=== PATIENT | male | born 1965 | race American Indian/Alaskan Native ===

== ENCOUNTER 2021-10-22 15:32 | Inpatient (IN) | payer OTHER ==
[2021-10-22] MEDS ORDERED: PROMETHAZINE 25 MG RECT SUPP PR PRN (16:19)
[2021-10-22] MEDS ORDERED: ALBUTEROL 2.5 MG/3 ML NEBU IH PRN (16:19)
[2021-10-22] MEDS ORDERED: MAGNESIUM HYDROXIDE (MOM) ORAL LIQD UDC PO PRN (16:19)
[2021-10-22] MEDS ORDERED: ONDANSETRON 4 MG/2 ML INJ IV PRN (16:19)
[2021-10-22] MEDS ORDERED: HYDROmorphone 0.5 MG/0.5 ML INJ IV PRN (16:19)
[2021-10-22] MEDS ORDERED: METOCLOPRAMIDE 10 MG TAB PO PRN (16:19)
--- NOTE | 2021-10-22 16:24 | History and Physical Report ---
History of Present Illness Chief complaint: He had a stroke History of present illness: 55 YO Male with HTN, DM, CVA complicated by Dysphagia, Dysarthria, Left Hemiparesis, Debility was admitted to [facility] in [facility] on 06/22/21. The patient was transported to [facility] today via air ambulance for continued treatment of the aforementioned symptoms. The patient was seen and evaluated in the emergency department. All lab and imaging studies reviewed. The patient was found to have clinical symptoms consistent with CVA but the patient was deemed outside the therapeutic window for tPA. The patient was admitted to [facility] and initiated on CVA protocol. The patient is nonverbal and has a palliative performance score of 30% and requires 6/6 assistance with activities of daily living. The patient is unable to provide history. Patient family is at bedside during exam and interview and is able to provide history. No reports of fever, chills, chest pain, palpitation, productive cough, skin rash, recent contact, known exposure to COVID-19. No prior admission for review. All medication listed at time of admission has been reconciled. Advanced care planning conducted in ED. Past History Past Medical History: diabetes, hypertension, stroke, other (See HPI) Past Surgical History: Other (PEG tube placement) Social history: single. denies: smoking, alcohol abuse, prescription drug abuse Family history: diabetes, hypertension Medications and Allergies Active Meds: Active Medications Acetaminophen (Acetaminophen 325 Mg Tab) 650 mg PO Q4H PRN PRN Reason: Pain, Mild (1-3) Albuterol (Albuterol 2.5 Mg/3 Ml Nebu) 2.5 mg IH Q3HRT PRN PRN Reason: Shortness Of Breath Aspirin (Aspirin 325 Mg Tab) 325 mg PO QDAY NEO Atorvastatin Calcium (Atorvastatin 40 Mg Tab) 40 mg PO QHS NEO Bisacodyl (Bisacodyl 10 Mg Rect Supp) 10 mg AR QDAY PRN PRN Reason: Constipation Hydromorphone HCl (Hydromorphone 0.5 Mg/0.5 Ml Inj) 0.5 mg IV Q13H PRN PRN Reason: Pain , Severe (7-10) Magnesium Hydroxide (Magnesium Hydroxide (Mom) Oral Liqd Udc) 30 ml PO Q4H PRN PRN Reason: Constipation Metoclopramide HCl (Metoclopramide 10 Mg Tab) 10 mg PO Q6H PRN PRN Reason: Nausea And Vomiting Ondansetron HCl (Ondansetron 4 Mg/2 Ml Inj) 4 mg IV Q8H PRN PRN Reason: Nausea And Vomiting Oxycodone/Acetaminophen (Oxycodone /Acetaminophen 5-325mg Tab) 1 tab PO Q12H PRN PRN Reason: Pain, Moderate (4-6) Promethazine HCl (Promethazine 25 Mg Rect Supp) 25 mg AR Q6H PRN PRN Reason: Nausea And Vomiting Sodium Chloride (Sodium Chloride 0.9% 10 Ml Flush Syringe) 10 ml INJ PRN PRN PRN Reason: LINE FLUSH Review of Systems ROS unobtainable: due to mental status Exam - Constitutional General appearance: Present: mild distress - EENT Eyes: Present: PERRL ENT: hearing intact, clear oral mucosa - Neck Neck: Present: supple, normal ROM - Respiratory Respiratory effort: normal Respiratory: bilateral: diminished - Cardiovascular Heart Sounds: Present: S1 & S2. Absent: rub, click - Extremities Extremity abnormal: ulceration Peripheral Pulses: within normal limits - Abdominal General gastrointestinal: Present: soft, non-tender, non-distended, normal bowel sounds, other (PEG tube in place) Male genitourinary: Present: normal - Integumentary Integumentary: Present: clear, dry - Musculoskeletal Musculoskeletal: left sided weakness - Psychiatric Psychiatric: no intact judgment & insight, no memory intact, no cooperative - Neurologic Neurologic: no CNII-XII intact, focal deficits, no moves all extremities, no gait normal Results - Labs CBC & Chem 7: 10/22/21 16:00 10/22/21 16:00 Assessment and Plan - Patient Problems (1) CVA (cerebral vascular accident) Current Visit: Yes Status: Acute Qualifiers: Precerebral and cerebral artery: middle cerebral artery Laterality of affected vessel: right Plan to address problem: CVA protocol: CT head, neuro check, seizure precaution aspiration precaution, fall precautions, antiplatelet therapy, lipid panel, statin therapy, echocardiogram, carotid Doppler, physical therapy consulted, Occupational Therapy consulted, speech therapy consulted. (2) Hemiparesis, left Current Visit: Yes Status: Acute Plan to address problem: Physical therapy consulted, continue supportive care. (3) Hypertension Current Visit: Yes Status: Acute Qualifiers: Hypertension type: primary hypertension Qualified Code(s): I10 - Essential (primary) hypertension Plan to address problem: Monitor blood pressure every shift, continue medical management. (4) Diabetes Current Visit: Yes Status: Acute Plan to address problem: Consistent carbohydrate diet, Accu-Chek, insulin protocol, hypoglycemia protocol (5) Dysarthria as late effect of stroke Current Visit: Yes Status: Acute Plan to address problem: Speech therapy consulted. Supportive care, (6) Dysphagia as late effect of stroke Current Visit: Yes Status: Acute Plan to address problem: Speech therapy consulted, dietary consulted for tube feeding recommendations. (7) Debility Current Visit: Yes Status: Acute Plan to address problem: Physical therapy consulted, fall precautions. (8) DVT prophylaxis Current Visit: Yes Status: Acute Plan to address problem: SCD to bilateral lower extremities while in bed, prophylactic anticoagulation (9) Advance care planning Current Visit: Yes Status: Acute Plan to address problem: Disease education done, care plan discussed, diagnoses discussed, prognosis discussed, patient is full code, patient family acknowledged understanding and agreement with care plan, +30 minutes. (10) Preventative health care Current Visit: Yes Status: Acute Plan to address problem: Patient family counseled regarding risk factor reduction, need for outpatient follow-up with primary care physician for all age and risk factor appropriate screening test. +30 minutes.
[2021-10-22 16:29] LABS: Alanine Aminotransferase 28 units/L (7-56); Albumin 4.3 g/dL (3.9-5); Blood Urea Nitrogen 10 mg/dL (9-20); Hemolysis Index 18
[2021-10-22 16:47] LABS: BUN/Creatinine Ratio 17
[2021-10-22 16:56] LABS: Basophils % (Auto) 0.4 % (0.0-1.8); Eosinophils # (Auto) 0.1 K/mm3 (0.0-0.4); Eosinophils % (Auto) 1.3 % (0.0-4.3); Hematocrit 40.5 % (35.5-45.6); Hemoglobin 13.4 gm/dl (11.8-15.2); Lymphocytes # (Auto) 2.4 K/mm3 (1.2-5.4); Lymphocytes % (Auto) 29.6 % (13.4-35.0); Mean Corpuscular HGB Conc 33 % (32-34); Mean Corpuscular Volume 83 fl (84-94); Monocytes % (Auto) 11.8 % (0.0-7.3); Platelet Count 252 K/mm3 (140-440); Red Blood Count 4.89 M/mm3 (3.65-5.03); Red Cell Distribution Width 14.1 % (13.2-15.2)
[2021-10-22 17:07] LABS: INR 1.04 (0.87-1.13)
[2021-10-22 17:08] LABS: Partial Thromboplastin Time 28.1 Sec. (24.2-36.6)
--- NOTE | 2021-10-22 17:16 | Vascular Lab Report ---
"DUPLEX DOPPLER ULTRASOUND CAROTID, BILATERAL INDICATION / CLINICAL INFORMATION: stroke. COMPARISON: None available. FINDINGS: RIGHT CAROTID: - PLAQUE ESTIMATE (%): < 50% - CCA velocity: 90 cm/sec. - ICA peak systolic velocity: 77 cm/sec. - ICA/CCA PSV Ratio: 0.85 Right Vertebral Artery: Antegrade flow. LEFT CAROTID: - PLAQUE ESTIMATE: < 50% - CCA velocity: 93 cm/sec. - ICA peak systolic velocity: 96 cm/sec. - ICA/CCA PSV Ratio: 1.04 Left Vertebral Artery: Antegrade flow. IMPRESSION: 1. Right Internal Carotid Artery: Less than 50% diameter stenosis. 2. Left Internal Carotid Artery: Less than 50% diameter stenosis. Velocity criteria are extrapolated from diameter data as defined by the Society of Radiologists in [facility] Consensus Conference, Radiology 2003; 229;340-346. Degree of || ICA PSV || Plaque || ICA/CCA Stenosis (%) || (cm/sec) || estimate (%) || PSV Ratio Normal ............. || ...<125........... || ...None......... || ...<2.0 <50................... || ...<125........... || ......<50......... || ...<2.0 50-69................ || ..125-230...... || ......>50......... || 2.0-4.0 >70 but <100... || >230.............. || .......>50........ || ...>4.0 Near occlusion || High/low/none || ...visible....... || variable Total occlusion || ....None........... || ..no lumen... || ....N/A Signer Name: Zac Peng MD Signed: 10/22/2021 5:11 PM Workstation Name: [facility]"
[2021-10-22] MEDS ORDERED: DEXTROSE 50% IN WATER (25GM) 50 ML SYRINGE IV PRN (17:23)
--- NOTE | 2021-10-22 18:03 | Emergency Department Report ---
ED Neuro Deficit HPI - General Chief Complaint: Weakness Stated Complaint: STROKE LIKE SX Time Seen by Provider: 10/22/21 15:36 Source: EMS Mode of arrival: Stretcher Limitations: No Limitations, Other (Mental status, patient is minimally verbal per brother's report) - History of Present Illness Initial Comments: 55-year-old male with multiple medical comorbidities flown in from [facility] for evaluation of stroke. Per chart review, patient sustained a stroke with left- sided hemiparesis approximately 4 months ago. Patient's brother states that the patient has not improved since his stroke and he requested the patient be transported to the [facility] for further management. During the patient's hospitalization in [facility], he underwent placement of a Agrawal catheter as well as a G-tube. Patient's brother states that he has not regained full motor function neither cognitive function as a result of his stroke. Patient unable to provide information with respect to pain scale - Related Data Allergies/Adverse Reactions: Allergies Allergy/AdvReac Type Severity Reaction Status Date / Time No Known Allergies Allergy Unverified 10/22/21 17:35 ED Review of Systems ROS: Stated complaint: STROKE LIKE SX Other details as noted in HPI Comment: All other systems reviewed and negative Constitutional: no symptoms reported Eyes: as per HPI ENT: as per HPI Respiratory: no symptoms reported Cardiovascular: as per HPI Endocrine: no symptoms reported Gastrointestinal: denies: abdominal pain, nausea, vomiting, diarrhea, constipation, hematemesis, melena Musculoskeletal: denies: as per HPI, joint swelling, myalgia, other Skin: denies: as per HPI, change in color Neurological: headache, weakness, other (LUE weakness x 3-4 months ). denies: as per HPI Psychiatric: denies: anxiety, depression, auditory hallucinations, visual hallucinations, homicidal thoughts, suicidal thoughts Hematological/Lymphatic: denies: easy bleeding, easy bruising, swollen glands ED Past Medical Hx - Past Medical History Previous Medical History?: Yes Hx Hypertension: Yes Hx CVA: Yes - Family History Family history: no significant - Social History Smoking Status: Never Smoker ED Neuro Physical Exam - General Limitations: No Limitations, Physical Limitation General appearance: other Suspected Stroke: Yes - Head Head exam: Present: atraumatic, normocephalic, normal inspection - Eye Eye exam: Present: normal appearance, PERRL, EOMI - ENT ENT exam: Present: normal exam, normal orophraynx, mucous membranes moist, louis l external ear exam - Neck Neck exam: Present: full ROM. Absent: tenderness, meningismus, lymphadenopathy, thyromegaly, other - Respiratory Respiratory exam: Present: normal lung sounds bilaterally - Cardiovascular Cardiovascular Exam: Present: regular rate, normal rhythm, normal heart sounds. Absent: bradycardia, tachycardia, irregular rhythm, systolic murmur, diastolic murmur, rubs, gallop - GI/Abdominal GI/Abdominal exam: Present: soft, normal bowel sounds, other (G-tube in place, G-tube site does not demonstrate evidence of erythema warmth or drainage suggestive of secondary infection). Absent: distended, tenderness, guarding, re bound, rigid, diminished bowel sounds - External exam: Present: other (Patient has contracture of left upper extremity left lower extremity, intermittent movements of right upper extremity right lower extremity) - Extremities Exam Extremities exam: Present: normal inspection - Back Exam Back exam: Present: normal inspection, full ROM - Neurological Exam Neurological exam: Present: CN II-XII intact, other - NIHSS Assessment Interval: Baseline 1a. Level of Consciousness: arousable/minor stimuli 1b. LOC Questions: aphasic 1c. LOC Commands: performs no tasks correctly 2. Best Gaze: normal 3. Visual: no visual loss 4. Facial Palsy: normal symmetrical movement 5b. Motor Arm Right: some gravity effort 5a. Motor Arm Left: no movement 6a. Motor Leg Left: no movement 6b. Motor Leg Right: some gravity effort 7. Limb Ataxia: present 2 limbs 8. Sensory: mild/moderate sensory loss 9. Best Language: mild/moderate aphasia 10. Dysarthria: severe dysarthria 11. Extinction/Inattention: visual/tactile inattention Total Score: 24 Stroke Severity: Severe Stroke - Psychiatric Psychiatric exam: Present: normal affect - Skin Skin exam: Present: warm, dry, intact ED Course Vital Signs 10/22/21 17:38 Temperature 98.9 F Pulse Rate 94 H Respiratory 18 Rate Blood Pressure 131/77 Blood Pressure 139/85 [Right] O2 Sat by Pulse 98 Oximetry - Lab Data Result diagrams: 10/22/21 16:00 10/22/21 16:00 Lab Results 10/22/21 10/22/21 10/22/21 Range/Units 16:00 16:00 16:00 WBC 8.3 (4.5-11.0) K/mm3 RBC 4.89 (3.65-5.03) M/mm3 Hgb 13.4 (11.8-15.2) gm/dl Hct 40.5 (35.5-45.6) % MCV 83 L (84-94) fl MCH 27 L (28-32) pg MCHC 33 (32-34) % RDW 14.1 (13.2-15.2) % Plt Count 252 (140-440) K/mm3 Lymph % (Auto) 29.6 (13.4-35.0) % Vigo % (Auto) 11.8 H (0.0-7.3) % Eos % (Auto) 1.3 (0.0-4.3) % Baso % (Auto) 0.4 (0.0-1.8) % Lymph # (Auto) 2.4 (1.2-5.4) K/mm3 Vigo # (Auto) 1.0 H (0.0-0.8) K/mm3 Eos # (Auto) 0.1 (0.0-0.4) K/mm3 Baso # (Auto) 0.0 (0.0-0.1) K/mm3 Seg Neutrophils % 56.9 (40.0-70.0) % Seg Neutrophils # 4.7 (1.8-7.7) K/mm3 PT 14.8 (12.2-14.9) Sec. INR 1.04 (0.87-1.13) APTT 28.1 (24.2-36.6) Sec. Sodium 138 (137-145) mmol/L Potassium 4.2 (3.6-5.0) mmol/L Chloride 99.0 (98-107) mmol/L Carbon Dioxide 25 (22-30) mmol/L Anion Gap 18 mmol/L BUN 10 (9-20) mg/dL Creatinine 0.6 L (0.8-1.3) mg/dL Estimated GFR > 60 ml/min BUN/Creatinine Ratio 17 % Glucose 175 H (75-100) mg/dL Calcium 10.0 (8.4-10.2) mg/dL Total Bilirubin 0.50 (0.1-1.2) mg/dL AST 24 (5-40) units/L ALT 28 (7-56) units/L Alkaline Phosphatase 102 (35-129) units/L Total Protein 6.9 (6.3-8.2) g/dL Albumin 4.3 (3.9-5) g/dL Albumin/Globulin Ratio 1.7 % - EKG Data EKG shows normal: sinus rhythm When compared to previous EKG there are: previous EKG unavailable Interpretation: no acute changes - Radiology Data Radiology results: report reviewed - Medical Decision Making 55-year-old male with multiple medical comorbidities presents for evaluation of weakness in the setting of chronic stroke. Vital signs stable. Labs reviewed. Diagnostic imaging results reviewed. Patient has been accepted by Dr. Knott, admitting hospitalist, to the hospital service for further management. Critical care attestation.: If time is entered above; I have spent that time in minutes in the direct care of this critically ill patient, excluding procedure time. ED Disposition Clinical Impression: CVA (cerebral vascular accident) Qualifiers: Precerebral and cerebral artery: middle cerebral artery Laterality of affected vessel: right Disposition: 09 ADMITTED INPATIENT Is pt being admited?: Yes Does the pt Need Aspirin: No Condition: Stable
--- NOTE | 2021-10-22 19:13 | Cat Scan Report ---
CT head/brain wo con INDICATION / CLINICAL INFORMATION: 55 years Male; R sided hemiparesis, CVA 4 months ago; p/w weaknes. TECHNIQUE: Routine CT head without contrast. All CT scans at this location are performed using CT dos e reduction for ALARA by means of automated exposure control. COMPARISON: None. FINDINGS: BRAIN / INTRACRANIAL CONTENTS: Old, moderately sized MCA infarct seen on the right, involving the inf erior frontoparietal regions, gangliocapsular regions, and right temporal lobe. Atrophic dilatation o f the right lateral ventricle is noted.] It would be difficult to evaluate for small areas of ilya-in farct ischemia without diffusion imaging by MRI. Prominent lacunar infarct is seen in the left anterior andrea, which certainly could affect the left co rticospinal tract. Smaller, scattered lacunar infarcts suggested in the andrea as well. Old, moderately sized right PICA territory infarct is seen. Otherwise, no acute hemorrhage, mass effect, midline shift, hydrocephalus, or acute, large territori al infarct. Mild cerebral and cerebellar atrophy, largely related to prior infarcts. There are [id number] areas of decreased attenuation in the white matter of the cerebral hemisph eres. These are nonspecific findings and may be related to microangiopathy (hypertension, diabetes, a therosclerosis), given the patient's age. It might be difficult to evaluate for small areas of ischem ia without diffusion imaging by MRI. As noted above, pontine disease is suspected. CRANIOCERVICAL JUNCTION: No significant abnormality. ORBITS: No significant abnormality of visualized orbits. SINUSES / MASTOIDS: Mild to moderate mucosal thickening in the ethmoids. ADDITIONAL FINDINGS: Poor dentition noted. Atherosclerotic disease is seen in the anterior and posterior circulation. There may be subcutaneous soft tissue swelling in the upper lip region, leftward of midline. Please c linically correlate. IMPRESSION: 1. No focal mass, hemorrhage, hydrocephalus, or acute, large territorial infarct. Follow-up with diff usion imaging by MRI, as clinically warranted. Signer Name: Jericho Schultz MD, III Signed: 10/22/2021 7:09 PM Workstation Name: [email or web address]
[2021-10-22] MEDS: HEPARIN 5,000 UNIT/1 ML VIAL SUB-Q SCH (22:50)
[2021-10-22] MEDS: ACETAMINOPHEN 325 MG TAB PO PRN (22:50)
[2021-10-22] MEDS: INSULIN LISPRO 100 UNIT/ML SUB-Q SCH (22:50)
--- NOTE | 2021-10-22 22:59 | Consultation ---
History of Present Illness Consult date: 10/22/21 Requesting physician: RITA LIANG Reason for consult: other (Dyspnea) History of present illness: PCCM CONSULT NOTE (Full dictation # [id number]) Please see dictated notes for full details Past History Past Medical History: diabetes, hypertension, stroke, other (See HPI) Past Surgical History: Other (PEG tube placement) Social history: single. denies: smoking, alcohol abuse, prescription drug abuse Family history: diabetes, hypertension Medications and Allergies Allergies Allergy/AdvReac Type Severity Reaction Status Date / Time No Known Allergies Allergy Unverified 10/22/21 17:35 Home Medications Medication Instructions Recorded Confirmed Last Taken Type Atorvastatin [Lipitor Tab] 80 mg PO QPM 10/23/21 10/23/21 Unknown History Enoxaparin [Lovenox] 40 mg SQ QDAY 10/23/21 10/23/21 Unknown History FLUoxetine [PROzac] 10 mg PO QDAY 10/23/21 10/23/21 Unknown History Indapamide 5 mg PO QDAY 10/23/21 10/23/21 Unknown History Insulin Glargine [Lantus VIAL] 44 units SUB-Q QPM 10/23/21 10/23/21 Unknown History Insulin Regular, Human [Novolin R] 1 units IJ TID 10/23/21 10/23/21 Unknown History Pantoprazole Sodium 20 mg PO QPM 10/23/21 10/23/21 Unknown History Sodium Phosphate,Bradley-Dibasic 133 ml RC Q72HR 10/23/21 10/23/21 Unknown History [Enema Ready To Use] bisoproloL fumarate [Bisoprolol 5 mg PO QAM 10/23/21 10/23/21 Unknown History Fumarate] levETIRAcetam [Spritam] 250 mg PO BID 10/23/21 10/23/21 Unknown History Active Meds: Active Medications Acetaminophen (Acetaminophen 325 Mg Tab) 650 mg PO Q4H PRN PRN Reason: Pain, Mild (1-3) Last Admin: 10/22/21 22:50 Dose: 650 mg Albuterol (Albuterol 2.5 Mg/3 Ml Nebu) 2.5 mg IH Q3HRT PRN PRN Reason: Shortness Of Breath Aspirin (Aspirin 325 Mg Tab) 325 mg PO QDAY [facility] Atorvastatin Calcium (Atorvastatin 40 Mg Tab) 40 mg PO QHS [facility] Last Admin: 10/22/21 22:50 Dose: 40 mg Bisacodyl (Bisacodyl 10 Mg Rect Supp) 10 mg SD QDAY PRN PRN Reason: Constipation Dextrose (Dextrose 50% In Water (25gm) 50 Ml Syringe) 50 ml IV Q30MIN PRN; P rotocol PRN Reason: Hypoglycemia Heparin Sodium (Porcine) (Heparin 5,000 Unit/1 Ml Vial) 5,000 unit SUB-Q Q12HR [facility] Last Admin: 10/22/21 22:50 Dose: 5,000 unit Hydromorphone HCl (Hydromorphone 0.5 Mg/0.5 Ml Inj) 0.5 mg IV Q13H PRN PRN Reason: Pain , Severe (7-10) Insulin Human Lispro (Insulin Lispro 100 Unit/Ml) 0 unit SUB-Q ACHS [facility]; Protocol Last Admin: 10/22/21 22:50 Dose: Not Given Magnesium Hydroxide (Magnesium Hydroxide (Mom) Oral Liqd Udc) 30 ml PO Q4H PRN PRN Reason: Constipation Metoclopramide HCl (Metoclopramide 10 Mg Tab) 10 mg PO Q6H PRN PRN Reason: Nausea And Vomiting Ondansetron HCl (Ondansetron 4 Mg/2 Ml Inj) 4 mg IV Q8H PRN PRN Reason: Nausea And Vomiting Oxycodone/Acetaminophen (Oxycodone /Acetaminophen 5-325mg Tab) 1 tab PO Q12H PRN PRN Reason: Pain, Moderate (4-6) Pneumococcal Polyvalent Vaccine (Pneumococcal 23 Valent 0.5 Ml Vial) 0.5 ml IM .ONCE ONE Stop: 10/23/21 12:01 Promethazine HCl (Promethazine 25 Mg Rect Supp) 25 mg SD Q6H PRN PRN Reason: Nausea And Vomiting Sodium Chloride (Sodium Chloride 0.9% 10 Ml Flush Syringe) 10 ml IV PRN PRN PRN Reason: LINE FLUSH Physical Examination Vital signs: Vital Signs Resp Pulse Ox 14 99 10/22/21 15:52 10/22/21 15:52 Results - Laboratory Findings CBC and BMP: 10/22/21 16:00 10/22/21 16:00 PT/INR, D-dimer PT 14.8 Sec. (12.2-14.9) 10/22/21 16:00 INR 1.04 (0.87-1.13) 10/22/21 16:00 Abnormal lab findings: Abnormal Labs 10/22/21 10/22/21 10/22/21 16:00 16:00 22:44 MCV 83 L MCH 27 L Bradley % (Auto) 11.8 H Bradley # (Auto) 1.0 H Creatinine 0.6 L Glucose 175 H POC Glucose 115 H
--- NOTE | 2021-10-23 10:32 | Progress Note ---
<SUKUMAR TAPIA - Last Filed: 10/23/21 18:25> Assessment and Plan Assessment and plan: This is a 55-year-old male with known past medical history of HTN, DM, CVA complicated by Dysphagia, Dysarthria, Left Hemiparesis, debility and seizure disorder admitted for acute CVA/TIA Hospital Course to Date: 10/23: Nonverbal, open eyes spontaneously, does not follow any commands with LUE paralysis/contraction. on RA, VSS. Echo and Neurology consult pending. PT/OT/Speech also consulted. PEG-tube noted, nutrition/roofing layer consulted for TF management. Pulmonary is also following. Patient presented with a harden catheter, per record history of urinary retention. Harden cath exchanged, UA pending. Assessment and Plan #Cerebral Vascular Accident(CVA) #Transient Ischemic Attack(TIA) #Hemiparesis, left #H/o Seizure Disorder - Patient transfer from [facility] in [facility] via air ambulance for stroke like sx, out of therapuetic window for tPA - Patient had recent CVA back in 06/22/21 while in [facility] complicated by Dysphagia, Dysarthria, Left Hemiparesis, and Debility - CT head/brain shows old, moderately sized right PICA territory infarct with mild cerebral and cerebellar atrophy. No acute abnormality reported. See report for details - Patient is nonverbal, open eyes spontaneously but does not follow any commands, LUE paralysis/contraction noted - Carotid US noted - 2D Echo pending - On ASA, statin, and VTE proph - Neurology consulted - PT/OT/Speech consulted - Neuro check protocol - Aspiration and Fall precaution - Home keppra resumed #Hypertension - BP stable this am - Hold all antihypertensive regimen for now - Continue blood pressure monitor per protocol - Maintain SBP less than 180, DBP less than 100 for first 24 to 48hrs #Dysarthria/Dysphagia #S/p PEG-Tube Placement - complications from prevous CVA, Supportive care - Initiated enteral nutrition - Nutrition and Speech therapy consulted. #Urinary Retention/Obstruction - Presented with Harden catheter, per record history of urinary retention - Harden cath exchanged. UA pending - Strict intake and output #Type 2 Diabetes Mellitus - BG and SSI ACHS - Avoid hypglycemia #GI/DVT Prophylaxis - PPI- Protonix - Heparin SubQ - SCD to bilateral lower extremities while in bed #Advance Care Planning - Disease education data, care plan, diagnoses, and prognosis were discussed with patient's brother. Patient is a Full code. Patient's family acknowledged understanding and agreement with current care plan. The high probability of a clinically significant, sudden or life threatening deterioration of the [multiple] system(s) required my full and direct attention, intervention and personal management. The aggregate critical care time was [60] minutes. This time is in addition to time spent performing reported procedures but includes the following: [x] Data Review and interpretation [x] Patient assessment and monitoring of vital signs [x] Documentation [x] Medication orders and management Disposition Plan: IMCU Total Time Spent with Patient (Minutes): 60 History Interval history: Patient seen and examined at the bedside. Nonverbal, open eyes spontaneously but does not follow any commands. On RA, no respiratory distress noted, VSS. LUE is contracted, otherwise generalized weakness Hospitalist Physical - Constitutional Vitals: Temp Pulse Resp BP Pulse Ox 98.3 F 87 17 120/77 97 10/23/21 07:17 10/23/21 07:00 10/23/21 07:00 10/23/21 07:00 10/23/21 09:51 General appearance: Present: no acute distress, well-nourished - EENT Eyes: Present: PERRL, EOM intact ENT: hearing intact - Neck Neck: Present: normal ROM - Respiratory Respiratory effort: normal Respiratory: bilateral: diminished - Cardiovascular Rhythm: regular Heart Sounds: Present: S1 & S2 - Extremities Extremities: no ischemia, pulses intact, pulses symmetrical, abnormal (LUE contraction) Extremity abnormal: edema - Peripheral Assessment Left Upper Extremity Edema Type: Pitting Edema Degree: Trace Capillary Refill: < 3 seconds Skin Temperature: Warm Generalized Edema Type: Non-pitting Edema Degree: 1+ Capillary Refill: < 3 seconds Skin Temperature: Warm Peripheral Pulses: within normal limits - Abdominal General gastrointestinal: soft, non-distended, normal bowel sounds, other (PEG- Tube present) - Integumentary Integumentary: Present: warm, dry - Psychiatric Psychiatric: other (LINDSAY, nonverbal. Open eyes spontaneously, does not follow commands) - Neurologic Neurologic: moves all extremities (Except LUE due to contraction. Otherwise generalized weakness), other (LINDSAY, nonverbal. Open eyes spontaneously, does not follow commands) - Allied Health Allied health notes reviewed: nursing Results - Labs CBC & Chem 7: 10/22/21 16:00 10/22/21 16:00 Labs: Laboratory Last Values WBC 8.3 K/mm3 (4.5-11.0) 10/22/21 16:00 RBC 4.89 M/mm3 (3.65-5.03) 10/22/21 16:00 Hgb 13.4 gm/dl (11.8-15.2) 10/22/21 16:00 Hct 40.5 % (35.5-45.6) 10/22/21 16:00 MCV 83 fl (84-94) L 10/22/21 16:00 MCH 27 pg (28-32) L 10/22/21 16:00 MCHC 33 % (32-34) 10/22/21 16:00 RDW 14.1 % (13.2-15.2) 10/22/21 16:00 Plt Count 252 K/mm3 (140-440) 10/22/21 16:00 Lymph % (Auto) 29.6 % (13.4-35.0) 10/22/21 16:00 Real % (Auto) 11.8 % (0.0-7.3) H 10/22/21 16:00 Eos % (Auto) 1.3 % (0.0-4.3) 10/22/21 16:00 Baso % (Auto) 0.4 % (0.0-1.8) 10/22/21 16:00 Lymph # (Auto) 2.4 K/mm3 (1.2-5.4) 10/22/21 16:00 Real # (Auto) 1.0 K/mm3 (0.0-0.8) H 10/22/21 16:00 Eos # (Auto) 0.1 K/mm3 (0.0-0.4) 10/22/21 16:00 Baso # (Auto) 0.0 K/mm3 (0.0-0.1) 10/22/21 16:00 Seg Neutrophils % 56.9 % (40.0-70.0) 10/22/21 16:00 Seg Neutrophils # 4.7 K/mm3 (1.8-7.7) 10/22/21 16:00 PT 14.8 Sec. (12.2-14.9) 10/22/21 16:00 INR 1.04 (0.87-1.13) 10/22/21 16:00 APTT 28.1 Sec. (24.2-36.6) 10/22/21 16:00 Sodium 138 mmol/L (137-145) 10/22/21 16:00 Potassium 4.2 mmol/L (3.6-5.0) 10/22/21 16:00 Chloride 99.0 mmol/L (98-107) 10/22/21 16:00 Carbon Dioxide 25 mmol/L (22-30) 10/22/21 16:00 Anion Gap 18 mmol/L 10/22/21 16:00 BUN 10 mg/dL (9-20) 10/22/21 16:00 Creatinine 0.6 mg/dL (0.8-1.3) L 10/22/21 16:00 Estimated GFR > 60 ml/min 10/22/21 16:00 BUN/Creatinine Ratio 17 % 10/22/21 16:00 Glucose 175 mg/dL (75-100) H 10/22/21 16:00 POC Glucose 129 mg/dL (70-105) H 10/23/21 07:28 Calcium 10.0 mg/dL (8.4-10.2) 10/22/21 16:00 Total Bilirubin 0.50 mg/dL (0.1-1.2) 10/22/21 16:00 AST 24 units/L (5-40) 10/22/21 16:00 ALT 28 units/L (7-56) 10/22/21 16:00 Alkaline Phosphatase 102 units/L (35-129) 10/22/21 16:00 Total Protein 6.9 g/dL (6.3-8.2) 10/22/21 16:00 Albumin 4.3 g/dL (3.9-5) 10/22/21 16:00 Albumin/Globulin Ratio 1.7 % 10/22/21 16:00 Harden/IV: Voiding Method Indwelling Catheter Active Medications - Current Medications Current Medications: Generic Name Dose Route Start Last Admin Trade Name Freq PRN Reason Stop Dose Admin Acetaminophen 650 mg 10/22/21 16:19 10/22/21 22:50 Acetaminophen 325 Mg Tab PO 650 mg Q4H PRN Administration Pain, Mild (1-3) Albuterol 2.5 mg 10/22/21 16:19 Albuterol 2.5 Mg/3 Ml Nebu IH Q3HRT PRN Shortness Of Breath Aspirin 325 mg 10/23/21 10:00 Aspirin 325 Mg Tab PO QDAY [facility] Atorvastatin Calcium 40 mg 10/22/21 22:00 10/22/21 22:50 Atorvastatin 40 Mg Tab PO 40 mg QHS NEO Administration Bisacodyl 10 mg 10/22/21 16:19 Bisacodyl 10 Mg Rect Supp OK QDAY PRN Constipation Dextrose 50 ml 10/22/21 17:23 Dextrose 50% In Water (25gm) 50 Ml Syringe IV Q30MIN PRN Hypoglycemia Protocol Heparin Sodium (Porcine) 5,000 unit 10/22/21 22:00 10/22/21 22:50 Heparin 5,000 Unit/1 Ml Vial SUB-Q 5,000 unit Q12HR NEO Administration Hydromorphone HCl 0.5 mg 10/22/21 16:19 Hydromorphone 0.5 Mg/0.5 Ml Inj IV Q13H PRN Pain , Severe (7-10) Insulin Human Lispro 0 unit 10/22/21 22:00 10/22/21 22:50 Insulin Lispro 100 Unit/Ml SUB-Q Not Given ACHS [facility] Protocol Magnesium Hydroxide 30 ml 10/22/21 16:19 Magnesium Hydroxide (Mom) Oral Liqd Udc PO Q4H PRN Constipation Metoclopramide HCl 10 mg 10/22/21 16:19 Metoclopramide 10 Mg Tab PO Q6H PRN Nausea And Vomiting Ondansetron HCl 4 mg 10/22/21 16:19 Ondansetron 4 Mg/2 Ml Inj IV Q8H PRN Nausea And Vomiting Oxycodone/Acetaminophen 1 tab 10/22/21 16:19 Oxycodone /Acetaminophen 5-325mg Tab PO Q12H PRN Pain, Moderate (4-6) Pneumococcal Polyvalent Vaccine 0.5 ml 10/23/21 12:00 Pneumococcal 23 Valent 0.5 Ml Vial IM 10/23/21 12:01 .ONCE ONE Promethazine HCl 25 mg 10/22/21 16:19 Promethazine 25 Mg Rect Supp OK Q6H PRN Nausea And Vomiting Sodium Chloride 10 ml 10/22/21 16:19 Sodium Chloride 0.9% 10 Ml Flush Syringe IV PRN PRN LINE FLUSH <DIOR MCKEON E - Last Filed: 10/24/21 07:27> Assessment and Plan Assessment and plan: I saw and evaluated the patient. I agree with the findings and the plan of care as documented in the Nurse Practitioner's~note, with the following corrections and additions. Hospitalist Physical - Constitutional Vitals: Temp Pulse Resp BP Pulse Ox 98.0 F 93 H 21 131/76 99 10/24/21 04:05 10/24/21 06:00 10/24/21 06:00 10/24/21 06:00 10/24/21 06:00 Results - Labs CBC & Chem 7: 10/24/21 05:00 10/24/21 05:00 Labs: Laboratory Last Values WBC 6.4 K/mm3 (4.5-11.0) 10/24/21 05:00 RBC 4.59 M/mm3 (3.65-5.03) 10/24/21 05:00 Hgb 12.7 gm/dl (11.8-15.2) 10/24/21 05:00 Hct 37.7 % (35.5-45.6) 10/24/21 05:00 MCV 82 fl (84-94) L 10/24/21 05:00 MCH 28 pg (28-32) 10/24/21 05:00 MCHC 34 % (32-34) 10/24/21 05:00 RDW 14.1 % (13.2-15.2) 10/24/21 05:00 Plt Count 222 K/mm3 (140-440) 10/24/21 05:00 Lymph % (Auto) 29.6 % (13.4-35.0) 10/22/21 16:00 Real % (Auto) 11.8 % (0.0-7.3) H 10/22/21 16:00 Eos % (Auto) 1.3 % (0.0-4.3) 10/22/21 16:00 Baso % (Auto) 0.4 % (0.0-1.8) 10/22/21 16:00 Lymph # (Auto) 2.4 K/mm3 (1.2-5.4) 10/22/21 16:00 Real # (Auto) 1.0 K/mm3 (0.0-0.8) H 10/22/21 16:00 Eos # (Auto) 0.1 K/mm3 (0.0-0.4) 10/22/21 16:00 Baso # (Auto) 0.0 K/mm3 (0.0-0.1) 10/22/21 16:00 Seg Neutrophils % 56.9 % (40.0-70.0) 10/22/21 16:00 Seg Neutrophils # 4.7 K/mm3 (1.8-7.7) 10/22/21 16:00 PT 14.8 Sec. (12.2-14.9) 10/22/21 16:00 INR 1.04 (0.87-1.13) 10/22/21 16:00 APTT 28.1 Sec. (24.2-36.6) 10/22/21 16:00 Sodium 138 mmol/L (137-145) 10/24/21 05:00 Potassium 3.5 mmol/L (3.6-5.0) L 10/24/21 05:00 Chloride 100.8 mmol/L (98-107) 10/24/21 05:00 Carbon Dioxide 26 mmol/L (22-30) 10/24/21 05:00 Anion Gap 15 mmol/L 10/24/21 05:00 BUN 9 mg/dL (9-20) 10/24/21 05:00 Creatinine 0.6 mg/dL (0.8-1.3) L 10/24/21 05:00 Estimated GFR > 60 ml/min 10/24/21 05:00 BUN/Creatinine Ratio 15 % 10/24/21 05:00 Glucose 134 mg/dL (75-100) H 10/24/21 05:00 POC Glucose 111 mg/dL (70-105) H 10/24/21 00:01 Calcium 9.2 mg/dL (8.4-10.2) 10/24/21 05:00 Total Bilirubin 0.50 mg/dL (0.1-1.2) 10/22/21 16:00 AST 24 units/L (5-40) 10/22/21 16:00 ALT 28 units/L (7-56) 10/22/21 16:00 Alkaline Phosphatase 102 units/L (35-129) 10/22/21 16:00 Total Protein 6.9 g/dL (6.3-8.2) 10/22/21 16:00 Albumin 4.3 g/dL (3.9-5) 10/22/21 16:00 Albumin/Globulin Ratio 1.7 % 10/22/21 16:00 Triglycerides 85 mg/dL (2-149) 10/23/21 12:33 Cholesterol 148 mg/dL (50-199) 10/23/21 12:33 LDL Cholesterol Direct 86 mg/dL (50-130) 10/23/21 12:33 HDL Cholesterol 44 mg/dL (40-59) 10/23/21 12:33 Cholesterol/HDL Ratio 3.36 % 10/23/21 12:33 Urine Color Yellow (Yellow) 10/23/21 08:49 Urine Turbidity Clear (Clear) 10/23/21 08:49 Urine pH 6.5 (5.0-7.0) 10/23/21 08:49 Ur Specific [place] 1.005 (1.003-1.030) 10/23/21 08:49 Urine Protein 30 mg/dl mg/dL (Negative) 10/23/21 08:49 Urine Glucose (UA) Negative mg/dL (Negative) 10/23/21 08:49 Urine Ketones Negative mg/dL (Negative) 10/23/21 08:49 Urine Blood Moderate (Negative) A 10/23/21 08:49 Urine Nitrite Negative (Negative) 10/23/21 08:49 Ur Reducing Substances Not Reportable 10/23/21 08:49 Urine Bilirubin Negative (Negative) 10/23/21 08:49 Urine Ictotest Not Reportable 10/23/21 08:49 Urine Urobilinogen < 2.0 mg/dL (<2.0) 10/23/21 08:49 Ur Leukocyte Esterase Moderate (Negative) 10/23/21 08:49 Urine WBC (Auto) 28.0 /HPF (0.0-6.0) H 10/23/21 08:49 Urine RBC (Auto) 27.0 /HPF (0.0-6.0) 10/23/21 08:49 U Epithel Cells (Auto) 14.0 /HPF (0-13.0) H 10/23/21 08:49 Hyaline Casts 1 /LPF 10/23/21 08:49 Urine Mucus Few /HPF 10/23/21 08:49 Harden/IV: Voiding Method Indwelling Catheter Active Medications - Current Medications Current Medications: Generic Name Dose Route Start Last Admin Trade Name Freq PRN Reason Stop Dose Admin Acetaminophen 650 mg 10/22/21 16:19 10/22/21 22:50 Acetaminophen 325 Mg Tab PO 650 mg Q4H PRN Administration Pain, Mild (1-3) Albuterol 2.5 mg 10/22/21 16:19 Albuterol 2.5 Mg/3 Ml Nebu IH Q3HRT PRN Shortness Of Breath Aspirin 325 mg 10/23/21 10:00 10/23/21 10:36 Aspirin 325 Mg Tab PO 325 mg QDAY NEO Administration Atorvastatin Calcium 40 mg 10/22/21 22:00 10/23/21 23:52 Atorvastatin 40 Mg Tab PO 40 mg QHS NEO Administration Bisacodyl 10 mg 10/22/21 16:19 Bisacodyl 10 Mg Rect Supp OK QDAY PRN Constipation Dextrose 50 ml 10/22/21 17:23 Dextrose 50% In Water (25gm) 50 Ml Syringe IV Q30MIN PRN Hypoglycemia Protocol Heparin Sodium (Porcine) 5,000 unit 10/22/21 22:00 10/23/21 23:54 Heparin 5,000 Unit/1 Ml Vial SUB-Q 5,000 unit Q12HR NEO Administration Insulin Human Lispro 0 unit 10/22/21 22:00 10/24/21 00:02 Insulin Lispro 100 Unit/Ml SUB-Q Not Given ACHS NEO Protocol Lansoprazole 30 mg 10/23/21 18:00 10/23/21 18:08 Lansoprazole 30 Mg Solutab FEEDTUBE 30 mg QPM NEO Administration Levetiracetam 250 mg 10/23/21 22:00 10/23/21 23:54 Levetiracetam 500 Mg/5 Ml Oral Liqd PO 250 mg BID NEO Administration Magnesium Hydroxide 30 ml 10/22/21 16:19 Magnesium Hydroxide (Mom) Oral Liqd Udc PO Q4H PRN Constipation Ondansetron HCl 4 mg 10/22/21 16:19 Ondansetron 4 Mg/2 Ml Inj IV Q8H PRN Nausea And Vomiting Oxycodone/Acetaminophen 1 tab 10/22/21 16:19 Oxycodone /Acetaminophen 5-325mg Tab PO Q12H PRN Pain, Moderate (4-6) Senna 17.6 mg 10/23/21 22:00 10/23/21 23:52 Sennosides Oral Liqd 8.8 Mg/5 Ml Oral Liqd PO 17.6 mg Q12HR NEO Administration Sodium Chloride 10 ml 10/22/21 16:19 Sodium Chloride 0.9% 10 Ml Flush Syringe IV PRN PRN LINE FLUSH Nutrition/Malnutrition Assess - Dietary Evaluation Nutrition/Malnutrition Findings: Nutrition Notes Start: 10/23/21 13: 01 Freq: Status: Active Protocol: Document 10/23/21 13:01 MARGO (Rec: 10/23/21 13:06 MARGO [id number]) Nutrition Notes Need for Assessment generated from: MD Order,hospital manager Initial or Follow up Assessment Current Diagnosis Diabetes,Hypertension,Stroke Other Pertinent Diagnosis Dysphagia, (L) hemiparesis, Debility Current Diet NPO Labs/Tests Reviewed Pertinent Medications Reviewed Height 5 ft 11 in Weight 90.718 kg [place] Body Weight (kg) 78.18 BMI 27.8 Weight Status Overweight Subjective/Other Information RD consulted for TF; pt also screened for hs of receiving NTR support. Burn Absent Trauma Absent Minimum of two criteria No #1 Nutrition Diagnosis Swallowing difficulty Etiology CVA As Evidenced by Signs and Symptoms pt NPO Is patient on ventilator? No Is Patient Ambulatory and/or Out of Bed No REE-([facility]-confined to bed) [phone] Calculation Used for Recommendations [facility] Additional Notes Pro needs 0.8-1g/k-91g/ day Fluid needs 1ml/kcal Nutrition Intervention Nutrition Support: Glucerna 1.2 at 70ml/hr with 100ml water flush q4h. Kcal 2,016 Protein (gm) 101 Carbohydrates (gm) 192 Fat (gm) 101 Fluid (mL) 1,352 Fiber (gm) 27 Goal #1 TF tolerance Goal #2 TF to meet at least 75% energy and pro needs Anticipated Discharge Needs: Continue EN support Follow-Up By: 10/26/21 Additional Comments F/U: new TF
[2021-10-23] MEDS: INSULIN LISPRO 100 UNIT/ML SUB-Q SCH ×3 (10:36→18:04)
[2021-10-23] MEDS: HEPARIN 5,000 UNIT/1 ML VIAL SUB-Q SCH ×2 (10:36→23:54)
[2021-10-23] MEDS: ASPIRIN 325 MG TAB PO SCH (10:36)
[2021-10-23 11:30] LABS: Hyaline Casts,Urine 1 /LPF; Mucus,Urine FEW /HPF
[2021-10-23 11:51] LABS: Color,Urine Yellow (Yellow)
[2021-10-23 11:52] LABS: Bilirubin,Urine Negative (Negative); Blood,Urine Moderate (Negative); PH,Urine 6.5 (5.0-7.0); Urobilinogen,Urine < 2.0 mg/dL (<2.0)
[2021-10-23] MEDS ORDERED: PNEUMOCOCCAL 23 Valent 0.5 ML VIAL IM ONE (12:00)
--- NOTE | 2021-10-23 12:57 | Progress Note ---
Assessment and Plan 55 YO Male with HTN, DM, CVA complicated by Dysphagia, Dysarthria, Left Hemiparesis, Debility was admitted to [facility] in [place] [facility] on 06/22/21. The patient was transported to [facility] today via air ambulance for continued treatment of the aforementioned symptoms. The patient was found to have clinical symptoms consistent with CVA but the patient was deemed outside the therapeutic window for tPA. The patient was admitted to [facility] and initiated on CVA protocol. The patient is nonverbal and has a palliative performance scor e of 30% and requires 6/6 assistance with activities of daily living. T No reports of fever, chills, chest pain, palpitation, productive cough, skin rash, recent contact, known exposure to COVID-19. Patient has PEG Placement. According to the chart. No history of smoking, alcohol or drug abuse. Patient awake but not following commands. Patient is on room air. O2 saturation running 99%. No acute respiratory distress. Patient is afebrile. No leukocytosis. BP 128/83, pulse 83, RR 14. Chest x-ray done 10/23/21 reported no acute findings. Patient is on albuterol inhaler, subq heparin, and Prevacid. Patient was seen IMCU. I spent critical care time of 35 minutes, reviewing the chart, examine the patient, review chest xray and lab results, talking to the nursing staff, respiratory therapy and work up plan of treatment in this critically ill patient. - Patient Problems (1) CVA (cerebral vascular accident) Current Visit: Yes Status: Acute Qualifiers: Precerebral and cerebral artery: middle cerebral artery Laterality of affected vessel: right Plan to address problem: Manage is per primary care and neurology. Recommend aspiration precautions. (2) Dysarthria as late effect of stroke Current Visit: Yes Status: Acute Plan to address problem: Management is per neurology. (3) Dysphagia as late effect of stroke Current Visit: Yes Status: Acute Plan to address problem: Management is per neurology. (4) Hemiparesis, left Current Visit: Yes Status: Acute Plan to address problem: Management is per neurology. (5) Diabetes Current Visit: Yes Status: Acute Plan to address problem: Management is per primary care. (6) Hypertension Current Visit: Yes Status: Acute Qualifiers: Hypertension type: primary hypertension Qualified Code(s): I10 - Essential (primary) hypertension Plan to address problem: Management is per primary care. Subjective Date of service: 10/23/21 Interval history: 55 YO Male with HTN, DM, CVA complicated by Dysphagia, Dysarthria, Left Hemiparesis, Debility was admitted to [facility] in [place] [facility] on 06/22/21. The patient was transported to [facility] today via air ambulance for cont inued treatment of the aforementioned symptoms. The patient was found to have clinical symptoms consistent with CVA but the patient was deemed outside the therapeutic window for tPA. The patient was admitted to [facility] and initiated on CVA protocol. The patient is nonverbal and has a palliative performance score of 30% and requires 6/6 assistance with activities of daily living. T No reports of fever, chills, chest pain, palpitation, productive cough, skin rash, recent contact, known exposure to COVID-19. Patient has PEG Placement. According to the chart. No history of smoking, alcohol or drug abuse. Patient awake but not following commands. Patient is on room air. O2 saturation running 99%. No acute respiratory distress. Patient is afebrile. No leukocytosis. BP 128/83, pulse 83, RR 14. Chest x-ray done 10/23/21 reported no acute findings. Patient is on albuterol inhaler, subq heparin, and Prevacid. Objective Vital Signs - 12hr 10/23/21 10/23/21 10/23/21 01:30 01:59 02:00 Temperature 98.0 F Pulse Rate 88 Pulse Rate [ From Monitor] Pulse Rate [ 90 Right] Respiratory 14 16 Rate Blood Pressure 121/66 121/66 O2 Sat by Pulse 98 100 Oximetry 10/23/21 10/23/21 10/23/21 02:01 02:15 02:31 Temperature Pulse Rate 100 H 81 86 Pulse Rate [ From Monitor] Pulse Rate [ Right] Respiratory 19 20 23 Rate Blood Pressure 129/76 129/76 O2 Sat by Pulse 98 99 96 Oximetry 10/23/21 10/23/21 10/23/21 03:00 04:00 04:04 Temperature 97.4 F L Pulse Rate 88 85 Pulse Rate [ From Monitor] Pulse Rate [ Right] Respiratory 13 9 L Rate Blood Pressure 129/76 137/73 O2 Sat by Pulse 100 99 Oximetry 10/23/21 10/23/21 10/23/21 04:10 05:00 05:35 Temperature Pulse Rate 80 100 H Pulse Rate [ 100 H From Monitor] Pulse Rate [ Right] Respiratory 14 14 Rate Blood Pressure 122/92 O2 Sat by Pulse 99 99 Oximetry 10/23/21 10/23/21 10/23/21 06:01 07:00 07:17 Temperature 98.3 F Pulse Rate 79 87 Pulse Rate [ From Monitor] Pulse Rate [ Right] Respiratory 10 L 17 Rate Blood Pressure 131/79 120/77 O2 Sat by Pulse 99 99 Oximetry 10/23/21 10/23/21 10/23/21 08:00 09:00 09:51 Temperature Pulse Rate 81 106 H Pulse Rate [ 90 From Monitor] Pulse Rate [ Right] Respiratory 22 16 Rate Blood Pressure 114/76 128/86 O2 Sat by Pulse 99 99 97 Oximetry 10/23/21 10/23/21 10/23/21 10:00 11:00 11:42 Temperature 98.1 F Pulse Rate 83 81 Pulse Rate [ From Monitor] Pulse Rate [ Right] Respiratory 12 13 Rate Blood Pressure 132/74 122/73 O2 Sat by Pulse 100 99 Oximetry 10/23/21 12:00 Temperature Pulse Rate 74 Pulse Rate [ From Monitor] Pulse Rate [ Right] Respiratory 13 Rate Blood Pressure 111/73 O2 Sat by Pulse 100 Oximetry Constitutional: no acute distress, other (Patient awake but not following commands.) Eyes: non-icteric ENT: oropharynx moist Neck: supple, no lymphadenopathy Effort: normal Ascultation: Bilateral: clear Cardiovascular: regular rate and rhythm Gastrointestinal: normoactive bowel sounds, soft, non-tender Integumentary: normal Extremities: no cyanosis, no edema Neurologic: pupils equal and round, other (left hemiplegia) Psychiatric: other (unable to asses due to neurological status) CBC and BMP: 10/22/21 16:00 10/22/21 16:00 ABG, PT/INR, D-dimer: PT/INR, D-dimer PT 14.8 Sec. (12.2-14.9) 10/22/21 16:00 INR 1.04 (0.87-1.13) 10/22/21 16:00 Abnormal lab findings: Abnormal Labs 10/22/21 10/22/21 10/22/21 16:00 16:00 22:44 MCV 83 L MCH 27 L Heard % (Auto) 11.8 H Heard # (Auto) 1.0 H Creatinine 0.6 L Glucose 175 H POC Glucose 115 H Urine Blood Urine WBC (Auto) U Epithel Cells (Auto) 10/23/21 10/23/21 10/23/21 07:28 08:49 11:31 MCV MCH Heard % (Auto) Heard # (Auto) Creatinine Glucose POC Glucose 129 H 136 H Urine Blood Moderate A Urine WBC (Auto) 28.0 H U Epithel Cells (Auto) 14.0 H Chest x-ray: report reviewed, image reviewed Additional Studies: CHEST 1 VIEW 10/23/2021 12:18 PM INDICATION / CLINICAL INFORMATION: Dyspnea. COMPARISON: None available. FINDINGS: SUPPORT DEVICES: None. HEART / MEDIASTINUM: No significant abnormality. LUNGS / PLEURA: No significant pulmonary or pleural abnormality. No pneumothorax. ADDITIONAL FINDINGS: No significant additional findings. IMPRESSION: 1. No acute findings.
--- NOTE | 2021-10-23 14:09 | Electrocardiograph Report ---
[facility] Test Date: 2021-10-22 Test Time: 18:15:31 Pat Name: EMILIANO MICHAEL Department: Room: A264 1 Gender: M Molecular Biology Scientist: NURSE : 1965 Requested By: GHAZALA HADDAD Order Number: [id number] Reading MD: Cristela Muñoz Measurements Intervals [place] Rate: 120 P: 74 GA: 159 QRS: 80 QRSD: 96 T: 41 QT: 314 QTc: 445 Interpretive Statements Sinus tachycardia Probable left atrial enlargement Low voltage, extremity and precordial leads Incomplete right bundle branch block No previous ECG available for comparison Electronically Signed On 10-23-2021 14:09:02 EDT by Cristela Muñoz
[2021-10-23 14:38] LABS: Chol/HDL Ratio 3.36 %
--- NOTE | 2021-10-23 15:43 | XRay Report ---
CHEST 1 VIEW 10/23/2021 12:18 PM INDICATION / CLINICAL INFORMATION: Dyspnea. COMPARISON: None available. FINDINGS: SUPPORT DEVICES: None. HEART / MEDIASTINUM: No significant abnormality. LUNGS / PLEURA: No significant pulmonary or pleural abnormality. No pneumothorax. ADDITIONAL FINDINGS: No significant additional findings. IMPRESSION: 1. No acute findings. Signer Name: Zac Peng MD Signed: 10/23/2021 3:38 PM Workstation Name: [id number]
[2021-10-23] MEDS ORDERED: PANTOPRAZOLE SODIUM 40 MG PO SCH (18:00)
[2021-10-23] MEDS: LANSOPRAZOLE 30 MG SOLUTAB FEEDTUBE SCH (18:08)
[2021-10-23] MEDS ORDERED: LEVETIRACETAM 250 MG PO SCH ×2 (22:00)
[2021-10-23] MEDS ORDERED: levETIRAcetam 500 MG/5 ML ORAL LIQD PO SCH (22:00)
[2021-10-23] MEDS ORDERED: SENNOSIDES ORAL LIQD 8.8 MG/5 ML ORAL LIQD PO SCH (22:00)
[2021-10-24] MEDS: INSULIN LISPRO 100 UNIT/ML SUB-Q SCH ×3 (00:02→23:24)
[2021-10-24 05:46] LABS: Hematocrit 37.7 % (35.5-45.6); Hemoglobin 12.7 gm/dl (11.8-15.2); Mean Corpuscular HGB Conc 34 % (32-34); Mean Corpuscular Volume 82 fl (84-94); Platelet Count 222 K/mm3 (140-440); Red Blood Count 4.59 M/mm3 (3.65-5.03); Red Cell Distribution Width 14.1 % (13.2-15.2)
[2021-10-24 05:48] LABS: Blood Urea Nitrogen 9 mg/dL (9-20); Calcium 9.2 mg/dL (8.4-10.2); Hemolysis Index 3
[2021-10-24 05:49] LABS: BUN/Creatinine Ratio 15
--- NOTE | 2021-10-24 06:29 | Consultation ---
History of Present Illness Consult date: 10/23/21 Reason for Consult: Recent Stroke Chief complaint: Echo in progress during rounds. History of present illness: 55 yo male with htn, dm, stroke, who presents for further evaluation of recent stroke in June 2021. 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 The patient is unable to provide history." Initial NIHSS of 24 noted by stroke teleneurology. Patient not seen, due to bedside echocardiogram in progress, during rounds. Past History Past Medical History: diabetes, hypertension, stroke, other (See HPI) Past Surgical History: Other (PEG tube placement) Social history: single. denies: smoking, alcohol abuse, prescription drug abuse Family history: diabetes, hypertension Medications and Allergies Allergies Allergy/AdvReac Type Severity Reaction Status Date / Time No Known Allergies Allergy Unverified 10/22/21 17:35 Home Medications Medication Instructions Recorded Confirmed Last Taken Type Atorvastatin [Lipitor Tab] 80 mg PO QPM 10/23/21 10/23/21 Unknown History Enoxaparin [Lovenox] 40 mg SQ QDAY 10/23/21 10/23/21 Unknown History FLUoxetine [PROzac] 10 mg PO QDAY 10/23/21 10/23/21 Unknown History Indapamide 5 mg PO QDAY 10/23/21 10/23/21 Unknown History Insulin Glargine [Lantus VIAL] 44 units SUB-Q QPM 10/23/21 10/23/21 Unknown History Insulin Regular, Human [Novolin R] 1 units IJ TID 10/23/21 10/23/21 Unknown History Pantoprazole Sodium 20 mg PO QPM 10/23/21 10/23/21 Unknown History Sodium Phosphate,Linn-Dibasic 133 ml RC Q72HR 10/23/21 10/23/21 Unknown History [Enema Ready To Use] bisoproloL fumarate [Bisoprolol 5 mg PO QAM 10/23/21 10/23/21 Unknown History Fumarate] levETIRAcetam [Spritam] 250 mg PO BID 10/23/21 10/23/21 Unknown History Active Meds: Active Medications Acetaminophen (Acetaminophen 325 Mg Tab) 650 mg PO Q4H PRN PRN Reason: Pain, Mild (1-3) Last Admin: 10/22/21 22:50 Dose: 650 mg Albuterol (Albuterol 2.5 Mg/3 Ml Nebu) 2.5 mg IH Q3HRT PRN PRN Reason: Shortness Of Breath Aspirin (Aspirin 325 Mg Tab) 325 mg PO QDAY [facility] Last Admin: 10/23/21 10:36 Dose: 325 mg Atorvastatin Calcium (Atorvastatin 40 Mg Tab) 40 mg PO QHS NEO Last Admin: 10/23/21 23:52 Dose: 40 mg Bisacodyl (Bisacodyl 10 Mg Rect Supp) 10 mg UT QDAY PRN PRN Reason: Constipation Dextrose (Dextrose 50% In Water (25gm) 50 Ml Syringe) 50 ml IV Q30MIN PRN; Protocol PRN Reason: Hypoglycemia Heparin Sodium (Porcine) (Heparin 5,000 Unit/1 Ml Vial) 5,000 unit SUB-Q Q12HR [facility] Last Admin: 10/23/21 23:54 Dose: 5,000 unit Insulin Human Lispro (Insulin Lispro 100 Unit/Ml) 0 unit SUB-Q ACHS [facility]; Protocol Last Admin: 10/24/21 00:02 Dose: Not Given Lansoprazole (Lansoprazole 30 Mg Solutab) 30 mg FEEDTUBE QPM [facility] Last Admin: 10/23/21 18:08 Dose: 30 mg Levetiracetam (Levetiracetam 500 Mg/5 Ml Oral Liqd) 250 mg PO BID [facility] Last Admin: 10/23/21 23:54 Dose: 250 mg Magnesium Hydroxide (Magnesium Hydroxide (Mom) Oral Liqd Udc) 30 ml PO Q4H PRN PRN Reason: Constipation Ondansetron HCl (Ondansetron 4 Mg/2 Ml Inj) 4 mg IV Q8H PRN PRN Reason: Nausea And Vomiting Oxycodone/Acetaminophen (Oxycodone /Acetaminophen 5-325mg Tab) 1 tab PO Q12H PRN PRN Reason: Pain, Moderate (4-6) Senna (Sennosides Oral Liqd 8.8 Mg/5 Ml Oral Liqd) 17.6 mg PO Q12HR [facility] Last Admin: 10/23/21 23:52 Dose: 17.6 mg Sodium Chloride (Sodium Chloride 0.9% 10 Ml Flush Syringe) 10 ml IV PRN PRN PRN Reason: LINE FLUSH Review of Systems All systems: negative (reviewed per EMS, otherwise, pt not seen due to bedside echocardiogram, in progress;) Physical Examination - Vital Signs Vital Signs: Vital Signs Resp Pulse Ox 14 99 10/22/21 15:52 10/22/21 15:52 - Physical Exam Narrative exam: Patient not seen due to bedside echocardiogram in progress. Results - Laboratory Findings CBC and BMP: 10/24/21 05:00 10/24/21 05:00 Abnormal Lab Findings: Abnormal Labs 10/22/21 10/22/21 10/22/21 16:00 16:00 22:44 MCV 83 L MCH 27 L Linn % (Auto) 11.8 H Linn # (Auto) 1.0 H Potassium Creatinine 0.6 L Glucose 175 H POC Glucose 115 H Urine Blood Urine WBC (Auto) U Epithel Cells (Auto) 10/23/21 10/23/21 10/23/21 07:28 08:49 11:31 MCV MCH Linn % (Auto) Linn # (Auto) Potassium Creatinine Glucose POC Glucose 129 H 136 H Urine Blood Moderate A Urine WBC (Auto) 28.0 H U Epithel Cells (Auto) 14.0 H 10/23/21 10/24/21 10/24/21 17:59 00:01 05:00 MCV 82 L MCH Linn % (Auto) Linn # (Auto) Potassium Creatinine Glucose POC Glucose 109 H 111 H Urine Blood Urine WBC (Auto) U Epithel Cells (Auto) 10/24/21 05:00 MCV MCH Linn % (Auto) Linn # (Auto) Potassium 3.5 L Creatinine 0.6 L Glucose 134 H POC Glucose Urine Blood Urine WBC (Auto) U Epithel Cells (Auto) Assessment and Plan 55 yo male with htn, dm, stroke, who presents for further evaluation of recent stroke in June 2021. 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 History of Completed Stroke (4 months ago) - unclear to me (based on EMR notes) if there is confirmation regarding ischemic vs. hemorrhagic. No evidence for inpatient routine nihss for chronic strokes but recommend assessment at the time of discharge. If ischemic stroke, concern is raised for possible cardioembolic source (unclear if both right mca/pica infarcts occurred simu ltaneously or at two separate times) if CTA Head/Neck w/ wo contrast (if no contraindication) reveals no evidence of critical stensosis(es) or occlusion(s) other than those expected to be seen adjacent to the known infarcts. Also, it would be worthwhile to find out patient's covid status at the time when the stroke(s) occurred, which would serve as an alternate etiology. If no evidence of severe intracranial atherosclerotic disease, ipsilateral to the noted large territory infarcts, recommend merlene and long-term cardiac monitoring for possible paroxysmal afib and may also consider an underlying primary or secondary hypercoaguable state as a part of the workup. It is unclear if this workup was already undertaken while the patient was in [facility]. Recommend continuing antiplatelet / statin thearpy for now (if no contraindications). Confirm a1c, tsh/t4. Recommend pt/ot/st/swallow evaluation/monitoring. Research has indicated improved motor recovery for pt's with possible underlying depression with fluoxetine (noted on JUN). Recommend stroke education upon discharge. 2. Hypertension - aim for normotension. 3. DM - aim for a1c goal <6.0 with meds, diet, exercise. 4. Hyperlipidemia - goal ldl of 70 w/ statin thearpy (if no contraindication). 5. Left Hemparesis w/ Dysarthria / Dysphagia / Dysphasia - if the pt is truly nonverbal (documented in EMR but contradicts NIHSS by telestroke neurologist), it is not clear to me that the nchct findings of a partial right mca infarct and a right pica infarct explain the documented finding of "non-verbal" and may need to consider an alternate etiology (non-neurologic vs. mri brain w/ wo contrast); pt/ot/st/swallow evaluation/monitoring. 6. Followup with Stroke Neurology in 4 to 6 weeks post-discharge. Aleksander Rizzo MD Neurology
[2021-10-24] MEDS ORDERED: POTASSIUM CHLORIDE 20 MEQ PACKET FEEDTUBE SCH (09:00)
--- NOTE | 2021-10-24 09:41 | Progress Note ---
<SUKUMAR TAPIA - Last Filed: 10/24/21 16:34> Assessment and Plan Assessment and plan: This is a 55-year-old male with known past medical history of HTN, DM, CVA complicated by Dysphagia, Dysarthria, Left Hemiparesis, debility and seizure disorder admitted for acute CVA/TIA Hospital Course to Date: 10/23: Nonverbal, open eyes spontaneously, does not follow any commands with LUE paralysis/contraction. on RA, VSS. Echo and Neurology consult pending. PT/OT/Speech also consulted. PEG-tube noted, nutrition/variety lathe operator consulted for TF management. Pulmonary is also following. Patient presented with a harden catheter, per record history of urinary retention. Harden cath exchanged, UA pending. 10/24: SEKOU overnight. Neurology recommendations noted, orders placed for MRI brain and CTA head/Neck. Continue PT/OT/Speech, home meds resumed, and enteral nutrition initiated. UA noted, patient is asymptomatic with no leukocytosis, continue to monitor, urine culture pending. Assessment and Plan #Cerebral Vascular Accident(CVA) #Transient Ischemic Attack(TIA) #Hemiparesis, left #H/o Seizure Disorder - Patient transfer from [facility] in [facility] via air ambulance for stroke like sx, out of therapuetic window for tPA - Patient had recent CVA back in 06/22/21 while in [facility] complicated by Dysphagia, Dysarthria, Left Hemiparesis, and Debility - CT head/brain shows old, moderately sized right PICA territory infarct with mild cerebral and cerebellar atrophy. No acute abnormality reported. See report for details - Patient is nonverbal, open eyes spontaneously but does not follow any commands, LUE paralysis/contraction noted - Carotid US noted - 2D Echo noted, LVEF is 55%. No evidence of PFO. See report for details - Neurology consulted, appreciated recommendations - MRI Brain w/wo, and CTA head/Neck pending - On ASA, statin, and VTE proph - PT/OT/Speech consulted - Neuro check protocol - Aspiration and Fall precaution - Home keppra resumed #Hypertension - BP stable this am - Hold all antihypertensive regimen for now - Continue blood pressure monitor per protocol - Maintain SBP less than 180, DBP less than 100 for first 24 to 48hrs #Dysarthria/Dysphagia #S/p PEG-Tube Placement - complications from previous CVA. Supportive care - Initiated enteral nutrition - Nutrition and Speech therapy consulted. #Urinary Retention/Obstruction - Presented with Harden catheter, per record history of urinary retention - Harden cath exchanged. - UA noted, patient is asymptomatic with no leukocytosis, continue to monitor. Urine culture pending - Strict intake and output #Type 2 Diabetes Mellitus - BG and SSI Q6hrs - Avoid hypglycemia #GI/DVT Prophylaxis - PPI- Protonix - Heparin SubQ - SCD to bilateral lower extremities while in bed #Advance Care Planning - Disease education data, care plan, diagnoses, and prognosis were discussed with patient's brother. Patient is a Full code. Patient's family acknowledged understanding and agreement with current care plan. The high probability of a clinically significant, sudden or life threatening deterioration of the [multiple] system(s) required my full and direct attention, intervention and personal management. The aggregate critical care time was [60] minutes. This time is in addition to time spent performing reported procedures but includes the following: [x] Data Review and interpretation [x] Patient assessment and monitoring of vital signs [x] Documentation [x] Medication orders and management Disposition Plan: IMCU Total Time Spent with Patient (Minutes): 60 History Interval history: Patient seen and examined at the bedside. Nonverbal, open eyes spontaneously but does not follow any commands. On RA, no respiratory distress noted, VSS. LUE is contracted, otherwise generalized weakness Hospitalist Physical - Physical exam Narrative exam: General appearance: Present: no acute distress, well-nourished - EENT Eyes: Present: PERRL, EOM intact ENT: hearing intact - Neck Neck: Present: normal ROM - Respiratory Respiratory effort: normal Respiratory: bilateral: diminished - Cardiovascular Rhythm: regular Heart Sounds: Present: S1 & S2 - Extremities Extremities: no ischemia, pulses intact, pulses symmetrical, abnormal (LUE contraction) Extremity abnormal: edema - Peripheral Assessment Left Upper Extremity Edema Type: Pitting Edema Degree: Trace Capillary Refill: < 3 seconds Skin Temperature: Warm Generalized Edema Type: Non-pitting Edema Degree: 1+ Capillary Refill: < 3 seconds Skin Temperature: Warm Peripheral Pulses: within normal limits - Abdominal General gastrointestinal: soft, non-distended, normal bowel sounds, other (PEG-T ube present) - Integumentary Integumentary: Present: warm, dry - Psychiatric Psychiatric: other (LINDSAY, nonverbal. Open eyes spontaneously, does not follow commands) - Neurologic Neurologic: moves all extremities (Except LUE due to contraction. Otherwise generalized weakness), other (LINDSAY, nonverbal. Open eyes spontaneously, does not follow commands) - Allied Health Allied health notes reviewed: nursing, Case Management - Constitutional Vitals: Temp Pulse Resp BP Pulse Ox 99.2 F 92 H 10 L 127/78 97 10/24/21 08:00 10/24/21 08:00 10/24/21 08:00 10/24/21 08:00 10/24/21 08:22 Results - Labs CBC & Chem 7: 10/24/21 05:00 10/24/21 05:00 Labs: Laboratory Last Values WBC 6.4 K/mm3 (4.5-11.0) 10/24/21 05:00 RBC 4.59 M/mm3 (3.65-5.03) 10/24/21 05:00 Hgb 12.7 gm/dl (11.8-15.2) 10/24/21 05:00 Hct 37.7 % (35.5-45.6) 10/24/21 05:00 MCV 82 fl (84-94) L 10/24/21 05:00 MCH 28 pg (28-32) 10/24/21 05:00 MCHC 34 % (32-34) 10/24/21 05:00 RDW 14.1 % (13.2-15.2) 10/24/21 05:00 Plt Count 222 K/mm3 (140-440) 10/24/21 05:00 Lymph % (Auto) 29.6 % (13.4-35.0) 10/22/21 16:00 C[place]ay % (Auto) 11.8 % (0.0-7.3) H 10/22/21 16:00 Eos % (Auto) 1.3 % (0.0-4.3) 10/22/21 16:00 Baso % (Auto) 0.4 % (0.0-1.8) 10/22/21 16:00 Lymph # (Auto) 2.4 K/mm3 (1.2-5.4) 10/22/21 16:00 C[place]ay # (Auto) 1.0 K/mm3 (0.0-0.8) H 10/22/21 16:00 Eos # (Auto) 0.1 K/mm3 (0.0-0.4) 10/22/21 16:00 Baso # (Auto) 0.0 K/mm3 (0.0-0.1) 10/22/21 16:00 Seg Neutrophils % 56.9 % (40.0-70.0) 10/22/21 16:00 Seg Neutrophils # 4.7 K/mm3 (1.8-7.7) 10/22/21 16:00 PT 14.8 Sec. (12.2-14.9) 10/22/21 16:00 INR 1.04 (0.87-1.13) 10/22/21 16:00 APTT 28.1 Sec. (24.2-36.6) 10/22/21 16:00 Sodium 138 mmol/L (137-145) 10/24/21 05:00 Potassium 3.5 mmol/L (3.6-5.0) L 10/24/21 05:00 Chloride 100.8 mmol/L (98-107) 10/24/21 05:00 Carbon Dioxide 26 mmol/L (22-30) 10/24/21 05:00 Anion Gap 15 mmol/L 10/24/21 05:00 BUN 9 mg/dL (9-20) 10/24/21 05:00 Creatinine 0.6 mg/dL (0.8-1.3) L 10/24/21 05:00 Estimated GFR > 60 ml/min 10/24/21 05:00 BUN/Creatinine Ratio 15 % 10/24/21 05:00 Glucose 134 mg/dL (75-100) H 10/24/21 05:00 POC Glucose 132 mg/dL (70-105) H 10/24/21 07:57 Calcium 9.2 mg/dL (8.4-10.2) 10/24/21 05:00 Total Bilirubin 0.50 mg/dL (0.1-1.2) 10/22/21 16:00 AST 24 units/L (5-40) 10/22/21 16:00 ALT 28 units/L (7-56) 10/22/21 16:00 Alkaline Phosphatase 102 units/L (35-129) 10/22/21 16:00 Total Protein 6.9 g/dL (6.3-8.2) 10/22/21 16:00 Albumin 4.3 g/dL (3.9-5) 10/22/21 16:00 Albumin/Globulin Ratio 1.7 % 10/22/21 16:00 Triglycerides 85 mg/dL (2-149) 10/23/21 12:33 Cholesterol 148 mg/dL (50-199) 10/23/21 12:33 LDL Cholesterol Direct 86 mg/dL (50-130) 10/23/21 12:33 HDL Cholesterol 44 mg/dL (40-59) 10/23/21 12:33 Cholesterol/HDL Ratio 3.36 % 10/23/21 12:33 Urine Color Yellow (Yellow) 10/23/21 08:49 Urine Turbidity Clear (Clear) 10/23/21 08:49 Urine pH 6.5 (5.0-7.0) 10/23/21 08:49 Ur Specific Reva 1.005 (1.003-1.030) 10/23/21 08:49 Urine Protein 30 mg/dl mg/dL (Negative) 10/23/21 08:49 Urine Glucose (UA) Negative mg/dL (Negative) 10/23/21 08:49 Urine Ketones Negative mg/dL (Negative) 10/23/21 08:49 Urine Blood Moderate (Negative) A 10/23/21 08:49 Urine Nitrite Negative (Negative) 10/23/21 08:49 Ur Reducing Substances Not Reportable 10/23/21 08:49 Urine Bilirubin Negative (Negative) 10/23/21 08:49 Urine Ictotest Not Reportable 10/23/21 08:49 Urine Urobilinogen < 2.0 mg/dL (<2.0) 10/23/21 08:49 Ur Leukocyte Esterase Moderate (Negative) 10/23/21 08:49 Urine WBC (Auto) 28.0 /HPF (0.0-6.0) H 10/23/21 08:49 Urine RBC (Auto) 27.0 /HPF (0.0-6.0) 10/23/21 08:49 U Epithel Cells (Auto) 14.0 /HPF (0-13.0) H 10/23/21 08:49 Hyaline Casts 1 /LPF 10/23/21 08:49 Urine Mucus Few /HPF 10/23/21 08:49 Harden/IV: Voiding Method Indwelling Catheter Active Medications - Current Medications Current Medications: Generic Name Dose Route Start Last Admin Trade Name Freq PRN Reason Stop Dose Admin Acetaminophen 650 mg 10/22/21 16:19 10/22/21 22:50 Acetaminophen 325 Mg Tab PO 650 mg Q4H PRN Administration Pain, Mild (1-3) Albuterol 2.5 mg 10/22/21 16:19 Albuterol 2.5 Mg/3 Ml Nebu IH Q3HRT PRN Shortness Of Breath Aspirin 325 mg 10/23/21 10:00 10/23/21 10:36 Aspirin 325 Mg Tab PO 325 mg QDAY NEO Administration Atenolol 50 mg 10/24/21 10:00 Atenolol 50 Mg Tab FEEDTUBE QDAY NEO Atorvastatin Calcium 80 mg 10/24/21 22:00 Atorvastatin 40 Mg Tab FEEDTUBE QHS NEO Bisacodyl 10 mg 10/22/21 16:19 Bisacodyl 10 Mg Rect Supp MS QDAY PRN Constipation Dextrose 50 ml 10/22/21 17:23 Dextrose 50% In Water (25gm) 50 Ml Syringe IV Q30MIN PRN Hypoglycemia Protocol Fluoxetine HCl 10 mg 10/24/21 10:00 Fluoxetine 20 Mg/5 Ml Oral Liqd FEEDTUBE QDAY [facility] Heparin Sodium (Porcine) 5,000 unit 10/22/21 22:00 10/23/21 23:54 Heparin 5,000 Unit/1 Ml Vial SUB-Q 5,000 unit Q12HR NEO Administration Indapamide 5 mg 10/24/21 10:00 Indapamide 2.5 Mg Tab FEEDTUBE QDAY [facility] Insulin Human Lispro 0 unit 10/24/21 12:00 Insulin Lispro 100 Unit/Ml SUB-Q Q6HR [facility] Protocol Lansoprazole 30 mg 10/23/21 18:00 10/23/21 18:08 Lansoprazole 30 Mg Solutab FEEDTUBE 30 mg QPM NEO Administration Levetiracetam 250 mg 10/24/21 10:00 Levetiracetam 500 Mg/5 Ml Oral Liqd FEEDTUBE BID NEO Lisinopril 5 mg 10/24/21 10:00 Lisinopril 5 Mg Tab FEEDTUBE QDAY NEO Magnesium Hydroxide 30 ml 10/22/21 16:19 Magnesium Hydroxide (Mom) Oral Liqd Udc PO Q4H PRN Constipation Ondansetron HCl 4 mg 10/22/21 16:19 Ondansetron 4 Mg/2 Ml Inj IV Q8H PRN Nausea And Vomiting Oxycodone/Acetaminophen 1 tab 10/22/21 16:19 Oxycodone /Acetaminophen 5-325mg Tab PO Q12H PRN Pain, Moderate (4-6) Potassium Chloride 40 meq 10/24/21 09:00 Potassium Chloride 20 Meq Packet FEEDTUBE 10/24/21 13:00 ONCE@0900 NEO Senna 17.6 mg 10/24/21 10:00 Sennosides Oral Liqd 8.8 Mg/5 Ml Oral Liqd FEEDTUBE Q12HR ENO Sodium Chloride 10 ml 10/22/21 16:19 Sodium Chloride 0.9% 10 Ml Flush Syringe IV PRN PRN LINE FLUSH Nutrition/Malnutrition Assess - Dietary Evaluation Nutrition/Malnutrition Findings: Nutrition Notes Start: 10/23/21 13:0 1 Freq: Status: Active Protocol: Document 10/23/21 13:01 MARGO (Rec: 10/23/21 13:06 MARGO [email or web address]) Nutrition Notes Need for Assessment generated from: MD Order,repairer shoe sticks Initial or Follow up Assessment Current Diagnosis Diabetes,Hypertension,Stroke Other Pertinent Diagnosis Dysphagia, (L) hemiparesis, Debility Current Diet NPO Labs/Tests Reviewed Pertinent Medications Reviewed Height 5 ft 11 in Weight 90.718 kg [place] Body Weight (kg) 78.18 BMI 27.8 Weight Status Overweight Subjective/Other Information RD consulted for TF; pt also screened for hs of receiving NTR support. Burn Absent Trauma Absent Minimum of two criteria No #1 Nutrition Diagnosis Swallowing difficulty Etiology CVA As Evidenced by Signs and Symptoms pt NPO Is patient on ventilator? No Is Patient Ambulatory and/or Out of Bed No REE-([facility]-confined to bed) 6157.322 Calculation Used for Recommendations [facility] Additional Notes Pro needs 0.8-1g/k-91g/ day Fluid needs 1ml/kcal Nutrition Intervention Nutrition Support: Glucerna 1.2 at 70ml/hr with 100ml water flush q4h. Kcal 2,016 Protein (gm) 101 Carbohydrates (gm) 192 Fat (gm) 101 Fluid (mL) 1,352 Fiber (gm) 27 Goal #1 TF tolerance Goal #2 TF to meet at least 75% energy and pro needs Anticipated Discharge Needs: Continue EN support Follow-Up By: 10/26/21 Additional Comments F/U: new TF <DIOR MCKEON E - Last Filed: 10/25/21 07:12> Assessment and Plan Assessment and plan: I saw and evaluated the patient. I agree with the findings and the plan of care as documented in the Nurse Practitioner's~note, with the following corrections and additions. Hospitalist Physical - Constitutional Vitals: Temp Pulse Resp BP Pulse Ox 98.6 F 105 H 13 135/85 97 10/25/21 03:15 10/25/21 07:01 10/25/21 07:01 10/25/21 07:01 10/25/21 07:01 Results - Labs CBC & Chem 7: 10/24/21 05:00 10/24/21 05:00 Labs: Laboratory Last Values WBC 6.4 K/mm3 (4.5-11.0) 10/24/21 05:00 RBC 4.59 M/mm3 (3.65-5.03) 10/24/21 05:00 Hgb 12.7 gm/dl (11.8-15.2) 10/24/21 05:00 Hct 37.7 % (35.5-45.6) 10/24/21 05:00 MCV 82 fl (84-94) L 10/24/21 05:00 MCH 28 pg (28-32) 10/24/21 05:00 MCHC 34 % (32-34) 10/24/21 05:00 RDW 14.1 % (13.2-15.2) 10/24/21 05:00 Plt Count 222 K/mm3 (140-440) 10/24/21 05:00 Lymph % (Auto) 29.6 % (13.4-35.0) 10/22/21 16:00 Calloway % (Auto) 11.8 % (0.0-7.3) H 10/22/21 16:00 Eos % (Auto) 1.3 % (0.0-4.3) 10/22/21 16:00 Baso % (Auto) 0.4 % (0.0-1.8) 10/22/21 16:00 Lymph # (Auto) 2.4 K/mm3 (1.2-5.4) 10/22/21 16:00 Calloway # (Auto) 1.0 K/mm3 (0.0-0.8) H 10/22/21 16:00 Eos # (Auto) 0.1 K/mm3 (0.0-0.4) 10/22/21 16:00 Baso # (Auto) 0.0 K/mm3 (0.0-0.1) 10/22/21 16:00 Seg Neutrophils % 56.9 % (40.0-70.0) 10/22/21 16:00 Seg Neutrophils # 4.7 K/mm3 (1.8-7.7) 10/22/21 16:00 PT 14.8 Sec. (12.2-14.9) 10/22/21 16:00 INR 1.04 (0.87-1.13) 10/22/21 16:00 APTT 28.1 Sec. (24.2-36.6) 10/22/21 16:00 Sodium 138 mmol/L (137-145) 10/24/21 05:00 Potassium 3.5 mmol/L (3.6-5.0) L 10/24/21 05:00 Chloride 100.8 mmol/L (98-107) 10/24/21 05:00 Carbon Dioxide 26 mmol/L (22-30) 10/24/21 05:00 Anion Gap 15 mmol/L 10/24/21 05:00 BUN 9 mg/dL (9-20) 10/24/21 05:00 Creatinine 0.6 mg/dL (0.8-1.3) L 10/24/21 05:00 Estimated GFR > 60 ml/min 10/24/21 05:00 BUN/Creatinine Ratio 15 % 10/24/21 05:00 Glucose 134 mg/dL (75-100) H 10/24/21 05:00 POC Glucose 159 mg/dL (70-105) H 10/25/21 04:47 Hemoglobin A1c 8.0 % (4-6) H 10/24/21 10:16 Calcium 9.2 mg/dL (8.4-10.2) 10/24/21 05:00 Total Bilirubin 0.50 mg/dL (0.1-1.2) 10/22/21 16:00 AST 24 units/L (5-40) 10/22/21 16:00 ALT 28 units/L (7-56) 10/22/21 16:00 Alkaline Phosphatase 102 units/L (35-129) 10/22/21 16:00 Total Protein 6.9 g/dL (6.3-8.2) 10/22/21 16:00 Albumin 4.3 g/dL (3.9-5) 10/22/21 16:00 Albumin/Globulin Ratio 1.7 % 10/22/21 16:00 Triglycerides 85 mg/dL (2-149) 10/23/21 12:33 Cholesterol 148 mg/dL (50-199) 10/23/21 12:33 LDL Cholesterol Direct 86 mg/dL (50-130) 10/23/21 12:33 HDL Cholesterol 44 mg/dL (40-59) 10/23/21 12:33 Cholesterol/HDL Ratio 3.36 % 10/23/21 12:33 TSH 2.020 mlU/mL (0.270-4.200) 10/24/21 10:16 Free T4 0.88 ng/dL (0.76-1.46) 10/24/21 10:16 Urine Color Yellow (Yellow) 10/23/21 08:49 Urine Turbidity Clear (Clear) 10/23/21 08:49 Urine pH 6.5 (5.0-7.0) 10/23/21 08:49 Ur Specific Reva 1.005 (1.003-1.030) 10/23/21 08:49 Urine Protein 30 mg/dl mg/dL (Negative) 10/23/21 08:49 Urine Glucose (UA) Negative mg/dL (Negative) 10/23/21 08:49 Urine Ketones Negative mg/dL (Negative) 10/23/21 08:49 Urine Blood Moderate (Negative) A 10/23/21 08:49 Urine Nitrite Negative (Negative) 10/23/21 08:49 Ur Reducing Substances Not Reportable 10/23/21 08:49 Urine Bilirubin Negative (Negative) 10/23/21 08:49 Urine Ictotest Not Reportable 10/23/21 08:49 Urine Urobilinogen < 2.0 mg/dL (<2.0) 10/23/21 08:49 Ur Leukocyte Esterase Moderate (Negative) 10/23/21 08:49 Urine WBC (Auto) 28.0 /HPF (0.0-6.0) H 10/23/21 08:49 Urine RBC (Auto) 27.0 /HPF (0.0-6.0) 10/23/21 08:49 U Epithel Cells (Auto) 14.0 /HPF (0-13.0) H 10/23/21 08:49 Hyaline Casts 1 /LPF 10/23/21 08:49 Urine Mucus Few /HPF 10/23/21 08:49 Harden/IV: Voiding Method Indwelling Catheter Active Medications - Current Medications Current Medications: Generic Name Dose Route Start Last Admin Trade Name Freq PRN Reason Stop Dose Admin Acetaminophen 650 mg 10/22/21 16:19 10/22/21 22:50 Acetaminophen 325 Mg Tab PO 650 mg Q4H PRN Administration Pain, Mild (1-3) Albuterol 2.5 mg 10/22/21 16:19 Albuterol 2.5 Mg/3 Ml Nebu IH Q3HRT PRN Shortness Of Breath Aspirin 325 mg 10/23/21 10:00 10/24/21 11:22 Aspirin 325 Mg Tab PO 325 mg QDAY NEO Administration Atenolol 50 mg 10/24/21 10:00 10/24/21 11:20 Atenolol 50 Mg Tab FEEDTUBE 50 mg QDAY NEO Administration Atorvastatin Calcium 80 mg 10/24/21 22:00 10/24/21 21:40 Atorvastatin 40 Mg Tab FEEDTUBE 80 mg QHS NEO Administration Bisacodyl 10 mg 10/22/21 16:19 Bisacodyl 10 Mg Rect Supp MS QDAY PRN Constipation Dextrose 50 ml 10/22/21 17:23 Dextrose 50% In Water (25gm) 50 Ml Syringe IV Q30MIN PRN Hypoglycemia Protocol Fluoxetine HCl 10 mg 10/24/21 10:00 10/24/21 11:21 Fluoxetine 20 Mg/5 Ml Oral Liqd FEEDTUBE 10 mg QDAY NEO Administration Heparin Sodium (Porcine) 5,000 unit 10/22/21 22:00 10/24/21 21:39 Heparin 5,000 Unit/1 Ml Vial SUB-Q 5,000 unit Q12HR NEO Administration Indapamide 5 mg 10/24/21 10:00 10/24/21 11:20 Indapamide 2.5 Mg Tab FEEDTUBE 5 mg QDAY NEO Administration Insulin Human Lispro 0 unit 10/24/21 12:00 10/25/21 05:00 Insulin Lispro 100 Unit/Ml SUB-Q 2 unit Q6HR NEO Administration Protocol Lansoprazole 30 mg 10/23/21 18:00 10/24/21 19:28 Lansoprazole 30 Mg Solutab FEEDTUBE 30 mg QPM NEO Administration Levetiracetam 250 mg 10/24/21 10:00 10/24/21 21:39 Levetiracetam 500 Mg/5 Ml Oral Liqd FEEDTUBE 250 mg BID NEO Administration Lisinopril 5 mg 10/24/21 10:00 10/24/21 11:22 Lisinopril 5 Mg Tab FEEDTUBE 5 mg QDAY NEO Administration Lorazepam 0.5 mg 10/25/21 07:30 Lorazepam 2 Mg/Ml Vial IV Q6H PRN anxiety Magnesium Hydroxide 30 ml 10/22/21 16:19 Magnesium Hydroxide (Mom) Oral Liqd Udc PO Q4H PRN Constipation Ondansetron HCl 4 mg 10/22/21 16:19 Ondansetron 4 Mg/2 Ml Inj IV Q8H PRN Nausea And Vomiting Oxycodone/Acetaminophen 1 tab 10/22/21 16:19 Oxycodone /Acetaminophen 5-325mg Tab PO Q12H PRN Pain, Moderate (4-6) Senna 17.6 mg 10/24/21 10:00 10/24/21 21:36 Sennosides Oral Liqd 8.8 Mg/5 Ml Oral Liqd FEEDTUBE Not Given Q12HR NEO Sodium Chloride 10 ml 10/22/21 16:19 10/24/21 21:39 Sodium Chloride 0.9% 10 Ml Flush Syringe IV 10 ml PRN PRN Administration LINE FLUSH Nutrition/Malnutrition Assess - Dietary Evaluation Nutrition/Malnutrition Findings: Nutrition Notes Start: 10/23/21 13:01 Freq: Status: Active Protocol: Document 10/23/21 13:01 MARGO (Rec: 10/23/21 13:06 MARGO [id number]) Nutrition Notes Need for Assessment generated from: MD Order,repairer shoe sticks Initial or Follow up Assessment Current Diagnosis Diabetes,Hypertension,Stroke Other Pertinent Diagnosis Dysphagia, (L) hemiparesis, Debility Current Diet NPO Labs/Tests Reviewed Pertinent Medications Reviewed Height 5 ft 11 in Weight 90.718 kg [place] Body Weight (kg) 78.18 BMI 27.8 Weight Status Overweight Subjective/Other Information RD consulted for TF; pt also screened for hs of receiving NTR support. Burn Absent Trauma Absent Minimum of two criteria No #1 Nutrition Diagnosis Swallowing difficulty Etiology CVA As Evidenced by Signs and Symptoms pt NPO Is patient on ventilator? No Is Patient Ambulatory and/or Out of Bed No REE-([facility]-confined to bed) 5307.735 Calculation Used for Recommendations [facility] Additional Notes Pro needs 0.8-1g/k-91g/ day Fluid needs 1ml/kcal Nutrition Intervention Nutrition Support: Glucerna 1.2 at 70ml/hr with 100ml water flush q4h. Kcal 2,016 Protein (gm) 101 Carbohydrates (gm) 192 Fat (gm) 101 Fluid (mL) 1,352 Fiber (gm) 27 Goal #1 TF tolerance Goal #2 TF to meet at least 75% energy and pro needs Anticipated Discharge Needs: Continue EN support Follow-Up By: 10/26/21 Additional Comments F/U: new TF
--- NOTE | 2021-10-24 09:56 | Consultation ---
DATE OF CONSULTATION: 10/22/2021 PULMONARY CRITICAL CARE CONSULT NOTE CONSULTING PHYSICIAN: Dr. Дмитрий Knott. REASON FOR CONSULTATION: Dyspnea. CHIEF COMPLAINT AND HISTORY OF PRESENT ILLNESS: The patient is a now 55-year-old male with a past medical history of hypertension, but unfortunately life changing cerebrovascular accident that he suffered in June of this year while, I believe, in [facility] [place]. He was air-vacced to an [facility] in [place] and had been in treatment there since 06/22/2021. He has not really improved. Family has decided to move him to the [facility], where he is a citizen, for further management and evaluation. We are asked to see him because of dyspnea. When I stopped by to see him, he was in the Emergency Room, resting in bed. He responds by moaning. He had some contractures. The brother was in the room. It seems like the patient at this time was definitely out of the therapeutic window for TPA. He had had some difficulty breathing, but was able to survive the transportation without significant distress. The air flight ____ was actually on room air. At the time I saw him, breathing was a little bit labored, but it appeared to be possible sleep disordered breathing, quite likely related to cerebrovascular accident. The patient is not a current smoker. Family denied a history of tobacco use or abuse. The above is as much of the history of presentation as I have. PAST MEDICAL HISTORY: Diabetes, hypertension, cerebrovascular accident. PAST SURGICAL HISTORY: He has a percutaneous endoscopic gastrostomy tube placed. MEDICATIONS: He was on at the time I stopped by to see him, according to the medication administration record, included the following: Tylenol 650 mg p.o. q. 4 hours p.r.n. mild pain or fevers, all p.o. meds via the feeding tube. Albuterol 2.5 mg nebulized q. 3 hours p.r.n. shortness of breath, aspirin 325 mg p.o. daily, Lipitor 40 mg p.o. at bedtime, Dulcolax 10 mg per rectum every day p.r.n. constipation, heparin 5000 units subcutaneous q. 12 hours, Dilaudid 0.5 mg IV q. 13 hours p.r.n. severe pain, insulin via sliding scale, Reglan 10 mg p.o. q. 6 hours p.r.n. nausea and vomiting, Zofran 4 mg IV q. 8 hours p.r.n. nausea and vomiting, Percocet 1 tablet p.o. q. 12 hours p.r.n. moderate pain. He received a pneumococcal vaccine. Promethazine 25 mg per rectum q. 6 hours p.r.n. nausea and vomiting. ALLERGIES: No known drug allergies. DIET: Thin gentleman, acute weight loss. Again history is unknown. FAMILY AND SOCIAL HISTORY: Has been a resident of healthcare-associated facilities in ____ hospitals since about June of this year. No current alcohol, tobacco or illicit drug use or abuse. Remote history is unknown. There is a family history of diabetes and hypertension. REVIEW OF SYSTEMS: Unobtainable secondary to the patient's medical and mental condition. Since he has been here, no gross hematochezia or melena, no gross hematuria, no hematemesis, no witnessed seizures. No hemoptysis. Review of systems otherwise unobtainable or as in the body of the history above. PHYSICAL EXAMINATION: VITAL SIGNS: At presentation and since, he has been afebrile. Presentation temperature was 98.9 degrees Fahrenheit, pulse was 99, respiratory rate was 20, blood pressure was 139/85, O2 sats were 98% on room air. GENERAL: He is a thin, middle-aged male. Normocephalic, atraumatic. Resting in bed with mild sleep-disordered type breathing without accessory muscle use. HEAD, EYES, EARS, NOSE AND THROAT: Anicteric. No conjunctival erythema. Oropharynx was dry. NECK: No gross jugular venous distention, no thyromegaly. Grossly, there were no palpable lymph nodes in the supraclavicular or submandibular lymph node chains. LUNGS: Auscultation of both lung beltran unremarkable except for occasional referred upper airway sounds. Lungs were clear. HEART: Sounds 1 and 2 are heard, regular rate and rhythm without overt rubs or murmurs. ABDOMEN: Soft, flat, bowel sounds are positive, nontender. No palpable hepatosplenomegaly. Percutaneous endoscopic gastrostomy tube is in place. No significant bleeding around the stoma. EXTREMITIES: Without overt digital clubbing or cyanosis. No pedal edema. Pedal pulses were 2+ bilaterally. NEUROLOGIC: Pupils were equal, round, about 3 mm, reactive to light. Extraocular muscle movements cannot be assessed. He had contractures to really both extremities, but he was more pliant in the right upper extremity. I was able to elicit full range of movement without significant pain or resistance. The left upper extremity in particular was different. There was a contracture, left upper extremity and the left lower extremity. He did not follow commands appropriately and occasionally made some grunting sounds. SKIN: Normal turgor in the areas I examined. He had a left knee abrasion that was well healed. There was some mild reddish skin around the PEG tube stoma; however, no evidence of significant cellulitis. Please see the wound care nurses' notes for full description of his skin. PSYCHIATRIC: His mood and affect were flat. He opened his eyes spontaneously. He had movement mostly to the right side and contractures of the left side. He did not have intact judgment and insight. LABORATORY DATA: From my review are as follows: White cell count 8300, hemoglobin 13.4, hematocrit 40.5, platelet count 252. No manual differential. INR within normal limits. Serum sodium 138, potassium 4.2, chloride 99, bicarbonate 25, BUN 10, creatinine 0.6, glucose was 175. No microbiology studies for my review. A CT scan of the head was done. Again, it showed an old looking moderate-sized right MCA infarct involving the inferior frontoparietal region, gangliocapsular regions and right temporal lobe. There was atrophic dilatation of the right lateral ventricle noted. No evidence of an acute infarct. He also had an old moderately-sized right PICA territory infarct. Carotid Dopplers were done. No significant carotid stenosis. Echocardiogram was done. It showed a normal ejection fraction low normal at 55%, mild diastolic dysfunction. No PFO. No tricuspid regurgitation, evidence of significant pulmonary hypertension. ASSESSMENT: * Right cerebrovascular accident with left hemiparesis. * Hypertension. * History of diabetes. * Dysarthria. * Oropharyngeal dysphagia. * Debility. PLAN: He is being evaluated. He has been seen by the tele neurologist and we will await further recommendations. Physical therapy, occupational therapy has been consulted and they will be evaluating him. The percutaneous endoscopic gastrostomy tube looks a little suspicious. We may have surgeon or GI physician take a look at it to see if it needs to be changed. Otherwise, he is going to need help with his activities of daily living. From a respiratory standpoint, dyspnea standpoint, I do believe it is sleep disordered breathing that was exhibited at the time that I saw him and may be something that should be watched out down the line when he is asleep. Otherwise, supplemental oxygen as necessary will be given to keep sats greater than or equal to about 90%. Aspiration precautions will be maintained. He is appropriately on DVT prophylaxis. I will be putting him on GI prophylaxis. Flu and pneumonia vaccination will be addressed per protocol. Thank you very much for the consult. We will follow along and make further recommendations as picture progresses/becomes clearer. TID: [id number] RECEIPT: [id number] ZAHIDA/NATO/CHRISTOPHER/PETRA
--- NOTE | 2021-10-24 10:49 | Cat Scan Report ---
CTA NECK WITH CONTRAST HISTORY: Stroke COMPARISON: None. TECHNIQUE: Routine CTA of the neck was performed. 3-D/MIP reformats were postprocessed. Percentage s tenosis is determined by direct quantitative measurements of diseased internal carotid artery diamete r compared with normal distal internal carotid artery reference segments or by criteria similar to NA SCET where applicable.All CT scans at this location are performed using CT dose reduction for ALARA b y means of automated exposure control please note the limited CT scan since Mr. Waldron unable to hold still during CT CONTRAST: 100 ml of Omnipaque 350 FINDINGS: Aortic arch: No significant abnormality. Cervical vertebral arteries: Venous contamination obscures the details of the extraosseous segment of right vertebral artery; foraminal segment of the right vertebral artery normal; left vertebral arter y is normal from its origin up to basilar artery Common carotid arteries: No significant abnormality. Carotid bifurcations: Right carotid bifurcation: Motion related artifacts obscure the details proximal right internal carot id artery appears to be normal Left carotid bifurcation: Normal Cervical internal carotid arteries: No significant abnormality. Additional findings: None. IMPRESSION: Motion related artifacts obscure the details Carotid bifurcations appear to be normal CT ANGIO HEAD INDICATION / CLINICAL INFORMATION: 55 years Male; cva. TECHNIQUE: Unenhanced CT of the head initially performed. Thin cut axial images obtained through the head and neck during IV bolus contrast administration. Sagittal, coronal, and 3 plane MIP reconstruct ions performed by the technologist. NASCET type criteria used evaluate stenoses. Automated exposure c ontrol utilized for radiation reduction purposes. Motion related artifacts obscuring the details CTA HEAD COMPARISON: None available. FINDINGS: Please note motion related artifacts limit this CT scan significantly; Vertebrobasilar system: Left vertebral artery is the dominant artery; basilar artery patent; P1 segme nts of both posterior cerebral arteries normal; unable to comment on the P2 segments Carotid arteries: Right middle cerebral arteries; left middle cerebral artery normal Anterior cerebral arteries are normal IMPRESSION: Very limited CTA of the head Occluded right middle cerebral artery Signer Name: Kayy Dominguez MD Signed: 10/24/2021 10:44 AM Workstation Name: [facility]
--- NOTE | 2021-10-24 11:01 | Progress Note ---
Assessment and Plan Right cerebrovascular accident with left hemiparesis Hypertension DM II Dysarthria Oropharyngeal dysphagia Debility - complete neurology w/up - discharge planning ongoing concurrently - prn supplemental oxygen to keep O2 sats > 90% - prn bronchodilators (DULCE) with pulm hygiene per RT - avoid nephrotoxins, renally dose all medications - continue mobility protocols to prevent pressure ulcers - PT/OT as tolerated - Wound care per RN/WCT - continue accuchecks with glycemic control per SSI for target blood glucose < 180 mg/dL - home oxygen evaluation at discharge - GI & VTE prophylaxis - Flu & pneumovax per protocol - prn analgesia per pain score - continue other care per attending / other consultants ... re-evaluate in am & prn Subjective Date of service: 10/24/21 Principal diagnosis: R. CVA with L. hemiparesis; HTN; DM II; Dysarthria; Oropharyngeal dysphagia Interval history: Patient is seen today for: Right cerebrovascular accident with left hemiparesis; Hypertension; DM II; Dysarthria; Oropharyngeal dysphagia; Debility Seen and examined at bedside; 24hour events reviewed; nursing and respiratory care staff consulted; no adverse overnight events reported to me; restying peacefully in bed; seen by neurology and further work-up ordered; AMS is persistent with left ying-neglect Objective Vital Signs - 12hr 10/23/21 10/24/21 10/24/21 23:01 00:00 00:02 Temperature Pulse Rate 86 95 H 95 H Pulse Rate [ 86 From Monitor] Respiratory 16 13 18 Rate Blood Pressure 157/73 148/85 O2 Sat by Pulse 100 99 100 Oximetry 10/24/21 10/24/21 10/24/21 00:05 01:00 02:00 Temperature 98.0 F Pulse Rate 116 H 95 H Pulse Rate [ From Monitor] Respiratory 13 16 Rate Blood Pressure 128/89 137/80 O2 Sat by Pulse 99 100 Oximetry 10/24/21 10/24/21 10/24/21 03:01 04:00 04:05 Temperature 98.0 F Pulse Rate 108 H 98 H 95 H Pulse Rate [ From Monitor] Respiratory 16 19 18 Rate Blood Pressure 150/94 125/80 O2 Sat by Pulse 100 99 100 Oximetry 10/24/21 10/24/21 10/24/21 05:01 06:00 07:01 Temperature Pulse Rate 108 H 93 H 95 H Pulse Rate [ From Monitor] Respiratory 19 21 14 Rate Blood Pressure 129/81 131/76 146/91 O2 Sat by Pulse 96 99 100 Oximetry 10/24/21 10/24/21 10/24/21 08:00 08:22 09:03 Temperature 99.2 F Pulse Rate 85 111 H Pulse Rate [ From Monitor] Respiratory 10 L 15 Rate Blood Pressure 127/78 127/78 O2 Sat by Pulse 99 97 Oximetry 10/24/21 10:00 Temperature Pulse Rate 88 Pulse Rate [ From Monitor] Respiratory 22 Rate Blood Pressure 121/75 O2 Sat by Pulse 98 Oximetry Constitutional: no acute distress, other (Patient awake but not following commands.) Eyes: non-icteric ENT: oropharynx moist Neck: supple, no lymphadenopathy Effort: normal Ascultation: Bilateral: clear Percussion: Bilateral: not dull Cardiovascular: regular rate and rhythm Gastrointestinal: normoactive bowel sounds, soft, non-tender, non-distended, other (PEG tube) Integumentary: normal Extremities: no cyanosis, no edema, pulses normal, no ischemia or petechiae Neurologic: pupils equal and round, other (left hemiplegia with pedal contractures) Psychiatric: other (unable to asses due to neurological status) CBC and BMP: 10/24/21 05:00 10/24/21 05:00 ABG, PT/INR, D-dimer: PT/INR, D-dimer PT 14.8 Sec. (12.2-14.9) 10/22/21 16:00 INR 1.04 (0.87-1.13) 10/22/21 16:00 Abnormal lab findings: Abnormal Labs 10/22/21 10/22/21 10/22/21 16:00 16:00 22:44 MCV 83 L MCH 27 L Dickinson % (Auto) 11.8 H Dickinson # (Auto) 1.0 H Potassium Creatinine 0.6 L Glucose 175 H POC Glucose 115 H Urine Blood Urine WBC (Auto) U Epithel Cells (Auto) 10/23/21 10/23/21 10/23/21 07:28 08:49 11:31 MCV MCH Dickinson % (Auto) Dickinson # (Auto) Potassium Creatinine Glucose POC Glucose 129 H 136 H Urine Blood Moderate A Urine WBC (Auto) 28.0 H U Epithel Cells (Auto) 14.0 H 10/23/21 10/24/21 10/24/21 17:59 00:01 05:00 MCV 82 L MCH Dickinson % (Auto) Dickinson # (Auto) Potassium Creatinine Glucose POC Glucose 109 H 111 H Urine Blood Urine WBC (Auto) U Epithel Cells (Auto) 10/24/21 10/24/21 05:00 07:57 MCV MCH Dickinson % (Auto) Dickinson # (Auto) Potassium 3.5 L Creatinine 0.6 L Glucose 134 H POC Glucose 132 H Urine Blood Urine WBC (Auto) U Epithel Cells (Auto) Allied health notes reviewed: nursing
[2021-10-24] MEDS: HEPARIN 5,000 UNIT/1 ML VIAL SUB-Q SCH ×2 (11:20→21:39)
[2021-10-24] MEDS: atenoloL 50 MG TAB FEEDTUBE SCH (11:20)
[2021-10-24] MEDS: INDAPAMIDE 2.5 MG TAB FEEDTUBE SCH (11:20)
[2021-10-24] MEDS: SENNOSIDES ORAL LIQD 8.8 MG/5 ML ORAL LIQD FEEDTUBE SCH ×2 (11:21→21:36)
[2021-10-24] MEDS: FLUoxetine 20 MG/5 ML ORAL LIQD FEEDTUBE SCH (11:21)
[2021-10-24] MEDS: levETIRAcetam 500 MG/5 ML ORAL LIQD FEEDTUBE SCH ×2 (11:21→21:39)
[2021-10-24] MEDS: LISINOPRIL 5 MG TAB FEEDTUBE SCH (11:22)
[2021-10-24] MEDS: ASPIRIN 325 MG TAB PO SCH (11:22)
[2021-10-24] MEDS: LANSOPRAZOLE 30 MG SOLUTAB FEEDTUBE SCH (19:28)
[2021-10-25] MEDS: INSULIN LISPRO 100 UNIT/ML SUB-Q SCH ×5 (05:00→23:02)
[2021-10-25] MEDS ORDERED: LORazepam 2 MG/ML VIAL IV PRN ×2 (07:30→10:46)
[2021-10-25] MEDS: ASPIRIN 325 MG TAB PO SCH (09:54)
[2021-10-25] MEDS: levETIRAcetam 500 MG/5 ML ORAL LIQD FEEDTUBE SCH ×2 (09:54→21:01)
[2021-10-25] MEDS: FLUoxetine 20 MG/5 ML ORAL LIQD FEEDTUBE SCH (09:54)
[2021-10-25] MEDS: atenoloL 50 MG TAB FEEDTUBE SCH (09:54)
[2021-10-25] MEDS: INDAPAMIDE 2.5 MG TAB FEEDTUBE SCH (09:54)
[2021-10-25] MEDS: HEPARIN 5,000 UNIT/1 ML VIAL SUB-Q SCH ×2 (09:55→21:01)
[2021-10-25] MEDS: LISINOPRIL 5 MG TAB FEEDTUBE SCH (09:55)
--- NOTE | 2021-10-25 10:47 | Progress Note ---
<SUKUMAR TAPIA - Last Filed: 10/25/21 18:41> Assessment and Plan Assessment and plan: This is a 55-year-old male with known past medical history of HTN, DM, CVA complicated by Dysphagia, Dysarthria, Left Hemiparesis, debility and seizure disorder admitted for acute CVA/TIA Hospital Course to Date: 10/23: Nonverbal, open eyes spontaneously, does not follow any commands with LUE paralysis/contraction. on RA, VSS. Echo and Neurology consult pending. PT/OT/Speech also consulted. PEG-tube noted, nutrition/c programmer consulted for TF management. Pulmonary is also following. Patient presented with a harden catheter, per record history of urinary retention. Harden cath exchanged, UA pending. 10/24: SEKOU overnight. Neurology recommendations noted, orders placed for MRI brain and CTA head/Neck. Continue PT/OT/Speech, home meds resumed, and enteral nutrition initiated. UA noted, patient is asymptomatic with no leukocytosis, continue to monitor, urine culture pending. 10/25: Remains stable, mentation unchanged. CTA head/Neck noted, MRI brain/MRA head/Neck pending. Awaiting Neurology final recommendations. Continue current supportive measures. Assessment and Plan #Cerebral Vascular Accident(CVA) #Transient Ischemic Attack(TIA) #Hemiparesis, left #H/o Seizure Disorder - Patient transfer from [facility] in [facility] via air ambulance for stroke like sx, out of therapuetic window for tPA - Patient had recent CVA back in 06/22/21 while in [facility] complicated by Dysphagia, Dysarthria, Left Hemiparesis, and Debility - CT head/brain shows old, moderately sized right PICA territory infarct with mild cerebral and cerebellar atrophy. No acute abnormality reported. See report for details - Patient is nonverbal, open eyes spontaneously but does not follow any commands, LUE paralysis/contraction noted - Carotid US noted - 2D Echo noted, LVEF is 55%. No evidence of PFO. See report for details - Neurology consulted, appreciated recommendations - CTA head/Neck noted, see report for details - MRI Brain w/wo and MRA head/Neck pending - On ASA, statin, and VTE proph - PT/OT/Speech consulted - Neuro check protocol - Aspiration and Fall precaution - Home keppra resumed #Hypertension - BP stable this am - Hold all antihypertensive regimen for now - Continue blood pressure monitor per protocol - Maintain SBP less than 160 #Dysarthria/Dysphagia #S/p PEG-Tube Placement - complications from previous CVA. Supportive care - Initiated enteral nutrition - Nutrition and Speech therapy consulted. #Urinary Retention/Obstruction - Presented with Harden catheter, per record history of urinary retention - Harden cath exchanged. - UA noted, patient is asymptomatic with no leukocytosis, continue to monitor. Urine culture pending - Strict intake and output #Type 2 Diabetes Mellitus - BG and SSI Q6hrs - Avoid hypglycemia #GI/DVT Prophylaxis - PPI- Protonix - Heparin SubQ - SCD to bilateral lower extremities while in bed #Advance Care Planning - Disease education data, care plan, diagnoses, and prognosis were discussed with patient's brother. Patient is a Full code. Patient's family acknowledged understanding and agreement with current care plan. The high probability of a clinically significant, sudden or life threatening deterioration of the [multiple] system(s) required my full and direct attention, intervention and personal management. The aggregate critical care time was [60] minutes. This time is in addition to time spent performing reported procedures but includes the following: [x] Data Review and interpretation [x] Patient assessment and monitoring of vital signs [x] Documentation [x] Medication orders and management Disposition Plan: IMCU Total Time Spent with Patient (Minutes): 60 History Interval history: Patient seen and examined at the bedside. Nonverbal, open eyes spontaneously but does not follow any commands. On RA, no respiratory distress noted, VSS. LUE is contracted, otherwise generalized weakness Hospitalist Physical - Physical exam Narrative exam: General appearance: Present: no acute distress, well-nourished - EENT Eyes: Present: PERRL, EOM intact ENT: hearing intact - Neck Neck: Present: normal ROM - Respiratory Respiratory effort: normal Respiratory: bilateral: diminished - Cardiovascular Rhythm: regular Heart Sounds: Present: S1 & S2 - Extremities Extremities: no ischemia, pulses intact, pulses symmetrical, abnormal (LUE contraction) Extremity abnormal: edema - Peripheral Assessment Left Upper Extremity Edema Type: Pitting Edema Degree: Trace Capillary Refill: < 3 seconds Skin Temperature: Warm Generalized Edema Type: Non-pitting Edema Degree: 1+ Capillary Refill: < 3 seconds Skin Temperature: Warm Peripheral Pulses: within normal limits - Abdominal General gastrointestinal: soft, non-distended, normal bowel sounds, other (PEG- Tube present) - Integumentary Integumentary: Present: warm, dry - Psychiatric Psychiatric: other (LINDSAY, nonverbal. Open eyes spontaneously, does not follow commands) - Neurologic Neurologic: moves all extremities (Except LUE due to contraction. Otherwise generalized weakness), other (LINDSAY, nonverbal. Open eyes spontaneously, does not follow commands) - Allied Health Allied health notes reviewed: nursing, Case Management - Constitutional Vitals: Temp Pulse Resp BP Pulse Ox 98.4 F 82 20 122/75 98 10/25/21 07:43 10/25/21 09:55 10/25/21 08:00 10/25/21 09:55 10/25/21 08:00 Results - Labs CBC & Chem 7: 10/24/21 05:00 10/24/21 05:00 Labs: Laboratory Last Values WBC 6.4 K/mm3 (4.5-11.0) 10/24/21 05:00 RBC 4.59 M/mm3 (3.65-5.03) 10/24/21 05:00 Hgb 12.7 gm/dl (11.8-15.2) 10/24/21 05:00 Hct 37.7 % (35.5-45.6) 10/24/21 05:00 MCV 82 fl (84-94) L 10/24/21 05:00 MCH 28 pg (28-32) 10/24/21 05:00 MCHC 34 % (32-34) 10/24/21 05:00 RDW 14.1 % (13.2-15.2) 10/24/21 05:00 Plt Count 222 K/mm3 (140-440) 10/24/21 05:00 Lymph % (Auto) 29.6 % (13.4-35.0) 10/22/21 16:00 [place] % (Auto) 11.8 % (0.0-7.3) H 10/22/21 16:00 Eos % (Auto) 1.3 % (0.0-4.3) 10/22/21 16:00 Baso % (Auto) 0.4 % (0.0-1.8) 10/22/21 16:00 Lymph # (Auto) 2.4 K/mm3 (1.2-5.4) 10/22/21 16:00 [place] # (Auto) 1.0 K/mm3 (0.0-0.8) H 10/22/21 16:00 Eos # (Auto) 0.1 K/mm3 (0.0-0.4) 10/22/21 16:00 Baso # (Auto) 0.0 K/mm3 (0.0-0.1) 10/22/21 16:00 Seg Neutrophils % 56.9 % (40.0-70.0) 10/22/21 16:00 Seg Neutrophils # 4.7 K/mm3 (1.8-7.7) 10/22/21 16:00 PT 14.8 Sec. (12.2-14.9) 10/22/21 16:00 INR 1.04 (0.87-1.13) 10/22/21 16:00 APTT 28.1 Sec. (24.2-36.6) 10/22/21 16:00 Sodium 138 mmol/L (137-145) 10/24/21 05:00 Potassium 3.5 mmol/L (3.6-5.0) L 10/24/21 05:00 Chloride 100.8 mmol/L (98-107) 10/24/21 05:00 Carbon Dioxide 26 mmol/L (22-30) 10/24/21 05:00 Anion Gap 15 mmol/L 10/24/21 05:00 BUN 9 mg/dL (9-20) 10/24/21 05:00 Creatinine 0.6 mg/dL (0.8-1.3) L 10/24/21 05:00 Estimated GFR > 60 ml/min 10/24/21 05:00 BUN/Creatinine Ratio 15 % 10/24/21 05:00 Glucose 134 mg/dL (75-100) H 10/24/21 05:00 POC Glucose 147 mg/dL (70-105) H 10/25/21 07:49 Hemoglobin A1c 8.0 % (4-6) H 10/24/21 10:16 Calcium 9.2 mg/dL (8.4-10.2) 10/24/21 05:00 Total Bilirubin 0.50 mg/dL (0.1-1.2) 10/22/21 16:00 AST 24 units/L (5-40) 10/22/21 16:00 ALT 28 units/L (7-56) 10/22/21 16:00 Alkaline Phosphatase 102 units/L (35-129) 10/22/21 16:00 Total Protein 6.9 g/dL (6.3-8.2) 10/22/21 16:00 Albumin 4.3 g/dL (3.9-5) 10/22/21 16:00 Albumin/Globulin Ratio 1.7 % 10/22/21 16:00 Triglycerides 85 mg/dL (2-149) 10/23/21 12:33 Cholesterol 148 mg/dL (50-199) 10/23/21 12:33 LDL Cholesterol Direct 86 mg/dL (50-130) 10/23/21 12:33 HDL Cholesterol 44 mg/dL (40-59) 10/23/21 12:33 Cholesterol/HDL Ratio 3.36 % 10/23/21 12:33 TSH 2.020 mlU/mL (0.270-4.200) 10/24/21 10:16 Free T4 0.88 ng/dL (0.76-1.46) 10/24/21 10:16 Urine Color Yellow (Yellow) 10/23/21 08:49 Urine Turbidity Clear (Clear) 10/23/21 08:49 Urine pH 6.5 (5.0-7.0) 10/23/21 08:49 Ur Specific [place] 1.005 (1.003-1.030) 10/23/21 08:49 Urine Protein 30 mg/dl mg/dL (Negative) 10/23/21 08:49 Urine Glucose (UA) Negative mg/dL (Negative) 10/23/21 08:49 Urine Ketones Negative mg/dL (Negative) 10/23/21 08:49 Urine Blood Moderate (Negative) A 10/23/21 08:49 Urine Nitrite Negative (Negative) 10/23/21 08:49 Ur Reducing Substances Not Reportable 10/23/21 08:49 Urine Bilirubin Negative (Negative) 10/23/21 08:49 Urine Ictotest Not Reportable 10/23/21 08:49 Urine Urobilinogen < 2.0 mg/dL (<2.0) 10/23/21 08:49 Ur Leukocyte Esterase Moderate (Negative) 10/23/21 08:49 Urine WBC (Auto) 28.0 /HPF (0.0-6.0) H 10/23/21 08:49 Urine RBC (Auto) 27.0 /HPF (0.0-6.0) 10/23/21 08:49 U Epithel Cells (Auto) 14.0 /HPF (0-13.0) H 10/23/21 08:49 Hyaline Casts 1 /LPF 10/23/21 08:49 Urine Mucus Few /HPF 10/23/21 08:49 Harden/IV: Voiding Method Indwelling Catheter Active Medications - Current Medications Current Medications: Generic Name Dose Route Start Last Admin Trade Name Freq PRN Reason Stop Dose Admin Acetaminophen 650 mg 10/22/21 16:19 10/22/21 22:50 Acetaminophen 325 Mg Tab PO 650 mg Q4H PRN Administration Pain, Mild (1-3) Albuterol 2.5 mg 10/22/21 16:19 Albuterol 2.5 Mg/3 Ml Nebu IH Q3HRT PRN Shortness Of Breath Aspirin 325 mg 10/23/21 10:00 10/25/21 09:54 Aspirin 325 Mg Tab PO 325 mg QDAY NEO Administration Atenolol 50 mg 10/24/21 10:00 10/25/21 09:54 Atenolol 50 Mg Tab FEEDTUBE 50 mg QDAY NEO Administration Atorvastatin Calcium 80 mg 10/24/21 22:00 10/24/21 21:40 Atorvastatin 40 Mg Tab FEEDTUBE 80 mg QHS NEO Administration Bisacodyl 10 mg 10/22/21 16:19 Bisacodyl 10 Mg Rect Supp NM QDAY PRN Constipation Dextrose 50 ml 10/22/21 17:23 Dextrose 50% In Water (25gm) 50 Ml Syringe IV Q30MIN PRN Hypoglycemia Protocol Fluoxetine HCl 10 mg 10/24/21 10:00 10/25/21 09:54 Fluoxetine 20 Mg/5 Ml Oral Liqd FEEDTUBE 10 mg QDAY NEO Administration Heparin Sodium (Porcine) 5,000 unit 10/22/21 22:00 10/25/21 09:55 Heparin 5,000 Unit/1 Ml Vial SUB-Q 5,000 unit Q12HR NEO Administration Indapamide 5 mg 10/24/21 10:00 10/25/21 09:54 Indapamide 2.5 Mg Tab FEEDTUBE 5 mg QDAY NEO Administration Insulin Human Lispro 0 unit 07/23/22 12:00 10/25/21 05:00 Insulin Lispro 100 Unit/Ml SUB-Q 2 unit Q6HR NEO Administration Protocol Lansoprazole 30 mg 10/23/21 18:00 10/24/21 19:28 Lansoprazole 30 Mg Solutab FEEDTUBE 30 mg QPM NEO Administration Levetiracetam 250 mg 10/24/21 10:00 10/25/21 09:54 Levetiracetam 500 Mg/5 Ml Oral Liqd FEEDTUBE 250 mg BID NEO Administration Lisinopril 5 mg 10/24/21 10:00 10/25/21 09:55 Lisinopril 5 Mg Tab FEEDTUBE 5 mg QDAY NEO Administration Magnesium Hydroxide 30 ml 10/22/21 16:19 Magnesium Hydroxide (Mom) Oral Liqd Udc PO Q4H PRN Constipation Ondansetron HCl 4 mg 10/22/21 16:19 Ondansetron 4 Mg/2 Ml Inj IV Q8H PRN Nausea And Vomiting Oxycodone/Acetaminophen 1 tab 10/22/21 16:19 Oxycodone /Acetaminophen 5-325mg Tab PO Q12H PRN Pain, Moderate (4-6) Senna 17.6 mg 10/24/21 10:00 10/24/21 21:36 Sennosides Oral Liqd 8.8 Mg/5 Ml Oral Liqd FEEDTUBE Not Given Q12HR NEO Sodium Chloride 10 ml 10/22/21 16:19 10/24/21 21:39 Sodium Chloride 0.9% 10 Ml Flush Syringe IV 10 ml PRN PRN Administration LINE FLUSH Nutrition/Malnutrition Assess - Dietary Evaluation Nutrition/Malnutrition Findings: Nutrition Notes Start: 10/23/21 13:01 Freq: Status: Active Protocol: Document 10/23/21 13:01 MARGO (Rec: 10/23/21 13:06 MARGO [id number]) Nutrition Notes Need for Assessment generated from: MD Order,timber management specialist Initial or Follow up Assessment Current Diagnosis Diabetes,Hypertension,Stroke Other Pertinent Diagnosis Dysphagia, (L) hemiparesis, Debility Current Diet NPO Labs/Tests Reviewed Pertinent Medications Reviewed Height 5 ft 11 in Weight 90.718 kg [place] Body Weight (kg) 78.18 BMI 27.8 Weight Status Overweight Subjective/Other Information RD consulted for TF; pt also screened for hs of receiving NTR support. Burn Absent Trauma Absent Minimum of two criteria No #1 Nutrition Diagnosis Swallowing difficulty Etiology CVA As Evidenced by Signs and Symptoms pt NPO Is patient on ventilator? No Is Patient Ambulatory and/or Out of Bed No REE-([facility]-confined to bed) 7107.456 Calculation Used for Recommendations [facility] Additional Notes Pro needs 0.8-1g/k-91g/ day Fluid needs 1ml/kcal Nutrition Intervention Nutrition Support: Glucerna 1.2 at 70ml/hr with 100ml water flush q4h. Kcal 2,016 Protein (gm) 101 Carbohydrates (gm) 192 Fat (gm) 101 Fluid (mL) 1,352 Fiber (gm) 27 Goal #1 TF tolerance Goal #2 TF to meet at least 75% energy and pro needs Anticipated Discharge Needs: Continue EN support Follow-Up By: 10/26/21 Additional Comments F/U: new TF <DIOR MCKEON E - Last Filed: 10/26/21 07:04> Assessment and Plan Assessment and plan: I saw and evaluated the patient. I agree with the findings and the plan of care as documented in the Nurse Practitioner's~note, with the following corrections and additions. Hospitalist Physical - Constitutional Vitals: Temp Pulse Resp BP Pulse Ox 98.9 F 99 H 12 152/87 99 10/26/21 04:20 10/26/21 05:00 10/26/21 06:00 10/26/21 06:00 10/26/21 06:00 Results - Labs CBC & Chem 7: 10/24/21 05:00 10/26/21 04:56 Labs: Laboratory Last Values WBC 6.4 K/mm3 (4.5-11.0) 10/24/21 05:00 RBC 4.59 M/mm3 (3.65-5.03) 10/24/21 05:00 Hgb 12.7 gm/dl (11.8-15.2) 10/24/21 05:00 Hct 37.7 % (35.5-45.6) 10/24/21 05:00 MCV 82 fl (84-94) L 10/24/21 05:00 MCH 28 pg (28-32) 10/24/21 05:00 MCHC 34 % (32-34) 10/24/21 05:00 RDW 14.1 % (13.2-15.2) 10/24/21 05:00 Plt Count 222 K/mm3 (140-440) 10/24/21 05:00 Lymph % (Auto) 29.6 % (13.4-35.0) 10/22/21 16:00 [place] % (Auto) 11.8 % (0.0-7.3) H 10/22/21 16:00 Eos % (Auto) 1.3 % (0.0-4.3) 10/22/21 16:00 Baso % (Auto) 0.4 % (0.0-1.8) 10/22/21 16:00 Lymph # (Auto) 2.4 K/mm3 (1.2-5.4) 10/22/21 16:00 [place] # (Auto) 1.0 K/mm3 (0.0-0.8) H 10/22/21 16:00 Eos # (Auto) 0.1 K/mm3 (0.0-0.4) 10/22/21 16:00 Baso # (Auto) 0.0 K/mm3 (0.0-0.1) 10/22/21 16:00 Seg Neutrophils % 56.9 % (40.0-70.0) 10/22/21 16:00 Seg Neutrophils # 4.7 K/mm3 (1.8-7.7) 10/22/21 16:00 PT 14.8 Sec. (12.2-14.9) 10/22/21 16:00 INR 1.04 (0.87-1.13) 10/22/21 16:00 APTT 28.1 Sec. (24.2-36.6) 10/22/21 16:00 Sodium 138 mmol/L (137-145) 10/26/21 04:56 Potassium 4.1 mmol/L (3.6-5.0) 10/26/21 04:56 Chloride 99.1 mmol/L (98-107) 10/26/21 04:56 Carbon Dioxide 29 mmol/L (22-30) 10/26/21 04:56 Anion Gap 14 mmol/L 10/26/21 04:56 BUN 11 mg/dL (9-20) 10/26/21 04:56 Creatinine 0.7 mg/dL (0.8-1.3) L 10/26/21 04:56 Estimated GFR > 60 ml/min 10/26/21 04:56 BUN/Creatinine Ratio 16 % 10/26/21 04:56 Glucose 165 mg/dL (75-100) H 10/26/21 04:56 POC Glucose 136 mg/dL (70-105) H 10/25/21 20:54 Hemoglobin A1c 8.0 % (4-6) H 10/24/21 10:16 Calcium 10.2 mg/dL (8.4-10.2) 10/26/21 04:56 Phosphorus 3.80 mg/dL (2.5-4.5) 10/26/21 04:56 Magnesium 1.60 mg/dL (1.7-2.3) L 10/26/21 04:56 Total Bilirubin 0.50 mg/dL (0.1-1.2) 10/22/21 16:00 AST 24 units/L (5-40) 10/22/21 16:00 ALT 28 units/L (7-56) 10/22/21 16:00 Alkaline Phosphatase 102 units/L (35-129) 10/22/21 16:00 Total Protein 6.9 g/dL (6.3-8.2) 10/22/21 16:00 Albumin 4.3 g/dL (3.9-5) 10/22/21 16:00 Albumin/Globulin Ratio 1.7 % 10/22/21 16:00 Triglycerides 85 mg/dL (2-149) 10/23/21 12:33 Cholesterol 148 mg/dL (50-199) 10/23/21 12:33 LDL Cholesterol Direct 86 mg/dL (50-130) 10/23/21 12:33 HDL Cholesterol 44 mg/dL (40-59) 10/23/21 12:33 Cholesterol/HDL Ratio 3.36 % 10/23/21 12:33 TSH 2.020 mlU/mL (0.270-4.200) 10/24/21 10:16 Free T4 0.88 ng/dL (0.76-1.46) 10/24/21 10:16 Urine Color Yellow (Yellow) 10/23/21 08:49 Urine Turbidity Clear (Clear) 10/23/21 08:49 Urine pH 6.5 (5.0-7.0) 10/23/21 08:49 Ur Specific [place] 1.005 (1.003-1.030) 10/23/21 08:49 Urine Protein 30 mg/dl mg/dL (Negative) 10/23/21 08:49 Urine Glucose (UA) Negative mg/dL (Negative) 10/23/21 08:49 Urine Ketones Negative mg/dL (Negative) 10/23/21 08:49 Urine Blood Moderate (Negative) A 10/23/21 08:49 Urine Nitrite Negative (Negative) 10/23/21 08:49 Ur Reducing Substances Not Reportable 10/23/21 08:49 Urine Bilirubin Negative (Negative) 10/23/21 08:49 Urine Ictotest Not Reportable 10/23/21 08:49 Urine Urobilinogen < 2.0 mg/dL (<2.0) 10/23/21 08:49 Ur Leukocyte Esterase Moderate (Negative) 10/23/21 08:49 Urine WBC (Auto) 28.0 /HPF (0.0-6.0) H 10/23/21 08:49 Urine RBC (Auto) 27.0 /HPF (0.0-6.0) 10/23/21 08:49 U Epithel Cells (Auto) 14.0 /HPF (0-13.0) H 10/23/21 08:49 Hyaline Casts 1 /LPF 10/23/21 08:49 Urine Mucus Few /HPF 10/23/21 08:49 Harden/IV: Voiding Method Indwelling Catheter Active Medications - Current Medications Current Medications: Generic Name Dose Route Start Last Admin Trade Name Freq PRN Reason Stop Dose Admin Acetaminophen 650 mg 10/22/21 16:19 10/22/21 22:50 Acetaminophen 325 Mg Tab PO 650 mg Q4H PRN Administration Pain, Mild (1-3) Albuterol 2.5 mg 10/22/21 16:19 Albuterol 2.5 Mg/3 Ml Nebu IH Q3HRT PRN Shortness Of Breath Aspirin 325 mg 10/23/21 10:00 10/25/21 09:54 Aspirin 325 Mg Tab PO 325 mg QDAY NEO Administration Atenolol 50 mg 10/24/21 10:00 10/25/21 09:54 Atenolol 50 Mg Tab FEEDTUBE 50 mg QDAY NEO Administration Atorvastatin Calcium 80 mg 10/24/21 22:00 10/25/21 21:01 Atorvastatin 40 Mg Tab FEEDTUBE 80 mg QHS NEO Administration Bisacodyl 10 mg 10/22/21 16:19 Bisacodyl 10 Mg Rect Supp NM QDAY PRN Constipation Dextrose 50 ml 10/22/21 17:23 Dextrose 50% In Water (25gm) 50 Ml Syringe IV Q30MIN PRN Hypoglycemia Protocol Fluoxetine HCl 10 mg 10/24/21 10:00 10/25/21 09:54 Fluoxetine 20 Mg/5 Ml Oral Liqd FEEDTUBE 10 mg QDAY NEO Administration Heparin Sodium (Porcine) 5,000 unit 10/22/21 22:00 10/25/21 21:01 Heparin 5,000 Unit/1 Ml Vial SUB-Q 5,000 unit Q12HR NEO Administration Indapamide 5 mg 10/24/21 10:00 10/25/21 09:54 Indapamide 2.5 Mg Tab FEEDTUBE 5 mg QDAY NEO Administration Insulin Human Lispro 0 unit 10/24/21 12:00 10/26/21 05:43 Insulin Lispro 100 Unit/Ml SUB-Q 2 unit Q6HR NEO Administration Protocol Lansoprazole 30 mg 10/23/21 18:00 10/25/21 18:32 Lansoprazole 30 Mg Solutab FEEDTUBE 30 mg QPM NEO Administration Levetiracetam 250 mg 10/24/21 10:00 10/25/21 21:01 Levetiracetam 500 Mg/5 Ml Oral Liqd FEEDTUBE 250 mg BID NEO Administration Lisinopril 5 mg 10/24/21 10:00 10/25/21 09:55 Lisinopril 5 Mg Tab FEEDTUBE 5 mg QDAY NEO Administration Lorazepam 1 mg 10/25/21 10:46 Lorazepam 2 Mg/Ml Vial IV ONCE PRN Prior to MRI Magnesium Hydroxide 30 ml 10/22/21 16:19 Magnesium Hydroxide (Mom) Oral Liqd Udc PO Q4H PRN Constipation Ondansetron HCl 4 mg 10/22/21 16:19 Ondansetron 4 Mg/2 Ml Inj IV Q8H PRN Nausea And Vomiting Oxycodone/Acetaminophen 1 tab 10/22/21 16:19 Oxycodone /Acetaminophen 5-325mg Tab PO Q12H PRN Pain, Moderate (4-6) Senna 17.6 mg 10/24/21 10:00 10/25/21 21:01 Sennosides Oral Liqd 8.8 Mg/5 Ml Oral Liqd FEEDTUBE Not Given Q12HR NEO Sodium Chloride 10 ml 10/22/21 16:19 10/24/21 21:39 Sodium Chloride 0.9% 10 Ml Flush Syringe IV 10 ml PRN PRN Administration LINE FLUSH Nutrition/Malnutrition Assess - Dietary Evaluation Nutrition/Malnutrition Findings: Nutrition Notes Start: 10/23/21 13:01 Freq: Status: Active Protocol: Document 10/23/21 13:01 MARGO (Rec: 10/23/21 13:06 MARGO [id number]) Nutrition Notes Need for Assessment generated from: MD Order,timber management specialist Initial or Follow up Assessment Current Diagnosis Diabetes,Hypertension,Stroke Other Pertinent Diagnosis Dysphagia, (L) hemiparesis, Debility Current Diet NPO Labs/Tests Reviewed Pertinent Medications Reviewed Height 5 ft 11 in Weight 90.718 kg [place] Body Weight (kg) 78.18 BMI 27.8 Weight Status Overweight Subjective/Other Information RD consulted for TF; pt also screened for hs of receiving NTR support. Burn Absent Trauma Absent Minimum of two criteria No #1 Nutrition Diagnosis Swallowing difficulty Etiology CVA As Evidenced by Signs and Symptoms pt NPO Is patient on ventilator? No Is Patient Ambulatory and/or Out of Bed No REE-([facility]-confined to bed) [phone] Calculation Used for Recommendations [facility] Additional Notes Pro needs 0.8-1g/k-91g/ day Fluid needs 1ml/kcal Nutrition Intervention Nutrition Support: Glucerna 1.2 at 70ml/hr with 100ml water flush q4h. Kcal 2,016 Protein (gm) 101 Carbohydrates (gm) 192 Fat (gm) 101 Fluid (mL) 1,352 Fiber (gm) 27 Goal #1 TF tolerance Goal #2 TF to meet at least 75% energy and pro needs Anticipated Discharge Needs: Continue EN support Follow-Up By: 10/26/21 Additional Comments F/U: new TF
--- NOTE | 2021-10-25 11:33 | Progress Note ---
Assessment and Plan Right cerebrovascular accident with left hemiparesis Hypertension DM II Dysarthria Oropharyngeal dysphagia Debility - complete neurology w/up - discharge planning ongoing concurrently - continue care as below otherwise; - prn supplemental oxygen to keep O2 sats > 90% - prn bronchodilators (DULCE) with pulm hygiene per RT - avoid nephrotoxins, renally dose all medications - continue mobility protocols to prevent pressure ulcers - PT/OT as tolerated - Wound care per RN/WCT - continue accuchecks with glycemic control per SSI for target blood glucose < 180 mg/dL - home oxygen evaluation at discharge - GI & VTE prophylaxis - Flu & pneumovax per protocol - prn analgesia per pain score - continue other care per attending / other consultants ... re-evaluate in am & prn Subjective Date of service: 10/25/21 Principal diagnosis: R. CVA with L. hemiparesis; HTN; DM II; Dysarthria; Oropharyngeal dysphagia Interval history: Patient is seen today for: Right cerebrovascular accident with left hemiparesis; Hypertension; DM II; Dysarthria; Oropharyngeal dysphagia; Debility Seen and examined at bedside; 24hour events reviewed; nursing and respiratory care staff consulted; no adverse overnight events reported to me; restying peacefully in bed; AMS is persistent; neurology evaluation ongoing; No emesis or overt aspiration Objective Vital Signs - 12hr 10/25/21 10/25/21 10/25/21 00:00 01:00 02:00 Temperature Pulse Rate 84 84 79 Pulse Rate [ From Monitor] Respiratory 22 Rate Blood Pressure 116/79 98/77 110/68 O2 Sat by Pulse 99 100 100 Oximetry 10/25/21 10/25/21 10/25/21 03:01 03:15 04:00 Temperature 98.6 F Pulse Rate 92 H 92 H 92 H Pulse Rate [ From Monitor] Respiratory 16 18 24 Rate Blood Pressure 124/73 130/76 O2 Sat by Pulse 100 99 99 Oximetry 10/25/21 10/25/21 10/25/21 05:01 06:00 06:17 Temperature Pulse Rate 102 H 94 H Pulse Rate [ From Monitor] Respiratory 17 16 18 Rate Blood Pressure 126/81 116/74 O2 Sat by Pulse 100 99 99 Oximetry 10/25/21 10/25/21 10/25/21 07:00 07:01 07:43 Temperature 98.4 F Pulse Rate 94 H 105 H Pulse Rate [ From Monitor] Respiratory 13 Rate Blood Pressure 135/85 O2 Sat by Pulse 97 Oximetry 10/25/21 10/25/21 10/25/21 08:00 09:00 09:54 Temperature Pulse Rate 100 H 84 89 Pulse Rate [ From Monitor] Respiratory 20 16 Rate Blood Pressure 131/92 122/75 122/75 O2 Sat by Pulse 98 99 Oximetry 10/25/21 10/25/21 10/25/21 09:55 10:00 11:00 Temperature Pulse Rate 82 83 97 H Pulse Rate [ 100 H From Monitor] Respiratory 16 16 Rate Blood Pressure 122/75 114/69 113/77 O2 Sat by Pulse 100 98 Oximetry Constitutional: no acute distress, other (Patient awake but not following commands.) Eyes: non-icteric ENT: oropharynx moist Neck: supple, no lymphadenopathy Effort: normal Ascultation: Bilateral: clear Percussion: Bilateral: not dull Cardiovascular: regular rate and rhythm Gastrointestinal: normoactive bowel sounds, soft, non-tender, non-distended, other (PEG tube) Integumentary: normal Extremities: no cyanosis, no edema, pulses normal, no ischemia or petechiae Neurologic: pupils equal and round, other (left hemiplegia with pedal contra ctures) Psychiatric: other (unable to asses due to neurological status) CBC and BMP: 10/24/21 05:00 10/26/21 04:56 ABG, PT/INR, D-dimer: PT/INR, D-dimer PT 14.8 Sec. (12.2-14.9) 10/22/21 16:00 INR 1.04 (0.87-1.13) 10/22/21 16:00 Abnormal lab findings: Abnormal Labs 10/22/21 10/22/21 10/22/21 16:00 16:00 22:44 MCV 83 L MCH 27 L [place] % (Auto) 11.8 H [place] # (Auto) 1.0 H Potassium Creatinine 0.6 L Glucose 175 H POC Glucose 115 H Hemoglobin A1c Urine Blood Urine WBC (Auto) U Epithel Cells (Auto) 10/23/21 10/23/21 10/23/21 07:28 08:49 11:31 MCV MCH [place] % (Auto) [place] # (Auto) Potassium Creatinine Glucose POC Glucose 129 H 136 H Hemoglobin A1c Urine Blood Moderate A Urine WBC (Auto) 28.0 H U Epithel Cells (Auto) 14.0 H 10/23/21 10/24/21 10/24/21 17:59 00:01 05:00 MCV 82 L MCH [place] % (Auto) [place] # (Auto) Potassium Creatinine Glucose POC Glucose 109 H 111 H Hemoglobin A1c Urine Blood Urine WBC (Auto) U Epithel Cells (Auto) 10/24/21 10/24/21 10/24/21 05:00 07:57 10:16 MCV MCH [place] % (Auto) [place] # (Auto) Potassium 3.5 L Creatinine 0.6 L Glucose 134 H POC Glucose 132 H Hemoglobin A1c 8.0 H Urine Blood Urine WBC (Auto) U Epithel Cells (Auto) 10/24/21 10/24/21 10/25/21 16:26 20:57 04:47 MCV MCH [place] % (Auto) [place] # (Auto) Potassium Creatinine Glucose POC Glucose 109 H 145 H 159 H Hemoglobin A1c Urine Blood Urine WBC (Auto) U Epithel Cells (Auto) 10/25/21 10/25/21 07:49 11:19 MCV MCH [place] % (Auto) [place] # (Auto) Potassium Creatinine Glucose POC Glucose 147 H 164 H Hemoglobin A1c Urine Blood Urine WBC (Auto) U Epithel Cells (Auto) Allied health notes reviewed: nursing
[2021-10-25] MEDS: SENNOSIDES ORAL LIQD 8.8 MG/5 ML ORAL LIQD FEEDTUBE SCH ×2 (11:37→21:01)
[2021-10-25] MEDS: LANSOPRAZOLE 30 MG SOLUTAB FEEDTUBE SCH (18:32)
[2021-10-26 05:30] LABS: BUN/Creatinine Ratio 16; Blood Urea Nitrogen 11 mg/dL (9-20); Calcium 10.2 mg/dL (8.4-10.2); Hemolysis Index 0
[2021-10-26] MEDS: INSULIN LISPRO 100 UNIT/ML SUB-Q SCH ×3 (05:43→17:35)
[2021-10-26] MEDS ORDERED: MAGNESIUM SULFATE 2 GM/50 ML BAG IV SCH (09:00)
[2021-10-26] MEDS: INDAPAMIDE 2.5 MG TAB FEEDTUBE SCH (09:51)
[2021-10-26] MEDS: atenoloL 50 MG TAB FEEDTUBE SCH (09:52)
[2021-10-26] MEDS: ASPIRIN 325 MG TAB PO SCH (09:52)
[2021-10-26] MEDS: LISINOPRIL 5 MG TAB FEEDTUBE SCH (09:52)
[2021-10-26] MEDS: HEPARIN 5,000 UNIT/1 ML VIAL SUB-Q SCH ×2 (09:53→21:05)
[2021-10-26] MEDS: levETIRAcetam 500 MG/5 ML ORAL LIQD FEEDTUBE SCH ×2 (09:58→21:05)
[2021-10-26] MEDS: SENNOSIDES ORAL LIQD 8.8 MG/5 ML ORAL LIQD FEEDTUBE SCH (09:58)
[2021-10-26] MEDS: FLUoxetine 20 MG/5 ML ORAL LIQD FEEDTUBE SCH (09:58)
--- NOTE | 2021-10-26 14:15 | Progress Note ---
Assessment and Plan 55 yo male with htn, dm, stroke, who presents for further evaluation of recent stroke in June 2021. Per review of chart, patient is noted with a "CVA complicated by Dysphagia, Dysarthria, Left Hemiparesis, Debility was admitted to [facility] in [facility], [place] on 06/22/21." 1. History of Completed Stroke (4 months ago) - unclear to me (based on EMR notes) if there is confirmation regarding ischemic vs. hemorrhagic. No evidence for inpatient routine nihss for chronic strokes but recommend assessment at the time of discharge. If hx of ischemic stroke, concern is raised for a cardioembolic source. Also, it would be worthwhile to find out patient's covid status at the time when the stroke(s) occurred, which would serve as an alternate etiology. Recommend merlene and long-term cardiac monitoring for possible paroxysmal afib and an underlying primary or secondary (ct chest/abd/pelvis w/ contrast) hypercoaguable state, when pt is clinically stable, as a part of the workup. Recommend continuing antiplatelet / statin thearpy for now (if no contraindications). Confirm a1c, tsh/t4. Recommend pt/ot/st/swallow evaluation/monitoring. Research has indicated improved motor recovery for pt's with possible underlying depression with fluoxetine (noted on JUN). Recommend stroke education upon discharge. 2. Hypertension - aim for normotension. 3. DM - aim for a1c goal <6.0 with meds, diet, exercise. 4. Hyperlipidemia - goal ldl of 70 w/ statin thearpy (if no contraindication). 5. Left Hemparesis w/ Dysarthria / Dysphagia / Dysphasia - mri brain w/ wo contrast pending; pt/ot/st/swallow evaluation/monitoring. 6. Followup with Stroke Neurology in 4 to 6 weeks post-discharge. Aleksander Rizzo MD Neurology Subjective Date of service: 10/26/21 Principal diagnosis: R. CVA with L. hemiparesis; HTN; DM II; Dysarthria; Oropharyngeal dysphagia Interval history: CTA Head/Neck results noted; no carotid occlusions or critical stenoses noted per radiology; MRI Brain pending; Objective - Vital Sign Vital Signs - 12hr 10/26/21 10/26/21 10/26/21 03:01 03:41 04:00 Temperature Pulse Rate 100 H 105 H Pulse Rate [ From Monitor] Respiratory 10 L 11 L Rate Blood Pressure 136/96 145/83 O2 Sat by Pulse 100 100 99 Oximetry 10/26/21 10/26/21 10/26/21 04:20 05:00 06:00 Temperature 98.9 F Pulse Rate 99 H 99 H Pulse Rate [ From Monitor] Respiratory 19 12 Rate Blood Pressure 150/87 152/87 O2 Sat by Pulse 99 99 Oximetry 10/26/21 10/26/21 10/26/21 07:00 07:15 08:00 Temperature 98.4 F Pulse Rate 90 85 Pulse Rate [ 102 H From Monitor] Respiratory 11 L 18 Rate Blood Pressure 115/73 103/73 O2 Sat by Pulse 100 100 Oximetry 10/26/21 10/26/21 09:52 11:39 Temperature 97.8 F Pulse Rate 87 Pulse Rate [ From Monitor] Respiratory Rate Blood Pressure 151/83 O2 Sat by Pulse Oximetry - Laboratory Findings CBC and BMP: 10/24/21 05:00 10/26/21 04:56 Abnormal Lab Findings: Abnormal Labs 10/22/21 10/22/21 10/22/21 16:00 16:00 22:44 MCV 83 L MCH 27 L [place] % (Auto) 11.8 H [place] # (Auto) 1.0 H Potassium Creatinine 0.6 L Glucose 175 H POC Glucose 115 H Hemoglobin A1c Magnesium Urine Blood Urine WBC (Auto) U Epithel Cells (Auto) 10/23/21 10/23/21 10/23/21 07:28 08:49 11:31 MCV MCH [place] % (Auto) [place] # (Auto) Potassium Creatinine Glucose POC Glucose 129 H 136 H Hemoglobin A1c Magnesium Urine Blood Moderate A Urine WBC (Auto) 28.0 H U Epithel Cells (Auto) 14.0 H 10/23/21 10/24/21 10/24/21 17:59 00:01 05:00 MCV 82 L MCH [place] % (Auto) [place] # (Auto) Potassium Creatinine Glucose POC Glucose 109 H 111 H Hemoglobin A1c Magnesium Urine Blood Urine WBC (Auto) U Epithel Cells (Auto) 10/24/21 10/24/21 10/24/21 05:00 07:57 10:16 MCV MCH [place] % (Auto) [place] # (Auto) Potassium 3.5 L Creatinine 0.6 L Glucose 134 H POC Glucose 132 H Hemoglobin A1c 8.0 H Magnesium Urine Blood Urine WBC (Auto) U Epithel Cells (Auto) 10/24/21 10/24/21 10/25/21 16:26 20:57 04:47 MCV MCH [place] % (Auto) [place] # (Auto) Potassium Creatinine Glucose POC Glucose 109 H 145 H 159 H Hemoglobin A1c Magnesium Urine Blood Urine WBC (Auto) U Epithel Cells (Auto) 10/25/21 10/25/21 10/25/21 07:49 11:19 17:49 MCV MCH [place] % (Auto) [place] # (Auto) Potassium Creatinine Glucose POC Glucose 147 H 164 H 141 H Hemoglobin A1c Magnesium Urine Blood Urine WBC (Auto) U Epithel Cells (Auto) 10/25/21 10/26/21 10/26/21 20:54 04:56 07:23 MCV MCH [place] % (Auto) [place] # (Auto) Potassium Creatinine 0.7 L Glucose 165 H POC Glucose 136 H 172 H Hemoglobin A1c Magnesium 1.60 L Urine Blood Urine WBC (Auto) U Epithel Cells (Auto) 10/26/21 11:21 MCV MCH [place] % (Auto) [place] # (Auto) Potassium Creatinine Glucose POC Glucose 168 H Hemoglobin A1c Magnesium Urine Blood Urine WBC (Auto) U Epithel Cells (Auto)
--- NOTE | 2021-10-26 14:20 | Progress Note ---
Assessment and Plan Right cerebrovascular accident with left hemiparesis Hypertension DM II Dysarthria Oropharyngeal dysphagia Debility - complete neurology w/up - ? BELLE in am - await [facility] response - discharge planning ongoing concurrently - continue care as below otherwise; - prn supplemental oxygen to keep O2 sats > 90% - prn bronchodilators (DULCE) with pulm hygiene per RT - avoid nephrotoxins, renally dose all medications - continue mobility protocols to prevent pressure ulcers - PT/OT as tolerated - Wound care per RN/WCT - continue accuchecks with glycemic control per SSI for target blood glucose < 180 mg/dL - home oxygen evaluation at discharge - GI & VTE prophylaxis - Flu & pneumovax per protocol - prn analgesia per pain score - continue other care per attending / other consultants ... re-evaluate in am & prn Subjective Date of service: 10/26/21 Principal diagnosis: R. CVA with L. hemiparesis; HTN; DM II; Dysarthria; Oropharyngeal dysphagia Interval history: Patient is seen today for: Right cerebrovascular accident with left hemiparesis; Hypertension; DM II; Dysarthria; Oropharyngeal dysphagia; Debility Seen and examined at bedside; 24hour events reviewed; nursing and respiratory care staff consulted; no adverse overnight events reported to me; resting peacef ully in bed; AMS is persistent; referral sent to [facility] and await response; tentatively for BELLE but await cardiology input; Objective Vital Signs - 12hr 10/26/21 10/26/21 10/26/21 03:01 03:41 04:00 Temperature Pulse Rate 100 H 105 H Pulse Rate [ From Monitor] Respiratory 10 L 11 L Rate Blood Pressure 136/96 145/83 O2 Sat by Pulse 100 100 99 Oximetry 10/26/21 10/26/21 10/26/21 04:20 05:00 06:00 Temperature 98.9 F Pulse Rate 99 H 99 H Pulse Rate [ From Monitor] Respiratory 19 12 Rate Blood Pressure 150/87 152/87 O2 Sat by Pulse 99 99 Oximetry 10/26/21 10/26/21 10/26/21 07:00 07:15 08:00 Temperature 98.4 F Pulse Rate 90 85 Pulse Rate [ 102 H From Monitor] Respiratory 11 L 18 Rate Blood Pressure 115/73 103/73 O2 Sat by Pulse 100 100 Oximetry 10/26/21 10/26/21 10/26/21 09:01 09:52 10:00 Temperature Pulse Rate 102 H 87 89 Pulse Rate [ From Monitor] Respiratory 16 17 Rate Blood Pressure 151/83 151/83 107/67 O2 Sat by Pulse 100 100 Oximetry 10/26/21 10/26/21 10/26/21 11:00 11:39 12:01 Temperature 97.8 F Pulse Rate 93 H 84 Pulse Rate [ From Monitor] Respiratory 13 12 Rate Blood Pressure 119/78 106/68 O2 Sat by Pulse 100 99 Oximetry 10/26/21 10/26/21 13:00 14:00 Temperature Pulse Rate 76 79 Pulse Rate [ From Monitor] Respiratory 17 19 Rate Blood Pressure 110/73 109/74 O2 Sat by Pulse 100 99 Oximetry Constitutional: no acute distress, other (Patient awake but not following commands.) Eyes: non-icteric ENT: oropharynx moist Neck: supple, no lymphadenopathy Effort: normal Ascultation: Bilateral: clear Percussion: Bilateral: not dull Cardiovascular: regular rate and rhythm Gastrointestinal: normoactive bowel sounds, soft, non-tender, non-distended, other (PEG tube) Integumentary: normal Extremities: no cyanosis, no edema, pulses normal, no ischemia or petechiae Neurologic: pupils equal and round, other (left hemiplegia with pedal contractures) Psychiatric: other (unable to asses due to neurological status) CBC and BMP: 10/24/21 05:00 10/27/21 04:39 ABG, PT/INR, D-dimer: PT/INR, D-dimer PT 14.8 Sec. (12.2-14.9) 10/22/21 16:00 INR 1.04 (0.87-1.13) 10/22/21 16:00 Abnormal lab findings: Abnormal Labs 10/22/21 10/22/21 10/22/21 16:00 16:00 22:44 MCV 83 L MCH 27 L [place] % (Auto) 11.8 H [place] # (Auto) 1.0 H Potassium Creatinine 0.6 L Glucose 175 H POC Glucose 115 H Hemoglobin A1c Magnesium Urine Blood Urine WBC (Auto) U Epithel Cells (Auto) 10/23/21 10/23/21 10/23/21 07:28 08:49 11:31 MCV MCH [place] % (Auto) [place] # (Auto) Potassium Creatinine Glucose POC Glucose 129 H 136 H Hemoglobin A1c Magnesium Urine Blood Moderate A Urine WBC (Auto) 28.0 H U Epithel Cells (Auto) 14.0 H 10/23/21 10/24/21 10/24/21 17:59 00:01 05:00 MCV 82 L MCH [place] % (Auto) [place] # (Auto) Potassium Creatinine Glucose POC Glucose 109 H 111 H Hemoglobin A1c Magnesium Urine Blood Urine WBC (Auto) U Epithel Cells (Auto) 10/24/21 10/24/21 10/24/21 05:00 07:57 10:16 MCV MCH [place] % (Auto) [place] # (Auto) Potassium 3.5 L Creatinine 0.6 L Glucose 134 H POC Glucose 132 H Hemoglobin A1c 8.0 H Magnesium Urine Blood Urine WBC (Auto) U Epithel Cells (Auto) 10/24/21 10/24/21 10/25/21 16:26 20:57 04:47 MCV MCH [place] % (Auto) [place] # (Auto) Potassium Creatinine Glucose POC Glucose 109 H 145 H 159 H Hemoglobin A1c Magnesium Urine Blood Urine WBC (Auto) U Epithel Cells (Auto) 10/25/21 10/25/21 10/25/21 07:49 11:19 17:49 MCV MCH [place] % (Auto) [place] # (Auto) Potassium Creatinine Glucose POC Glucose 147 H 164 H 141 H Hemoglobin A1c Magnesium Urine Blood Urine WBC (Auto) U Epithel Cells (Auto) 10/25/21 10/26/21 10/26/21 20:54 04:56 07:23 MCV MCH [place] % (Auto) [place] # (Auto) Potassium Creatinine 0.7 L Glucose 165 H POC Glucose 136 H 172 H Hemoglobin A1c Magnesium 1.60 L Urine Blood Urine WBC (Auto) U Epithel Cells (Auto) 10/26/21 11:21 MCV MCH [place] % (Auto) [place] # (Auto) Potassium Creatinine Glucose POC Glucose 168 H Hemoglobin A1c Magnesium Urine Blood Urine WBC (Auto) U Epithel Cells (Auto) Allied health notes reviewed: nursing
--- NOTE | 2021-10-26 15:16 | Consultation ---
<ASA VOSS - Last Filed: 10/26/21 15:13> History of Present Illness Consult date: 10/26/21 Requesting physician: DIOR MCKEON Consult reason: atrial fibrillation History of present illness: Patient is a 55-year-old male with a past medical history of CVA on 06/22/2021 and friend complicated by dysphagia's, dysarthria, left hemiparesis, hypertension, diabetes transferred to [facility] for continuation of prev iously mentioned symptoms. History taken from chart due to patient's dysarthria. CT head/brain shows old, moderately sized right PICA territory infarct with mild cerebral and cerebellar atrophy. Source of stroke is unclear. Patient is previously unknown to our practice. Cardiology is consulted for possible paroxysmal A. fib. Past History Past Medical History: diabetes, hypertension, stroke, other (See HPI) Past Surgical History: Other (PEG tube placement) Social history: single. denies: smoking, alcohol abuse, prescription drug abuse Family history: diabetes, hypertension Medications and Allergies Allergies Allergy/AdvReac Type Severity Reaction Status Date / Time No Known Allergies Allergy Unverified 10/22/21 17:35 Home Medications Medication Instructions Recorded Confirmed Last Taken Type Atorvastatin [Lipitor Tab] 80 mg PO QPM 10/23/21 10/23/21 Unknown History Enoxaparin [Lovenox] 40 mg SQ QDAY 10/23/21 10/23/21 Unknown History FLUoxetine [PROzac] 10 mg PO QDAY 10/23/21 10/23/21 Unknown History Indapamide 5 mg PO QDAY 10/23/21 10/23/21 Unknown History Insulin Glargine [Lantus VIAL] 44 units SUB-Q QPM 10/23/21 10/23/21 Unknown History Insulin Regular, Human [Novolin R] 1 units IJ TID 10/23/21 10/23/21 Unknown History Pantoprazole Sodium 20 mg PO QPM 10/23/21 10/23/21 Unknown History Sodium Phosphate,Charles Mix-Dibasic 133 ml RC Q72HR 10/23/21 10/23/21 Unknown History [Enema Ready To Use] bisoproloL fumarate [Bisoprolol 5 mg PO QAM 10/23/21 10/23/21 Unknown History Fumarate] levETIRAcetam [Spritam] 250 mg PO BID 10/23/21 10/23/21 Unknown History Active Meds: Active Medications Acetaminophen (Acetaminophen 325 Mg Tab) 650 mg PO Q4H PRN PRN Reason: Pain, Mild (1-3) Last Admin: 10/22/21 22:50 Dose: 650 mg Albuterol (Albuterol 2.5 Mg/3 Ml Nebu) 2.5 mg IH Q3HRT PRN PRN Reason: Shortness Of Breath Aspirin (Aspirin 325 Mg Tab) 325 mg PO QDAY [facility] Last Admin: 10/26/21 09:52 Dose: 325 mg Atenolol (Atenolol 50 Mg Tab) 50 mg FEEDTUBE QDAY [facility] Last Admin: 10/26/21 09:52 Dose: 50 mg Atorvastatin Calcium (Atorvastatin 40 Mg Tab) 80 mg FEEDTUBE QHS [facility] Last Admin: 10/25/21 21:01 Dose: 80 mg Bisacodyl (Bisacodyl 10 Mg Rect Supp) 10 mg PA QDAY PRN PRN Reason: Constipation Dextrose (Dextrose 50% In Water (25gm) 50 Ml Syringe) 50 ml IV Q30MIN PRN; Protocol PRN Reason: Hypoglycemia Fluoxetine HCl (Fluoxetine 20 Mg/5 Ml Oral Liqd) 10 mg FEEDTUBE QDAY [facility] Last Admin: 10/26/21 09:58 Dose: 10 mg Heparin Sodium (Porcine) (Heparin 5,000 Unit/1 Ml Vial) 5,000 unit SUB-Q Q12HR [facility] Last Admin: 10/26/21 09:53 Dose: 5,000 unit Indapamide (Indapamide 2.5 Mg Tab) 5 mg FEEDTUBE QDAY [facility] Last Admin: 10/26/21 09:51 Dose: 5 mg Insulin Human Lispro (Insulin Lispro 100 Unit/Ml) 0 unit SUB-Q Q6HR NEO; Protocol Last Admin: 10/26/21 13:13 Dose: Not Given Lansoprazole (Lansoprazole 30 Mg Solutab) 30 mg FEEDTUBE QPM [facility] Last Admin: 10/25/21 18:32 Dose: 30 mg Levetiracetam (Levetiracetam 500 Mg/5 Ml Oral Liqd) 250 mg FEEDTUBE BID [facility] Last Admin: 10/26/21 09:58 Dose: 250 mg Lisinopril (Lisinopril 5 Mg Tab) 5 mg FEEDTUBE QDAY [facility] Last Admin: 10/26/21 09:52 Dose: 5 mg Lorazepam (Lorazepam 2 Mg/Ml Vial) 1 mg IV ONCE PRN PRN Reason: Prior to MRI Magnesium Hydroxide (Magnesium Hydroxide (Mom) Oral Liqd Udc) 30 ml PO Q4H PRN PRN Reason: Constipation Ondansetron HCl (Ondansetron 4 Mg/2 Ml Inj) 4 mg IV Q8H PRN PRN Reason: Nausea And Vomiting Oxycodone/Acetaminophen (Oxycodone /Acetaminophen 5-325mg Tab) 1 tab PO Q12H PRN PRN Reason: Pain, Moderate (4-6) Senna (Sennosides Oral Liqd 8.8 Mg/5 Ml Oral Liqd) 17.6 mg FEEDTUBE Q12HR [facility] Last Admin: 10/26/21 09:58 Dose: Not Given Sodium Chloride (Sodium Chloride 0.9% 10 Ml Flush Syringe) 10 ml IV PRN PRN PRN Reason: LINE FLUSH Last Admin: 10/24/21 21:39 Dose: 10 ml Review of Systems ROS unobtainable: due to mental status Physical Examination Vital Signs Resp Pulse Ox 14 99 10/22/21 15:52 10/22/21 15:52 General appearance: no acute distress HEENT: Positive: Mucus Membranes Dry Neck: Positive: trachea midline Cardiac: Positive: Reg Rate and Rhythm Lungs: Positive: Normal Breath Sounds Neuro: Positive: Other (Hemiparesis) Abdomen: Positive: Soft Skin: Negative: Rash, Suspicious Lesions, Ulceration Extremities: Present: upper extr. pulses. Absent: edema Results 10/24/21 05:00 10/26/21 04:56 Comprehensive Metabolic Panel 10/26/21 Range/Units 04:56 Sodium 138 (137-145) mmol/L Potassium 4.1 (3.6-5.0) mmol/L Chloride 99.1 (98-107) mmol/L Carbon Dioxide 29 (22-30) mmol/L BUN 11 (9-20) mg/dL Creatinine 0.7 L (0.8-1.3) mg/dL Glucose 165 H (75-100) mg/dL Calcium 10.2 (8.4-10.2) mg/dL - Imaging and Cardiology Echo: report reviewed EKG interpretations - Telemetry EKG Rhythm: Sinus Rhythm - EKG Sinus rhythms and dysrhythmias: sinus tachycardia AV and intraventricular conduction: right bundle branch block Assessment and Plan Patient is a 55-year-old male with a past medical history of CVA on 06/22/2021 and friend complicated by dysphagia's, dysarthria, left hemiparesis, hypertension, diabetes transferred to [facility] for continuation of previously mentioned symptoms CVA 06/22/2021-neurology following Hypertension Diabetes History of seizures Dysarthria/dysphagia/hemiparesis Echo 10/22/2021-EF 55%. Mild diastolic dysfunction is present impaired relaxation pattern. Right ventricle is normal in size right ventricle systolic function is normal. Saline bubble study does not demonstrate PFO. IVC is louis l in size and collapses greater than 50% with inspiration Plan: EKG shows sinus tach 120 with incomplete RBBB. No acute ischemic change Telemetry reviewed patient is in sinus rhythm trending 80s to 90s with no episodes of A. fib seen on monitor Due to patient's dysphagia patient does not appear to be a good candidate for BELLE If concern for paroxysmal A. fib primary team may wish to consider anticoagulation. Will defer to neuro recommendations regarding initiation of anticoagulation If concern for proximal A. fib patient may be set up for an outpatient for event monitor Patient in conjunction with Dr. Benedict who agrees with this plan of care - Patient Problems (1) CVA (cerebral vascular accident) Current Visit: Yes Status: Acute Qualifiers: Precerebral and cerebral artery: middle cerebral artery Laterality of affected vessel: right (2) Debility Current Visit: Yes Status: Acute (3) Diabetes Current Visit: Yes Status: Acute (4) Dysarthria as late effect of stroke Current Visit: Yes Status: Acute (5) Dysphagia as late effect of stroke Current Visit: Yes Status: Acute (6) Hemiparesis, left Current Visit: Yes Status: Acute (7) Hypertension Current Visit: Yes Status: Acute Qualifiers: Hypertension type: primary hypertension Qualified Code(s): I10 - Essential (primary) hypertension <GRETCHEN BENEDICT - Last Filed: 10/27/21 09:48> Medications and Allergies Active Meds: Active Medications Acetaminophen (Acetaminophen 325 Mg Tab) 650 mg PO Q4H PRN PRN Reason: Pain, Mild (1-3) Last Admin: 10/22/21 22:50 Dose: 650 mg Albuterol (Albuterol 2.5 Mg/3 Ml Nebu) 2.5 mg IH Q3HRT PRN PRN Reason: Shortness Of Breath Aspirin (Aspirin 325 Mg Tab) 325 mg PO QDAY [facility] Last Admin: 10/26/21 09:52 Dose: 325 mg Atenolol (Atenolol 50 Mg Tab) 50 mg FEEDTUBE QDAY [facility] Last Admin: 10/26/21 09:52 Dose: 50 mg Atorvastatin Calcium (Atorvastatin 40 Mg Tab) 80 mg FEEDTUBE QHS [facility] Last Admin: 10/26/21 21:06 Dose: 80 mg Bisacodyl (Bisacodyl 10 Mg Rect Supp) 10 mg PA QDAY PRN PRN Reason: Constipation Dextrose (Dextrose 50% In Water (25gm) 50 Ml Syringe) 50 ml IV Q30MIN PRN; Protocol PRN Reason: Hypoglycemia Fluoxetine HCl (Fluoxetine 20 Mg/5 Ml Oral Liqd) 10 mg FEEDTUBE QDAY [facility] Last Admin: 10/26/21 09:58 Dose: 10 mg Heparin Sodium (Porcine) (Heparin 5,000 Unit/1 Ml Vial) 5,000 unit SUB-Q Q12HR [facility] Last Admin: 10/26/21 21:05 Dose: 5,000 unit Indapamide (Indapamide 2.5 Mg Tab) 5 mg FEEDTUBE QDAY [facility] Last Admin: 10/26/21 09:51 Dose: 5 mg Insulin Human Lispro (Insulin Lispro 100 Unit/Ml) 0 unit SUB-Q Q6HR [facility]; Protocol Last Admin: 10/27/21 05:55 Dose: Not Given Lansoprazole (Lansoprazole 30 Mg Solutab) 30 mg FEEDTUBE QPM [facility] Last Admin: 10/26/21 17:35 Dose: 30 mg Levetiracetam (Levetiracetam 500 Mg/5 Ml Oral Liqd) 250 mg FEEDTUBE BID [facility] Last Admin: 10/26/21 21:05 Dose: 250 mg Lisinopril (Lisinopril 5 Mg Tab) 5 mg FEEDTUBE QDAY [facility] Last Admin: 10/26/21 09:52 Dose: 5 mg Lorazepam (Lorazepam 2 Mg/Ml Vial) 1 mg IV ONCE PRN PRN Reason: Prior to MRI Magnesium Hydroxide (Magnesium Hydroxide (Mom) Oral Liqd Udc) 30 ml PO Q4H PRN PRN Reason: Constipation Ondansetron HCl (Ondansetron 4 Mg/2 Ml Inj) 4 mg IV Q8H PRN PRN Reason: Nausea And Vomiting Oxycodone/Acetaminophen (Oxycodone /Acetaminophen 5-325mg Tab) 1 tab PO Q12H PRN PRN Reason: Pain, Moderate (4-6) Senna (Sennosides Oral Liqd 8.8 Mg/5 Ml Oral Liqd) 8.8 mg FEEDTUBE QHS NEO Sodium Chloride (Sodium Chloride 0.9% 10 Ml Flush Syringe) 10 ml IV PRN PRN PRN Reason: LINE FLUSH Last Admin: 10/24/21 21:39 Dose: 10 ml Physical Examination Vital Signs Resp Pulse Ox 14 99 10/22/21 15:52 10/22/21 15:52 Results 10/24/21 05:00 10/27/21 04:39 Comprehensive Metabolic Panel 10/27/21 Range/Units 04:39 Sodium 135 L (137-145) mmol/L Potassium 5.0 D (3.6-5.0) mmol/L Chloride 95.4 L (98-107) mmol/L Carbon Dioxide 28 (22-30) mmol/L BUN 13 (9-20) mg/dL Creatinine 0.6 L (0.8-1.3) mg/dL Glucose 156 H (75-100) mg/dL Calcium 10.2 (8.4-10.2) mg/dL Assessment and Plan After speaking with primary hospitalist, it appears that the family would like to proceed with transesophageal echocardiogram. Risks are understood. Consent still needs to be obtained from family.
[2021-10-26] MEDS ORDERED: MAGNESIUM SULFATE 1 GM in SODIUM CHLORIDE 0.9% 50 ML IV ONE (16:41)
[2021-10-26] MEDS: LANSOPRAZOLE 30 MG SOLUTAB FEEDTUBE SCH (17:35)
--- NOTE | 2021-10-26 18:28 | Progress Note ---
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, dysarthria, left hemiparesis and debility s/p PEG tube and seizure disorder admitted for recent CVA disease 06/2021) Neuro: Recent CVA complicated by dysphagia/dysarthria/left hemiparesis/debility, h/o depression, seizure disorder -Neurology and CCM consulted, appreciate recommendations -Reorientation as needed -Maintain sleep-wake cycle -aspiration/seizure precautions -As needed analgesia -CT head shows old moderately sized MCA infarct the right involving the inferior frontal peritracheal regions, gangliocapsular Regions and Right Temporal Lobe, prominent Kuehner seen in the left anterior andrea, small scattered lacunar infarcts suggesting the andrea -Bilateral carotid Doppler ultrasound shows less than 50% diameter stenosis in the right and left internal carotid artery -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 -CTA neck shows carotid bifurcations appear to be normal -MRI brain pending -Lipitor, aspirin -Keppra -Aspiration/seizure precautions -Continue home Prozac -PT/OT/ST consulted -Neurochecks per protocol Cardiac: h/o HTN -Cardiology consulted, appreciate recommendations -Blood pressure monitoring per protocol -Antihypertensive regimen: Atenolol, Lozol, lisinopril -Echocardiogram shows LVEF 55%, mild diastolic dysfunction no PFO -BELLE pending per neurology recs Respiratory: NAD -CCM/ pulm consulted for dyspnea, appreciate recommendations -Supplemental oxygen as needed -Pulmonary hygiene -SPO2 monitoring GI: S/p PEG tube placement -24 hours +770 mL -PPI -NTR consulted for tube feedings -BR: Senna : Hypomagnesemia, h/o urinary retention/obstruction -Presented with indwelling catheter which was exchanged -Monitor intake and output -Renally dose medications -Avoid nephrotoxic medications -Repeat magnesium -Trend BMP ID: NAD -Monitor WBC and temperature curve Endo: h/o DM -Avoid hypoglycemia -SSI -Accu-Cheks q. every 6 -Hemoglobin A1c 8 Heme: ? Hypercoagulable state -CTA chest and abdomen pending per neurology recommendation -Trend CBC -Transfuse hemoglobin less than 7 -SCDs to BLE while in bed The high probability of a clinically significant, sudden or life threatening deterioration of the [multiple] system(s) required my full and direct attention, intervention and personal management. The aggregate critical care time was [60] minutes. This time is in addition to time spent performing reported procedures but includes the following: [x] Data Review and interpretation [x] Patient assessment and monitoring of vital signs [x] Documentation [x] Medication orders and management [facility] Total Time Spent with Patient (Minutes): 60 History Interval history: This is a 55-year-old with HTN, DM, CVA complicated by dysphagia s/p PEG tube placement, dysarthria, left hemiparesis and debility who presented to the emergency department on 10/22 via air ambulance for continued treatment. Patient was admitted to the [facility] and initiated on CIWA protocol with consults to [facility], neurology will need a cardiology. Hospital Course to Date: 10/23: Nonverbal, open eyes spontaneously, does not follow any commands with LUE paralysis/contraction. on RA, VSS. Echo and Neurology consult pending. PT/OT/Speech also consulted. PEG-tube noted, nutrition/reinsurance claim analyst consulted for TF management. Pulmonary is also following. Patient presented with a harden catheter, per record history of urinary retention. Harden cath exchanged, UA pending. 10/24: SEKOU overnight. Neurology recommendations noted, orders placed for MRI brain and CTA head/Neck. Continue PT/OT/Speech, home meds resumed, and enteral nutrition initiated. UA noted, patient is asymptomatic with no leukocytosis, continue to monitor, urine culture pending. 10/25: Remains stable, mentation unchanged. CTA head/Neck noted, MRI brain/MRA head/Neck pending. Awaiting Neurology final recommendations. Continue current supportive measures. 10/26: Patient will have a BELLE, cardiology consulted per neurology recommendations, MRI/MRA/MRV pending no acute events reported overnight. Magnesium repleted. Hospitalist Physical - Constitutional Vitals: Temp Pulse Resp BP Pulse Ox 97.8 F 78 14 106/69 100 10/26/21 11:39 10/26/21 18:00 10/26/21 18:00 10/26/21 18:00 10/26/21 18:00 General appearance: Present: no acute distress - EENT Eyes: Present: PERRL ENT: dentition normal - Neck Neck: Absent: masses or JVD, cervical LAD - Respiratory Respiratory effort: normal Respiratory: bilateral: CTA - Cardiovascular Rhythm: regular Heart Sounds: Present: S1 & S2. Absent: systolic murmur, diastolic murmur - Extremities Extremities: no ischemia, pulses intact, pulses symmetrical, normal temperature, normal color Peripheral Pulses: within normal limits - Abdominal General gastrointestinal: soft, non-distended, normal bowel sounds - Integumentary Integumentary: Present: warm, dry - Psychiatric Psychiatric: other - Neurologic Neurologic: other (Left hemiparesis, dysphagia, dysarthria, does not follow commands, open eyes to verbal stimuli) - Allied Health Allied health notes reviewed: nursing, PT, ST, OT, RT, social work Results - Labs CBC & Chem 7: 10/24/21 05:00 10/26/21 04:56 Labs: Laboratory Last Values WBC 6.4 K/mm3 (4.5-11.0) 10/24/21 05:00 RBC 4.59 M/mm3 (3.65-5.03) 10/24/21 05:00 Hgb 12.7 gm/dl (11.8-15.2) 10/24/21 05:00 Hct 37.7 % (35.5-45.6) 10/24/21 05:00 MCV 82 fl (84-94) L 10/24/21 05:00 MCH 28 pg (28-32) 10/24/21 05:00 MCHC 34 % (32-34) 10/24/21 05:00 RDW 14.1 % (13.2-15.2) 10/24/21 05:00 Plt Count 222 K/mm3 (140-440) 10/24/21 05:00 Lymph % (Auto) 29.6 % (13.4-35.0) 10/22/21 16:00 [place] % (Auto) 11.8 % (0.0-7.3) H 10/22/21 16:00 Eos % (Auto) 1.3 % (0.0-4.3) 10/22/21 16:00 Baso % (Auto) 0.4 % (0.0-1.8) 10/22/21 16:00 Lymph # (Auto) 2.4 K/mm3 (1.2-5.4) 10/22/21 16:00 [place] # (Auto) 1.0 K/mm3 (0.0-0.8) H 10/22/21 16:00 Eos # (Auto) 0.1 K/mm3 (0.0-0.4) 10/22/21 16:00 Baso # (Auto) 0.0 K/mm3 (0.0-0.1) 10/22/21 16:00 Seg Neutrophils % 56.9 % (40.0-70.0) 10/22/21 16:00 Seg Neutrophils # 4.7 K/mm3 (1.8-7.7) 10/22/21 16:00 PT 14.8 Sec. (12.2-14.9) 10/22/21 16:00 INR 1.04 (0.87-1.13) 10/22/21 16:00 APTT 28.1 Sec. (24.2-36.6) 10/22/21 16:00 Sodium 138 mmol/L (137-145) 10/26/21 04:56 Potassium 4.1 mmol/L (3.6-5.0) 10/26/21 04:56 Chloride 99.1 mmol/L (98-107) 10/26/21 04:56 Carbon Dioxide 29 mmol/L (22-30) 10/26/21 04:56 Anion Gap 14 mmol/L 10/26/21 04:56 BUN 11 mg/dL (9-20) 10/26/21 04:56 Creatinine 0.7 mg/dL (0.8-1.3) L 10/26/21 04:56 Estimated GFR > 60 ml/min 10/26/21 04:56 BUN/Creatinine Ratio 16 % 10/26/21 04:56 Glucose 165 mg/dL (75-100) H 10/26/21 04:56 POC Glucose 164 mg/dL (70-105) H 10/26/21 17:21 Hemoglobin A1c 8.0 % (4-6) H 10/24/21 10:16 Calcium 10.2 mg/dL (8.4-10.2) 10/26/21 04:56 Phosphorus 3.80 mg/dL (2.5-4.5) 10/26/21 04:56 Magnesium 1.60 mg/dL (1.7-2.3) L 10/26/21 04:56 Total Bilirubin 0.50 mg/dL (0.1-1.2) 10/22/21 16:00 AST 24 units/L (5-40) 10/22/21 16:00 ALT 28 units/L (7-56) 10/22/21 16:00 Alkaline Phosphatase 102 units/L (35-129) 10/22/21 16:00 Total Protein 6.9 g/dL (6.3-8.2) 10/22/21 16:00 Albumin 4.3 g/dL (3.9-5) 10/22/21 16:00 Albumin/Globulin Ratio 1.7 % 10/22/21 16:00 Triglycerides 85 mg/dL (2-149) 10/23/21 12:33 Cholesterol 148 mg/dL (50-199) 10/23/21 12:33 LDL Cholesterol Direct 86 mg/dL (50-130) 10/23/21 12:33 HDL Cholesterol 44 mg/dL (40-59) 10/23/21 12:33 Cholesterol/HDL Ratio 3.36 % 10/23/21 12:33 TSH 2.020 mlU/mL (0.270-4.200) 10/24/21 10:16 Free T4 0.88 ng/dL (0.76-1.46) 10/24/21 10:16 Urine Color Yellow (Yellow) 10/23/21 08:49 Urine Turbidity Clear (Clear) 10/23/21 08:49 Urine pH 6.5 (5.0-7.0) 10/23/21 08:49 Ur Specific [place] 1.005 (1.003-1.030) 10/23/21 08:49 Urine Protein 30 mg/dl mg/dL (Negative) 10/23/21 08:49 Urine Glucose (UA) Negative mg/dL (Negative) 10/23/21 08:49 Urine Ketones Negative mg/dL (Negative) 10/23/21 08:49 Urine Blood Moderate (Negative) A 10/23/21 08:49 Urine Nitrite Negative (Negative) 10/23/21 08:49 Ur Reducing Substances Not Reportable 10/23/21 08:49 Urine Bilirubin Negative (Negative) 10/23/21 08:49 Urine Ictotest Not Reportable 10/23/21 08:49 Urine Urobilinogen < 2.0 mg/dL (<2.0) 10/23/21 08:49 Ur Leukocyte Esterase Moderate (Negative) 10/23/21 08:49 Urine WBC (Auto) 28.0 /HPF (0.0-6.0) H 10/23/21 08:49 Urine RBC (Auto) 27.0 /HPF (0.0-6.0) 10/23/21 08:49 U Epithel Cells (Auto) 14.0 /HPF (0-13.0) H 10/23/21 08:49 Hyaline Casts 1 /LPF 10/23/21 08:49 Urine Mucus Few /HPF 10/23/21 08:49 Harden/IV: Voiding Method Indwelling Catheter Active Medications - Current Medications Current Medications: Generic Name Dose Route Start Last Admin Trade Name Freq PRN Reason Stop Dose Admin Acetaminophen 650 mg 10/22/21 16:19 10/22/21 22:50 Acetaminophen 325 Mg Tab PO 650 mg Q4H PRN Administration Pain, Mild (1-3) Albuterol 2.5 mg 10/22/21 16:19 Albuterol 2.5 Mg/3 Ml Nebu IH Q3HRT PRN Shortness Of Breath Aspirin 325 mg 10/23/21 10:00 10/26/21 09:52 Aspirin 325 Mg Tab PO 325 mg QDAY NEO Administration Atenolol 50 mg 10/24/21 10:00 10/26/21 09:52 Atenolol 50 Mg Tab FEEDTUBE 50 mg QDAY NEO Administration Atorvastatin Calcium 80 mg 10/24/21 22:00 10/25/21 21:01 Atorvastatin 40 Mg Tab FEEDTUBE 80 mg QHS NEO Administration Bisacodyl 10 mg 10/22/21 16:19 Bisacodyl 10 Mg Rect Supp [place] QDAY PRN Constipation Dextrose 50 ml 10/22/21 17:23 Dextrose 50% In Water (25gm) 50 Ml Syringe IV Q30MIN PRN Hypoglycemia Protocol Fluoxetine HCl 10 mg 10/24/21 10:00 10/26/21 09:58 Fluoxetine 20 Mg/5 Ml Oral Liqd FEEDTUBE 10 mg QDAY NEO Administration Heparin Sodium (Porcine) 5,000 unit 10/22/21 22:00 10/26/21 09:53 Heparin 5,000 Unit/1 Ml Vial SUB-Q 5,000 unit Q12HR NEO Administration Indapamide 5 mg 10/24/21 10:00 10/26/21 09:51 Indapamide 2.5 Mg Tab FEEDTUBE 5 mg QDAY NEO Administration Insulin Human Lispro 0 unit 10/24/21 12:00 10/26/21 17:35 Insulin Lispro 100 Unit/Ml SUB-Q 2 unit Q6HR NEO Administration Protocol Lansoprazole 30 mg 10/23/21 18:00 10/26/21 17:35 Lansoprazole 30 Mg Solutab FEEDTUBE 30 mg QPM NEO Administration Levetiracetam 250 mg 10/24/21 10:00 10/26/21 09:58 Levetiracetam 500 Mg/5 Ml Oral Liqd FEEDTUBE 250 mg BID NEO Administration Lisinopril 5 mg 10/24/21 10:00 10/26/21 09:52 Lisinopril 5 Mg Tab FEEDTUBE 5 mg QDAY NEO Administration Lorazepam 1 mg 10/25/21 10:46 Lorazepam 2 Mg/Ml Vial IV ONCE PRN Prior to MRI Magnesium Hydroxide 30 ml 10/22/21 16:19 Magnesium Hydroxide (Mom) Oral Liqd Udc PO Q4H PRN Constipation Ondansetron HCl 4 mg 10/22/21 16:19 Ondansetron 4 Mg/2 Ml Inj IV Q8H PRN Nausea And Vomiting Oxycodone/Acetaminophen 1 tab 10/22/21 16:19 Oxycodone /Acetaminophen 5-325mg Tab PO Q12H PRN Pain, Moderate (4-6) Senna 8.8 mg 10/27/21 22:00 Sennosides Oral Liqd 8.8 Mg/5 Ml Oral Liqd FEEDTUBE QHS NEO Sodium Chloride 10 ml 10/22/21 16:19 10/24/21 21:39 Sodium Chloride 0.9% 10 Ml Flush Syringe IV 10 ml PRN PRN Administration LINE FLUSH Nutrition/Malnutrition Assess - Dietary Evaluation Nutrition/Malnutrition Findings: Nutrition Notes Start: 10/23/21 13:01 Freq: Status: Active Protocol: Document 10/26/21 11:40 JIM (Rec: 10/26/21 12:11 JIM [id number]) Nutrition Notes Initial or Follow up Brief Note Current Diagnosis Diabetes,Hypertension,Stroke Other Pertinent Diagnosis Dysphagia, L-Hemiparesis, Debility. Current Diet TF-Glucerna 1.2 [place] @ 70 ml/hr (since D 10/23). Height 5 ft 11 in Weight 90.718 kg Barton Body Weight (kg) 78.18 BMI 27.8 Intake Prior to Admission Good Weight change and time frame Pt states having loss, unitentionally, between 2 and 13 lb recently. No body weight change reported in 2 days. Weight Status Overweight Subjective/Other Information RD consult for routine F/U on TF tolerance/continuation. TF continues as prescribed, no further information on tolerance available at the time, will assess at F/U. DIRECTOR TITLE note on 10/26/21 10:03: The patient is not an appropriate candidate for PO at this time due an inability to arouse him. Will discontinue services. An alternative method of nutrition is appropriate. No further recommendations. - END OF NOTE Pt is on Room Air, O2 saturation @ 100%, according to Physical Assessment History notes. Pt is swallow impaired, according to Physical Assessment History notes. Pt has PEG tube in place poa, according to History & Physical notes. Pt has missing teet, according to Physical Assessment History notes. Percent of energy/protein needs met: Prescribed TF-Glucerna 1.2 [place] @ 70 ml/hr provides for energy/protein needs (2,016 Kcal/111 g) during LOS, 95% Kcal; 111% AA. #1 Nutrition Diagnosis Swallowing difficulty Comments: DIRECTOR TITLE note on 10/26/21 10:03: The patient is not an appropriate candidate for PO at this time due an inability to arouse him. Will discontinue services. An alternative method of nutrition is appropriate. No further recommendations. - END OF NOTE Diagnosis Progress(for reassessment Continues documentation) Is patient on ventilator? No Is Patient Ambulatory and/or Out of Bed No REE-([facility]-confined to bed) [phone] Calculation Used for Recommendations [facility] Additional Notes Protein: 0.8-1 g/Kg ABW; 73-91 g/day. Fluids: 1 ml/Kcal, or as per MD. Nutrition Intervention Nutrition Support: Continue TF-Glucerna 1.2 [place] @ 70 ml/hr. Flush: 100 ml water Q 4 hr, or as per MD. Kcal 2,016 Protein (gm) 101 Carbohydrates (gm) 192 Fat (gm) 101 Fluid (mL) 1,352 Fiber (gm) 27 % RDI: 95% Kcal; 111% AA. Goal #1 Provide at least 75% of energy /protein needs through Enteral Feeding during LOS. Follow-Up By: 11/02/21 Additional Comments Continue monitoring TF tolerance and BM. <[email or web address] - Last Filed: 10/27/21 07:54> Assessment and Plan Assessment and plan: I saw and evaluated the patient. I agree with the findings and the plan of care as documented in the Nurse Practitioner's~note, with the following corrections and additions. Hospitalist Physical - Constitutional Vitals: Temp Pulse Resp BP Pulse Ox 99.1 F 72 15 111/55 100 10/27/21 07:13 10/27/21 06:00 10/27/21 06:00 10/27/21 06:00 10/27/21 06:00 Results - Labs CBC & Chem 7: 10/24/21 05:00 10/27/21 04:39 Labs: Laboratory Last Values WBC 6.4 K/mm3 (4.5-11.0) 10/24/21 05:00 RBC 4.59 M/mm3 (3.65-5.03) 10/24/21 05:00 Hgb 12.7 gm/dl (11.8-15.2) 10/24/21 05:00 Hct 37.7 % (35.5-45.6) 10/24/21 05:00 MCV 82 fl (84-94) L 10/24/21 05:00 MCH 28 pg (28-32) 10/24/21 05:00 MCHC 34 % (32-34) 10/24/21 05:00 RDW 14.1 % (13.2-15.2) 10/24/21 05:00 Plt Count 222 K/mm3 (140-440) 10/24/21 05:00 Lymph % (Auto) 29.6 % (13.4-35.0) 10/22/21 16:00 [place] % (Auto) 11.8 % (0.0-7.3) H 10/22/21 16:00 Eos % (Auto) 1.3 % (0.0-4.3) 10/22/21 16:00 Baso % (Auto) 0.4 % (0.0-1.8) 10/22/21 16:00 Lymph # (Auto) 2.4 K/mm3 (1.2-5.4) 10/22/21 16:00 [place] # (Auto) 1.0 K/mm3 (0.0-0.8) H 10/22/21 16:00 Eos # (Auto) 0.1 K/mm3 (0.0-0.4) 10/22/21 16:00 Baso # (Auto) 0.0 K/mm3 (0.0-0.1) 10/22/21 16:00 Seg Neutrophils % 56.9 % (40.0-70.0) 10/22/21 16:00 Seg Neutrophils # 4.7 K/mm3 (1.8-7.7) 10/22/21 16:00 PT 14.8 Sec. (12.2-14.9) 10/22/21 16:00 INR 1.04 (0.87-1.13) 10/22/21 16:00 APTT 28.1 Sec. (24.2-36.6) 10/22/21 16:00 Sodium 135 mmol/L (137-145) L 10/27/21 04:39 Potassium 5.0 mmol/L (3.6-5.0) D 10/27/21 04:39 Chloride 95.4 mmol/L (98-107) L 10/27/21 04:39 Carbon Dioxide 28 mmol/L (22-30) 10/27/21 04:39 Anion Gap 17 mmol/L 10/27/21 04:39 BUN 13 mg/dL (9-20) 10/27/21 04:39 Creatinine 0.6 mg/dL (0.8-1.3) L 10/27/21 04:39 Estimated GFR > 60 ml/min 10/27/21 04:39 BUN/Creatinine Ratio 22 % 10/27/21 04:39 Glucose 156 mg/dL (75-100) H 10/27/21 04:39 POC Glucose 137 mg/dL (70-105) H 10/27/21 07:32 Hemoglobin A1c 8.0 % (4-6) H 10/24/21 10:16 Calcium 10.2 mg/dL (8.4-10.2) 10/27/21 04:39 Phosphorus 4.20 mg/dL (2.5-4.5) 10/27/21 04:39 Magnesium 1.90 mg/dL (1.7-2.3) 10/27/21 04:39 Total Bilirubin 0.50 mg/dL (0.1-1.2) 10/22/21 16:00 AST 24 units/L (5-40) 10/22/21 16:00 ALT 28 units/L (7-56) 10/22/21 16:00 Alkaline Phosphatase 102 units/L (35-129) 10/22/21 16:00 Total Protein 6.9 g/dL (6.3-8.2) 10/22/21 16:00 Albumin 4.3 g/dL (3.9-5) 10/22/21 16:00 Albumin/Globulin Ratio 1.7 % 10/22/21 16:00 Triglycerides 85 mg/dL (2-149) 10/23/21 12:33 Cholesterol 148 mg/dL (50-199) 10/23/21 12:33 LDL Cholesterol Direct 86 mg/dL (50-130) 10/23/21 12:33 HDL Cholesterol 44 mg/dL (40-59) 10/23/21 12:33 Cholesterol/HDL Ratio 3.36 % 10/23/21 12:33 TSH 2.020 mlU/mL (0.270-4.200) 10/24/21 10:16 Free T4 0.88 ng/dL (0.76-1.46) 10/24/21 10:16 Urine Color Yellow (Yellow) 10/23/21 08:49 Urine Turbidity Clear (Clear) 10/23/21 08:49 Urine pH 6.5 (5.0-7.0) 10/23/21 08:49 Ur Specific [place] 1.005 (1.003-1.030) 10/23/21 08:49 Urine Protein 30 mg/dl mg/dL (Negative) 10/23/21 08:49 Urine Glucose (UA) Negative mg/dL (Negative) 10/23/21 08:49 Urine Ketones Negative mg/dL (Negative) 10/23/21 08:49 Urine Blood Moderate (Negative) A 10/23/21 08:49 Urine Nitrite Negative (Negative) 10/23/21 08:49 Ur Reducing Substances Not Reportable 10/23/21 08:49 Urine Bilirubin Negative (Negative) 10/23/21 08:49 Urine Ictotest Not Reportable 10/23/21 08:49 Urine Urobilinogen < 2.0 mg/dL (<2.0) 10/23/21 08:49 Ur Leukocyte Esterase Moderate (Negative) 10/23/21 08:49 Urine WBC (Auto) 28.0 /HPF (0.0-6.0) H 10/23/21 08:49 Urine RBC (Auto) 27.0 /HPF (0.0-6.0) 10/23/21 08:49 U Epithel Cells (Auto) 14.0 /HPF (0-13.0) H 10/23/21 08:49 Hyaline Casts 1 /LPF 10/23/21 08:49 Urine Mucus Few /HPF 10/23/21 08:49 Harden/IV: Voiding Method Indwelling Catheter Active Medications - Current Medications Current Medications: Generic Name Dose Route Start Last Admin Trade Name Freq PRN Reason Stop Dose Admin Acetaminophen 650 mg 10/22/21 16:19 10/22/21 22:50 Acetaminophen 325 Mg Tab PO 650 mg Q4H PRN Administration Pain, Mild (1-3) Albuterol 2.5 mg 10/22/21 16:19 Albuterol 2.5 Mg/3 Ml Nebu IH Q3HRT PRN Shortness Of Breath Aspirin 325 mg 10/23/21 10:00 10/26/21 09:52 Aspirin 325 Mg Tab PO 325 mg QDAY NEO Administration Atenolol 50 mg 10/24/21 10:00 10/26/21 09:52 Atenolol 50 Mg Tab FEEDTUBE 50 mg QDAY NEO Administration Atorvastatin Calcium 80 mg 10/24/21 22:00 10/26/21 21:06 Atorvastatin 40 Mg Tab FEEDTUBE 80 mg QHS NEO Administration Bisacodyl 10 mg 10/22/21 16:19 Bisacodyl 10 Mg Rect Supp [place] QDAY PRN Constipation Dextrose 50 ml 10/22/21 17:23 Dextrose 50% In Water (25gm) 50 Ml Syringe IV Q30MIN PRN Hypoglycemia Protocol Fluoxetine HCl 10 mg 10/24/21 10:00 10/26/21 09:58 Fluoxetine 20 Mg/5 Ml Oral Liqd FEEDTUBE 10 mg QDAY NEO Administration Heparin Sodium (Porcine) 5,000 unit 10/22/21 22:00 10/26/21 21:05 Heparin 5,000 Unit/1 Ml Vial SUB-Q 5,000 unit Q12HR NEO Administration Indapamide 5 mg 10/24/21 10:00 10/26/21 09:51 Indapamide 2.5 Mg Tab FEEDTUBE 5 mg QDAY NEO Administration Insulin Human Lispro 0 unit 10/24/21 12:00 10/27/21 05:55 Insulin Lispro 100 Unit/Ml SUB-Q Not Given Q6HR [facility] Protocol Lansoprazole 30 mg 10/23/21 18:00 10/26/21 17:35 Lansoprazole 30 Mg Solutab FEEDTUBE 30 mg QPM NEO Administration Levetiracetam 250 mg 10/24/21 10:00 10/26/21 21:05 Levetiracetam 500 Mg/5 Ml Oral Liqd FEEDTUBE 250 mg BID NEO Administration Lisinopril 5 mg 10/24/21 10:00 10/26/21 09:52 Lisinopril 5 Mg Tab FEEDTUBE 5 mg QDAY NEO Administration Lorazepam 1 mg 10/25/21 10:46 Lorazepam 2 Mg/Ml Vial IV ONCE PRN Prior to MRI Magnesium Hydroxide 30 ml 10/22/21 16:19 Magnesium Hydroxide (Mom) Oral Liqd Udc PO Q4H PRN Constipation Ondansetron HCl 4 mg 10/22/21 16:19 Ondansetron 4 Mg/2 Ml Inj IV Q8H PRN Nausea And Vomiting Oxycodone/Acetaminophen 1 tab 10/22/21 16:19 Oxycodone /Acetaminophen 5-325mg Tab PO Q12H PRN Pain, Moderate (4-6) Senna 8.8 mg 10/27/21 22:00 Sennosides Oral Liqd 8.8 Mg/5 Ml Oral Liqd FEEDTUBE QHS NEO Sodium Chloride 10 ml 10/22/21 16:19 10/24/21 21:39 Sodium Chloride 0.9% 10 Ml Flush Syringe IV 10 ml PRN PRN Administration LINE FLUSH Nutrition/Malnutrition Assess - Dietary Evaluation Nutrition/Malnutrition Findings: Nutrition Notes Start: 10/23/21 13:01 Freq: Status: Active Protocol: Document 10/26/21 11:40 JIM (Rec: 10/26/21 12:11 JIM [id number]) Nutrition Notes Initial or Follow up Brief Note Current Diagnosis Diabetes,Hypertension,Stroke Other Pertinent Diagnosis Dysphagia, L-Hemiparesis, Debility. Current Diet TF-Glucerna 1.2 [place] @ 70 ml/hr (since D 10/23). Height 5 ft 11 in Weight 90.718 kg [place] Body Weight (kg) 78.18 BMI 27.8 Intake Prior to Admission Good Weight change and time frame Pt states having loss, unitentionally, between 2 and 13 lb recently. No body weight change reported in 2 days. Weight Status Overweight Subjective/Other Information RD consult for routine F/U on TF tolerance/continuation. TF continues as prescribed, no further information on tolerance available at the time, will assess at F/U. DIRECTOR TITLE note on 10/26/21 10:03: The patient is not an appropriate candidate for PO at this time due an inability to arouse him. Will discontinue services. An alternative method of nutrition is appropriate. No further recommendations. - END OF NOTE Pt is on Room Air, O2 saturation @ 100%, according to Physical Assessment History notes. Pt is swallow impaired, according to Physical Assessment History notes. Pt has PEG tube in place poa, according to History & Physical notes. Pt has missing teet, according to Physical Assessment History notes. Percent of energy/protein needs met: Prescribed TF-Glucerna 1.2 [place] @ 70 ml/hr provides for energy/protein needs (2,016 Kcal/111 g) during LOS, 95% Kcal; 111% AA. #1 Nutrition Diagnosis Swallowing difficulty Comments: DIRECTOR TITLE note on 10/26/21 10:03: The patient is not an appropriate candidate for PO at this time due an inability to arouse him. Will discontinue services. An alternative method of nutrition is appropriate. No further recommendations. - END OF NOTE Diagnosis Progress(for reassessment Continues documentation) Is patient on ventilator? No Is Patient Ambulatory and/or Out of Bed No REE-([facility]-confined to bed) 8746.431 Calculation Used for Recommendations [facility] Additional Notes Protein: 0.8-1 g/Kg ABW; 73-91 g/day. Fluids: 1 ml/Kcal, or as per MD. Nutrition Intervention Nutrition Support: Continue TF-Glucerna 1.2 [place] @ 70 ml/hr. Flush: 100 ml water Q 4 hr, or as per MD. Kcal 2,016 Protein (gm) 101 Carbohydrates (gm) 192 Fat (gm) 101 Fluid (mL) 1,352 Fiber (gm) 27 % RDI: 95% Kcal; 111% AA. Goal #1 Provide at least 75% of energy /protein needs through Enteral Feeding during LOS. Follow-Up By: 11/02/21 Additional Comments Continue monitoring TF tolerance and BM.
[2021-10-27] MEDS: INSULIN LISPRO 100 UNIT/ML SUB-Q SCH ×4 (00:08→17:07)
[2021-10-27] MEDS ORDERED: NALOXONE 0.4 MG/1 ML INJ IV PRN (03:24)
[2021-10-27] MEDS ORDERED: ePHEDrine SULFATE 50 MG/1 ML INJ IV PRN (03:24)
[2021-10-27] MEDS ORDERED: fentaNYL-BUPIV 2 MCG/ML-0.125% 200 MCG/100 ML BAG EPIDURAL SCH (04:00)
[2021-10-27 05:43] LABS: Blood Urea Nitrogen 13 mg/dL (9-20); Calcium 10.2 mg/dL (8.4-10.2); Hemolysis Index 153
[2021-10-27 05:44] LABS: BUN/Creatinine Ratio 22
[2021-10-27] MEDS ORDERED: PHENYLEPHRINE/NS 1,000 MCG/10 ML SYRINGE (OR USE) IV ONE (09:18)
[2021-10-27] MEDS ORDERED: LIDOCAINE MPF (2%) 20 MG/1 ML VIAL 5 ML ONE (09:18)
[2021-10-27] MEDS ORDERED: ePHEDrine SULFATE 50 MG/1 ML INJ ONE (09:19)
[2021-10-27] MEDS ORDERED: propofoL 200 MG/20 ML VIAL IV ONE ×2 (09:19)
[2021-10-27] MEDS ORDERED: MIDAZOLAM 2 MG/2 ML INJ ONE (09:20)
[2021-10-27] MEDS: ASPIRIN 325 MG TAB PO SCH (10:30)
[2021-10-27] MEDS: levETIRAcetam 500 MG/5 ML ORAL LIQD FEEDTUBE SCH ×2 (10:30→20:59)
[2021-10-27] MEDS: HEPARIN 5,000 UNIT/1 ML VIAL SUB-Q SCH ×2 (10:31→20:59)
[2021-10-27] MEDS: LISINOPRIL 5 MG TAB FEEDTUBE SCH (10:35)
[2021-10-27] MEDS: INDAPAMIDE 2.5 MG TAB FEEDTUBE SCH (10:35)
[2021-10-27] MEDS: atenoloL 50 MG TAB FEEDTUBE SCH (10:35)
[2021-10-27] MEDS: FLUoxetine 20 MG/5 ML ORAL LIQD FEEDTUBE SCH (10:35)
--- NOTE | 2021-10-27 11:33 | Progress Note ---
Assessment and Plan Right cerebrovascular accident with left hemiparesis Hypertension DM II Dysarthria Oropharyngeal dysphagia Debility - complete neurology w/up (for MRI) - BELLE in am - [facility] says not a candidate - discharge planning ongoing concurrently - continue care as below otherwise; - prn supplemental oxygen to keep O2 sats > 90% - prn bronchodilators (DULCE) with pulm hygiene per RT - avoid nephrotoxins, renally dose all medications - continue mobility protocols to prevent pressure ulcers - PT/OT as tolerated - Wound care per RN/WCT - continue accuchecks with glycemic control per SSI for target blood glucose < 180 mg/dL - home oxygen evaluation at discharge - GI & VTE prophylaxis - Flu & pneumovax per protocol - prn analgesia per pain score - continue other care per attending / other consultants ... re-evaluate in am & prn Subjective Date of service: 10/27/21 Principal diagnosis: R. CVA with L. hemiparesis; HTN; DM II; Dysarthria; Oropharyngeal dysphagia Interval history: Patient is seen today for: Right cerebrovascular accident with left hemiparesis; Hypertension; DM II; Dysarthria; Oropharyngeal dysphagia; Debility Seen and examined at bedside; 24hour events reviewed; nursing and respiratory care staff consulted; no adverse overnight events reported to me; resting peacefully in bed; AMS is persistent; BELLE moved to tomorrow Objective Vital Signs - 12hr 10/27/21 10/27/21 10/27/21 00:00 00:01 01:01 Temperature Pulse Rate 90 100 H Pulse Rate [ From Monitor] Respiratory 12 17 Rate Blood Pressure 134/80 137/84 O2 Sat by Pulse 100 100 98 Oximetry 10/27/21 10/27/21 10/27/21 02:00 03:00 04:00 Temperature 97.4 F L Pulse Rate 84 84 80 Pulse Rate [ From Monitor] Respiratory 16 15 13 Rate Blood Pressure 109/76 118/74 120/72 O2 Sat by Pulse 100 100 99 Oximetry 10/27/21 10/27/21 10/27/21 05:01 06:00 07:00 Temperature Pulse Rate 75 72 75 Pulse Rate [ From Monitor] Respiratory 15 15 15 Rate Blood Pressure 100/57 111/55 119/69 O2 Sat by Pulse 100 100 99 Oximetry 10/27/21 10/27/21 10/27/21 07:13 08:00 09:00 Temperature 99.1 F Pulse Rate 89 79 Pulse Rate [ 85 From Monitor] Respiratory 15 15 Rate Blood Pressure 122/83 104/69 O2 Sat by Pulse 99 100 Oximetry 10/27/21 10/27/21 10/27/21 10:00 10:35 11:00 Temperature Pulse Rate 80 96 H 76 Pulse Rate [ From Monitor] Respiratory 16 13 Rate Blood Pressure 109/76 109/74 99/63 O2 Sat by Pulse 100 100 Oximetry Constitutional: no acute distress, other (Patient awake but not following commands.) Eyes: non-icteric ENT: oropharynx moist Neck: supple, no lymphadenopathy Effort: normal Ascultation: Bilateral: clear Percussion: Bilateral: not dull Cardiovascular: regular rate and rhythm Gastrointestinal: normoactive bowel sounds, soft, non-tender, non-distended, other (PEG tube) Integumentary: normal Extremities: no cyanosis, no edema, pulses normal, no ischemia or petechiae Neurologic: pupils equal and round, other (left hemiplegia with pedal contractures) Psychiatric: other (unable to asses due to neurological status) CBC and BMP: 10/24/21 05:00 10/27/21 04:39 ABG, PT/INR, D-dimer: PT/INR, D-dimer PT 14.8 Sec. (12.2-14.9) 10/22/21 16:00 INR 1.04 (0.87-1.13) 10/22/21 16:00 Abnormal lab findings: Abnormal Labs 10/22/21 10/22/21 10/22/21 16:00 16:00 22:44 MCV 83 L MCH 27 L Prentiss % (Auto) 11.8 H Prentiss # (Auto) 1.0 H Sodium Potassium Chloride Creatinine 0.6 L Glucose 175 H POC Glucose 115 H Hemoglobin A1c Magnesium Urine Blood Urine WBC (Auto) U Epithel Cells (Auto) 10/23/21 10/23/21 10/23/21 07:28 08:49 11:31 MCV MCH Prentiss % (Auto) Prentiss # (Auto) Sodium Potassium Chloride Creatinine Glucose POC Glucose 129 H 136 H Hemoglobin A1c Magnesium Urine Blood Moderate A Urine WBC (Auto) 28.0 H U Epithel Cells (Auto) 14.0 H 10/23/21 10/24/21 10/24/21 17:59 00:01 05:00 MCV 82 L MCH Prentiss % (Auto) Prentiss # (Auto) Sodium Potassium Chloride Creatinine Glucose POC Glucose 109 H 111 H Hemoglobin A1c Magnesium Urine Blood Urine WBC (Auto) U Epithel Cells (Auto) 10/24/21 10/24/21 10/24/21 05:00 07:57 10:16 MCV MCH Prentiss % (Auto) Prentiss # (Auto) Sodium Potassium 3.5 L Chloride Creatinine 0.6 L Glucose 134 H POC Glucose 132 H Hemoglobin A1c 8.0 H Magnesium Urine Blood Urine WBC (Auto) U Epithel Cells (Auto) 10/24/21 10/24/21 10/25/21 16:26 20:57 04:47 MCV MCH Prentiss % (Auto) Prentiss # (Auto) Sodium Potassium Chloride Creatinine Glucose POC Glucose 109 H 145 H 159 H Hemoglobin A1c Magnesium Urine Blood Urine WBC (Auto) U Epithel Cells (Auto) 10/25/21 10/25/21 10/25/21 07:49 11:19 17:49 MCV MCH Prentiss % (Auto) Prentiss # (Auto) Sodium Potassium Chloride Creatinine Glucose POC Glucose 147 H 164 H 141 H Hemoglobin A1c Magnesium Urine Blood Urine WBC (Auto) U Epithel Cells (Auto) 10/25/21 10/26/21 10/26/21 20:54 04:56 07:23 MCV MCH Prentiss % (Auto) Prentiss # (Auto) Sodium Potassium Chloride Creatinine 0.7 L Glucose 165 H POC Glucose 136 H 172 H Hemoglobin A1c Magnesium 1.60 L Urine Blood Urine WBC (Auto) U Epithel Cells (Auto) 10/26/21 10/26/21 10/26/21 11:21 17:21 23:38 MCV MCH Prentiss % (Auto) Prentiss # (Auto) Sodium Potassium Chloride Creatinine Glucose POC Glucose 168 H 164 H 147 H Hemoglobin A1c Magnesium Urine Blood Urine WBC (Auto) U Epithel Cells (Auto) 10/27/21 10/27/21 04:39 07:32 MCV MCH Prentiss % (Auto) Prentiss # (Auto) Sodium 135 L Potassium Chloride 95.4 L Creatinine 0.6 L Glucose 156 H POC Glucose 137 H Hemoglobin A1c Magnesium Urine Blood Urine WBC (Auto) U Epithel Cells (Auto) Allied health notes reviewed: nursing
--- NOTE | 2021-10-27 13:25 | Progress Note ---
Assessment and Plan Patient is a 55-year-old male with a past medical history of CVA on 06/22/2021 and friend complicated by dysphagia's, dysarthria, left hemiparesis, hypertension, diabetes transferred to [facility] for continuation of previously mentioned symptoms CVA 06/22/2021-neurology following Hypertension Diabetes History of seizures Dysarthria/dysphagia/hemiparesis Echo 10/22/2021-EF 55%. Mild diastolic dysfunction is present impaired relaxation pattern. Right ventricle is normal in size right ventricle systolic function is normal. Saline bubble study does not demonstrate PFO. IVC is normal in size and collapses greater than 50% with inspiration Plan: Telemetry reviewed patient is in sinus rhythm trending 70s to 80s with no episodes of A. fib seen on monitor Attempted to do BELLE today however no consent in patient's chart. Patient's brother at bedside later this afternoon. Received consent from patient's brother for BELLE in the a.m. Patient to be n.p.o. after midnight in preparation for possible BELLE in the a.m. If concern for paroxysmal A. fib primary team may wish to consider anticoagulation. Will defer to neuro recommendations regarding initiation of anticoagulation If concern for proximal A. fib patient may be set up for an outpatient for event monitor Patient in conjunction with Dr. Benedict who agrees with this plan of care - Patient Problems (1) CVA (cerebral vascular accident) Current Visit: Yes Status: Acute Qualifiers: Precerebral and cerebral artery: middle cerebral artery Laterality of affected vessel: right (2) Debility Current Visit: Yes Status: Acute (3) Diabetes Current Visit: Yes Status: Acute (4) Dysarthria as late effect of stroke Current Visit: Yes Status: Acute (5) Dysphagia as late effect of stroke Current Visit: Yes Status: Acute (6) Hemiparesis, left Current Visit: Yes Status: Acute (7) Hypertension Current Visit: Yes Status: Acute Qualifiers: Hypertension type: primary hypertension Qualified Code(s): I10 - Essential (primary) hypertension Subjective Date of service: 10/27/21 Principal diagnosis: R. CVA with L. hemiparesis; HTN; DM II; Dysarthria; Oropharyngeal dysphagia Interval history: Patient in bed in no acute distress Sinus 70s to 80s on monitor with no events Objective Vital Signs Temp Pulse Pulse Resp BP Pulse Ox 10/27/21 12:01 83 12 100/59 100 10/27/21 11:48 67 67 15 100 10/27/21 11:41 98.7 F 10/27/21 11:00 76 13 99/63 100 10/27/21 10:35 96 H 109/74 10/27/21 10:00 80 16 109/76 100 10/27/21 09:00 79 15 104/69 100 10/27/21 08:00 89 85 15 122/83 99 10/27/21 07:13 99.1 F 10/27/21 07:00 75 15 119/69 99 10/27/21 06:00 72 15 111/55 100 10/27/21 05:01 75 15 100/57 100 10/27/21 04:00 97.4 F L 80 13 120/72 99 10/27/21 03:00 84 15 118/74 100 10/27/21 02:00 84 16 109/76 100 10/27/21 01:01 100 H 17 137/84 98 10/27/21 00:01 90 12 134/80 100 10/27/21 00:00 100 10/26/21 23:00 97.6 F 86 14 115/85 100 10/26/21 22:43 89 16 128/88 99 10/26/21 22:00 128/88 99 10/26/21 21:00 78 16 97/54 99 10/26/21 20:34 83 10/26/21 20:00 78 19 118/71 98 10/26/21 19:00 99.2 F 79 16 110/68 100 10/26/21 18:00 78 14 106/69 100 10/26/21 17:00 88 13 112/76 10/26/21 16:00 82 97 H 15 118/58 100 10/26/21 15:00 97.8 F 81 12 108/67 10/26/21 14:00 79 19 109/74 99 - Physical Examination General: No Apparent Distress HEENT: Positive: Mucus Membranes Dry Neck: Positive: trachea midline Cardiac: Positive: Reg Rate and Rhythm Lungs: Positive: Normal Breath Sounds Neuro: Positive: Other (Hemiparesis) Abdomen: Positive: Soft Skin: Negative: Rash, Suspicious Lesions, Ulceration Extremities: Present: upper extr. pulses. Absent: edema - Labs and Meds Comprehensive Metabolic Panel 10/27/21 Range/Units 04:39 Sodium 135 L (137-145) mmol/L Potassium 5.0 D (3.6-5.0) mmol/L Chloride 95.4 L (98-107) mmol/L Carbon Dioxide 28 (22-30) mmol/L BUN 13 (9-20) mg/dL Creatinine 0.6 L (0.8-1.3) mg/dL Glucose 156 H (75-100) mg/dL Calcium 10.2 (8.4-10.2) mg/dL - Imaging and Cardiology Echo: report reviewed - Telemetry EKG Rhythm: Sinus Rhythm - EKG Sinus rhythms and dysrhythmias: sinus tachycardia AV and intraventricular conduction: right bundle branch block - Allied health notes Allied health notes reviewed: nursing
[2021-10-27] MEDS ORDERED: HALOPERIDOL LACTATE 5 MG/1 ML INJ IV ONE (13:34)
--- NOTE | 2021-10-27 15:29 | Progress Note ---
Assessment and Plan Assessment and plan: This is a 55-year-old male with HTN, DM, CVA complicated by dysphagia, dysarthria, left hemiparesis and debility s/p PEG tube and seizure disorder admitted for recent CVA disease 06/2021) Neuro: Recent CVA complicated by dysphagia/dysarthria/left hemiparesis/debility, h/o depression, seizure disorder -Neurology and CCM consulted, appreciate recommendations -Reorientation as needed -Maintain sleep-wake cycle -aspiration/seizure precautions -As needed analgesia -CT head shows old moderately sized MCA infarct the right involving the inferior frontal peritracheal regions, gangliocapsular Regions and Right Temporal Lobe, prominent Kuehner seen in the left anterior andrea, small scattered lacunar infarcts suggesting the andrea -Bilateral carotid Doppler ultrasound shows less than 50% diameter stenosis in the right and left internal carotid artery -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 -CTA neck shows carotid bifurcations appear to be normal -MRI brain pending -Lipitor, aspirin -Keppra -Aspiration/seizure precautions -Continue home Prozac -PT/OT/ST consulted -Neurochecks per protocol Cardiac: h/o HTN -Cardiology consulted, appreciate recommendations -Blood pressure monitoring per protocol -Antihypertensive regimen: Atenolol, Lozol, lisinopril -Echocardiogram shows LVEF 55%, mild diastolic dysfunction no PFO -BELLE pending per neurology recs Respiratory: NAD -CCM/ pulm consulted for dyspnea, appreciate recommendations -Supplemental oxygen as needed -Pulmonary hygiene -SPO2 monitoring GI: S/p PEG tube placement -24 hours +1285 mL -PPI -NTR consulted for tube feedings -BR: Senna : Slight hyponatremia, h/o urinary retention/obstruction -Presented with indwelling catheter which was exchanged -Monitor intake and output -Renally dose medications -Avoid nephrotoxic medications -Repeat magnesium -Trend BMP ID: NAD -Monitor WBC and temperature curve Endo: h/o DM -Avoid hypoglycemia -SSI -Accu-Cheks q. every 6 -Hemoglobin A1c 8 Heme: ? Hypercoagulable state -CTA chest and abdomen pending per neurology recommendation -Trend CBC -Transfuse hemoglobin less than 7 -SCDs to BLE while in bed The high probability of a clinically significant, sudden or life threatening d eterioration of the [multiple] system(s) required my full and direct attention, intervention and personal management. The aggregate critical care time was [60] minutes. This time is in addition to time spent performing reported procedures but includes the following: [x] Data Review and interpretation [x] Patient assessment and monitoring of vital signs [x] Documentation [x] Medication orders and management Disposition Plan: [facility] Total Time Spent with Patient (Minutes): 60 History Interval history: This is a 55-year-old with HTN, DM, CVA complicated by dysphagia s/p PEG tube placement, dysarthria, left hemiparesis and debility who presented to the emergency department on 10/22 via air ambulance for continued treatment. Patient was admitted to the [facility] and initiated on CIWA protocol with consults to [facility], neurology will need a cardiology. Hospital Course to Date: 10/23: Nonverbal, open eyes spontaneously, does not follow any commands with LUE paralysis/contraction. on RA, VSS. Echo and Neurology consult pending. PT/OT/Speech also consulted. PEG-tube noted, nutrition/mechanical energy engineer consulted for TF management. Pulmonary is also following. Patient presented with a harden catheter, per record history of urinary retention. Harden cath exchanged, UA pending. 10/24: SEKOU overnight. Neurology recommendations noted, orders placed for MRI brain and CTA head/Neck. Continue PT/OT/Speech, home meds resumed, and enteral nutrition initiated. UA noted, patient is asymptomatic with no leukocytosis, continue to monitor, urine culture pending. 10/25: Remains stable, mentation unchanged. CTA head/Neck noted, MRI brain/MRA head/Neck pending. Awaiting Neurology final recommendations. Continue current supportive measures. 10/26: Patient will have a BELLE, cardiology consulted per neurology recommendations, MRI/MRA/MRV pending no acute events reported overnight. Magnesium repleted. 10/27: Unable to complete BELLE as consent was not able to be obtained, [facility] contacted [facility] who declined the patient is a candidate, MRI brain and CTA chest and pelvis pending. No acute events reported overnight. Hospitalist Physical - Constitutional Vitals: Temp Pulse Resp BP Pulse Ox 98.7 F 74 14 106/63 98 10/27/21 11:41 10/27/21 14:40 10/27/21 14:40 10/27/21 14:40 10/27/21 14:40 General appearance: Present: no acute distress - EENT Eyes: Present: PERRL, EOM intact ENT: dentition normal - Neck Neck: Present: normal ROM - Respiratory Respiratory effort: normal Respiratory: bilateral: diminished - Cardiovascular Rhythm: regular Heart Sounds: Present: S1 & S2. Absent: systolic murmur, diastolic murmur - Extremities Extremities: no ischemia, pulses intact, pulses symmetrical, normal temperature, normal color Peripheral Pulses: within normal limits - Abdominal General gastrointestinal: soft, non-tender, non-distended, normal bowel sounds - Integumentary Integumentary: Present: warm, dry - Neurologic Neurologic: other (response to painful stimuli, PERRL) - Allied Health Allied health notes reviewed: nursing, PT, ST, OT, RT, social work Results - Labs CBC & Chem 7: 10/24/21 05:00 10/27/21 04:39 Labs: Laboratory Last Values WBC 6.4 K/mm3 (4.5-11.0) 10/24/21 05:00 RBC 4.59 M/mm3 (3.65-5.03) 10/24/21 05:00 Hgb 12.7 gm/dl (11.8-15.2) 10/24/21 05:00 Hct 37.7 % (35.5-45.6) 10/24/21 05:00 MCV 82 fl (84-94) L 10/24/21 05:00 MCH 28 pg (28-32) 10/24/21 05:00 MCHC 34 % (32-34) 10/24/21 05:00 RDW 14.1 % (13.2-15.2) 10/24/21 05:00 Plt Count 222 K/mm3 (140-440) 10/24/21 05:00 Lymph % (Auto) 29.6 % (13.4-35.0) 10/22/21 16:00 Desha % (Auto) 11.8 % (0.0-7.3) H 10/22/21 16:00 Eos % (Auto) 1.3 % (0.0-4.3) 10/22/21 16:00 Baso % (Auto) 0.4 % (0.0-1.8) 10/22/21 16:00 Lymph # (Auto) 2.4 K/mm3 (1.2-5.4) 10/22/21 16:00 Desha # (Auto) 1.0 K/mm3 (0.0-0.8) H 10/22/21 16:00 Eos # (Auto) 0.1 K/mm3 (0.0-0.4) 10/22/21 16:00 Baso # (Auto) 0.0 K/mm3 (0.0-0.1) 10/22/21 16:00 Seg Neutrophils % 56.9 % (40.0-70.0) 10/22/21 16:00 Seg Neutrophils # 4.7 K/mm3 (1.8-7.7) 10/22/21 16:00 PT 14.8 Sec. (12.2-14.9) 10/22/21 16:00 INR 1.04 (0.87-1.13) 10/22/21 16:00 APTT 28.1 Sec. (24.2-36.6) 10/22/21 16:00 Sodium 135 mmol/L (137-145) L 10/27/21 04:39 Potassium 5.0 mmol/L (3.6-5.0) D 10/27/21 04:39 Chloride 95.4 mmol/L (98-107) L 10/27/21 04:39 Carbon Dioxide 28 mmol/L (22-30) 10/27/21 04:39 Anion Gap 17 mmol/L 10/27/21 04:39 BUN 13 mg/dL (9-20) 10/27/21 04:39 Creatinine 0.6 mg/dL (0.8-1.3) L 10/27/21 04:39 Estimated GFR > 60 ml/min 10/27/21 04:39 BUN/Creatinine Ratio 22 % 10/27/21 04:39 Glucose 156 mg/dL (75-100) H 10/27/21 04:39 POC Glucose 180 mg/dL (70-105) H 10/27/21 11:33 Hemoglobin A1c 8.0 % (4-6) H 10/24/21 10:16 Calcium 10.2 mg/dL (8.4-10.2) 10/27/21 04:39 Phosphorus 4.20 mg/dL (2.5-4.5) 10/27/21 04:39 Magnesium 1.90 mg/dL (1.7-2.3) 10/27/21 04:39 Total Bilirubin 0.50 mg/dL (0.1-1.2) 10/22/21 16:00 AST 24 units/L (5-40) 10/22/21 16:00 ALT 28 units/L (7-56) 10/22/21 16:00 Alkaline Phosphatase 102 units/L (35-129) 10/22/21 16:00 Total Protein 6.9 g/dL (6.3-8.2) 10/22/21 16:00 Albumin 4.3 g/dL (3.9-5) 10/22/21 16:00 Albumin/Globulin Ratio 1.7 % 10/22/21 16:00 Triglycerides 85 mg/dL (2-149) 10/23/21 12:33 Cholesterol 148 mg/dL (50-199) 10/23/21 12:33 LDL Cholesterol Direct 86 mg/dL (50-130) 10/23/21 12:33 HDL Cholesterol 44 mg/dL (40-59) 10/23/21 12:33 Cholesterol/HDL Ratio 3.36 % 10/23/21 12:33 TSH 2.020 mlU/mL (0.270-4.200) 10/24/21 10:16 Free T4 0.88 ng/dL (0.76-1.46) 10/24/21 10:16 Urine Color Yellow (Yellow) 10/23/21 08:49 Urine Turbidity Clear (Clear) 10/23/21 08:49 Urine pH 6.5 (5.0-7.0) 10/23/21 08:49 Ur Specific [place] 1.005 (1.003-1.030) 10/23/21 08:49 Urine Protein 30 mg/dl mg/dL (Negative) 10/23/21 08:49 Urine Glucose (UA) Negative mg/dL (Negative) 10/23/21 08:49 Urine Ketones Negative mg/dL (Negative) 10/23/21 08:49 Urine Blood Moderate (Negative) A 10/23/21 08:49 Urine Nitrite Negative (Negative) 10/23/21 08:49 Ur Reducing Substances Not Reportable 10/23/21 08:49 Urine Bilirubin Negative (Negative) 10/23/21 08:49 Urine Ictotest Not Reportable 10/23/21 08:49 Urine Urobilinogen < 2.0 mg/dL (<2.0) 10/23/21 08:49 Ur Leukocyte Esterase Moderate (Negative) 10/23/21 08:49 Urine WBC (Auto) 28.0 /HPF (0.0-6.0) H 10/23/21 08:49 Urine RBC (Auto) 27.0 /HPF (0.0-6.0) 10/23/21 08:49 U Epithel Cells (Auto) 14.0 /HPF (0-13.0) H 10/23/21 08:49 Hyaline Casts 1 /LPF 10/23/21 08:49 Urine Mucus Few /HPF 10/23/21 08:49 Harden/IV: Voiding Method Indwelling Catheter Active Medications - Current Medications Current Medications: Generic Name Dose Route Start Last Admin Trade Name Freq PRN Reason Stop Dose Admin Acetaminophen 650 mg 10/22/21 16:19 10/22/21 22:50 Acetaminophen 325 Mg Tab PO 650 mg Q4H PRN Administration Pain, Mild (1-3) Albuterol 2.5 mg 10/22/21 16:19 Albuterol 2.5 Mg/3 Ml Nebu IH Q3HRT PRN Shortness Of Breath Aspirin 325 mg 10/23/21 10:00 10/27/21 10:30 Aspirin 325 Mg Tab PO 325 mg QDAY NEO Administration Atenolol 50 mg 10/24/21 10:00 10/27/21 10:35 Atenolol 50 Mg Tab FEEDTUBE 50 mg QDAY NEO Administration Atorvastatin Calcium 80 mg 10/24/21 22:00 10/26/21 21:06 Atorvastatin 40 Mg Tab FEEDTUBE 80 mg QHS NEO Administration Bisacodyl 10 mg 10/22/21 16:19 Bisacodyl 10 Mg Rect Supp MO QDAY PRN Constipation Dextrose 50 ml 10/22/21 17:23 Dextrose 50% In Water (25gm) 50 Ml Syringe IV Q30MIN PRN Hypoglycemia Protocol Fluoxetine HCl 10 mg 10/24/21 10:00 10/27/21 10:35 Fluoxetine 20 Mg/5 Ml Oral Liqd FEEDTUBE 10 mg QDAY NEO Administration Heparin Sodium (Porcine) 5,000 unit 10/22/21 22:00 10/27/21 10:31 Heparin 5,000 Unit/1 Ml Vial SUB-Q 5,000 unit Q12HR NEO Administration Indapamide 5 mg 10/24/21 10:00 10/27/21 10:35 Indapamide 2.5 Mg Tab FEEDTUBE 5 mg QDAY NEO Administration Insulin Human Lispro 0 unit 10/24/21 12:00 10/27/21 12:36 Insulin Lispro 100 Unit/Ml SUB-Q 2 unit Q6HR NEO Administration Protocol Lansoprazole 30 mg 10/23/21 18:00 10/26/21 17:35 Lansoprazole 30 Mg Solutab FEEDTUBE 30 mg QPM NEO Administration Levetiracetam 250 mg 10/24/21 10:00 10/27/21 10:30 Levetiracetam 500 Mg/5 Ml Oral Liqd FEEDTUBE 250 mg BID NEO Administration Lisinopril 5 mg 10/24/21 10:00 10/27/21 10:35 Lisinopril 5 Mg Tab FEEDTUBE Not Given QDAY NEO Lorazepam 1 mg 10/25/21 10:46 10/27/21 12:35 Lorazepam 2 Mg/Ml Vial IV 1 mg ONCE PRN Administration Prior to MRI Magnesium Hydroxide 30 ml 10/22/21 16:19 Magnesium Hydroxide (Mom) Oral Liqd Udc PO Q4H PRN Constipation Ondansetron HCl 4 mg 10/22/21 16:19 Ondansetron 4 Mg/2 Ml Inj IV Q8H PRN Nausea And Vomiting Oxycodone/Acetaminophen 1 tab 10/22/21 16:19 Oxycodone /Acetaminophen 5-325mg Tab PO Q12H PRN Pain, Moderate (4-6) Senna 8.8 mg 10/27/21 22:00 Sennosides Oral Liqd 8.8 Mg/5 Ml Oral Liqd FEEDTUBE QHS NEO Sodium Chloride 10 ml 10/22/21 16:19 10/24/21 21:39 Sodium Chloride 0.9% 10 Ml Flush Syringe IV 10 ml PRN PRN Administration LINE FLUSH Nutrition/Malnutrition Assess - Dietary Evaluation Nutrition/Malnutrition Findings: Nutrition Notes Start: 10/23/21 13:01 Freq: Status: Active Protocol: Document 10/26/21 11:40 JIM (Rec: 10/26/21 12:11 JIM [id number]) Nutrition Notes Initial or Follow up Brief Note Current Diagnosis Diabetes,Hypertension,Stroke Other Pertinent Diagnosis Dysphagia, L-Hemiparesis, Debility. Current Diet TF-Glucerna 1.2 [place] @ 70 ml/hr (since D 10/23). Height 5 ft 11 in Weight 90.718 kg [place]itt Body Weight (kg) 78.18 BMI 27.8 Intake Prior to Admission Good Weight change and time frame Pt states having loss, unitentionally, between 2 and 13 lb recently. No body weight change reported in 2 days. Weight Status Overweight Subjective/Other Information RD consult for routine F/U on TF tolerance/continuation. TF continues as prescribed, no further information on tolerance available at the time, will assess at F/U. PHOTOGRAPHER'S ASSISTANT note on 10/26/21 10:03: The patient is not an appropriate candidate for PO at this time due an inability to arouse him. Will discontinue services. An alternative method of nutrition is appropriate. No further recommendations. - END OF NOTE Pt is on Room Air, O2 saturation @ 100%, according to Physical Assessment History notes. Pt is swallow impaired, according to Physical Assessment History notes. Pt has PEG tube in place poa, according to History & Physical notes. Pt has missing teet, according to Physical Assessment History notes. Percent of energy/protein needs met: Prescribed TF-Glucerna 1.2 [place] @ 70 ml/hr provides for energy/protein needs (2,016 Kcal/111 g) during LOS, 95% Kcal; 111% AA. #1 Nutrition Diagnosis Swallowing difficulty Comments: PHOTOGRAPHER'S ASSISTANT note on 10/26/21 10:03: The patient is not an appropriate candidate for PO at this time due an inability to arouse him. Will discontinue services. An alternative method of nutrition is appropriate. No further recommendations. - END OF NOTE Diagnosis Progress(for reassessment Continues documentation) Is patient on ventilator? No Is Patient Ambulatory and/or Out of Bed No REE-([facility]-confined to bed) [phone] Calculation Used for Recommendations [facility] Additional Notes Protein: 0.8-1 g/Kg ABW; 73-91 g/day. Fluids: 1 ml/Kcal, or as per MD. Nutrition Intervention Nutrition Support: Continue TF-Glucerna 1.2 [place] @ 70 ml/hr. Flush: 100 ml water Q 4 hr, or as per MD. Kcal 2,016 Protein (gm) 101 Carbohydrates (gm) 192 Fat (gm) 101 Fluid (mL) 1,352 Fiber (gm) 27 % RDI: 95% Kcal; 111% AA. Goal #1 Provide at least 75% of energy /protein needs through Enteral Feeding during LOS. Follow-Up By: 11/02/21 Additional Comments Continue monitoring TF tolerance and BM.
--- NOTE | 2021-10-27 15:50 | Cat Scan Report ---
CTA CHEST, ABDOMEN, AND PELVIS WITH IV CONTRAST INDICATION: coagulapathy. TECHNIQUE: Axial CT images were obtained through the chest, abdomen, and pelvis after injection of 100 cc Omnipa que 350 IV contrast. 3 plane MIP reconstructions were produced. All CT scans at this location are per formed using CT dose reduction for ALARA by means of automated exposure control. COMPARISON: One view of the chest performed on 10/23/2021. FINDINGS: Motion artifact limits this exam. Heart: No significant abnormality. No significant coronary artery calcification. Thoracic Aorta: No significant abnormality. Great Vessels: No significant abnormality. Pulmonary Arteries: No evidence of thromboemboli. Additional Chest Findings: No significant abnormality. Abdominal Aorta: No significant abnormality. Renal arteries: No significant abnormality. Celiac artery: No significant abnormality. Superior Mesenteric Artery: No significant abnormality. Inferior mesenteric artery: No significant abnormality. Right Iliac Arteries: There is mild nonobstructive atherosclerosis. No other significant abnormality. Left Iliac Arteries: There is mild nonobstructive atherosclerosis. No other significant abnormality. Femoral Arteries: No significant abnormality as visualized. Additional Abdominopelvic Findings: No significant abnormality. Skeletal Structures: No significant abnormality. IMPRESSION: Limited exam due to motion artifact without CT evidence of pulmonary emboli or other acute findings. Signer Name: Nahun Marcelo MD Signed: 10/27/2021 3:45 PM Workstation Name: [email or web address]
[2021-10-27] MEDS: LANSOPRAZOLE 30 MG SOLUTAB FEEDTUBE SCH (18:09)
[2021-10-27] MEDS: SENNOSIDES ORAL LIQD 8.8 MG/5 ML ORAL LIQD FEEDTUBE SCH (20:59)
--- NOTE | 2021-10-27 21:27 | Magnetic Resonance Report ---
MRI BRAIN WITHOUT AND WITH CONTRAST INDICATION / CLINICAL INFORMATION: cva, AMS. TECHNIQUE: Multiplanar, multisequence MR images of the brain were obtained. Contrast: Clairscan: 16 ml, administered intravenously. COMPARISON: Head CT 10/22/2021 FINDINGS: BRAIN / INTRACRANIAL CONTENTS: Encephalomalacia is observed in a right middle cerebral artery distrib ution secondary to remote infarction involving right temporal lobe, right frontal lobe and right florinda etal lobe. In addition, there is a superimposed region of restricted diffusion in the right MCA distr ibution. Corresponding areas of decreased signal intensity are observed on ADC map imaging. Following contrast administration there is gyriform enhancement in this region. Findings are consistent with s ubacute infarction superimposed on a chronic area of right MCA infarction. Ex vacuo dilatation of the right lateral ventricle is noted. The left sylvian fissure is larger than on the right. Microvascular ischemic changes are present in the white matter both cerebral hemisphere s. There is evidence of a remote pontine infarction lateralizing to the left of the midline. In addit ion microvascular ischemic changes are present throughout the remainder of the andrea. Evaluation of th e cerebellum is remarkable for encephalomalacia secondary to remote right posterior inferior cerebell ar artery infarction. MIDLINE STRUCTURES:No abnormalities are seen to involve the pituitary gland. Pineal region has an unr emarkable appearance. CRANIOCERVICAL JUNCTION: No abnormalities are identified at the craniocervical junction. VASCULAR FLOW-VOIDS: There is an absence of flow void in the M1 segment of the right middle cerebral artery. Flow void is not identified in the M2 or M3 branches of the right MCA. ORBITS: The orbits have an unremarkable appearance. SINUSES / MASTOIDS: There is no indication of inflammatory disease in the paranasal sinuses or mastoi d air cells. Following the administration of intravenous contrast are formatted enhancement is the suspected super imposed subacute right MCA infarction. No additional areas of abnormal contrast enhancement are ident ified. IMPRESSION: 1. Findings suggest the subacute right MCA infarction superimposed on chronic the more recent region of infarction involves the lateral aspect of the right temporal lobe. 2. Large remote pontine infarction. 3. No indication of recent intercranial hemorrhage or mass lesion. Signer Name: Manfred Denton MD Signed: 10/27/2021 9:22 PM Workstation Name: [id number]
[2021-10-27] MEDS: ACETAMINOPHEN 325 MG TAB PO PRN (23:52)
[2021-10-28] MEDS: INSULIN LISPRO 100 UNIT/ML SUB-Q SCH ×5 (00:04→23:45)
[2021-10-28 04:39] LABS: BUN/Creatinine Ratio 18; Blood Urea Nitrogen 14 mg/dL (9-20); Calcium 10.1 mg/dL (8.4-10.2); Hemolysis Index 1
[2021-10-28] MEDS ORDERED: BENZOCAINE 20% TOP SPRAY 0.5 ML UNIT DOSE MM ONE (08:44)
[2021-10-28] MEDS ORDERED: propofoL 200 MG/20 ML VIAL IV ONE ×2 (08:47→08:48)
[2021-10-28] MEDS ORDERED: LIDOCAINE MPF (2%) 20 MG/1 ML VIAL 5 ML ONE (08:48)
--- NOTE | 2021-10-28 08:58 | Anesthesia Consultation ---
Anesthesia Consult and Med Hx Date of service: 10/28/21 - Airway Anesthetic Teeth Evaluation: Good ROM Head & Neck: Adequate Mental/Hyoid Distance: Adequate Mallampati Class: Class II Intubation Access Assessment: Probably Good - Pre-Operative Health Status ASA Pre-Surgery Classification: ASA3 Proposed Anesthetic Plan: MAC - Cardiovascular System Hx Hypertension: Yes - Central Nervous System CVA: Yes (left hemiparesis, dysarthria) Hx Psychiatric Problems: Yes - Endocrine Hx Insulin Dependent Diabetes: Yes
[2021-10-28] MEDS ORDERED: SODIUM CHLORIDE 0.9% 500 ML IVPB IV SCH (09:00)
[2021-10-28] MEDS ORDERED: BENZOCAINE 20% TOP SPRAY 0.5 ML UNIT DOSE MM NR (09:00)
--- NOTE | 2021-10-28 09:01 | Anesthesia Day of Surgery ---
Anesthesia Day of Surgery - Day of Surgery Patient Examined: Yes Patient H&P Reviewed: Yes Patient is NPO: Yes
[2021-10-28] MEDS: INDAPAMIDE 2.5 MG TAB FEEDTUBE SCH (10:42)
[2021-10-28] MEDS: FLUoxetine 20 MG/5 ML ORAL LIQD FEEDTUBE SCH (10:42)
[2021-10-28] MEDS: levETIRAcetam 500 MG/5 ML ORAL LIQD FEEDTUBE SCH ×2 (10:46→22:11)
[2021-10-28] MEDS: LISINOPRIL 5 MG TAB FEEDTUBE SCH (10:46)
[2021-10-28] MEDS: ASPIRIN 325 MG TAB PO SCH (10:46)
[2021-10-28] MEDS: HEPARIN 5,000 UNIT/1 ML VIAL SUB-Q SCH ×2 (10:46→22:12)
--- NOTE | 2021-10-28 11:25 | Post Anesthesia Evaluation ---
- Post Anesthesia Evaluation Patient Participated: Yes Airway Patent: Yes Stable Respiratory Function: Yes Nausea/Vomiting: No Temp > 96.8F: Yes Pain Manageable: Yes Adequeate Hydration: Yes Anesthesia Complications: No Block Receding Appropriately: Not Applicable Patient on Ventilator: No
--- NOTE | 2021-10-28 12:45 | Progress Note ---
Assessment and Plan Assessment and plan: History Interval history: This is a 55-year-old with HTN, DM, CVA complicated by dysphagia s/p PEG tube placement, dysarthria, left hemiparesis and debility who presented to the emergency department on 10/22 via air ambulance for continued treatment. Patient was admitted to the [facility] and initiated on CIWA protocol with consults to [facility], neurology will need a cardiology. Hospital Course to Date: 10/23: Nonverbal, open eyes spontaneously, does not follow any commands with LUE paralysis/contraction. on RA, VSS. Echo and Neurology consult pending. PT/OT/Speech also consulted. PEG-tube noted, nutrition/lang interpreter consulted for TF management. Pulmonary is also following. Patient presented with a harden catheter, per record history of urinary retention. Harden cath exchanged, UA pending. 10/24: SEKOU overnight. Neurology recommendations noted, orders placed for MRI brain and CTA head/Neck. Continue PT/OT/Speech, home meds resumed, and enteral nutrition initiated. UA noted, patient is asymptomatic with no leukocytosis, continue to monitor, urine culture pending. 10/25: Remains stable, mentation unchanged. CTA head/Neck noted, MRI brain/MRA head/Neck pending. Awaiting Neurology final recommendations. Continue current supportive measures. 10/26: Patient will have a BELLE, cardiology consulted per neurology recommendations, MRI/MRA/MRV pending no acute events reported overnight. Magnesium repleted. 10/27: Unable to complete BELLE as consent was not able to be obtained, [facility] contacted [facility] who declined the patient is a candidate, MRI brain and CTA chest and pelvis pending. No acute events reported overnight. 10/28: No acute overnight events. CTA chest and abdomen completed were negative studies. BELLE completed this AM, no acute findings noted. MR brain shows subacute right MCA infarction superimposed on chronic infarction. There is involvement of the lateral aspect of right temporal lobe. Large remote pontine infarction noted. No indication of recent intracranial hemorrhage or mass lesion. CM currently working on placement to SNF. Can transfer patient to floor bed. Attempted to call number in chart to update family. no response. Assessment and Plan: Neuro: Recent CVA complicated by dysphagia/dysarthria/left hemiparesis/debility, h/o depression, seizure disorder -Neurology and CCM consulted, appreciate recommendations -Reorientation as needed -Maintain sleep-wake cycle -aspiration/seizure precautions -As needed analgesia -CT head shows old moderately sized MCA infarct the right involving the inferior frontal peritracheal regions, gangliocapsular Regions and Right Temporal Lobe, prominent Kuehner seen in the left anterior andrea, small scattered lacunar infarcts suggesting the andrea -Bilateral carotid Doppler ultrasound shows less than 50% diameter stenosis in the right and left internal carotid artery -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 There is involvement of the lateral aspect of right temporal lobe. Large remote pontine infarction noted. No indication of recent intracranial hemorrhage or mass lesion. -Lipitor, aspirin -Keppra -Aspiration/seizure precautions -Continue home Prozac -PT/OT/ST consulted -Neurochecks per protocol Cardiac: h/o HTN -Cardiology consulted, appreciate recommendations -Blood pressure monitoring per protocol -Antihypertensive regimen: Atenolol, Lozol, lisinopril -Echocardiogram shows LVEF 55%, mild diastolic dysfunction no PFO -BELLE pending per neurology recs Respiratory: NAD -CCM/ pulm consulted for dyspnea, appreciate recommendations -Supplemental oxygen as needed -Pulmonary hygiene -SPO2 monitoring GI: S/p PEG tube placement -24 hours +1285 mL -PPI -NTR consulted for tube feedings -BR: Senna : Slight hyponatremia, h/o urinary retention/obstruction -Presented with indwelling catheter which was exchanged -Monitor intake and output -Renally dose medications -Avoid nephrotoxic medications -Repeat magnesium -Trend BMP ID: NAD -Monitor WBC and temperature curve Endo: h/o DM -Avoid hypoglycemia -SSI -Accu-Cheks q. every 6 -Hemoglobin A1c 8 Heme: ? Hypercoagulable state -CTA chest and abdomen pending per neurology recommendation -Trend CBC -Transfuse hemoglobin less than 7 -SCDs to BLE while in bed The high probability of a clinically significant, sudden or life threatening deterioration of the [multiple] system(s) required my full and direct attention, intervention and personal management. The aggregate critical care time was [60] minutes. This time is in addition to time spent performing reported procedures but includes the following: [x] Data Review and interpretation [x] Patient assessment and monitoring of vital signs [x] Documentation [x] Medication orders and management Disposition Plan: imcu Total Time Spent with Patient (Minutes): 60 Total Time Spent with Patient (Minutes): 60 min cct History Interval history: No acute overnight events. Patient does not appear to be in any acute distress. Hospitalist Physical - Physical exam Narrative exam: General: No Apparent Distress HEENT: Positive: Mucus Membranes Dry Neck: Positive: trachea midline Cardiac: Positive: Reg Rate and Rhythm Lungs: Positive: Normal Breath Sounds Neuro: Positive: Other (Hemiparesis), non verbal. Abdomen: Positive: Soft Skin: Negative: Rash, Suspicious Lesions, Ulceration Extremities: Present: upper extr. pulses. Absent: edema - Constitutional Vitals: Temp Pulse Resp BP Pulse Ox 98.4 F 77 13 106/69 100 10/28/21 09:22 10/28/21 11:00 10/28/21 11:00 10/28/21 11:00 10/28/21 11:00 General appearance: Present: no acute distress Results - Labs CBC & Chem 7: 10/24/21 05:00 10/28/21 03:40 Labs: Laboratory Last Values WBC 6.4 K/mm3 (4.5-11.0) 10/24/21 05:00 RBC 4.59 M/mm3 (3.65-5.03) 10/24/21 05:00 Hgb 12.7 gm/dl (11.8-15.2) 10/24/21 05:00 Hct 37.7 % (35.5-45.6) 10/24/21 05:00 MCV 82 fl (84-94) L 10/24/21 05:00 MCH 28 pg (28-32) 10/24/21 05:00 MCHC 34 % (32-34) 10/24/21 05:00 RDW 14.1 % (13.2-15.2) 10/24/21 05:00 Plt Count 222 K/mm3 (140-440) 10/24/21 05:00 Lymph % (Auto) 29.6 % (13.4-35.0) 10/22/21 16:00 [place] % (Auto) 11.8 % (0.0-7.3) H 10/22/21 16:00 Eos % (Auto) 1.3 % (0.0-4.3) 10/22/21 16:00 Baso % (Auto) 0.4 % (0.0-1.8) 10/22/21 16:00 Lymph # (Auto) 2.4 K/mm3 (1.2-5.4) 10/22/21 16:00 [place] # (Auto) 1.0 K/mm3 (0.0-0.8) H 10/22/21 16:00 Eos # (Auto) 0.1 K/mm3 (0.0-0.4) 10/22/21 16:00 Baso # (Auto) 0.0 K/mm3 (0.0-0.1) 10/22/21 16:00 Seg Neutrophils % 56.9 % (40.0-70.0) 10/22/21 16:00 Seg Neutrophils # 4.7 K/mm3 (1.8-7.7) 10/22/21 16:00 PT 14.8 Sec. (12.2-14.9) 10/22/21 16:00 INR 1.04 (0.87-1.13) 10/22/21 16:00 APTT 28.1 Sec. (24.2-36.6) 10/22/21 16:00 Sodium 137 mmol/L (137-145) 10/28/21 03:40 Potassium 4.2 mmol/L (3.6-5.0) 10/28/21 03:40 Chloride 97.1 mmol/L (98-107) L 10/28/21 03:40 Carbon Dioxide 29 mmol/L (22-30) 10/28/21 03:40 Anion Gap 15 mmol/L 10/28/21 03:40 BUN 14 mg/dL (9-20) 10/28/21 03:40 Creatinine 0.8 mg/dL (0.8-1.3) 10/28/21 03:40 Estimated GFR > 60 ml/min 10/28/21 03:40 BUN/Creatinine Ratio 18 % 10/28/21 03:40 Glucose 127 mg/dL (75-100) H 10/28/21 03:40 POC Glucose 173 mg/dL (70-105) H 10/28/21 12:03 Hemoglobin A1c 8.0 % (4-6) H 10/24/21 10:16 Calcium 10.1 mg/dL (8.4-10.2) 10/28/21 03:40 Phosphorus 4.20 mg/dL (2.5-4.5) 10/27/21 04:39 Magnesium 1.90 mg/dL (1.7-2.3) 10/27/21 04:39 Total Bilirubin 0.50 mg/dL (0.1-1.2) 10/22/21 16:00 AST 24 units/L (5-40) 10/22/21 16:00 ALT 28 units/L (7-56) 10/22/21 16:00 Alkaline Phosphatase 102 units/L (35-129) 10/22/21 16:00 Total Protein 6.9 g/dL (6.3-8.2) 10/22/21 16:00 Albumin 4.3 g/dL (3.9-5) 10/22/21 16:00 Albumin/Globulin Ratio 1.7 % 10/22/21 16:00 Triglycerides 85 mg/dL (2-149) 10/23/21 12:33 Cholesterol 148 mg/dL (50-199) 10/23/21 12:33 LDL Cholesterol Direct 86 mg/dL (50-130) 10/23/21 12:33 HDL Cholesterol 44 mg/dL (40-59) 10/23/21 12:33 Cholesterol/HDL Ratio 3.36 % 10/23/21 12:33 TSH 2.020 mlU/mL (0.270-4.200) 10/24/21 10:16 Free T4 0.88 ng/dL (0.76-1.46) 10/24/21 10:16 Urine Color Yellow (Yellow) 10/23/21 08:49 Urine Turbidity Clear (Clear) 10/23/21 08:49 Urine pH 6.5 (5.0-7.0) 10/23/21 08:49 Ur Specific [place] 1.005 (1.003-1.030) 10/23/21 08:49 Urine Protein 30 mg/dl mg/dL (Negative) 10/23/21 08:49 Urine Glucose (UA) Negative mg/dL (Negative) 10/23/21 08:49 Urine Ketones Negative mg/dL (Negative) 10/23/21 08:49 Urine Blood Moderate (Negative) A 10/23/21 08:49 Urine Nitrite Negative (Negative) 10/23/21 08:49 Ur Reducing Substances Not Reportable 10/23/21 08:49 Urine Bilirubin Negative (Negative) 10/23/21 08:49 Urine Ictotest Not Reportable 10/23/21 08:49 Urine Urobilinogen < 2.0 mg/dL (<2.0) 10/23/21 08:49 Ur Leukocyte Esterase Moderate (Negative) 10/23/21 08:49 Urine WBC (Auto) 28.0 /HPF (0.0-6.0) H 10/23/21 08:49 Urine RBC (Auto) 27.0 /HPF (0.0-6.0) 10/23/21 08:49 U Epithel Cells (Auto) 14.0 /HPF (0-13.0) H 10/23/21 08:49 Hyaline Casts 1 /LPF 10/23/21 08:49 Urine Mucus Few /HPF 10/23/21 08:49 Harden/IV: Voiding Method Indwelling Catheter Active Medications - Current Medications Current Medications: Generic Name Dose Route Start Last Admin Trade Name Freq PRN Reason Stop Dose Admin Acetaminophen 650 mg 10/22/21 16:19 10/27/21 23:52 Acetaminophen 325 Mg Tab PO 650 mg Q4H PRN Administration Pain, Mild (1-3) Albuterol 2.5 mg 10/22/21 16:19 Albuterol 2.5 Mg/3 Ml Nebu IH Q3HRT PRN Shortness Of Breath Aspirin 325 mg 10/23/21 10:00 10/28/21 10:46 Aspirin 325 Mg Tab PO 325 mg QDAY NEO Administration Atenolol 50 mg 10/24/21 10:00 10/27/21 10:35 Atenolol 50 Mg Tab FEEDTUBE 50 mg QDAY NEO Administration Atorvastatin Calcium 80 mg 10/24/21 22:00 10/27/21 20:59 Atorvastatin 40 Mg Tab FEEDTUBE 80 mg QHS NEO Administration Benzocaine 3 spray 10/28/21 09:00 Benzocaine 20% [place] 0.5 Ml Unit Dose MM 10/28/21 23:59 PREOP NR Bisacodyl 10 mg 10/22/21 16:19 Bisacodyl 10 Mg Rect Supp MA QDAY PRN Constipation Dextrose 50 ml 10/22/21 17:23 Dextrose 50% In Water (25gm) 50 Ml Syringe IV Q30MIN PRN Hypoglycemia Protocol Fluoxetine HCl 10 mg 10/24/21 10:00 10/28/21 10:42 Fluoxetine 20 Mg/5 Ml Oral Liqd FEEDTUBE 10 mg QDAY NEO Administration Heparin Sodium (Porcine) 5,000 unit 10/22/21 22:00 10/28/21 10:46 Heparin 5,000 Unit/1 Ml Vial SUB-Q 5,000 unit Q12HR NEO Administration Indapamide 5 mg 10/24/21 10:00 10/28/21 10:42 Indapamide 2.5 Mg Tab FEEDTUBE 5 mg QDAY NEO Administration Insulin Human Lispro 0 unit 10/24/21 12:00 10/28/21 06:55 Insulin Lispro 100 Unit/Ml SUB-Q Not Given Q6HR NEO Protocol Lansoprazole 30 mg 10/23/21 18:00 10/27/21 18:09 Lansoprazole 30 Mg Solutab FEEDTUBE 30 mg QPM NEO Administration Levetiracetam 250 mg 10/24/21 10:00 10/28/21 10:46 Levetiracetam 500 Mg/5 Ml Oral Liqd FEEDTUBE 250 mg BID NEO Administration Lisinopril 5 mg 10/24/21 10:00 10/28/21 10:46 Lisinopril 5 Mg Tab FEEDTUBE 5 mg QDAY NEO Administration Lorazepam 1 mg 10/25/21 10:46 10/27/21 12:35 Lorazepam 2 Mg/Ml Vial IV 1 mg ONCE PRN Administration Prior to MRI Magnesium Hydroxide 30 ml 10/22/21 16:19 Magnesium Hydroxide (Mom) Oral Liqd Udc PO Q4H PRN Constipation Ondansetron HCl 4 mg 10/22/21 16:19 Ondansetron 4 Mg/2 Ml Inj IV Q8H PRN Nausea And Vomiting Oxycodone/Acetaminophen 1 tab 10/22/21 16:19 Oxycodone /Acetaminophen 5-325mg Tab PO Q12H PRN Pain, Moderate (4-6) Senna 8.8 mg 10/27/21 22:00 10/27/21 20:59 Sennosides Oral Liqd 8.8 Mg/5 Ml Oral Liqd FEEDTUBE Not Given QHS NEO Sodium Chloride 10 ml 10/22/21 16:19 10/24/21 21:39 Sodium Chloride 0.9% 10 Ml Flush Syringe IV 10 ml PRN PRN Administration LINE FLUSH Nutrition/Malnutrition Assess - Dietary Evaluation Nutrition/Malnutrition Findings: Nutrition Notes Start: 10/23/21 13:01 Freq: Status: Active Protocol: Document 10/26/21 11:40 JIM (Rec: 10/26/21 12:11 JIM [email or web address]) Nutrition Notes Initial or Follow up Brief Note Current Diagnosis Diabetes,Hypertension,Stroke Other Pertinent Diagnosis Dysphagia, L-Hemiparesis, Debility. Current Diet TF-Glucerna 1.2 [place] @ 70 ml/hr (since D 10/23). Height 5 ft 11 in Weight 90.718 kg Clark Body Weight (kg) 78.18 BMI 27.8 Intake Prior to Admission Good Weight change and time frame Pt states having loss, unitentionally, between 2 and 13 lb recently. No body weight change reported in 2 days. Weight Status Overweight Subjective/Other Information RD consult for routine F/U on TF tolerance/continuation. TF continues as prescribed, no further information on tolerance available at the time, will assess at F/U. [employer] note on 10/26/21 10:03: The patient is not an appropriate candidate for PO at this time due an inability to arouse him. Will discontinue services. An alternative method of nutrition is appropriate. No further recommendations. - END OF NOTE Pt is on Room Air, O2 saturation @ 100%, according to Physical Assessment History notes. Pt is swallow impaired, according to Physical Assessment History notes. Pt has PEG tube in place poa, according to History & Physical notes. Pt has missing teet, according to Physical Assessment History notes. Percent of energy/protein needs met: Prescribed TF-Glucerna 1.2 [place] @ 70 ml/hr provides for energy/protein needs (2,016 Kcal/111 g) during LOS, 95% Kcal; 111% AA. #1 Nutrition Diagnosis Swallowing difficulty Comments: [employer] WORKER note on 10/26/21 10:03: The patient is not an appropriate candidate for PO at this time due an inability to arouse him. Will discontinue services. An alternative method of nutrition is appropriate. No further recommendations. - END OF NOTE Diagnosis Progress(for reassessment Continues documentation) Is patient on ventilator? No Is Patient Ambulatory and/or Out of Bed No REE-([facility]-confined to bed) [phone] Calculation Used for Recommendations Tracey Watson Additional Notes Protein: 0.8-1 g/Kg ABW; 73-91 g/day. Fluids: 1 ml/Kcal, or as per MD. Nutrition Intervention Nutrition Support: Continue TF-Glucerna 1.2 [place] @ 70 ml/hr. Flush: 100 ml water Q 4 hr, or as per MD. Kcal 2,016 Protein (gm) 101 Carbohydrates (gm) 192 Fat (gm) 101 Fluid (mL) 1,352 Fiber (gm) 27 % RDI: 95% Kcal; 111% AA. Goal #1 Provide at least 75% of energy /protein needs through Enteral Feeding during LOS. Follow-Up By: 11/02/21 Additional Comments Continue monitoring TF tolerance and BM.
--- NOTE | 2021-10-28 13:28 | Progress Note ---
Assessment and Plan 55 YO Male with HTN, DM, CVA complicated by Dysphagia, Dysarthria, Left Hemiparesis, Debility was admitted to [facility] in [facility] on 06/22/21. The patient was transported to [facility] today via air ambulance for continued treatment of the aforementioned symptoms. The patient was found to have clinical symptoms consistent with CVA but the patient was deemed outside the therapeutic window for tPA. The patient was admitted to [facility] and initiated on CVA protocol. The patient is nonverbal and has a palliative performance scor e of 30% and requires 6/6 assistance with activities of daily living. T No reports of fever, chills, chest pain, palpitation, productive cough, skin rash, recent contact, known exposure to COVID-19. Patient has PEG Placement. According to the chart. No history of smoking, alcohol or drug abuse. Patient sleeping. Not responding to Verbal stimuli. Patient is on room air. O2 saturation running 100%. No acute respiratory distress. Patient is afebrile. No leukocytosis. BP 107/74, pulse 94, RR 10. Chest x-ray done 10/23/21 reported no acute findings. CTA of chest 10/27/21 reported Limited exam due to motion artifact without CT evidence of pulmonary emboli or other acute findings. Patient is on albuterol inhaler, subq heparin, and Prevacid. Patient was seen IM. I spent critical care time of 35 minutes, reviewing the chart, examine the patient, review chest xray and lab results, talking to the nursing staff, respiratory therapy and work up plan of treatment in this critically ill patient. - Patient Problems (1) CVA (cerebral vascular accident) Current Visit: Yes Status: Acute Qualifiers: Precerebral and cerebral artery: middle cerebral artery Laterality of affected vessel: right Plan to address problem: Manage is per primary care and neurology. Recommend aspiration precautions. (2) Dysarthria as late effect of stroke Current Visit: Yes Status: Acute Plan to address problem: Management is per neurology. (3) Dysphagia as late effect of stroke Current Visit: Yes Status: Acute Plan to address problem: Management is per neurology. (4) Hemiparesis, left Current Visit: Yes Status: Acute Plan to address problem: Management is per neurology. (5) Diabetes Current Visit: Yes Status: Acute Plan to address problem: Management is per primary care. (6) Hypertension Current Visit: Yes Status: Acute Qualifiers: Hypertension type: primary hypertension Qualified Code(s): I10 - Essential (primary) hypertension Plan to address problem: Management is per primary care. Subjective Date of service: 10/28/21 Principal diagnosis: R. CVA with L. hemiparesis; HTN; DM II; Dysarthria; Oropharyngeal dysphagia Interval history: 55 YO Male with HTN, DM, CVA complicated by Dysphagia, Dysarthria, Left Hemiparesis, Debility was admitted to [facility] in [facility] on 06/22/21. The patient was transported to [facility] today via air ambulance for continued treatment of the aforementioned symptoms. The patient was found to have clinical symptoms consistent with CVA but the patient was deemed outside the therapeutic window for tPA. The patient was admitted to [facility] and initiated on CVA protocol. The patient is nonverbal and has a palliative performance score of 30% and requires 6/6 assistance with activities of daily living. T No reports of fever, chills, chest pain, palpitation, productive cough, skin rash, recent contact, known exposure to COVID-19. Patient has PEG Placement. According to the chart. No history of smoking, alcohol or drug abuse. Patient sleeping. Not responding to Verbal stimuli. Patient is on room air. O2 saturation running 100%. No acute respiratory distress. Patient is afebrile. No leukocytosis. BP 107/74, pulse 94, RR 10. Chest x-ray done 10/23/21 reported no acute findings. CTA of chest 10/27/21 reported Limited exam due to motion artifact without CT evidence of pulmonary emboli or other acute findings. Patient is on albuterol inhaler, subq heparin, and Prevacid. Objective Vital Signs - 12hr 10/28/21 10/28/21 10/28/21 02:00 03:00 04:00 Temperature 98.3 F Temperature [ Pre-Procedure] Pulse Rate 67 71 77 Pulse Rate [ 77 From Monitor] Pulse Rate [Pre -Procedure] Respiratory 13 14 11 L Rate Respiratory Rate [Pre- Procedure] Blood Pressure 107/60 109/70 113/65 Blood Pressure [Pre-Procedure] O2 Sat by Pulse 100 100 97 Oximetry O2 Sat by Pulse Oximetry [Pre- Procedure] 10/28/21 10/28/21 10/28/21 05:00 06:00 07:00 Temperature Temperature [ Pre-Procedure] Pulse Rate 78 79 65 Pulse Rate [ From Monitor] Pulse Rate [Pre -Procedure] Respiratory 15 12 15 Rate Respiratory Rate [Pre- Procedure] Blood Pressure 119/76 119/76 104/62 Blood Pressure [Pre-Procedure] O2 Sat by Pulse 100 100 100 Oximetry O2 Sat by Pulse Oximetry [Pre- Procedure] 10/28/21 10/28/21 10/28/21 08:00 09:00 09:22 Temperature 98.2 F Temperature [ 98.4 F Pre-Procedure] Pulse Rate 74 68 Pulse Rate [ 76 From Monitor] Pulse Rate [Pre 82 -Procedure] Respiratory 15 18 Rate Respiratory 33 H Rate [Pre- Procedure] Blood Pressure 112/68 113/62 Blood Pressure 113/62 [Pre-Procedure] O2 Sat by Pulse 99 98 Oximetry O2 Sat by Pulse 100 Oximetry [Pre- Procedure] 10/28/21 10/28/21 10/28/21 10:00 10:46 11:00 Temperature Temperature [ Pre-Procedure] Pulse Rate 69 86 77 Pulse Rate [ From Monitor] Pulse Rate [Pre -Procedure] Respiratory 13 13 Rate Respiratory Rate [Pre- Procedure] Blood Pressure 111/76 110/87 106/69 Blood Pressure [Pre-Procedure] O2 Sat by Pulse 100 100 Oximetry O2 Sat by Pulse Oximetry [Pre- Procedure] 10/28/21 10/28/21 12:00 13:00 Temperature 98.0 F Temperature [ Pre-Procedure] Pulse Rate 71 94 H Pulse Rate [ 74 From Monitor] Pulse Rate [Pre -Procedure] Respiratory 25 H 10 L Rate Respiratory Rate [Pre- Procedure] Blood Pressure 109/60 107/74 Blood Pressure [Pre-Procedure] O2 Sat by Pulse 100 100 Oximetry O2 Sat by Pulse Oximetry [Pre- Procedure] Constitutional: no acute distress, asleep Eyes: non-icteric ENT: oropharynx moist Neck: supple, no lymphadenopathy Effort: normal Ascultation: Bilateral: clear Percussion: Bilateral: not dull Cardiovascular: regular rate and rhythm Gastrointestinal: normoactive bowel sounds, soft, non-tender, non-distended, other (PEG tube) Integumentary: normal Extremities: no cyanosis, no edema, pulses normal, no ischemia or petechiae Neurologic: pupils equal and round, other (left hemiplegia with pedal contractures) Psychiatric: other (unable to asses due to neurological status) CBC and BMP: 07/23/22 05:00 10/28/21 03:40 ABG, PT/INR, D-dimer: PT/INR, D-dimer PT 14.8 Sec. (12.2-14.9) 10/22/21 16:00 INR 1.04 (0.87-1.13) 10/22/21 16:00 Abnormal lab findings: Abnormal Labs 10/22/21 10/22/21 10/22/21 16:00 16:00 22:44 MCV 83 L MCH 27 L [place] % (Auto) 11.8 H [place] # (Auto) 1.0 H Sodium Potassium Chloride Creatinine 0.6 L Glucose 175 H POC Glucose 115 H Hemoglobin A1c Magnesium Urine Blood Urine WBC (Auto) U Epithel Cells (Auto) 10/23/21 10/23/21 10/23/21 07:28 08:49 11:31 MCV MCH [place] % (Auto) [place] # (Auto) Sodium Potassium Chloride Creatinine Glucose POC Glucose 129 H 136 H Hemoglobin A1c Magnesium Urine Blood Moderate A Urine WBC (Auto) 28.0 H U Epithel Cells (Auto) 14.0 H 10/23/21 10/24/21 10/24/21 17:59 00:01 05:00 MCV 82 L MCH [place] % (Auto) [place] # (Auto) Sodium Potassium Chloride Creatinine Glucose POC Glucose 109 H 111 H Hemoglobin A1c Magnesium Urine Blood Urine WBC (Auto) U Epithel Cells (Auto) 10/24/21 10/24/21 10/24/21 05:00 07:57 10:16 MCV MCH [place] % (Auto) [place] # (Auto) Sodium Potassium 3.5 L Chloride Creatinine 0.6 L Glucose 134 H POC Glucose 132 H Hemoglobin A1c 8.0 H Magnesium Urine Blood Urine WBC (Auto) U Epithel Cells (Auto) 10/24/21 10/24/21 10/25/21 16:26 20:57 04:47 MCV MCH [place] % (Auto) [place] # (Auto) Sodium Potassium Chloride Creatinine Glucose POC Glucose 109 H 145 H 159 H Hemoglobin A1c Magnesium Urine Blood Urine WBC (Auto) U Epithel Cells (Auto) 10/25/21 10/25/21 10/25/21 07:49 11:19 17:49 MCV MCH [place] % (Auto) [place] # (Auto) Sodium Potassium Chloride Creatinine Glucose POC Glucose 147 H 164 H 141 H Hemoglobin A1c Magnesium Urine Blood Urine WBC (Auto) U Epithel Cells (Auto) 10/25/21 10/26/21 10/26/21 20:54 04:56 07:23 MCV MCH [place] % (Auto) [place] # (Auto) Sodium Potassium Chloride Creatinine 0.7 L Glucose 165 H POC Glucose 136 H 172 H Hemoglobin A1c Magnesium 1.60 L Urine Blood Urine WBC (Auto) U Epithel Cells (Auto) 10/26/21 10/26/21 10/26/21 11:21 17:21 23:38 MCV MCH [place] % (Auto) [place] # (Auto) Sodium Potassium Chloride Creatinine Glucose POC Glucose 168 H 164 H 147 H Hemoglobin A1c Magnesium Urine Blood Urine WBC (Auto) U Epithel Cells (Auto) 10/27/21 10/27/21 10/27/21 04:39 07:32 11:33 MCV MCH [place] % (Auto) [place] # (Auto) Sodium 135 L Potassium Chloride 95.4 L Creatinine 0.6 L Glucose 156 H POC Glucose 137 H 180 H Hemoglobin A1c Magnesium Urine Blood Urine WBC (Auto) U Epithel Cells (Auto) 10/27/21 10/27/21 10/28/21 16:18 23:55 03:40 MCV MCH [place] % (Auto) [place] # (Auto) Sodium Potassium Chloride 97.1 L Creatinine Glucose 127 H POC Glucose 130 H 123 H Hemoglobin A1c Magnesium Urine Blood Urine WBC (Auto) U Epithel Cells (Auto) 10/28/21 10/28/21 08:10 12:03 MCV MCH [place] % (Auto) [place] # (Auto) Sodium Potassium Chloride Creatinine Glucose POC Glucose 142 H 173 H Hemoglobin A1c Magnesium Urine Blood Urine WBC (Auto) U Epithel Cells (Auto) CT scan - chest: report reviewed, image reviewed Additional Studies: CTA CHEST, ABDOMEN, AND PELVIS WITH IV CONTRAST INDICATION: coagulapathy. TECHNIQUE: Axial CT images were obtained through the chest, abdomen, and pelvis after injection of 100 cc Omnipaque 350 IV contrast. 3 plane MIP reconstructions were produced. All CT scans at this location are performed using CT dose reduction for ALARA by means of automated exposure control. COMPARISON: One view of the chest performed on 10/23/2021. FINDINGS: Motion artifact limits this exam. Heart: No significant abnormality. No significant coronary artery calcification. Thoracic Aorta: No significant abnormality. Great Vessels: No significant abnormality. Pulmonary Arteries: No evidence of thromboemboli. Additional Chest Findings: No significant abnormality. Abdominal Aorta: No significant abnormality. Renal arteries: No significant abnormality. Celiac artery: No significant abnormality. Superior Mesenteric Artery: No significant abnormality. Inferior mesenteric artery: No significant abnormality. Right Iliac Arteries: There is mild nonobstructive atherosclerosis. No other s ignificant abnormality. Left Iliac Arteries: There is mild nonobstructive atherosclerosis. No other significant abnormality. Femoral Arteries: No significant abnormality as visualized. Additional Abdominopelvic Findings: No significant abnormality. Skeletal Structures: No significant abnormality. IMPRESSION: Limited exam due to motion artifact without CT evidence of pulmonary emboli or other acute findings. Allied health notes reviewed: nursing
--- NOTE | 2021-10-28 13:39 | Progress Note ---
Assessment and Plan Patient is a 55-year-old male with a past medical history of CVA on 06/22/2021 and friend complicated by dysphagia's, dysarthria, left hemiparesis, hypertension, diabetes transferred to [facility] for continuation of previously mentioned symptoms CVA 06/22/2021-neurology following Hypertension Diabetes History of seizures Dysarthria/dysphagia/hemiparesis Echo 10/22/2021-EF 55%. Mild diastolic dysfunction is present impaired relaxation pattern. Right ventricle is normal in size right ventricle systolic function is normal. Saline bubble study does not demonstrate PFO. IVC is normal in size and collapses greater than 50% with inspiration BELLE 10/28/2021-no evidence of intracardiac thrombus, spontaneous echo contrast, or mass. Normal left ventricular systolic performance with a EF of 55 to 60%. No valvulopathy. No pericardial effusion Plan: Patient had BELLE today with no evidence intracardiac thrombus. See BELLE report for full detail If concern for paroxysmal A. fib primary team may wish to consider anticoagulation. Will defer to neuro recommendations regarding initiation of anticoagulation If concern for proximal A. fib patient may be set up for an outpatient for event monitor Cardiac status otherwise stable. Will see as needed Patient in conjunction with Dr. Benedict who agrees with this plan of care - Patient Problems (1) CVA (cerebral vascular accident) Current Visit: Yes Status: Acute Qualifiers: Precerebral and cerebral artery: middle cerebral artery Laterality of affected vessel: right (2) Debility Current Visit: Yes Status: Acute (3) Diabetes Current Visit: Yes Status: Acute (4) Dysarthria as late effect of stroke Current Visit: Yes Status: Acute (5) Dysphagia as late effect of stroke Current Visit: Yes Status: Acute (6) Hemiparesis, left Current Visit: Yes Status: Acute (7) Hypertension Current Visit: Yes Status: Acute Qualifiers: Hypertension type: primary hypertension Qualified Code(s): I10 - Essential (primary) hypertension Subjective Date of service: 10/28/21 Principal diagnosis: R. CVA with L. hemiparesis; HTN; DM II; Dysarthria; Oropharyngeal dysphagia Interval history: Patient in bed in no acute distress Sinus 70s to 80s on monitor with no events Objective Vital Signs Temp Temp Pulse Pulse Pulse Resp Resp 10/28/21 13:00 94 H 10 L 10/28/21 12:00 98.0 F 71 74 25 H 10/28/21 11:00 77 13 10/28/21 10:46 86 10/28/21 10:00 69 13 10/28/21 09:22 98.4 F 82 33 H 10/28/21 09:00 68 18 10/28/21 08:00 98.2 F 74 76 15 10/28/21 07:00 65 15 10/28/21 06:00 79 12 10/28/21 05:00 78 15 10/28/21 04:00 98.3 F 77 77 11 L 10/28/21 03:00 71 14 10/28/21 02:00 67 13 10/28/21 01:00 67 15 10/28/21 00:52 16 10/28/21 00:02 86 17 10/28/21 00:00 99.0 F 82 82 13 10/27/21 23:52 15 10/27/21 23:35 76 10/27/21 23:00 78 10 L 10/27/21 22:00 83 12 10/27/21 21:00 84 10 L 10/27/21 20:00 68 16 10/27/21 19:59 98.5 F 10/27/21 19:32 10/27/21 19:00 64 17 10/27/21 18:01 68 22 10/27/21 17:00 69 14 10/27/21 16:35 98.7 F 10/27/21 16:00 73 76 14 10/27/21 15:00 74 16 10/27/21 14:40 74 14 BP BP Pulse Ox Pulse Ox 10/28/21 13:00 107/74 100 10/28/21 12:00 109/60 100 10/28/21 11:00 106/69 100 10/28/21 10:46 110/87 10/28/21 10:00 111/76 100 10/28/21 09:22 113/62 100 10/28/21 09:00 113/62 98 10/28/21 08:00 112/68 99 10/28/21 07:00 104/62 100 10/28/21 06:00 119/76 100 10/28/21 05:00 119/76 100 10/28/21 04:00 113/65 97 10/28/21 03:00 109/70 100 10/28/21 02:00 107/60 100 10/28/21 01:00 126/68 100 10/28/21 00:52 10/28/21 00:02 123/75 100 10/28/21 00:00 114/78 97 10/27/21 23:52 10/27/21 23:35 10/27/21 23:00 114/78 98 10/27/21 22:00 105/70 100 10/27/21 21:00 112/78 100 10/27/21 20:00 111/63 98 10/27/21 19:59 10/27/21 19:32 99 10/27/21 19:00 94/58 97 10/27/21 18:01 94/58 98 10/27/21 17:00 88/58 100 10/27/21 16:35 10/27/21 16:00 100/70 99 10/27/21 15:00 92/63 99 10/27/21 14:40 106/63 98 - Physical Examination General: No Apparent Distress HEENT: Positive: Mucus Membranes Dry Neck: Positive: trachea midline Cardiac: Positive: Reg Rate and Rhythm Lungs: Positive: Normal Breath Sounds Neuro: Positive: Other (Hemiparesis) Abdomen: Positive: Soft Skin: Negative: Rash, Suspicious Lesions, Ulceration Extremities: Present: upper extr. pulses. Absent: edema - Labs and Meds Comprehensive Metabolic Panel 10/28/21 Range/Units 03:40 Sodium 137 (137-145) mmol/L Potassium 4.2 (3.6-5.0) mmol/L Chloride 97.1 L (98-107) mmol/L Carbon Dioxide 29 (22-30) mmol/L BUN 14 (9-20) mg/dL Creatinine 0.8 (0.8-1.3) mg/dL Glucose 127 H (75-100) mg/dL Calcium 10.1 (8.4-10.2) mg/dL - Imaging and Cardiology Echo: report reviewed - Telemetry EKG Rhythm: Sinus Rhythm - EKG Sinus rhythms and dysrhythmias: sinus tachycardia AV and intraventricular conduction: right bundle branch block - Allied health notes Allied health notes reviewed: nursing
[2021-10-28] MEDS: LANSOPRAZOLE 30 MG SOLUTAB FEEDTUBE SCH (17:38)
[2021-10-28] MEDS: atenoloL 50 MG TAB FEEDTUBE SCH (17:39)
[2021-10-28] MEDS: ACETAMINOPHEN 325 MG TAB PO PRN (22:11)
[2021-10-28] MEDS: SENNOSIDES ORAL LIQD 8.8 MG/5 ML ORAL LIQD FEEDTUBE SCH (22:12)
[2021-10-29] MEDS: INSULIN LISPRO 100 UNIT/ML SUB-Q SCH ×3 (07:05→17:19)
--- NOTE | 2021-10-29 11:25 | Progress Note ---
Assessment and Plan Assessment and plan: History Interval history: This is a 55-year-old with HTN, DM, CVA complicated by dysphagia s/p PEG tube placement, dysarthria, left hemiparesis and debility who presented to the emergency department on 10/22 via air ambulance for continued treatment. Patient was admitted to the [facility] and initiated on CIWA protocol with consults to [facility], neurology will need a cardiology. Hospital Course to Date: 10/23: Nonverbal, open eyes spontaneously, does not follow any commands with LUE paralysis/contraction. on RA, VSS. Echo and Neurology consult pending. PT/OT/Speech also consulted. PEG-tube noted, nutrition/loan auditor consulted for TF management. Pulmonary is also following. Patient presented with a harden catheter, per record history of urinary retention. Harden cath exchanged, UA pending. 10/24: SEKOU overnight. Neurology recommendations noted, orders placed for MRI brain and CTA head/Neck. Continue PT/OT/Speech, home meds resumed, and enteral nutrition initiated. UA noted, patient is asymptomatic with no leukocytosis, continue to monitor, urine culture pending. 10/25: Remains stable, mentation unchanged. CTA head/Neck noted, MRI brain/MRA head/Neck pending. Awaiting Neurology final recommendations. Continue current supportive measures. 10/26: Patient will have a BELLE, cardiology consulted per neurology recommendations, MRI/MRA/MRV pending no acute events reported overnight. Magnesium repleted. 10/27: Unable to complete BELLE as consent was not able to be obtained, [facility] contacted [facility] who declined the patient is a candidate, MRI brain and CTA chest and pelvis pending. No acute events reported overnight. 10/28: No acute overnight events. CTA chest and abdomen completed were negative studies. BELLE completed this AM, no acute findings noted. MR brain shows subacute right MCA infarction superimposed on chronic infarction. There is involvement of the lateral aspect of right temporal lobe. Large remote pontine infarction noted. No indication of recent intracranial hemorrhage or mass lesion. CM currently working on placement to SNF. Can transfer patient to floor bed. Attempted to call number in chart to update family. no response. 10/29: D/w brother Fabian Waldron [phone]. Updated him on patient clinical s tatus. Discussed overall poor chance of regaining baseline function and current "locked in" appearance due to territory of stroke. I also discussed options of home health care if the family can support the patient versus hospice versus SNF. I also updated Fabian that thus far facilities have denied the patient due to him being out of network. He stated he would speak with his brother Tyrell regarding these updates and would also be coming to the hospital tomorrow to discuss the family's goals for the patient. Patient likely needs DOAC. Will await neuro recs re: anticoagulation. Assessment and Plan: Neuro: Recent CVA complicated by dysphagia/dysarthria/left hemiparesis/debility, h/o depression, seizure disorder -Neurology and CCM consulted, appreciate recommendations -Reorientation as needed -Maintain sleep-wake cycle -aspiration/seizure precautions -As needed analgesia -CT head shows old moderately sized MCA infarct the right involving the inferior frontal peritracheal regions, gangliocapsular Regions and Right Temporal Lobe, prominent Kuehner seen in the left anterior andrea, small scattered lacunar infarcts suggesting the andrea -Bilateral carotid Doppler ultrasound shows less than 50% diameter stenosis in the right and left internal carotid artery -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 There is involvement of the lateral aspect of right temporal lobe. Large remote pontine infarction noted. No indication of recent intracranial hemorrhage or mass lesion. -Lipitor, aspirin -Keppra -Aspiration/seizure precautions -Continue home Prozac -PT/OT/ST consulted -Neurochecks per protocol Cardiac: h/o HTN -Cardiology consulted, appreciate recommendations -Blood pressure monitoring per protocol -Antihypertensive regimen: Atenolol, Lozol, lisinopril -Echocardiogram shows LVEF 55%, mild diastolic dysfunction no PFO -BELLE pending per neurology recs Respiratory: NAD -CCM/ pulm consulted for dyspnea, appreciate recommendations -Supplemental oxygen as needed -Pulmonary hygiene -SPO2 monitoring GI: S/p PEG tube placement -24 hours +1285 mL -PPI -NTR consulted for tube feedings -BR: Senna : Slight hyponatremia, h/o urinary retention/obstruction -Presented with indwelling catheter which was exchanged -Monitor intake and output -Renally dose medications -Avoid nephrotoxic medications -Repeat magnesium -Trend BMP ID: NAD -Monitor WBC and temperature curve Endo: h/o DM -Avoid hypoglycemia -SSI -Accu-Cheks q. every 6 -Hemoglobin A1c 8 Heme: ? Hypercoagulable state -CTA chest and abdomen pending per neurology recommendation -Trend CBC -Transfuse hemoglobin less than 7 -SCDs to BLE while in bed #Advance care planning Disease education conducted, care plan discussed, diagnoses discussed, prognosis discussed, patient is full code, patient brother Fabian acknowledges understanding and agree with care plan, +30 minutes. Disposition Plan: tele Total Time Spent with Patient (Minutes): 45 History Interval history: No acute distress noted. Does not follow commands. Hospitalist Physical - Physical exam Narrative exam: General: No Apparent Distress HEENT: Positive: Mucus Membranes Dry Neck: Positive: trachea midline Cardiac: Positive: Reg Rate and Rhythm Lungs: Positive: Normal Breath Sounds Neuro: Positive: Other (Hemiparesis), non verbal. locked in appearance. does not follow commands. opens eyes but not purposefully following commands. Abdomen: Positive: Soft Skin: Negative: Rash, Suspicious Lesions, Ulceration Extremities: Present: upper extr. pulses. Absent: edema - Constitutional Vitals: Temp Pulse Resp BP Pulse Ox 98.2 F 106 H 17 135/77 100 10/29/21 07:32 10/29/21 04:00 10/29/21 07:32 10/29/21 07:32 10/29/21 04:00 General appearance: Present: no acute distress Results - Labs CBC & Chem 7: 10/24/21 05:00 10/28/21 03:40 Labs: Laboratory Last Values WBC 6.4 K/mm3 (4.5-11.0) 10/24/21 05:00 RBC 4.59 M/mm3 (3.65-5.03) 10/24/21 05:00 Hgb 12.7 gm/dl (11.8-15.2) 10/24/21 05:00 Hct 37.7 % (35.5-45.6) 10/24/21 05:00 MCV 82 fl (84-94) L 10/24/21 05:00 MCH 28 pg (28-32) 10/24/21 05:00 MCHC 34 % (32-34) 10/24/21 05:00 RDW 14.1 % (13.2-15.2) 10/24/21 05:00 Plt Count 222 K/mm3 (140-440) 10/24/21 05:00 Lymph % (Auto) 29.6 % (13.4-35.0) 10/22/21 16:00 Vance % (Auto) 11.8 % (0.0-7.3) H 10/22/21 16:00 Eos % (Auto) 1.3 % (0.0-4.3) 10/22/21 16:00 Baso % (Auto) 0.4 % (0.0-1.8) 10/22/21 16:00 Lymph # (Auto) 2.4 K/mm3 (1.2-5.4) 10/22/21 16:00 Vance # (Auto) 1.0 K/mm3 (0.0-0.8) H 10/22/21 16:00 Eos # (Auto) 0.1 K/mm3 (0.0-0.4) 10/22/21 16:00 Baso # (Auto) 0.0 K/mm3 (0.0-0.1) 10/22/21 16:00 Seg Neutrophils % 56.9 % (40.0-70.0) 10/22/21 16:00 Seg Neutrophils # 4.7 K/mm3 (1.8-7.7) 10/22/21 16:00 PT 14.8 Sec. (12.2-14.9) 10/22/21 16:00 INR 1.04 (0.87-1.13) 10/22/21 16:00 APTT 28.1 Sec. (24.2-36.6) 10/22/21 16:00 Sodium 137 mmol/L (137-145) 10/28/21 03:40 Potassium 4.2 mmol/L (3.6-5.0) 10/28/21 03:40 Chloride 97.1 mmol/L (98-107) L 10/28/21 03:40 Carbon Dioxide 29 mmol/L (22-30) 10/28/21 03:40 Anion Gap 15 mmol/L 10/28/21 03:40 BUN 14 mg/dL (9-20) 10/28/21 03:40 Creatinine 0.8 mg/dL (0.8-1.3) 10/28/21 03:40 Estimated GFR > 60 ml/min 10/28/21 03:40 BUN/Creatinine Ratio 18 % 10/28/21 03:40 Glucose 127 mg/dL (75-100) H 10/28/21 03:40 POC Glucose 225 mg/dL (70-105) H 10/29/21 05:35 Hemoglobin A1c 8.0 % (4-6) H 10/24/21 10:16 Calcium 10.1 mg/dL (8.4-10.2) 10/28/21 03:40 Phosphorus 4.20 mg/dL (2.5-4.5) 10/27/21 04:39 Magnesium 1.90 mg/dL (1.7-2.3) 10/27/21 04:39 Total Bilirubin 0.50 mg/dL (0.1-1.2) 10/22/21 16:00 AST 24 units/L (5-40) 10/22/21 16:00 ALT 28 units/L (7-56) 10/22/21 16:00 Alkaline Phosphatase 102 units/L (35-129) 10/22/21 16:00 Total Protein 6.9 g/dL (6.3-8.2) 10/22/21 16:00 Albumin 4.3 g/dL (3.9-5) 10/22/21 16:00 Albumin/Globulin Ratio 1.7 % 10/22/21 16:00 Triglycerides 85 mg/dL (2-149) 10/23/21 12:33 Cholesterol 148 mg/dL (50-199) 10/23/21 12:33 LDL Cholesterol Direct 86 mg/dL (50-130) 10/23/21 12:33 HDL Cholesterol 44 mg/dL (40-59) 10/23/21 12:33 Cholesterol/HDL Ratio 3.36 % 10/23/21 12:33 TSH 2.020 mlU/mL (0.270-4.200) 10/24/21 10:16 Free T4 0.88 ng/dL (0.76-1.46) 10/24/21 10:16 Urine Color Yellow (Yellow) 10/23/21 08:49 Urine Turbidity Clear (Clear) 10/23/21 08:49 Urine pH 6.5 (5.0-7.0) 10/23/21 08:49 Ur Specific Bowdle 1.005 (1.003-1.030) 10/23/21 08:49 Urine Protein 30 mg/dl mg/dL (Negative) 10/23/21 08:49 Urine Glucose (UA) Negative mg/dL (Negative) 10/23/21 08:49 Urine Ketones Negative mg/dL (Negative) 10/23/21 08:49 Urine Blood Moderate (Negative) A 10/23/21 08:49 Urine Nitrite Negative (Negative) 10/23/21 08:49 Ur Reducing Substances Not Reportable 10/23/21 08:49 Urine Bilirubin Negative (Negative) 10/23/21 08:49 Urine Ictotest Not Reportable 10/23/21 08:49 Urine Urobilinogen < 2.0 mg/dL (<2.0) 10/23/21 08:49 Ur Leukocyte Esterase Moderate (Negative) 10/23/21 08:49 Urine WBC (Auto) 28.0 /HPF (0.0-6.0) H 10/23/21 08:49 Urine RBC (Auto) 27.0 /HPF (0.0-6.0) 10/23/21 08:49 U Epithel Cells (Auto) 14.0 /HPF (0-13.0) H 10/23/21 08:49 Hyaline Casts 1 /LPF 10/23/21 08:49 Urine Mucus Few /HPF 10/23/21 08:49 Harden/IV: Voiding Method Indwelling Catheter Active Medications - Current Medications Current Medications: Generic Name Dose Route Start Last Admin Trade Name Freq PRN Reason Stop Dose Admin Acetaminophen 650 mg 10/22/21 16:19 10/28/21 22:11 Acetaminophen 325 Mg Tab PO 650 mg Q4H PRN Administration Pain, Mild (1-3) Albuterol 2.5 mg 10/22/21 16:19 Albuterol 2.5 Mg/3 Ml Nebu IH Q3HRT PRN Shortness Of Breath Aspirin 325 mg 10/23/21 10:00 10/28/21 10:46 Aspirin 325 Mg Tab PO 325 mg QDAY NEO Administration Atenolol 50 mg 10/24/21 10:00 10/28/21 17:39 Atenolol 50 Mg Tab FEEDTUBE 50 mg QDAY NEO Administration Atorvastatin Calcium 80 mg 10/24/21 22:00 10/28/21 22:11 Atorvastatin 40 Mg Tab FEEDTUBE 80 mg QHS NEO Administration Bisacodyl 10 mg 10/22/21 16:19 Bisacodyl 10 Mg Rect Supp OR QDAY PRN Constipation Dextrose 50 ml 10/22/21 17:23 Dextrose 50% In Water (25gm) 50 Ml Syringe IV Q30MIN PRN Hypoglycemia Protocol Fluoxetine HCl 10 mg 10/24/21 10:00 10/28/21 10:42 Fluoxetine 20 Mg/5 Ml Oral Liqd FEEDTUBE 10 mg QDAY NEO Administration Heparin Sodium (Porcine) 5,000 unit 10/22/21 22:00 10/28/21 22:12 Heparin 5,000 Unit/1 Ml Vial SUB-Q 5,000 unit Q12HR NEO Administration Ceftriaxone Sodium 1 gm in 50 mls @ 100 mls/hr 10/29/21 11:00 Rocephin/Ns 1 Gm/50 Ml IV 11/01/21 10:59 Q24H NEO Protocol Indapamide 5 mg 10/24/21 10:00 10/28/21 10:42 Indapamide 2.5 Mg Tab FEEDTUBE 5 mg QDAY NEO Administration Insulin Human Lispro 0 unit 10/24/21 12:00 10/29/21 07:05 Insulin Lispro 100 Unit/Ml SUB-Q 3 unit Q6HR NEO Administration Protocol Lansoprazole 30 mg 10/23/21 18:00 10/28/21 17:38 Lansoprazole 30 Mg Solutab FEEDTUBE 30 mg QPM NEO Administration Levetiracetam 250 mg 10/24/21 10:00 10/28/21 22:11 Levetiracetam 500 Mg/5 Ml Oral Liqd FEEDTUBE 250 mg BID NEO Administration Lisinopril 5 mg 10/24/21 10:00 10/28/21 10:46 Lisinopril 5 Mg Tab FEEDTUBE 5 mg QDAY NEO Administration Lorazepam 1 mg 10/25/21 10:46 10/27/21 12:35 Lorazepam 2 Mg/Ml Vial IV 1 mg ONCE PRN Administration Prior to MRI Magnesium Hydroxide 30 ml 10/22/21 16:19 Magnesium Hydroxide (Mom) Oral Liqd Udc PO Q4H PRN Constipation Ondansetron HCl 4 mg 10/22/21 16:19 Ondansetron 4 Mg/2 Ml Inj IV Q8H PRN Nausea And Vomiting Oxycodone/Acetaminophen 1 tab 10/22/21 16:19 Oxycodone /Acetaminophen 5-325mg Tab PO Q12H PRN Pain, Moderate (4-6) Senna 8.8 mg 10/27/21 22:00 10/28/21 22:12 Sennosides Oral Liqd 8.8 Mg/5 Ml Oral Liqd FEEDTUBE Not Given QHS NEO Sodium Chloride 10 ml 10/22/21 16:19 10/24/21 21:39 Sodium Chloride 0.9% 10 Ml Flush Syringe IV 10 ml PRN PRN Administration LINE FLUSH Nutrition/Malnutrition Assess - Dietary Evaluation Nutrition/Malnutrition Findings: Nutrition Notes Start: 10/23/21 13:01 Freq: Status: Active Protocol: Document 10/26/21 11:40 JIM (Rec: 10/26/21 12:11 JIM [id number]) Nutrition Notes Initial or Follow up Brief Note Current Diagnosis Diabetes,Hypertension,Stroke Other Pertinent Diagnosis Dysphagia, L-Hemiparesis, Debility. Current Diet TF-Glucerna 1.2 Tremayne @ 70 ml/hr (since D 10/23). Height 5 ft 11 in Weight 90.718 kg [place] Body Weight (kg) 78.18 BMI 27.8 Intake Prior to Admission Good Weight change and time frame Pt states having loss, unitentionally, between 2 and 13 lb recently. No body weight change reported in 2 days. Weight Status Overweight Subjective/Other Information RD consult for routine F/U on TF tolerance/continuation. TF continues as prescribed, no further information on tolerance available at the time, will assess at F/U. BILLET GRINDER note on 10/26/21 10:03: The patient is not an appropriate candidate for PO at this time due an inability to arouse him. Will discontinue services. An alternative method of nutrition is appropriate. No further recommendations. - END OF NOTE Pt is on Room Air, O2 saturation @ 100%, according to Physical Assessment History notes. Pt is swallow impaired, according to Physical Assessment History notes. Pt has PEG tube in place poa, according to History & Physical notes. Pt has missing teet, according to Physical Assessment History notes. Percent of energy/protein needs met: Prescribed TF-Glucerna 1.2 Tremayne @ 70 ml/hr provides for energy/protein needs (2,016 Kcal/111 g) during LOS, 95% Kcal; 111% AA. #1 Nutrition Diagnosis Swallowing difficulty Comments: BILLET GRINDER note on 10/26/21 10:03: The patient is not an appropriate candidate for PO at this time due an inability to arouse him. Will discontinue services. An alternative method of nutrition is appropriate. No further recommendations. - END OF NOTE Diagnosis Progress(for reassessment Continues documentation) Is patient on ventilator? No Is Patient Ambulatory and/or Out of Bed No REE-([facility]-confined to bed) 8413.456 Calculation Used for Recommendations [facility] Additional Notes Protein: 0.8-1 g/Kg ABW; 73-91 g/day. Fluids: 1 ml/Kcal, or as per MD. Nutrition Intervention Nutrition Support: Continue TF-Glucerna 1.2 Tremayne @ 70 ml/hr. Flush: 100 ml water Q 4 hr, or as per MD. Kcal 2,016 Protein (gm) 101 Carbohydrates (gm) 192 Fat (gm) 101 Fluid (mL) 1,352 Fiber (gm) 27 % RDI: 95% Kcal; 111% AA. Goal #1 Provide at least 75% of energy /protein needs through Enteral Feeding during LOS. Follow-Up By: 11/02/21 Additional Comments Continue monitoring TF tolerance and BM.
[2021-10-29] MEDS: atenoloL 50 MG TAB FEEDTUBE SCH (12:46)
[2021-10-29] MEDS: HEPARIN 5,000 UNIT/1 ML VIAL SUB-Q SCH ×2 (12:46→21:41)
[2021-10-29] MEDS: ASPIRIN 325 MG TAB PO SCH (12:47)
[2021-10-29] MEDS: LISINOPRIL 5 MG TAB FEEDTUBE SCH (12:47)
[2021-10-29] MEDS: cefTRIAXone/NS 1 GM/50 ML 1 GM/50 ML BAG IV SCH (12:53)
[2021-10-29] MEDS: levETIRAcetam 500 MG/5 ML ORAL LIQD FEEDTUBE SCH ×2 (12:53→21:41)
--- NOTE | 2021-10-29 13:07 | Progress Note ---
Assessment and Plan 55 YO Male with HTN, DM, CVA complicated by Dysphagia, Dysarthria, Left Hemiparesis, Debility was admitted to [facility] in [facility] on 06/22/21. The patient was transported to [facility] today via air ambulance for continued treatment of the aforementioned symptoms. The patient was found to have clinical symptoms consistent with CVA but the patient was deemed outside the therapeutic window for tPA. The patient was admitted to [facility] and initiated on CVA protocol. The patient is nonverbal and has a palliative performance scor e of 30% and requires 6/6 assistance with activities of daily living. T No reports of fever, chills, chest pain, palpitation, productive cough, skin rash, recent contact, known exposure to COVID-19. Patient has PEG Placement. According to the chart. No history of smoking, alcohol or drug abuse. Patient is awake. Not responding to Verbal stimuli. Patient is on room air. O2 saturation running 98%. No acute respiratory distress. Patient is afebrile. No leukocytosis. BP 157/74, pulse 95, RR 18. Chest x-ray done 10/23/21 reported no acute findings. CTA of chest 10/27/21 reported Limited exam due to motion artifact without CT evidence of pulmonary emboli or other acute findings. Patient is on Rocephin, albuterol inhaler, subq heparin, and Prevacid. - Patient Problems (1) CVA (cerebral vascular accident) Current Visit: Yes Status: Acute Qualifiers: Precerebral and cerebral artery: middle cerebral artery Laterality of affected vessel: right Plan to address problem: Manage is per primary care and neurology. Recommend aspiration precautions. (2) Dysarthria as late effect of stroke Current Visit: Yes Status: Acute Plan to address problem: Management is per neurology. (3) Dysphagia as late effect of stroke Current Visit: Yes Status: Acute Plan to address problem: Management is per neurology. (4) Hemiparesis, left Current Visit: Yes Status: Acute Plan to address problem: Management is per neurology. (5) Diabetes Current Visit: Yes Status: Acute Plan to address problem: Management is per primary care. (6) Hypertension Current Visit: Yes Status: Acute Qualifiers: Hypertension type: primary hypertension Qualified Code(s): I10 - Essential (primary) hypertension Plan to address problem: Management is per primary care. Subjective Date of service: 10/29/21 Principal diagnosis: R. CVA with L. hemiparesis; HTN; DM II; Dysarthria; Oropharyngeal dysphagia Interval history: 55 YO Male with HTN, DM, CVA complicated by Dysphagia, Dysarthria, Left Hemiparesis, Debility was admitted to [facility] in [facility] on 06/22/21. The patient was transported to [facility] today via air ambulance for continued treatment of the aforementioned symptoms. The patient was found to have clinical symptoms consistent with CVA but the patient was deemed outside the therapeutic window for tPA. The patient was admitted to [facility] and initiated on CVA protocol. The patient is nonverbal and has a palliative performance score of 30% and requires 6/6 assistance with activities of daily living. T No reports of fever, chills, chest pain, palpitation, productive cough, skin rash, recent contact, known exposure to COVID-19. Patient has PEG Placement. According to the chart. No history of smoking, alcohol or drug abuse. Patient is awake. Not responding to Verbal stimuli. Patient is on room air. O2 saturation running 98%. No acute respiratory distress. Patient is afebrile. No leukocytosis. BP 157/74, pulse 95, RR 18. Chest x-ray done 10/23/21 reported no acute findings. CTA of chest 10/27/21 reported Limited exam due to motion artifact without CT evidence of pulmonary emboli or other acute findings. Patient is on Rocephin, albuterol inhaler, subq heparin, and Prevacid. Objective Vital Signs - 12hr 10/29/21 10/29/21 10/29/21 03:47 04:00 07:32 Temperature 98.3 F 98.2 F Pulse Rate 102 H 102 H Pulse Rate [ 106 H From Monitor] Respiratory 20 15 17 Rate Blood Pressure 126/78 135/77 O2 Sat by Pulse 98 100 Oximetry 10/29/21 10/29/21 10/29/21 12:05 12:46 12:47 Temperature 98.9 F Pulse Rate 106 H 94 H 95 H Pulse Rate [ From Monitor] Respiratory 18 Rate Blood Pressure 157/74 O2 Sat by Pulse 98 Oximetry Constitutional: no acute distress, alert, other (not following commands) Eyes: non-icteric ENT: oropharynx moist Neck: supple, no lymphadenopathy Effort: normal Ascultation: Bilateral: clear Percussion: Bilateral: not dull Cardiovascular: regular rate and rhythm Gastrointestinal: normoactive bowel sounds, soft, non-tender, non-distended, other (PEG tube) Integumentary: normal Extremities: no cyanosis, no edema, pulses normal, no ischemia or petechiae Neurologic: pupils equal and round, other (left hemiplegia with pedal contractures) Psychiatric: other (unable to asses due to neurological status) CBC and BMP: 10/24/21 05:00 10/28/21 03:40 ABG, PT/INR, D-dimer: PT/INR, D-dimer PT 14.8 Sec. (12.2-14.9) 10/22/21 16:00 INR 1.04 (0.87-1.13) 10/22/21 16:00 Abnormal lab findings: Abnormal Labs 10/22/21 10/22/21 10/22/21 16:00 16:00 22:44 MCV 83 L MCH 27 L Chester % (Auto) 11.8 H Chester # (Auto) 1.0 H Sodium Potassium Chloride Creatinine 0.6 L Glucose 175 H POC Glucose 115 H Hemoglobin A1c Magnesium Urine Blood Urine WBC (Auto) U Epithel Cells (Auto) 10/23/21 10/23/21 10/23/21 07:28 08:49 11:31 MCV MCH Chester % (Auto) Chester # (Auto) Sodium Potassium Chloride Creatinine Glucose POC Glucose 129 H 136 H Hemoglobin A1c Magnesium Urine Blood Moderate A Urine WBC (Auto) 28.0 H U Epithel Cells (Auto) 14.0 H 10/23/21 10/24/21 10/24/21 17:59 00:01 05:00 MCV 82 L MCH Chester % (Auto) Chester # (Auto) Sodium Potassium Chloride Creatinine Glucose POC Glucose 109 H 111 H Hemoglobin A1c Magnesium Urine Blood Urine WBC (Auto) U Epithel Cells (Auto) 10/24/21 10/24/21 10/24/21 05:00 07:57 10:16 MCV MCH Chester % (Auto) Chester # (Auto) Sodium Potassium 3.5 L Chloride Creatinine 0.6 L Glucose 134 H POC Glucose 132 H Hemoglobin A1c 8.0 H Magnesium Urine Blood Urine WBC (Auto) U Epithel Cells (Auto) 10/24/21 10/24/21 10/25/21 16:26 20:57 04:47 MCV MCH Chester % (Auto) Chester # (Auto) Sodium Potassium Chloride Creatinine Glucose POC Glucose 109 H 145 H 159 H Hemoglobin A1c Magnesium Urine Blood Urine WBC (Auto) U Epithel Cells (Auto) 10/25/21 10/25/21 10/25/21 07:49 11:19 17:49 MCV MCH Chester % (Auto) Chester # (Auto) Sodium Potassium Chloride Creatinine Glucose POC Glucose 147 H 164 H 141 H Hemoglobin A1c Magnesium Urine Blood Urine WBC (Auto) U Epithel Cells (Auto) 10/25/21 10/26/21 10/26/21 20:54 04:56 07:23 MCV MCH Chester % (Auto) Chester # (Auto) Sodium Potassium Chloride Creatinine 0.7 L Glucose 165 H POC Glucose 136 H 172 H Hemoglobin A1c Magnesium 1.60 L Urine Blood Urine WBC (Auto) U Epithel Cells (Auto) 10/26/21 10/26/21 10/26/21 11:21 17:21 23:38 MCV MCH Chester % (Auto) Chester # (Auto) Sodium Potassium Chloride Creatinine Glucose POC Glucose 168 H 164 H 147 H Hemoglobin A1c Magnesium Urine Blood Urine WBC (Auto) U Epithel Cells (Auto) 10/27/21 10/27/21 10/27/21 04:39 07:32 11:33 MCV MCH Chester % (Auto) Chester # (Auto) Sodium 135 L Potassium Chloride 95.4 L Creatinine 0.6 L Glucose 156 H POC Glucose 137 H 180 H Hemoglobin A1c Magnesium Urine Blood Urine WBC (Auto) U Epithel Cells (Auto) 10/27/21 10/27/21 10/28/21 16:18 23:55 03:40 MCV MCH Chester % (Auto) Chester # (Auto) Sodium Potassium Chloride 97.1 L Creatinine Glucose 127 H POC Glucose 130 H 123 H Hemoglobin A1c Magnesium Urine Blood Urine WBC (Auto) U Epithel Cells (Auto) 10/28/21 10/28/21 10/28/21 08:10 12:03 17:42 MCV MCH Chester % (Auto) Chester # (Auto) Sodium Potassium Chloride Creatinine Glucose POC Glucose 142 H 173 H 145 H Hemoglobin A1c Magnesium Urine Blood Urine WBC (Auto) U Epithel Cells (Auto) 10/28/21 10/29/21 10/29/21 23:31 05:35 11:48 MCV MCH Chester % (Auto) Chester # (Auto) Sodium Potassium Chloride Creatinine Glucose POC Glucose 181 H 225 H 166 H Hemoglobin A1c Magnesium Urine Blood Urine WBC (Auto) U Epithel Cells (Auto) Allied health notes reviewed: nursing
[2021-10-29] MEDS: INDAPAMIDE 2.5 MG TAB FEEDTUBE SCH (13:09)
[2021-10-29] MEDS: FLUoxetine 20 MG/5 ML ORAL LIQD FEEDTUBE SCH (13:10)
[2021-10-29] MEDS: LANSOPRAZOLE 30 MG SOLUTAB FEEDTUBE SCH (17:18)
[2021-10-29] MEDS: SENNOSIDES ORAL LIQD 8.8 MG/5 ML ORAL LIQD FEEDTUBE SCH (21:42)
[2021-10-29] MEDS: oxyCODONE /ACETAMINOPHEN 5-325MG TAB PO PRN (21:46)
[2021-10-30] MEDS: INSULIN LISPRO 100 UNIT/ML SUB-Q SCH ×4 (00:55→18:31)
--- NOTE | 2021-10-30 02:58 | Progress Note ---
Assessment and Plan 55 yo male with htn, dm, stroke, who presents for further evaluation of recent stroke in June 2021. Per review of chart, patient is noted with a "CVA complicated by Dysphagia, Dysarthria, Left Hemiparesis, Debility was admitted to [facility] in [facility] [place] on 06/22/21." 1. History of Completed Stroke (4 months ago) / Subacute Ischemic Stroke - unclear to me (based on EMR notes) if there is confirmation regarding ischemic vs. hemorrhagic. No evidence for inpatient routine nihss for chronic strokes but recommend assessment at the time of discharge. If hx of ischemic stroke, concern is raised for a cardioembolic source. Also, it would be worthwhile to find out patient's covid status at the time when the stroke(s) occurred, which would serve as an alternate etiology. Recommend long-term cardiac monitoring for possible paroxysmal afib and an underlying primary hypercoaguable state, as a part of the workup, otherwise no evidence at present to initiate anticoagulation at present, based on anticoagulant risk/benefit profile. Recommend continuing antiplatelet / statin thearpy for now (if no contraindications). Confirm a1c, tsh/t4. Recommend pt/ot/st/swallow evaluation/monitoring. Research has indicated improved motor recovery for pt's with possible underlying depression with fluoxetine (noted on JUN). Recommend stroke education upon discharge. 2. Hypertension - aim for normotension. 3. DM - aim for a1c goal <6.0 with meds, diet, exercise. 4. Hyperlipidemia - goal ldl of 70 w/ statin therapy (if no contraindication). 5. Left Hemparesis w/ Dysarthria / Dysphagia / Dysphasia - pt/ot/st/swallow e valuation/monitoring. 6. Followup with Stroke Neurology in 4 to 6 weeks post-discharge. Aleksander Rizzo MD Neurology Subjective Date of service: 10/29/21 Principal diagnosis: R. CVA with L. hemiparesis; HTN; DM II; Dysarthria; Oroph aryngeal dysphagia Interval history: Appreciate Cardiology evaluation. Objective - Vital Sign Vital Signs - 12hr 10/29/21 10/29/21 10/29/21 16:00 16:20 20:00 Temperature Pulse Rate 122 H 122 H 93 H Respiratory 19 Rate Blood Pressure O2 Sat by Pulse 100 Oximetry 10/29/21 10/29/21 10/30/21 22:00 22:46 00:00 Temperature Pulse Rate 87 Respiratory 19 Rate Blood Pressure O2 Sat by Pulse 100 Oximetry 10/30/21 00:22 Temperature 98.5 F Pulse Rate 87 Respiratory 19 Rate Blood Pressure 139/70 O2 Sat by Pulse 93 Oximetry - Laboratory Findings CBC and BMP: 10/24/21 05:00 10/28/21 03:40 Abnormal Lab Findings: Abnormal Labs 10/22/21 10/22/21 10/22/21 16:00 16:00 22:44 MCV 83 L MCH 27 L [place] % (Auto) 11.8 H [place] # (Auto) 1.0 H Sodium Potassium Chloride Creatinine 0.6 L Glucose 175 H POC Glucose 115 H Hemoglobin A1c Magnesium Urine Blood Urine WBC (Auto) U Epithel Cells (Auto) 10/23/21 10/23/21 10/23/21 07:28 08:49 11:31 MCV MCH [place] % (Auto) [place] # (Auto) Sodium Potassium Chloride Creatinine Glucose POC Glucose 129 H 136 H Hemoglobin A1c Magnesium Urine Blood Moderate A Urine WBC (Auto) 28.0 H U Epithel Cells (Auto) 14.0 H 10/23/21 10/24/21 10/24/21 17:59 00:01 05:00 MCV 82 L MCH [place] % (Auto) [place] # (Auto) Sodium Potassium Chloride Creatinine Glucose POC Glucose 109 H 111 H Hemoglobin A1c Magnesium Urine Blood Urine WBC (Auto) U Epithel Cells (Auto) 10/24/21 10/24/21 10/24/21 05:00 07:57 10:16 MCV MCH [place] % (Auto) [place] # (Auto) Sodium Potassium 3.5 L Chloride Creatinine 0.6 L Glucose 134 H POC Glucose 132 H Hemoglobin A1c 8.0 H Magnesium Urine Blood Urine WBC (Auto) U Epithel Cells (Auto) 10/24/21 10/24/21 10/25/21 16:26 20:57 04:47 MCV MCH [place] % (Auto) [place] # (Auto) Sodium Potassium Chloride Creatinine Glucose POC Glucose 109 H 145 H 159 H Hemoglobin A1c Magnesium Urine Blood Urine WBC (Auto) U Epithel Cells (Auto) 10/25/21 10/25/21 10/25/21 07:49 11:19 17:49 MCV MCH [place] % (Auto) [place] # (Auto) Sodium Potassium Chloride Creatinine Glucose POC Glucose 147 H 164 H 141 H Hemoglobin A1c Magnesium Urine Blood Urine WBC (Auto) U Epithel Cells (Auto) 10/25/21 10/26/21 10/26/21 20:54 04:56 07:23 MCV MCH [place] % (Auto) [place] # (Auto) Sodium Potassium Chloride Creatinine 0.7 L Glucose 165 H POC Glucose 136 H 172 H Hemoglobin A1c Magnesium 1.60 L Urine Blood Urine WBC (Auto) U Epithel Cells (Auto) 10/26/21 10/26/21 10/26/21 11:21 17:21 23:38 MCV MCH [place] % (Auto) [place] # (Auto) Sodium Potassium Chloride Creatinine Glucose POC Glucose 168 H 164 H 147 H Hemoglobin A1c Magnesium Urine Blood Urine WBC (Auto) U Epithel Cells (Auto) 10/27/21 10/27/21 10/27/21 04:39 07:32 11:33 MCV MCH [place] % (Auto) [place] # (Auto) Sodium 135 L Potassium Chloride 95.4 L Creatinine 0.6 L Glucose 156 H POC Glucose 137 H 180 H Hemoglobin A1c Magnesium Urine Blood Urine WBC (Auto) U Epithel Cells (Auto) 10/27/21 10/27/21 10/28/21 16:18 23:55 03:40 MCV MCH [place] % (Auto) [place] # (Auto) Sodium Potassium Chloride 97.1 L Creatinine Glucose 127 H POC Glucose 130 H 123 H Hemoglobin A1c Magnesium Urine Blood Urine WBC (Auto) U Epithel Cells (Auto) 10/28/21 10/28/21 10/28/21 08:10 12:03 17:42 MCV MCH [place] % (Auto) [place] # (Auto) Sodium Potassium Chloride Creatinine Glucose POC Glucose 142 H 173 H 145 H Hemoglobin A1c Magnesium Urine Blood Urine WBC (Auto) U Epithel Cells (Auto) 10/28/21 10/29/21 10/29/21 23:31 05:35 11:48 MCV MCH [place] % (Auto) [place] # (Auto) Sodium Potassium Chloride Creatinine Glucose POC Glucose 181 H 225 H 166 H Hemoglobin A1c Magnesium Urine Blood Urine WBC (Auto) U Epithel Cells (Auto) 10/29/21 10/30/21 16:23 00:19 MCV MCH [place] % (Auto) [place] # (Auto) Sodium Potassium Chloride Creatinine Glucose POC Glucose 167 H 157 H Hemoglobin A1c Magnesium Urine Blood Urine WBC (Auto) U Epithel Cells (Auto)
--- NOTE | 2021-10-30 07:11 | Progress Note ---
Assessment and Plan Assessment and plan: History Interval history: This is a 55-year-old with HTN, DM, CVA complicated by dysphagia s/p PEG tube placement, dysarthria, left hemiparesis and debility who presented to the emergency department on 10/22 via air ambulance for continued treatment. Patient was admitted to the [facility] and initiated on CIWA protocol with consults to [facility], neurology will need a cardiology. Hospital Course to Date: 10/23: Nonverbal, open eyes spontaneously, does not follow any commands with LUE paralysis/contraction. on RA, VSS. Echo and Neurology consult pending. PT/OT/Speech also consulted. PEG-tube noted, nutrition/passenger car conductor consulted for TF management. Pulmonary is also following. Patient presented with a harden catheter, per record history of urinary retention. Harden cath exchanged, UA pending. 10/24: SEKOU overnight. Neurology recommendations noted, orders placed for MRI brain and CTA head/Neck. Continue PT/OT/Speech, home meds resumed, and enteral nutrition initiated. UA noted, patient is asymptomatic with no leukocytosis, continue to monitor, urine culture pending. 10/25: Remains stable, mentation unchanged. CTA head/Neck noted, MRI brain/MRA head/Neck pending. Awaiting Neurology final recommendations. Continue current supportive measures. 10/26: Patient will have a BELLE, cardiology consulted per neurology recommendations, MRI/MRA/MRV pending no acute events reported overnight. Magnesium repleted. 10/27: Unable to complete BELLE as consent was not able to be obtained, [facility] contacted [facility] who declined the patient is a candidate, MRI brain and CTA chest and pelvis pending. No acute events reported overnight. 10/28: No acute overnight events. CTA chest and abdomen completed were negative studies. BELLE completed this AM, no acute findings noted. MR brain shows subacute right MCA infarction superimposed on chronic infarction. There is involvement of the lateral aspect of right temporal lobe. Large remote pontine infarction noted. No indication of recent intracranial hemorrhage or mass lesion. CM currently working on placement to SNF. Can transfer patient to floor bed. Attempted to call number in chart to update family. no response. 10/29: D/w brother Fabian Waldron [phone]. Updated him on patient clinical s tatus. Discussed overall poor chance of regaining baseline function and current "locked in" appearance due to territory of stroke. I also discussed options of home health care if the family can support the patient versus hospice versus SNF. I also updated Fabian that thus far facilities have denied the patient due to him being out of network. He stated he would speak with his brother Tyrell regarding these updates and would also be coming to the hospital tomorrow to discuss the family's goals for the patient. Patient likely needs DOAC. Will await neuro recs re: anticoagulation. 10/30: Neurology recommends against doac. Will obtain covid pcr. Plan Family discussion today this AM with patient brother Fabian this AM re: GOK Assessment and Plan: Neuro: Recent CVA complicated by dysphagia/dysarthria/left hemiparesis/debility, h/o depression, seizure disorder -Neurology and CCM consulted, appreciate recommendations -Reorientation as needed -Maintain sleep-wake cycle -aspiration/seizure precautions -As needed analgesia -CT head shows old moderately sized MCA infarct the right involving the inferior frontal peritracheal regions, gangliocapsular Regions and Right Temporal Lobe, prominent Kuehner seen in the left anterior andrea, small scattered lacunar infarcts suggesting the andrea -Bilateral carotid Doppler ultrasound shows less than 50% diameter stenosis in the right and left internal carotid artery -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 There is involvement of the lateral aspect of right temporal lobe. Large remote pontine infarction noted. No indication of recent intracranial hemorrhage or mass lesion. -Lipitor, aspirin -Keppra -Aspiration/seizure precautions -Continue home Prozac -PT/OT/ST consulted -Neurochecks per protocol Cardiac: h/o HTN -Cardiology consulted, appreciate recommendations -Blood pressure monitoring per protocol -Antihypertensive regimen: Atenolol, Lozol, lisinopril -Echocardiogram shows LVEF 55%, mild diastolic dysfunction no PFO -BELLE pending per neurology recs Respiratory: NAD -CCM/ pulm consulted for dyspnea, appreciate recommendations -Supplemental oxygen as needed -Pulmonary hygiene -SPO2 monitoring GI: S/p PEG tube placement -24 hours +1285 mL -PPI -NTR consulted for tube feedings -BR: Senna : Slight hyponatremia, h/o urinary retention/obstruction -Presented with indwelling catheter which was exchanged -Monitor intake and output -Renally dose medications -Avoid nephrotoxic medications -Repeat magnesium -Trend BMP ID: NAD -Monitor WBC and temperature curve Endo: h/o DM -Avoid hypoglycemia -SSI -Accu-Cheks q. every 6 -Hemoglobin A1c 8 Heme: ? Hypercoagulable state -CTA chest and abdomen pending per neurology recommendation -Trend CBC -Transfuse hemoglobin less than 7 -SCDs to BLE while in bed #Advance care planning Disease education conducted, care plan discussed, diagnoses discussed, prognosis discussed, patient is full code, patient brother Fabian acknowledges understanding and agree with care plan, +30 minutes. Disposition Plan: tele Total Time Spent with Patient (Minutes): med/surg History Interval history: Resting comfortably, NAD. NO overnight events per discussion with RN. Hospitalist Physical - Physical exam Narrative exam: General: No Apparent Distress HEENT: Positive: Mucus Membranes Dry Neck: Positive: trachea midline Cardiac: Positive: Reg Rate and Rhythm Lungs: Positive: Normal Breath Sounds Neuro: Positive: Other (Hemiparesis), non verbal. locked in appearance. does not follow commands. opens eyes but not purposefully following commands. Abdomen: Positive: Soft Skin: Negative: Rash, Suspicious Lesions, Ulceration Extremities: Present: upper extr. pulses. Absent: edema - Constitutional Vitals: Temp Pulse Resp BP Pulse Ox 98.9 F 99 H 19 161/88 96 10/30/21 04:17 10/30/21 04:17 10/30/21 04:17 10/30/21 04:17 10/30/21 04:17 General appearance: Present: no acute distress Results - Labs CBC & Chem 7: 10/24/21 05:00 10/28/21 03:40 Labs: Laboratory Last Values WBC 6.4 K/mm3 (4.5-11.0) 10/24/21 05:00 RBC 4.59 M/mm3 (3.65-5.03) 10/24/21 05:00 Hgb 12.7 gm/dl (11.8-15.2) 10/24/21 05:00 Hct 37.7 % (35.5-45.6) 10/24/21 05:00 MCV 82 fl (84-94) L 10/24/21 05:00 MCH 28 pg (28-32) 10/24/21 05:00 MCHC 34 % (32-34) 10/24/21 05:00 RDW 14.1 % (13.2-15.2) 10/24/21 05:00 Plt Count 222 K/mm3 (140-440) 10/24/21 05:00 Lymph % (Auto) 29.6 % (13.4-35.0) 10/22/21 16:00 [place] % (Auto) 11.8 % (0.0-7.3) H 10/22/21 16:00 Eos % (Auto) 1.3 % (0.0-4.3) 10/22/21 16:00 Baso % (Auto) 0.4 % (0.0-1.8) 10/22/21 16:00 Lymph # (Auto) 2.4 K/mm3 (1.2-5.4) 10/22/21 16:00 [place] # (Auto) 1.0 K/mm3 (0.0-0.8) H 10/22/21 16:00 Eos # (Auto) 0.1 K/mm3 (0.0-0.4) 10/22/21 16:00 Baso # (Auto) 0.0 K/mm3 (0.0-0.1) 10/22/21 16:00 Seg Neutrophils % 56.9 % (40.0-70.0) 10/22/21 16:00 Seg Neutrophils # 4.7 K/mm3 (1.8-7.7) 10/22/21 16:00 PT 14.8 Sec. (12.2-14.9) 10/22/21 16:00 INR 1.04 (0.87-1.13) 10/22/21 16:00 APTT 28.1 Sec. (24.2-36.6) 10/22/21 16:00 Sodium 137 mmol/L (137-145) 10/28/21 03:40 Potassium 4.2 mmol/L (3.6-5.0) 10/28/21 03:40 Chloride 97.1 mmol/L (98-107) L 10/28/21 03:40 Carbon Dioxide 29 mmol/L (22-30) 10/28/21 03:40 Anion Gap 15 mmol/L 10/28/21 03:40 BUN 14 mg/dL (9-20) 10/28/21 03:40 Creatinine 0.8 mg/dL (0.8-1.3) 10/28/21 03:40 Estimated GFR > 60 ml/min 10/28/21 03:40 BUN/Creatinine Ratio 18 % 10/28/21 03:40 Glucose 127 mg/dL (75-100) H 10/28/21 03:40 POC Glucose 175 mg/dL (70-105) H 10/30/21 05:23 Hemoglobin A1c 8.0 % (4-6) H 10/24/21 10:16 Calcium 10.1 mg/dL (8.4-10.2) 10/28/21 03:40 Phosphorus 4.20 mg/dL (2.5-4.5) 10/27/21 04:39 Magnesium 1.90 mg/dL (1.7-2.3) 10/27/21 04:39 Total Bilirubin 0.50 mg/dL (0.1-1.2) 10/22/21 16:00 AST 24 units/L (5-40) 10/22/21 16:00 ALT 28 units/L (7-56) 10/22/21 16:00 Alkaline Phosphatase 102 units/L (35-129) 10/22/21 16:00 Total Protein 6.9 g/dL (6.3-8.2) 10/22/21 16:00 Albumin 4.3 g/dL (3.9-5) 10/22/21 16:00 Albumin/Globulin Ratio 1.7 % 10/22/21 16:00 Triglycerides 85 mg/dL (2-149) 10/23/21 12:33 Cholesterol 148 mg/dL (50-199) 10/23/21 12:33 LDL Cholesterol Direct 86 mg/dL (50-130) 10/23/21 12:33 HDL Cholesterol 44 mg/dL (40-59) 10/23/21 12:33 Cholesterol/HDL Ratio 3.36 % 10/23/21 12:33 TSH 2.020 mlU/mL (0.270-4.200) 10/24/21 10:16 Free T4 0.88 ng/dL (0.76-1.46) 10/24/21 10:16 Urine Color Yellow (Yellow) 10/23/21 08:49 Urine Turbidity Clear (Clear) 10/23/21 08:49 Urine pH 6.5 (5.0-7.0) 10/23/21 08:49 Ur Specific [place] 1.005 (1.003-1.030) 10/23/21 08:49 Urine Protein 30 mg/dl mg/dL (Negative) 10/23/21 08:49 Urine Glucose (UA) Negative mg/dL (Negative) 10/23/21 08:49 Urine Ketones Negative mg/dL (Negative) 10/23/21 08:49 Urine Blood Moderate (Negative) A 10/23/21 08:49 Urine Nitrite Negative (Negative) 10/23/21 08:49 Ur Reducing Substances Not Reportable 10/23/21 08:49 Urine Bilirubin Negative (Negative) 10/23/21 08:49 Urine Ictotest Not Reportable 10/23/21 08:49 Urine Urobilinogen < 2.0 mg/dL (<2.0) 10/23/21 08:49 Ur Leukocyte Esterase Moderate (Negative) 10/23/21 08:49 Urine WBC (Auto) 28.0 /HPF (0.0-6.0) H 10/23/21 08:49 Urine RBC (Auto) 27.0 /HPF (0.0-6.0) 10/23/21 08:49 U Epithel Cells (Auto) 14.0 /HPF (0-13.0) H 10/23/21 08:49 Hyaline Casts 1 /LPF 10/23/21 08:49 Urine Mucus Few /HPF 10/23/21 08:49 Harden/IV: Voiding Method Indwelling Catheter Active Medications - Current Medications Current Medications: Generic Name Dose Route Start Last Admin Trade Name Freq PRN Reason Stop Dose Admin Acetaminophen 650 mg 10/22/21 16:19 10/28/21 22:11 Acetaminophen 325 Mg Tab PO 650 mg Q4H PRN Administration Pain, Mild (1-3) Albuterol 2.5 mg 10/22/21 16:19 Albuterol 2.5 Mg/3 Ml Nebu IH Q3HRT PRN Shortness Of Breath Aspirin 325 mg 10/23/21 10:00 10/29/21 12:47 Aspirin 325 Mg Tab PO 325 mg QDAY NEO Administration Atenolol 50 mg 10/24/21 10:00 10/29/21 12:46 Atenolol 50 Mg Tab FEEDTUBE 50 mg QDAY NEO Administration Atorvastatin Calcium 80 mg 10/24/21 22:00 10/29/21 21:42 Atorvastatin 40 Mg Tab FEEDTUBE 80 mg QHS NEO Administration Bisacodyl 10 mg 10/22/21 16:19 Bisacodyl 10 Mg Rect Supp IL QDAY PRN Constipation Dextrose 50 ml 10/22/21 17:23 Dextrose 50% In Water (25gm) 50 Ml Syringe IV Q30MIN PRN Hypoglycemia Protocol Fluoxetine HCl 10 mg 10/24/21 10:00 10/29/21 13:10 Fluoxetine 20 Mg/5 Ml Oral Liqd FEEDTUBE 10 mg QDAY NEO Administration Heparin Sodium (Porcine) 5,000 unit 10/22/21 22:00 10/29/21 21:41 Heparin 5,000 Unit/1 Ml Vial SUB-Q 5,000 unit Q12HR NEO Administration Ceftriaxone Sodium 1 gm in 50 mls @ 100 mls/hr 10/29/21 11:00 10/29/21 12:53 Rocephin/Ns 1 Gm/50 Ml IV 11/01/21 10:59 100 mls/hr Q24H NEO Administration Protocol Indapamide 5 mg 10/24/21 10:00 10/29/21 13:09 Indapamide 2.5 Mg Tab FEEDTUBE 5 mg QDAY NEO Administration Insulin Human Lispro 0 unit 10/24/21 12:00 10/30/21 07:00 Insulin Lispro 100 Unit/Ml SUB-Q 2 unit Q6HR NEO Administration Protocol Lansoprazole 30 mg 10/23/21 18:00 10/29/21 17:18 Lansoprazole 30 Mg Solutab FEEDTUBE 30 mg QPM NEO Administration Levetiracetam 250 mg 10/24/21 10:00 10/29/21 21:41 Levetiracetam 500 Mg/5 Ml Oral Liqd FEEDTUBE 250 mg BID NEO Administration Lisinopril 5 mg 10/24/21 10:00 10/29/21 12:47 Lisinopril 5 Mg Tab FEEDTUBE 5 mg QDAY NEO Administration Lorazepam 1 mg 10/25/21 10:46 10/27/21 12:35 Lorazepam 2 Mg/Ml Vial IV 1 mg ONCE PRN Administration Prior to MRI Magnesium Hydroxide 30 ml 10/22/21 16:19 Magnesium Hydroxide (Mom) Oral Liqd Udc PO Q4H PRN Constipation Ondansetron HCl 4 mg 10/22/21 16:19 Ondansetron 4 Mg/2 Ml Inj IV Q8H PRN Nausea And Vomiting Oxycodone/Acetaminophen 1 tab 10/22/21 16:19 10/29/21 21:46 Oxycodone /Acetaminophen 5-325mg Tab PO 1 tab Q12H PRN Administration Pain, Moderate (4-6) Senna 8.8 mg 10/27/21 22:00 10/29/21 21:42 Sennosides Oral Liqd 8.8 Mg/5 Ml Oral Liqd FEEDTUBE 8.8 mg QHS NEO Administration Sodium Chloride 10 ml 10/22/21 16:19 10/29/21 21:44 Sodium Chloride 0.9% 10 Ml Flush Syringe IV 10 ml PRN PRN Administration LINE FLUSH Nutrition/Malnutrition Assess - Dietary Evaluation Nutrition/Malnutrition Findings: Nutrition Notes Start: 10/23/21 13:01 Freq: Status: Active Protocol: Document 10/26/21 11:40 JIM (Rec: 10/26/21 12:11 JIM [id number]) Nutrition Notes Initial or Follow up Brief Note Current Diagnosis Diabetes,Hypertension,Stroke Other Pertinent Diagnosis Dysphagia, L-Hemiparesis, Debility. Current Diet TF-Glucerna 1.2 [place] @ 70 ml/hr (since D 10/23). Height 5 ft 11 in Weight 90.718 kg [place] Body Weight (kg) 78.18 BMI 27.8 Intake Prior to Admission Good Weight change and time frame Pt states having loss, unitentionally, between 2 and 13 lb recently. No body weight change reported in 2 days. Weight Status Overweight Subjective/Other Information RD consult for routine F/U on TF tolerance/continuation. TF continues as prescribed, no further information on tolerance available at the time, will assess at F/U. PRINTING BINDERY ASSISTANT note on 10/26/21 10:03: The patient is not an appropriate candidate for PO at this time due an inability to arouse him. Will discontinue services. An alternative method of nutrition is appropriate. No further recommendations. - END OF NOTE Pt is on Room Air, O2 saturation @ 100%, according to Physical Assessment History notes. Pt is swallow impaired, according to Physical Assessment History notes. Pt has PEG tube in place poa, according to History & Physical notes. Pt has missing teet, according to Physical Assessment History notes. Percent of energy/protein needs met: Prescribed TF-Glucerna 1.2 [place] @ 70 ml/hr provides for energy/protein needs (2,016 Kcal/111 g) during LOS, 95% Kcal; 111% AA. #1 Nutrition Diagnosis Swallowing difficulty Comments: PRINTING BINDERY ASSISTANT note on 10/26/21 10:03: The patient is not an appropriate candidate for PO at this time due an inability to arouse him. Will discontinue services. An alternative method of nutrition is appropriate. No further recommendations. - END OF NOTE Diagnosis Progress(for reassessment Continues documentation) Is patient on ventilator? No Is Patient Ambulatory and/or Out of Bed No REE-([facility]-confined to bed) 2698.456 Calculation Used for Recommendations [facility] Additional Notes Protein: 0.8-1 g/Kg ABW; 73-91 g/day. Fluids: 1 ml/Kcal, or as per MD. Nutrition Intervention Nutrition Support: Continue TF-Glucerna 1.2 [place] @ 70 ml/hr. Flush: 100 ml water Q 4 hr, or as per MD. Kcal 2,016 Protein (gm) 101 Carbohydrates (gm) 192 Fat (gm) 101 Fluid (mL) 1,352 Fiber (gm) 27 % RDI: 95% Kcal; 111% AA. Goal #1 Provide at least 75% of energy /protein needs through Enteral Feeding during LOS. Follow-Up By: 11/02/21 Additional Comments Continue monitoring TF tolerance and BM.
[2021-10-30] MEDS: ASPIRIN 325 MG TAB PO SCH (10:07)
[2021-10-30] MEDS: FLUoxetine 20 MG/5 ML ORAL LIQD FEEDTUBE SCH (10:08)
[2021-10-30] MEDS: LISINOPRIL 5 MG TAB FEEDTUBE SCH (10:08)
[2021-10-30] MEDS: INDAPAMIDE 2.5 MG TAB FEEDTUBE SCH (10:08)
[2021-10-30] MEDS: levETIRAcetam 500 MG/5 ML ORAL LIQD FEEDTUBE SCH ×2 (10:08→22:04)
[2021-10-30] MEDS: atenoloL 50 MG TAB FEEDTUBE SCH (10:08)
[2021-10-30] MEDS: HEPARIN 5,000 UNIT/1 ML VIAL SUB-Q SCH ×2 (10:09→22:04)
--- NOTE | 2021-10-30 12:50 | Progress Note ---
Assessment and Plan 55 YO Male with HTN, DM, CVA complicated by Dysphagia, Dysarthria, Left Hemiparesis, Debility was admitted to [facility] in [facility] on 06/22/21. The patient was transported to [facility] today via air ambulance for continued treatment of the aforementioned symptoms. The patient was found to have clinical symptoms consistent with CVA but the patient was deemed outside the therapeutic window for tPA. The patient was admitted to [facility] and initiated on CVA protocol. The patient is nonverbal and has a palliative performance scor e of 30% and requires 6/6 assistance with activities of daily living. T No reports of fever, chills, chest pain, palpitation, productive cough, skin rash, recent contact, known exposure to COVID-19. Patient has PEG Placement. According to the chart. No history of smoking, alcohol or drug abuse. Patient is awake. Not responding to Verbal stimuli. Patient is on room air. O2 saturation running 98%. No acute respiratory distress. Patient is afebrile. No leukocytosis. BP 112/68, pulse 88, RR 18. Chest x-ray done 10/23/21 reported no acute findings. CTA of chest 10/27/21 reported Limited exam due to motion artifact without CT evidence of pulmonary emboli or other acute findings. Patient is on Rocephin, albuterol inhaler, subq heparin, and Prevacid. - Patient Problems (1) CVA (cerebral vascular accident) Current Visit: Yes Status: Acute Qualifiers: Precerebral and cerebral artery: middle cerebral artery Laterality of affected vessel: right Plan to address problem: Manage is per primary care and neurology. Recommend aspiration precautions. (2) Dysarthria as late effect of stroke Current Visit: Yes Status: Acute Plan to address problem: Management is per neurology. (3) Dysphagia as late effect of stroke Current Visit: Yes Status: Acute Plan to address problem: Management is per neurology. (4) Hemiparesis, left Current Visit: Yes Status: Acute Plan to address problem: Management is per neurology. (5) Diabetes Current Visit: Yes Status: Acute Plan to address problem: Management is per primary care. (6) Hypertension Current Visit: Yes Status: Acute Qualifiers: Hypertension type: primary hypertension Qualified Code(s): I10 - Essential (primary) hypertension Plan to address problem: Management is per primary care. Subjective Date of service: 10/30/21 Principal diagnosis: R. CVA with L. hemiparesis; HTN; DM II; Dysarthria; Oropharyngeal dysphagia Interval history: 55 YO Male with HTN, DM, CVA complicated by Dysphagia, Dysarthria, Left Hemiparesis, Debility was admitted to [facility] in [facility] on 06/22/21. The patient was transported to [facility] today via air ambulance for continued treatment of the aforementioned symptoms. The patient was found to have clinical symptoms consistent with CVA but the patient was deemed outside the therapeutic window for tPA. The patient was admitted to [facility] and initiated on CVA protocol. The patient is nonverbal and has a palliative performance score of 30% and requires 6/6 assistance with activities of daily living. T No reports of fever, chills, chest pain, palpitation, productive cough, skin rash, recent contact, known exposure to COVID-19. Patient has PEG Placement. According to the chart. No history of smoking, alcohol or drug abuse. Patient is asleep. Not responding to Verbal stimuli. Patient is on room air. O2 saturation running 99%. No acute respiratory distress. Patient is afebrile. No leukocytosis. BP 112/68, pulse 88, RR 18. Chest x-ray done 10/23/21 reported no acute findings. CTA of chest 10/27/21 reported Limited exam due to motion artifact without CT evidence of pulmonary emboli or other acute findings. Patient is on Rocephin, albuterol inhaler, subq heparin, and Prevacid. Objective Vital Signs - 12hr 10/30/21 10/30/21 10/30/21 04:00 04:17 07:50 Temperature 98.9 F 98.9 F Pulse Rate 93 H 99 H 88 Respiratory 19 18 Rate Blood Pressure 161/88 112/68 O2 Sat by Pulse 96 99 Oximetry Constitutional: no acute distress, asleep, other (not following commands) Eyes: non-icteric ENT: oropharynx moist Neck: supple, no lymphadenopathy Effort: normal Ascultation: Bilateral: clear Percussion: Bilateral: not dull Cardiovascular: regular rate and rhythm Gastrointestinal: normoactive bowel sounds, soft, non-tender, non-distended, other (PEG tube) Integumentary: normal Extremities: no cyanosis, no edema, pulses normal, no ischemia or petechiae Neurologic: pupils equal and round, other (left hemiplegia with pedal contractures) Psychiatric: other (unable to asses due to neurological status) CBC and BMP: 10/24/21 05:00 10/28/21 03:40 ABG, PT/INR, D-dimer: PT/INR, D-dimer PT 14.8 Sec. (12.2-14.9) 10/22/21 16:00 INR 1.04 (0.87-1.13) 10/22/21 16:00 Abnormal lab findings: Abnormal Labs 10/22/21 10/22/21 10/22/21 16:00 16:00 22:44 MCV 83 L MCH 27 L [place] % (Auto) 11.8 H [place] # (Auto) 1.0 H Sodium Potassium Chloride Creatinine 0.6 L Glucose 175 H POC Glucose 115 H Hemoglobin A1c Magnesium Urine Blood Urine WBC (Auto) U Epithel Cells (Auto) 10/23/21 10/23/21 10/23/21 07:28 08:49 11:31 MCV MCH [place] % (Auto) [place] # (Auto) Sodium Potassium Chloride Creatinine Glucose POC Glucose 129 H 136 H Hemoglobin A1c Magnesium Urine Blood Moderate A Urine WBC (Auto) 28.0 H U Epithel Cells (Auto) 14.0 H 10/23/21 10/24/21 10/24/21 17:59 00:01 05:00 MCV 82 L MCH [place] % (Auto) [place] # (Auto) Sodium Potassium Chloride Creatinine Glucose POC Glucose 109 H 111 H Hemoglobin A1c Magnesium Urine Blood Urine WBC (Auto) U Epithel Cells (Auto) 10/24/21 10/24/21 10/24/21 05:00 07:57 10:16 MCV MCH [place] % (Auto) [place] # (Auto) Sodium Potassium 3.5 L Chloride Creatinine 0.6 L Glucose 134 H POC Glucose 132 H Hemoglobin A1c 8.0 H Magnesium Urine Blood Urine WBC (Auto) U Epithel Cells (Auto) 10/24/21 10/24/21 10/25/21 16:26 20:57 04:47 MCV MCH [place] % (Auto) [place] # (Auto) Sodium Potassium Chloride Creatinine Glucose POC Glucose 109 H 145 H 159 H Hemoglobin A1c Magnesium Urine Blood Urine WBC (Auto) U Epithel Cells (Auto) 10/25/21 10/25/21 10/25/21 07:49 11:19 17:49 MCV MCH [place] % (Auto) [place] # (Auto) Sodium Potassium Chloride Creatinine Glucose POC Glucose 147 H 164 H 141 H Hemoglobin A1c Magnesium Urine Blood Urine WBC (Auto) U Epithel Cells (Auto) 10/25/21 10/26/21 10/26/21 20:54 04:56 07:23 MCV MCH [place] % (Auto) [place] # (Auto) Sodium Potassium Chloride Creatinine 0.7 L Glucose 165 H POC Glucose 136 H 172 H Hemoglobin A1c Magnesium 1.60 L Urine Blood Urine WBC (Auto) U Epithel Cells (Auto) 10/26/21 10/26/21 10/26/21 11:21 17:21 23:38 MCV MCH [place] % (Auto) [place] # (Auto) Sodium Potassium Chloride Creatinine Glucose POC Glucose 168 H 164 H 147 H Hemoglobin A1c Magnesium Urine Blood Urine WBC (Auto) U Epithel Cells (Auto) 10/27/21 10/27/21 10/27/21 04:39 07:32 11:33 MCV MCH [place] % (Auto) [place] # (Auto) Sodium 135 L Potassium Chloride 95.4 L Creatinine 0.6 L Glucose 156 H POC Glucose 137 H 180 H Hemoglobin A1c Magnesium Urine Blood Urine WBC (Auto) U Epithel Cells (Auto) 10/27/21 10/27/21 10/28/21 16:18 23:55 03:40 MCV MCH [place] % (Auto) [place] # (Auto) Sodium Potassium Chloride 97.1 L Creatinine Glucose 127 H POC Glucose 130 H 123 H Hemoglobin A1c Magnesium Urine Blood Urine WBC (Auto) U Epithel Cells (Auto) 10/28/21 10/28/21 10/28/21 08:10 12:03 17:42 MCV MCH [place] % (Auto) [place] # (Auto) Sodium Potassium Chloride Creatinine Glucose POC Glucose 142 H 173 H 145 H Hemoglobin A1c Magnesium Urine Blood Urine WBC (Auto) U Epithel Cells (Auto) 10/28/21 10/29/21 10/29/21 23:31 05:35 11:48 MCV MCH [place] % (Auto) [place] # (Auto) Sodium Potassium Chloride Creatinine Glucose POC Glucose 181 H 225 H 166 H Hemoglobin A1c Magnesium Urine Blood Urine WBC (Auto) U Epithel Cells (Auto) 10/29/21 10/30/21 10/30/21 16:23 00:19 05:23 MCV MCH [place] % (Auto) [place] # (Auto) Sodium Potassium Chloride Creatinine Glucose POC Glucose 167 H 157 H 175 H Hemoglobin A1c Magnesium Urine Blood Urine WBC (Auto) U Epithel Cells (Auto) Allied health notes reviewed: nursing
[2021-10-30] MEDS: cefTRIAXone/NS 1 GM/50 ML 1 GM/50 ML BAG IV SCH (13:33)
[2021-10-30] MEDS: oxyCODONE /ACETAMINOPHEN 5-325MG TAB PO PRN (14:18)
[2021-10-30] MEDS: LANSOPRAZOLE 30 MG SOLUTAB FEEDTUBE SCH (18:35)
[2021-10-30] MEDS: SENNOSIDES ORAL LIQD 8.8 MG/5 ML ORAL LIQD FEEDTUBE SCH (22:04)
[2021-10-31] MEDS: INSULIN LISPRO 100 UNIT/ML SUB-Q SCH ×4 (00:08→17:54)
[2021-10-31] MEDS: cefTRIAXone/NS 1 GM/50 ML 1 GM/50 ML BAG IV SCH (10:50)
[2021-10-31] MEDS: INDAPAMIDE 2.5 MG TAB FEEDTUBE SCH (10:50)
[2021-10-31] MEDS: atenoloL 50 MG TAB FEEDTUBE SCH (10:50)
[2021-10-31] MEDS: ASPIRIN 325 MG TAB PO SCH (10:50)
[2021-10-31] MEDS: levETIRAcetam 500 MG/5 ML ORAL LIQD FEEDTUBE SCH ×2 (10:50→21:18)
[2021-10-31] MEDS: LISINOPRIL 5 MG TAB FEEDTUBE SCH (10:50)
[2021-10-31] MEDS: FLUoxetine 20 MG/5 ML ORAL LIQD FEEDTUBE SCH (10:51)
[2021-10-31] MEDS: HEPARIN 5,000 UNIT/1 ML VIAL SUB-Q SCH ×2 (10:51→21:18)
--- NOTE | 2021-10-31 11:59 | Progress Note ---
Assessment and Plan Assessment and plan: his is a 55-year-old with HTN, DM, CVA complicated by dysphagia s/p PEG tube placement, dysarthria, left hemiparesis and debility who presented to the emergency department on 10/22 via air ambulance for continued treatment. Patient was admitted to the [facility] and initiated on CIWA protocol with consults to [facility], neurology will need a cardiology. Hospital Course to Date: 10/23: Nonverbal, open eyes spontaneously, does not follow any commands with LUE paralysis/contraction. on RA, VSS. Echo and Neurology consult pending. PT/OT/Speech also consulted. PEG-tube noted, nutrition/cardiac cath lab technologist consulted for TF management. Pulmonary is also following. Patient presented with a harden cat heter, per record history of urinary retention. Harden cath exchanged, UA pending. 10/24: SEKOU overnight. Neurology recommendations noted, orders placed for MRI brain and CTA head/Neck. Continue PT/OT/Speech, home meds resumed, and enteral nutrition initiated. UA noted, patient is asymptomatic with no leukocytosis, continue to monitor, urine culture pending. 10/25: Remains stable, mentation unchanged. CTA head/Neck noted, MRI brain/MRA head/Neck pending. Awaiting Neurology final recommendations. Continue current supportive measures. 10/26: Patient will have a BELLE, cardiology consulted per neurology recommendations, MRI/MRA/MRV pending no acute events reported overnight. Magnesium repleted. 10/27: Unable to complete BELLE as consent was not able to be obtained, [facility] contacted [facility] who declined the patient is a candidate, MRI brain and CTA chest and pelvis pending. No acute events reported overnight. 10/28: No acute overnight events. CTA chest and abdomen completed were negative studies. BELLE completed this AM, no acute findings noted. MR brain shows subacute right MCA infarction superimposed on chronic infarction. There is involvement of the lateral aspect of right temporal lobe. Large remote pontine infarction noted. No indication of recent intracranial hemorrhage or mass lesion. CM currently working on placement to SNF. Can transfer patient to floor bed. Attempted to call number in chart to update family. no response. 10/29: D/w brother Fabian Waldron [phone]. Updated him on patient clinical status. Discussed overall poor chance of regaining baseline function and current "locked in" appearance due to territory of stroke. I also discussed options of home health care if the family can support the patient versus hospice versus SNF. I also updated Fabian that thus far facilities have denied the patient due to him being out of network. He stated he would speak with his brother Tyrell regarding these updates and would also be coming to the hospital tomorrow to discuss the family's goals for the patient. Patient likely needs DOAC. Will await neuro recs re: anticoagulation. 10/30: Neurology recommends against doac. Will obtain covid pcr. Plan Family discussion today this AM with patient brother Fabian this AM re: GOK I discussed with the patient's brother, Fabian regarding goals of care as well as the events of the patient's hospitalization. He was very much adamant that the patient go to rehab/snf and did not think hospice was the right option for his brother. I explained that thus far the patient has been declined at more than 10 facilities in the [facility] area. He stated that he would be willing to help fund him should that be an issue. I notified the outsole caser about my conversation who stated they would speak with Mr Peralta. 10/31: Patient tolerating tube feed, clinically unchanged, PT recommendation is as noted below. WIll have case management consider a Personal long-term also. PER PT Pt presents with poor rehab potential due to CVA x4 months ago with L UE and LE hypertonicity, contractures, poor isolated movements, inability to follow instructions, Left side neglect, significant impairments of coordination and strength. Pt is total assist with mobilities and high risk for falls. Recommend SNF placement for 24hr care. If pt d/c home with family, will need hospital bed, cecil lift for potential transfers. Due to pt's involuntary movements and abnormal tone, pt is high risk for falling out of a w/c. If pt d/c home, recommend 1 PT visit for pt/family training re: positioning, bed mobility. Pt is not a candidate for skilled PT at this time. Pt was left in semi fowlers, needs in reach, all lines intact, no distress, pt with involuntary movements at times. Assessment and Plan: Neuro: Recent CVA complicated by dysphagia/dysarthria/left hemiparesis/debility, h/o depression, seizure disorder -Neurology and CCM consulted, appreciate recommendations -Reorientation as needed -Maintain sleep-wake cycle -aspiration/seizure precautions -As needed analgesia -CT head shows old moderately sized MCA infarct the right involving the inferior frontal peritracheal regions, gangliocapsular Regions and Right Temporal Lobe, prominent Kuehner seen in the left anterior andrea, small scattered lacunar infarcts suggesting the andrea -Bilateral carotid Doppler ultrasound shows less than 50% diameter stenosis in the right and left internal carotid artery -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 There is involvement of the lateral aspect of right temporal lobe. Large remote pontine infarction noted. No indication of recent intracranial hemorrhage or mass lesion. -Lipitor, aspirin -Keppra -Aspiration/seizure precautions -Continue home Prozac -PT/OT/ST consulted -Neurochecks per protocol Cardiac: h/o HTN -Cardiology consulted, appreciate recommendations -Blood pressure monitoring per protocol -Antihypertensive regimen: Atenolol, Lozol, lisinopril -Echocardiogram shows LVEF 55%, mild diastolic dysfunction no PFO -BELLE pending per neurology recs Respiratory: NAD -CCM/ pulm consulted for dyspnea, appreciate recommendations -Supplemental oxygen as needed -Pulmonary hygiene -SPO2 monitoring GI: S/p PEG tube placement -24 hours +1285 mL -PPI -NTR consulted for tube feedings -BR: Senna : Slight hyponatremia, h/o urinary retention/obstruction -Presented with indwelling catheter which was exchanged -Monitor intake and output -Renally dose medications -Avoid nephrotoxic medications -Repeat magnesium -Trend BMP ID: NAD -Monitor WBC and temperature curve Endo: h/o DM -Avoid hypoglycemia -SSI -Accu-Cheks q. every 6 -Hemoglobin A1c 8 Heme: ? Hypercoagulable state -CTA chest and abdomen pending per neurology recommendation -Trend CBC -Transfuse hemoglobin less than 7 -SCDs to BLE while in bed #Advance care planning Disease education conducted, care plan discussed, diagnoses discussed, prognosis discussed, patient is full code, patient brother Fabian acknowledges understanding and agree with care plan, +30 minutes. History Interval history: Patient seen and examined, clinically unchanged. No new event reported by nursing staff. Hospitalist Physical - Physical exam Narrative exam: General: No Apparent Distress HEENT: Positive: Mucus Membranes Dry, intermittent tracks Neck: Positive: trachea midline Cardiac: Positive: Reg Rate and Rhythm Lungs: Positive: Normal Breath Sounds Neuro: Positive: Other (Hemiparesis), non verbal. locked in appearance. does not follow commands. opens eyes but not purposefully following commands. Abdomen: Positive: Soft Skin: Negative: Rash, Suspicious Lesions, Ulceration Extremities: Present: upper extr. pulses. Absent: edema - Constitutional Vitals: Temp Pulse Resp BP Pulse Ox 98.7 F 115 H 20 168/118 97 10/31/21 07:46 10/31/21 07:46 10/31/21 03:46 10/31/21 07:46 10/31/21 07:46 General appearance: Present: no acute distress Results - Labs CBC & Chem 7: 10/24/21 05:00 10/28/21 03:40 Labs: Laboratory Last Values WBC 6.4 K/mm3 (4.5-11.0) 10/24/21 05:00 RBC 4.59 M/mm3 (3.65-5.03) 10/24/21 05:00 Hgb 12.7 gm/dl (11.8-15.2) 10/24/21 05:00 Hct 37.7 % (35.5-45.6) 10/24/21 05:00 MCV 82 fl (84-94) L 10/24/21 05:00 MCH 28 pg (28-32) 10/24/21 05:00 MCHC 34 % (32-34) 10/24/21 05:00 RDW 14.1 % (13.2-15.2) 10/24/21 05:00 Plt Count 222 K/mm3 (140-440) 10/24/21 05:00 Lymph % (Auto) 29.6 % (13.4-35.0) 10/22/21 16:00 [place] % (Auto) 11.8 % (0.0-7.3) H 10/22/21 16:00 Eos % (Auto) 1.3 % (0.0-4.3) 10/22/21 16:00 Baso % (Auto) 0.4 % (0.0-1.8) 10/22/21 16:00 Lymph # (Auto) 2.4 K/mm3 (1.2-5.4) 10/22/21 16:00 [place] # (Auto) 1.0 K/mm3 (0.0-0.8) H 10/22/21 16:00 Eos # (Auto) 0.1 K/mm3 (0.0-0.4) 10/22/21 16:00 Baso # (Auto) 0.0 K/mm3 (0.0-0.1) 10/22/21 16:00 Seg Neutrophils % 56.9 % (40.0-70.0) 10/22/21 16:00 Seg Neutrophils # 4.7 K/mm3 (1.8-7.7) 10/22/21 16:00 PT 14.8 Sec. (12.2-14.9) 10/22/21 16:00 INR 1.04 (0.87-1.13) 10/22/21 16:00 APTT 28.1 Sec. (24.2-36.6) 10/22/21 16:00 Sodium 137 mmol/L (137-145) 10/28/21 03:40 Potassium 4.2 mmol/L (3.6-5.0) 10/28/21 03:40 Chloride 97.1 mmol/L (98-107) L 10/28/21 03:40 Carbon Dioxide 29 mmol/L (22-30) 10/28/21 03:40 Anion Gap 15 mmol/L 10/28/21 03:40 BUN 14 mg/dL (9-20) 10/28/21 03:40 Creatinine 0.8 mg/dL (0.8-1.3) 10/28/21 03:40 Estimated GFR > 60 ml/min 10/28/21 03:40 BUN/Creatinine Ratio 18 % 10/28/21 03:40 Glucose 127 mg/dL (75-100) H 10/28/21 03:40 POC Glucose 215 mg/dL (70-105) H 10/31/21 05:56 Hemoglobin A1c 8.0 % (4-6) H 10/24/21 10:16 Calcium 10.1 mg/dL (8.4-10.2) 10/28/21 03:40 Phosphorus 4.20 mg/dL (2.5-4.5) 10/27/21 04:39 Magnesium 1.90 mg/dL (1.7-2.3) 10/27/21 04:39 Total Bilirubin 0.50 mg/dL (0.1-1.2) 10/22/21 16:00 AST 24 units/L (5-40) 10/22/21 16:00 ALT 28 units/L (7-56) 10/22/21 16:00 Alkaline Phosphatase 102 units/L (35-129) 10/22/21 16:00 Total Protein 6.9 g/dL (6.3-8.2) 10/22/21 16:00 Albumin 4.3 g/dL (3.9-5) 10/22/21 16:00 Albumin/Globulin Ratio 1.7 % 10/22/21 16:00 Triglycerides 85 mg/dL (2-149) 10/23/21 12:33 Cholesterol 148 mg/dL (50-199) 10/23/21 12:33 LDL Cholesterol Direct 86 mg/dL (50-130) 10/23/21 12:33 HDL Cholesterol 44 mg/dL (40-59) 10/23/21 12:33 Cholesterol/HDL Ratio 3.36 % 10/23/21 12:33 TSH 2.020 mlU/mL (0.270-4.200) 10/24/21 10:16 Free T4 0.88 ng/dL (0.76-1.46) 10/24/21 10:16 Urine Color Yellow (Yellow) 10/23/21 08:49 Urine Turbidity Clear (Clear) 10/23/21 08:49 Urine pH 6.5 (5.0-7.0) 10/23/21 08:49 Ur Specific [place] 1.005 (1.003-1.030) 10/23/21 08:49 Urine Protein 30 mg/dl mg/dL (Negative) 10/23/21 08:49 Urine Glucose (UA) Negative mg/dL (Negative) 10/23/21 08:49 Urine Ketones Negative mg/dL (Negative) 10/23/21 08:49 Urine Blood Moderate (Negative) A 10/23/21 08:49 Urine Nitrite Negative (Negative) 10/23/21 08:49 Ur Reducing Substances Not Reportable 10/23/21 08:49 Urine Bilirubin Negative (Negative) 10/23/21 08:49 Urine Ictotest Not Reportable 10/23/21 08:49 Urine Urobilinogen < 2.0 mg/dL (<2.0) 10/23/21 08:49 Ur Leukocyte Esterase Moderate (Negative) 10/23/21 08:49 Urine WBC (Auto) 28.0 /HPF (0.0-6.0) H 10/23/21 08:49 Urine RBC (Auto) 27.0 /HPF (0.0-6.0) 10/23/21 08:49 U Epithel Cells (Auto) 14.0 /HPF (0-13.0) H 10/23/21 08:49 Hyaline Casts 1 /LPF 10/23/21 08:49 Urine Mucus Few /HPF 10/23/21 08:49 Coronavirus (PCR) Negative (Negative) 10/30/21 Unknown Microbiology: Microbiology 10/30/21 17:58 Nares - Left MRSA Culture - Final Harden/IV: Voiding Method Indwelling Catheter Active Medications - Current Medications Current Medications: Generic Name Dose Route Start Last Admin Trade Name Freq PRN Reason Stop Dose Admin Acetaminophen 650 mg 10/22/21 16:19 10/28/21 22:11 Acetaminophen 325 Mg Tab PO 650 mg Q4H PRN Administration Pain, Mild (1-3) Albuterol 2.5 mg 10/22/21 16:19 Albuterol 2.5 Mg/3 Ml Nebu IH Q3HRT PRN Shortness Of Breath Aspirin 325 mg 10/23/21 10:00 10/31/21 10:50 Aspirin 325 Mg Tab PO 325 mg QDAY NEO Administration Atenolol 50 mg 10/24/21 10:00 10/31/21 10:50 Atenolol 50 Mg Tab FEEDTUBE 50 mg QDAY NEO Administration Atorvastatin Calcium 80 mg 10/24/21 22:00 10/30/21 22:04 Atorvastatin 40 Mg Tab FEEDTUBE 80 mg QHS NEO Administration Bisacodyl 10 mg 10/22/21 16:19 Bisacodyl 10 Mg Rect Supp VT QDAY PRN Constipation Dextrose 50 ml 10/22/21 17:23 Dextrose 50% In Water (25gm) 50 Ml Syringe IV Q30MIN PRN Hypoglycemia Protocol Fluoxetine HCl 10 mg 10/24/21 10:00 10/31/21 10:51 Fluoxetine 20 Mg/5 Ml Oral Liqd FEEDTUBE 10 mg QDAY NEO Administration Heparin Sodium (Porcine) 5,000 unit 10/22/21 22:00 10/31/21 10:51 Heparin 5,000 Unit/1 Ml Vial SUB-Q 5,000 unit Q12HR NEO Administration Ceftriaxone Sodium 1 gm in 50 mls @ 100 mls/hr 10/29/21 11:00 10/31/21 10:50 Rocephin/Ns 1 Gm/50 Ml IV 11/01/21 10:59 100 mls/hr Q24H NEO Administration Protocol Indapamide 5 mg 10/24/21 10:00 10/31/21 10:50 Indapamide 2.5 Mg Tab FEEDTUBE 5 mg QDAY NEO Administration Insulin Human Lispro 0 unit 10/24/21 12:00 10/31/21 06:18 Insulin Lispro 100 Unit/Ml SUB-Q 3 unit Q6HR NEO Administration Protocol Lansoprazole 30 mg 10/23/21 18:00 10/30/21 18:35 Lansoprazole 30 Mg Solutab FEEDTUBE 30 mg QPM NEO Administration Levetiracetam 250 mg 10/24/21 10:00 10/31/21 10:50 Levetiracetam 500 Mg/5 Ml Oral Liqd FEEDTUBE 250 mg BID NEO Administration Lisinopril 5 mg 10/24/21 10:00 10/31/21 10:50 Lisinopril 5 Mg Tab FEEDTUBE 5 mg QDAY NEO Administration Lorazepam 1 mg 10/25/21 10:46 10/27/21 12:35 Lorazepam 2 Mg/Ml Vial IV 1 mg ONCE PRN Administration Prior to MRI Magnesium Hydroxide 30 ml 10/22/21 16:19 Magnesium Hydroxide (Mom) Oral Liqd Udc PO Q4H PRN Constipation Ondansetron HCl 4 mg 10/22/21 16:19 Ondansetron 4 Mg/2 Ml Inj IV Q8H PRN Nausea And Vomiting Oxycodone/Acetaminophen 1 tab 10/22/21 16:19 10/30/21 14:18 Oxycodone /Acetaminophen 5-325mg Tab PO 1 tab Q12H PRN Administration Pain, Moderate (4-6) Senna 8.8 mg 10/27/21 22:00 10/30/21 22:04 Sennosides Oral Liqd 8.8 Mg/5 Ml Oral Liqd FEEDTUBE 8.8 mg QHS NEO Administration Sodium Chloride 10 ml 10/22/21 16:19 10/29/21 21:44 Sodium Chloride 0.9% 10 Ml Flush Syringe IV 10 ml PRN PRN Administration LINE FLUSH Nutrition/Malnutrition Assess - Dietary Evaluation Nutrition/Malnutrition Findings: Nutrition Notes Start: 10/23/21 13:01 Freq: Status: Active Protocol: Document 10/26/21 11:40 JIM (Rec: 10/26/21 12:11 JIM [email or web address]) Nutrition Notes Initial or Follow up Brief Note Current Diagnosis Diabetes,Hypertension,Stroke Other Pertinent Diagnosis Dysphagia, L-Hemiparesis, Debility. Current Diet TF-Glucerna 1.2 Trem[place] @ 70 ml/hr (since D 10/23). Height 5 ft 11 in Weight 90.718 kg Ramer Body Weight (kg) 78.18 BMI 27.8 Intake Prior to Admission Good Weight change and time frame Pt states having loss, unitentionally, between 2 and 13 lb recently. No body weight change reported in 2 days. Weight Status Overweight Subjective/Other Information RD consult for routine F/U on TF tolerance/continuation. TF continues as prescribed, no further information on tolerance available at the time, will assess at F/U. ASSEMBLY INSPECTOR note on 10/26/21 10:03: The patient is not an appropriate candidate for PO at this time due an inability to arouse him. Will discontinue services. An alternative method of nutrition is appropriate. No further recommendations. - END OF NOTE Pt is on Room Air, O2 saturation @ 100%, according to Physical Assessment History notes. Pt is swallow impaired, according to Physical Assessment History notes. Pt has PEG tube in place poa, according to History & Physical notes. Pt has missing teet, according to Physical Assessment History notes. Percent of energy/protein needs met: Prescribed TF-Glucerna 1.2 [place] @ 70 ml/hr provides for energy/protein needs (2,016 Kcal/111 g) during LOS, 95% Kcal; 111% AA. #1 Nutrition Diagnosis Swallowing difficulty Comments: ASSEMBLY INSPECTOR note on 10/26/21 10:03: The patient is not an appropriate candidate for PO at this time due an inability to arouse him. Will discontinue services. An alternative method of nutrition is appropriate. No further recommendations. - END OF NOTE Diagnosis Progress(for reassessment Continues documentation) Is patient on ventilator? No Is Patient Ambulatory and/or Out of Bed No REE-([facility]-confined to bed) [phone] Calculation Used for Recommendations [facility] Additional Notes Protein: 0.8-1 g/Kg ABW; 73-91 g/day. Fluids: 1 ml/Kcal, or as per MD. Nutrition Intervention Nutrition Support: Continue TF-Glucerna 1.2 [place] @ 70 ml/hr. Flush: 100 ml water Q 4 hr, or as per MD. Kcal 2,016 Protein (gm) 101 Carbohydrates (gm) 192 Fat (gm) 101 Fluid (mL) 1,352 Fiber (gm) 27 % RDI: 95% Kcal; 111% AA. Goal #1 Provide at least 75% of energy /protein needs through Enteral Feeding during LOS. Follow-Up By: 11/02/21 Additional Comments Continue monitoring TF tolerance and BM.
--- NOTE | 2021-10-31 13:13 | Progress Note ---
Assessment and Plan Right cerebrovascular accident with left hemiparesis Hypertension DM II Dysarthria Oropharyngeal dysphagia Debility Supportive care Discharge planning - prn supplemental oxygen to keep O2 sats > 90% - prn bronchodilators (DULCE) with pulm hygiene per RT - continue mobility per facility protocol, off loading and frequent turning to prevent pressure ulcers - PT/OT as tolerated -Enteric nutrtional support, at goal. Aspiration precautions - continue accuchecks with glycemic control per SSI for target blood glucose < 180 mg/dL - VTE prophylaxis - Flu & pneumovax per protocol - prn analgesia per pain score - continue other care per attending / other consultants Subjective Date of service: 10/31/21 Principal diagnosis: R. CVA with L. hemiparesis; HTN; DM II; Dysarthria; Oropharyngeal dysphagia Interval history: Patient is seen today for: Right cerebrovascular accident with left hemiparesis; Hypertension; DM II; Dysarthria; Oropharyngeal dysphagia; Debility Seen and examined at bedside; 24hour events reviewed; nursing and respiratory care staff consulted; no adverse overnight events reported to me; resting peacefully in bed;awake and alert, appears to track voice. Remains aphasic, no fevers, no vomiting reported. Family visiting at the bedside Objective Vital Signs - 12hr 10/31/21 10/31/21 10/31/21 03:46 04:00 07:26 Temperature 98.7 F Pulse Rate 96 H 112 H Respiratory 20 Rate Blood Pressure 121/70 O2 Sat by Pulse 99 98 Oximetry 10/31/21 10/31/21 07:46 12:07 Temperature 98.7 F 98.3 F Pulse Rate 115 H 79 Respiratory Rate Blood Pressure 168/118 105/66 O2 Sat by Pulse 97 98 Oximetry Constitutional: no acute distress, alert, other (appears to track voice) Eyes: non-icteric ENT: oropharynx moist Neck: supple, no lymphadenopathy Effort: normal Ascultation: Bilateral: clear Percussion: Bilateral: not dull Cardiovascular: regular rate and rhythm, other (S1,S2) Gastrointestinal: normoactive bowel sounds, soft, non-tender, non-distended, other (PEG tube) Integumentary: normal Extremities: no cyanosis, no edema, pulses normal, no ischemia or petechiae Neurologic: pupils equal and round, other (left hemiplegia ) Psychiatric: other (unable to asses due to neurological status) CBC and BMP: 10/24/21 05:00 10/28/21 03:40 ABG, PT/INR, D-dimer: PT/INR, D-dimer PT 14.8 Sec. (12.2-14.9) 10/22/21 16:00 INR 1.04 (0.87-1.13) 10/22/21 16:00 Abnormal lab findings: Abnormal Labs 10/22/21 10/22/21 10/22/21 16:00 16:00 22:44 MCV 83 L MCH 27 L [place] % (Auto) 11.8 H [place] # (Auto) 1.0 H Sodium Potassium Chloride Creatinine 0.6 L Glucose 175 H POC Glucose 115 H Hemoglobin A1c Magnesium Urine Blood Urine WBC (Auto) U Epithel Cells (Auto) 10/23/21 10/23/21 10/23/21 07:28 08:49 11:31 MCV MCH [place] % (Auto) [place] # (Auto) Sodium Potassium Chloride Creatinine Glucose POC Glucose 129 H 136 H Hemoglobin A1c Magnesium Urine Blood Moderate A Urine WBC (Auto) 28.0 H U Epithel Cells (Auto) 14.0 H 10/23/21 10/24/21 10/24/21 17:59 00:01 05:00 MCV 82 L MCH [place] % (Auto) [place] # (Auto) Sodium Potassium Chloride Creatinine Glucose POC Glucose 109 H 111 H Hemoglobin A1c Magnesium Urine Blood Urine WBC (Auto) U Epithel Cells (Auto) 10/24/21 10/24/21 10/24/21 05:00 07:57 10:16 MCV MCH [place] % (Auto) [place] # (Auto) Sodium Potassium 3.5 L Chloride Creatinine 0.6 L Glucose 134 H POC Glucose 132 H Hemoglobin A1c 8.0 H Magnesium Urine Blood Urine WBC (Auto) U Epithel Cells (Auto) 10/24/21 10/24/21 10/25/21 16:26 20:57 04:47 MCV MCH [place] % (Auto) [place] # (Auto) Sodium Potassium Chloride Creatinine Glucose POC Glucose 109 H 145 H 159 H Hemoglobin A1c Magnesium Urine Blood Urine WBC (Auto) U Epithel Cells (Auto) 10/25/21 10/25/21 10/25/21 07:49 11:19 17:49 MCV MCH [place] % (Auto) [place] # (Auto) Sodium Potassium Chloride Creatinine Glucose POC Glucose 147 H 164 H 141 H Hemoglobin A1c Magnesium Urine Blood Urine WBC (Auto) U Epithel Cells (Auto) 10/25/21 10/26/21 10/26/21 20:54 04:56 07:23 MCV MCH [place] % (Auto) [place] # (Auto) Sodium Potassium Chloride Creatinine 0.7 L Glucose 165 H POC Glucose 136 H 172 H Hemoglobin A1c Magnesium 1.60 L Urine Blood Urine WBC (Auto) U Epithel Cells (Auto) 10/26/21 10/26/21 10/26/21 11:21 17:21 23:38 MCV MCH [place] % (Auto) [place] # (Auto) Sodium Potassium Chloride Creatinine Glucose POC Glucose 168 H 164 H 147 H Hemoglobin A1c Magnesium Urine Blood Urine WBC (Auto) U Epithel Cells (Auto) 10/27/21 10/27/21 10/27/21 04:39 07:32 11:33 MCV MCH [place] % (Auto) [place] # (Auto) Sodium 135 L Potassium Chloride 95.4 L Creatinine 0.6 L Glucose 156 H POC Glucose 137 H 180 H Hemoglobin A1c Magnesium Urine Blood Urine WBC (Auto) U Epithel Cells (Auto) 10/27/21 10/27/21 10/28/21 16:18 23:55 03:40 MCV MCH [place] % (Auto) [place] # (Auto) Sodium Potassium Chloride 97.1 L Creatinine Glucose 127 H POC Glucose 130 H 123 H Hemoglobin A1c Magnesium Urine Blood Urine WBC (Auto) U Epithel Cells (Auto) 10/28/21 10/28/21 10/28/21 08:10 12:03 17:42 MCV MCH [place] % (Auto) [place] # (Auto) Sodium Potassium Chloride Creatinine Glucose POC Glucose 142 H 173 H 145 H Hemoglobin A1c Magnesium Urine Blood Urine WBC (Auto) U Epithel Cells (Auto) 10/28/21 10/29/21 10/29/21 23:31 05:35 11:48 MCV MCH [place] % (Auto) [place] # (Auto) Sodium Potassium Chloride Creatinine Glucose POC Glucose 181 H 225 H 166 H Hemoglobin A1c Magnesium Urine Blood Urine WBC (Auto) U Epithel Cells (Auto) 10/29/21 10/30/21 10/30/21 16:23 00:19 05:23 MCV MCH [place] % (Auto) [place] # (Auto) Sodium Potassium Chloride Creatinine Glucose POC Glucose 167 H 157 H 175 H Hemoglobin A1c Magnesium Urine Blood Urine WBC (Auto) U Epithel Cells (Auto) 10/30/21 10/30/21 10/31/21 13:58 23:07 05:56 MCV MCH [place] % (Auto) [place] # (Auto) Sodium Potassium Chloride Creatinine Glucose POC Glucose 201 H 171 H 215 H Hemoglobin A1c Magnesium Urine Blood Urine WBC (Auto) U Epithel Cells (Auto) 10/31/21 12:25 MCV MCH [place] % (Auto) [place] # (Auto) Sodium Potassium Chloride Creatinine Glucose POC Glucose 230 H Hemoglobin A1c Magnesium Urine Blood Urine WBC (Auto) U Epithel Cells (Auto) Allied health notes reviewed: nursing
[2021-10-31] MEDS: LANSOPRAZOLE 30 MG SOLUTAB FEEDTUBE SCH (17:53)
[2021-10-31] MEDS: SENNOSIDES ORAL LIQD 8.8 MG/5 ML ORAL LIQD FEEDTUBE SCH (21:20)
[2021-11-01] MEDS: INSULIN LISPRO 100 UNIT/ML SUB-Q SCH ×4 (00:28→17:07)
--- NOTE | 2021-11-01 08:47 | Progress Note ---
Assessment and Plan Assessment and plan: his is a 55-year-old with HTN, DM, CVA complicated by dysphagia s/p PEG tube placement, dysarthria, left hemiparesis and debility who presented to the emergency department on 10/22 via air ambulance for continued treatment. Patient was admitted to the [facility] and initiated on CIWA protocol with consults to [facility], neurology will need a cardiology. Hospital Course to Date: 10/23: Nonverbal, open eyes spontaneously, does not follow any commands with LUE paralysis/contraction. on RA, VSS. Echo and Neurology consult pending. PT/OT/Speech also consulted. PEG-tube noted, nutrition/motor vehicle field representative consulted for TF management. Pulmonary is also following. Patient presented with a harden cat heter, per record history of urinary retention. Harden cath exchanged, UA pending. 10/24: SEKOU overnight. Neurology recommendations noted, orders placed for MRI brain and CTA head/Neck. Continue PT/OT/Speech, home meds resumed, and enteral nutrition initiated. UA noted, patient is asymptomatic with no leukocytosis, continue to monitor, urine culture pending. 10/25: Remains stable, mentation unchanged. CTA head/Neck noted, MRI brain/MRA head/Neck pending. Awaiting Neurology final recommendations. Continue current supportive measures. 10/26: Patient will have a BELLE, cardiology consulted per neurology recommendations, MRI/MRA/MRV pending no acute events reported overnight. Magnesium repleted. 10/27: Unable to complete BELLE as consent was not able to be obtained, [facility] contacted [facility] who declined the patient is a candidate, MRI brain and CTA chest and pelvis pending. No acute events reported overnight. 10/28: No acute overnight events. CTA chest and abdomen completed were negative studies. BELLE completed this AM, no acute findings noted. MR brain shows subacute right MCA infarction superimposed on chronic infarction. There is involvement of the lateral aspect of right temporal lobe. Large remote pontine infarction noted. No indication of recent intracranial hemorrhage or mass lesion. CM currently working on placement to SNF. Can transfer patient to floor bed. Attempted to call number in chart to update family. no response. 10/29: D/w brother Fabian Waldron [phone]. Updated him on patient clinical status. Discussed overall poor chance of regaining baseline function and current "locked in" appearance due to territory of stroke. I also discussed options of home health care if the family can support the patient versus hospice versus SNF. I also updated Fabian that thus far facilities have denied the patient due to him being out of network. He stated he would speak with his brother Tyrell regarding these updates and would also be coming to the hospital tomorrow to discuss the family's goals for the patient. Patient likely needs DOAC. Will await neuro recs re: anticoagulation. 10/30: Neurology recommends against doac. Will obtain covid pcr. Plan Family discussion today this AM with patient brother Fabian this AM re: GOK I discussed with the patient's brother, Fabian regarding goals of care as well as the events of the patient's hospitalization. He was very much adamant that the patient go to rehab/snf and did not think hospice was the right option for his brother. I explained that thus far the patient has been declined at more than 10 facilities in the [facility] area. He stated that he would be willing to help fund him should that be an issue. I notified the caser shoe parts about my conversation who stated they would speak with Mr Peralta. 10/31: Patient tolerating tube feed, clinically unchanged, PT recommendation is as noted below. WIll have case management consider a [facility] [place] [facility] also. PER PT Pt presents with poor rehab potential due to CVA x4 months ago with L UE and LE hypertonicity, contractures, poor isolated movements, inability to follow instructions, Left side neglect, significant impairments of coordination and strength. Pt is total assist with mobilities and high risk for falls. Recommend SNF placement for 24hr care. If pt d/c home with family, will need hospital bed, cecil lift for potential transfers. Due to pt's involuntary movements and abnormal tone, pt is high risk for falling out of a w/c. If pt d/c home, recommend 1 PT visit for pt/family training re: positioning, bed mobility. Pt is not a candidate for skilled PT at this time. Pt was left in semi fowlers, needs in reach, all lines intact, no distress, pt with involuntary movements at times. 11/01: Continue supportive care. We will plan on further discussion with the family on discharge planning anticipated in a day or 2 following this history arrangements to be in place. We will follow-up with the pending alf facility to see if they accept him. Assessment and Plan: Neuro: Recent CVA complicated by dysphagia/dysarthria/left hemiparesis/debility, h/o depression, seizure disorder -Neurology and CCM consulted, appreciate recommendations -Reorientation as needed -Maintain sleep-wake cycle -aspiration/seizure precautions -As needed analgesia -CT head shows old moderately sized MCA infarct the right involving the inferior frontal peritracheal regions, gangliocapsular Regions and Right Temporal Lobe, prominent Kuehner seen in the left anterior andrea, small scattered lacunar infarcts suggesting the andrea -Bilateral carotid Doppler ultrasound shows less than 50% diameter stenosis in the right and left internal carotid artery -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 There is involvement of the lateral aspect of right temporal lobe. Large remote pontine infarction noted. No indication of recent intracranial hemorrhage or mass lesion. -Lipitor, aspirin -Keppra -Aspiration/seizure precautions -Continue home Prozac -PT/OT/ST consulted -Neurochecks per protocol Cardiac: h/o HTN -Cardiology consulted, appreciate recommendations -Blood pressure monitoring per protocol -Antihypertensive regimen: Atenolol, Lozol, lisinopril -Echocardiogram shows LVEF 55%, mild diastolic dysfunction no PFO -BELLE pending per neurology recs Respiratory: NAD -CCM/ pulm consulted for dyspnea, appreciate recommendations -Supplemental oxygen as needed -Pulmonary hygiene -SPO2 monitoring GI: S/p PEG tube placement -24 hours +1285 mL -PPI -NTR consulted for tube feedings -BR: Senna : Slight hyponatremia, h/o urinary retention/obstruction -Presented with indwelling catheter which was exchanged -Monitor intake and output -Renally dose medications -Avoid nephrotoxic medications -Repeat magnesium -Trend BMP ID: NAD -Monitor WBC and temperature curve Endo: h/o DM -Avoid hypoglycemia -SSI -Accu-Cheks q. every 6 -Hemoglobin A1c 8 Heme: ? Hypercoagulable state -CTA chest and abdomen pending per neurology recommendation -Trend CBC -Transfuse hemoglobin less than 7 -SCDs to BLE while in bed #Advance care planning Disease education conducted, care plan discussed, diagnoses discussed, prognosis discussed, patient is full code, patient brother Fabian acknowledges understanding and agree with care plan, +30 minutes. History Interval history: Patient seen and examined, clinically unchanged. No new event reported by nursing staff. Hospitalist Physical - Physical exam Narrative exam: General: No Apparent Distress HEENT: Positive: Mucus Membranes Dry, intermittent tracks Neck: Positive: trachea midline Cardiac: Positive: Reg Rate and Rhythm Lungs: Positive: Normal Breath Sounds Neuro: Positive: Other (Hemiparesis), non verbal. locked in appearance. does not follow commands. opens eyes but not purposefully following commands. Abdomen: Positive: Soft Skin: Negative: Rash, Suspicious Lesions, Ulceration Extremities: Present: upper extr. pulses. Absent: edema - Constitutional Vitals: Temp Pulse Resp BP Pulse Ox 98.0 F 97 H 18 106/82 100 11/01/21 07:39 11/01/21 07:39 11/01/21 04:38 11/01/21 07:39 11/01/21 07:39 General appearance: Present: no acute distress Results - Labs CBC & Chem 7: 10/24/21 05:00 10/28/21 03:40 Labs: Laboratory Last Values WBC 6.4 K/mm3 (4.5-11.0) 10/24/21 05:00 RBC 4.59 M/mm3 (3.65-5.03) 10/24/21 05:00 Hgb 12.7 gm/dl (11.8-15.2) 10/24/21 05:00 Hct 37.7 % (35.5-45.6) 10/24/21 05:00 MCV 82 fl (84-94) L 10/24/21 05:00 MCH 28 pg (28-32) 10/24/21 05:00 MCHC 34 % (32-34) 10/24/21 05:00 RDW 14.1 % (13.2-15.2) 10/24/21 05:00 Plt Count 222 K/mm3 (140-440) 10/24/21 05:00 Lymph % (Auto) 29.6 % (13.4-35.0) 10/22/21 16:00 Liberty % (Auto) 11.8 % (0.0-7.3) H 10/22/21 16:00 Eos % (Auto) 1.3 % (0.0-4.3) 10/22/21 16:00 Baso % (Auto) 0.4 % (0.0-1.8) 10/22/21 16:00 Lymph # (Auto) 2.4 K/mm3 (1.2-5.4) 10/22/21 16:00 Liberty # (Auto) 1.0 K/mm3 (0.0-0.8) H 10/22/21 16:00 Eos # (Auto) 0.1 K/mm3 (0.0-0.4) 10/22/21 16:00 Baso # (Auto) 0.0 K/mm3 (0.0-0.1) 10/22/21 16:00 Seg Neutrophils % 56.9 % (40.0-70.0) 10/22/21 16:00 Seg Neutrophils # 4.7 K/mm3 (1.8-7.7) 10/22/21 16:00 PT 14.8 Sec. (12.2-14.9) 10/22/21 16:00 INR 1.04 (0.87-1.13) 10/22/21 16:00 APTT 28.1 Sec. (24.2-36.6) 10/22/21 16:00 Sodium 137 mmol/L (137-145) 10/28/21 03:40 Potassium 4.2 mmol/L (3.6-5.0) 10/28/21 03:40 Chloride 97.1 mmol/L (98-107) L 10/28/21 03:40 Carbon Dioxide 29 mmol/L (22-30) 10/28/21 03:40 Anion Gap 15 mmol/L 10/28/21 03:40 BUN 14 mg/dL (9-20) 10/28/21 03:40 Creatinine 0.8 mg/dL (0.8-1.3) 10/28/21 03:40 Estimated GFR > 60 ml/min 10/28/21 03:40 BUN/Creatinine Ratio 18 % 10/28/21 03:40 Glucose 127 mg/dL (75-100) H 10/28/21 03:40 POC Glucose 188 mg/dL (70-105) H 11/01/21 05:57 Hemoglobin A1c 8.0 % (4-6) H 10/24/21 10:16 Calcium 10.1 mg/dL (8.4-10.2) 10/28/21 03:40 Phosphorus 4.20 mg/dL (2.5-4.5) 10/27/21 04:39 Magnesium 1.90 mg/dL (1.7-2.3) 10/27/21 04:39 Total Bilirubin 0.50 mg/dL (0.1-1.2) 10/22/21 16:00 AST 24 units/L (5-40) 10/22/21 16:00 ALT 28 units/L (7-56) 10/22/21 16:00 Alkaline Phosphatase 102 units/L (35-129) 10/22/21 16:00 Total Protein 6.9 g/dL (6.3-8.2) 10/22/21 16:00 Albumin 4.3 g/dL (3.9-5) 10/22/21 16:00 Albumin/Globulin Ratio 1.7 % 10/22/21 16:00 Triglycerides 85 mg/dL (2-149) 10/23/21 12:33 Cholesterol 148 mg/dL (50-199) 10/23/21 12:33 LDL Cholesterol Direct 86 mg/dL (50-130) 10/23/21 12:33 HDL Cholesterol 44 mg/dL (40-59) 10/23/21 12:33 Cholesterol/HDL Ratio 3.36 % 10/23/21 12:33 TSH 2.020 mlU/mL (0.270-4.200) 10/24/21 10:16 Free T4 0.88 ng/dL (0.76-1.46) 10/24/21 10:16 Urine Color Yellow (Yellow) 10/23/21 08:49 Urine Turbidity Clear (Clear) 10/23/21 08:49 Urine pH 6.5 (5.0-7.0) 10/23/21 08:49 Ur Specific [place] 1.005 (1.003-1.030) 10/23/21 08:49 Urine Protein 30 mg/dl mg/dL (Negative) 10/23/21 08:49 Urine Glucose (UA) Negative mg/dL (Negative) 10/23/21 08:49 Urine Ketones Negative mg/dL (Negative) 10/23/21 08:49 Urine Blood Moderate (Negative) A 10/23/21 08:49 Urine Nitrite Negative (Negative) 10/23/21 08:49 Ur Reducing Substances Not Reportable 10/23/21 08:49 Urine Bilirubin Negative (Negative) 10/23/21 08:49 Urine Ictotest Not Reportable 10/23/21 08:49 Urine Urobilinogen < 2.0 mg/dL (<2.0) 10/23/21 08:49 Ur Leukocyte Esterase Moderate (Negative) 10/23/21 08:49 Urine WBC (Auto) 28.0 /HPF (0.0-6.0) H 10/23/21 08:49 Urine RBC (Auto) 27.0 /HPF (0.0-6.0) 10/23/21 08:49 U Epithel Cells (Auto) 14.0 /HPF (0-13.0) H 10/23/21 08:49 Hyaline Casts 1 /LPF 10/23/21 08:49 Urine Mucus Few /HPF 10/23/21 08:49 Coronavirus (PCR) Negative (Negative) 10/30/21 Unknown Harden/IV: Voiding Method Indwelling Catheter Active Medications - Current Medications Current Medications: Generic Name Dose Route Start Last Admin Trade Name Freq PRN Reason Stop Dose Admin Acetaminophen 650 mg 10/22/21 16:19 10/28/21 22:11 Acetaminophen 325 Mg Tab PO 650 mg Q4H PRN Administration Pain, Mild (1-3) Albuterol 2.5 mg 10/22/21 16:19 Albuterol 2.5 Mg/3 Ml Nebu IH Q3HRT PRN Shortness Of Breath Aspirin 325 mg 10/23/21 10:00 10/31/21 10:50 Aspirin 325 Mg Tab PO 325 mg QDAY NEO Administration Atenolol 50 mg 10/24/21 10:00 10/31/21 10:50 Atenolol 50 Mg Tab FEEDTUBE 50 mg QDAY NEO Administration Atorvastatin Calcium 80 mg 10/24/21 22:00 10/31/21 21:18 Atorvastatin 40 Mg Tab FEEDTUBE 80 mg QHS NEO Administration Bisacodyl 10 mg 10/22/21 16:19 Bisacodyl 10 Mg Rect Supp MA QDAY PRN Constipation Dextrose 50 ml 10/22/21 17:23 Dextrose 50% In Water (25gm) 50 Ml Syringe IV Q30MIN PRN Hypoglycemia Protocol Fluoxetine HCl 10 mg 10/24/21 10:00 10/31/21 10:51 Fluoxetine 20 Mg/5 Ml Oral Liqd FEEDTUBE 10 mg QDAY NEO Administration Heparin Sodium (Porcine) 5,000 unit 10/22/21 22:00 10/31/21 21:18 Heparin 5,000 Unit/1 Ml Vial SUB-Q 5,000 unit Q12HR NEO Administration Ceftriaxone Sodium 1 gm in 50 mls @ 100 mls/hr 10/29/21 11:00 10/31/21 10:50 Rocephin/Ns 1 Gm/50 Ml IV 11/01/21 10:59 100 mls/hr Q24H NEO Administration Protocol Indapamide 5 mg 10/24/21 10:00 10/31/21 10:50 Indapamide 2.5 Mg Tab FEEDTUBE 5 mg QDAY NEO Administration Insulin Human Lispro 0 unit 10/24/21 12:00 11/01/21 06:02 Insulin Lispro 100 Unit/Ml SUB-Q 2 unit Q6HR NEO Administration Protocol Lansoprazole 30 mg 10/23/21 18:00 10/31/21 17:53 Lansoprazole 30 Mg Solutab FEEDTUBE 30 mg QPM NEO Administration Levetiracetam 250 mg 10/24/21 10:00 10/31/21 21:18 Levetiracetam 500 Mg/5 Ml Oral Liqd FEEDTUBE 250 mg BID NEO Administration Lisinopril 5 mg 10/24/21 10:00 10/31/21 10:50 Lisinopril 5 Mg Tab FEEDTUBE 5 mg QDAY NEO Administration Lorazepam 1 mg 10/25/21 10:46 10/27/21 12:35 Lorazepam 2 Mg/Ml Vial IV 1 mg ONCE PRN Administration Prior to MRI Magnesium Hydroxide 30 ml 10/22/21 16:19 Magnesium Hydroxide (Mom) Oral Liqd Udc PO Q4H PRN Constipation Ondansetron HCl 4 mg 10/22/21 16:19 Ondansetron 4 Mg/2 Ml Inj IV Q8H PRN Nausea And Vomiting Oxycodone/Acetaminophen 1 tab 10/22/21 16:19 10/30/21 14:18 Oxycodone /Acetaminophen 5-325mg Tab PO 1 tab Q12H PRN Administration Pain, Moderate (4-6) Senna 8.8 mg 10/27/21 22:00 10/31/21 21:20 Sennosides Oral Liqd 8.8 Mg/5 Ml Oral Liqd FEEDTUBE 8.8 mg QHS NEO Administration Sodium Chloride 10 ml 10/22/21 16:19 10/29/21 21:44 Sodium Chloride 0.9% 10 Ml Flush Syringe IV 10 ml PRN PRN Administration LINE FLUSH Nutrition/Malnutrition Assess - Dietary Evaluation Nutrition/Malnutrition Findings: Nutrition Notes Start: 10/23/21 13:01 Freq: Status: Active Protocol: Document 10/26/21 11:40 JIM (Rec: 10/26/21 12:11 JIM [id number]) Nutrition Notes Initial or Follow up Brief Note Current Diagnosis Diabetes,Hypertension,Stroke Other Pertinent Diagnosis Dysphagia, L-Hemiparesis, Debility. Current Diet TF-Glucerna 1.2 Tremayne @ 70 ml/hr (since D 10/23). Height 5 ft 11 in Weight 90.718 kg [place] Body Weight (kg) 78.18 BMI 27.8 Intake Prior to Admission Good Weight change and time frame Pt states having loss, unitentionally, between 2 and 13 lb recently. No body weight change reported in 2 days. Weight Status Overweight Subjective/Other Information RD consult for routine F/U on TF tolerance/continuation. TF continues as prescribed, no further information on tolerance available at the time, will assess at F/U. PILING CUTTER note on 10/26/21 10:03: The patient is not an appropriate candidate for PO at this time due an inability to arouse him. Will discontinue services. An alternative method of nutrition is appropriate. No further recommendations. - END OF NOTE Pt is on Room Air, O2 saturation @ 100%, according to Physical Assessment History notes. Pt is swallow impaired, according to Physical Assessment History notes. Pt has PEG tube in place poa, according to History & Physical notes. Pt has missing teet, according to Physical Assessment History notes. Percent of energy/protein needs met: Prescribed TF-Glucerna 1.2 Trem[place] @ 70 ml/hr provides for energy/protein needs (2,016 Kcal/111 g) during LOS, 95% Kcal; 111% AA. #1 Nutrition Diagnosis Swallowing difficulty Comments: PILING CUTTER note on 10/26/21 10:03: The patient is not an appropriate candidate for PO at this time due an inability to arouse him. Will discontinue services. An alternative method of nutrition is appropriate. No further recommendations. - END OF NOTE Diagnosis Progress(for reassessment Continues documentation) Is patient on ventilator? No Is Patient Ambulatory and/or Out of Bed No REE-([facility]-confined to bed) 2847.456 Calculation Used for Recommendations [facility] Additional Notes Protein: 0.8-1 g/Kg ABW; 73-91 g/day. Fluids: 1 ml/Kcal, or as per MD. Nutrition Intervention Nutrition Support: Continue TF-Glucerna 1.2 Trem[place]ne @ 70 ml/hr. Flush: 100 ml water Q 4 hr, or as per MD. Kcal 2,016 Protein (gm) 101 Carbohydrates (gm) 192 Fat (gm) 101 Fluid (mL) 1,352 Fiber (gm) 27 % RDI: 95% Kcal; 111% AA. Goal #1 Provide at least 75% of energy /protein needs through Enteral Feeding during LOS. Follow-Up By: 11/02/21 Additional Comments Continue monitoring TF tolerance and BM.
--- NOTE | 2021-11-01 10:38 | Progress Note ---
Assessment and Plan Right cerebrovascular accident with left hemiparesis Hypertension DM II Dysarthria Oropharyngeal dysphagia Debility Supportive care Discussed with primary service Discharge planning - prn supplemental oxygen to keep O2 sats > 90% - prn bronchodilators (DULCE) with pulm hygiene per RT - continue mobility per facility protocol, off loading and frequent turning to prevent pressure ulcers - PT/OT as tolerated -Enteric nutrtional support, at goal. Aspiration precautions - continue accuchecks with glycemic control per SSI for target blood glucose < 180 mg/dL - VTE prophylaxis - Flu & pneumovax per protocol - prn analgesia per pain score - continue other care per attending / other consultants Subjective Date of service: 11/01/21 Principal diagnosis: R. CVA with L. hemiparesis; HTN; DM II; Dysarthria; Oropharyngeal dysphagia Interval history: Patient is seen today for: Right cerebrovascular accident with left hemiparesis; Hypertension; DM II; Dysarthria; Oropharyngeal dysphagia; Debility Seen and examined at bedside; 24hour events reviewed; nursing and respiratory care staff consulted; no adverse overnight events reported to me; resting peacefully in bed; appears to track voice. Remains aphasic, no fevers, no vomiting reported. Objective Vital Signs - 12hr 11/01/21 11/01/21 11/01/21 00:06 04:38 07:31 Temperature 97.6 F 98.7 F Pulse Rate 94 H 99 H Respiratory 18 18 Rate Blood Pressure 122/84 106/67 O2 Sat by Pulse 98 98 97 Oximetry 11/01/21 07:39 Temperature 98.0 F Pulse Rate 97 H Respiratory Rate Blood Pressure 106/82 O2 Sat by Pulse 100 Oximetry Constitutional: no acute distress, alert, other (appears to track voice) Eyes: non-icteric ENT: oropharynx moist Neck: supple, no lymphadenopathy Effort: normal Ascultation: Bilateral: clear Percussion: Bilateral: not dull Cardiovascular: regular rate and rhythm, other (S1,S2) Gastrointestinal: normoactive bowel sounds, soft, non-tender, non-distended, other (PEG tube) Integumentary: normal Extremities: no cyanosis, no edema, pulses normal, no ischemia or petechiae Neurologic: pupils equal and round, other (left hemiplegia ) Psychiatric: other (unable to asses due to neurological status) CBC and BMP: 10/24/21 05:00 10/28/21 03:40 ABG, PT/INR, D-dimer: PT/INR, D-dimer PT 14.8 Sec. (12.2-14.9) 10/22/21 16:00 INR 1.04 (0.87-1.13) 10/22/21 16:00 Abnormal lab findings: Abnormal Labs 10/22/21 10/22/21 10/22/21 16:00 16:00 22:44 MCV 83 L MCH 27 L Sterling % (Auto) 11.8 H Sterling # (Auto) 1.0 H Sodium Potassium Chloride Creatinine 0.6 L Glucose 175 H POC Glucose 115 H Hemoglobin A1c Magnesium Urine Blood Urine WBC (Auto) U Epithel Cells (Auto) 10/23/21 10/23/21 10/23/21 07:28 08:49 11:31 MCV MCH Sterling % (Auto) Sterling # (Auto) Sodium Potassium Chloride Creatinine Glucose POC Glucose 129 H 136 H Hemoglobin A1c Magnesium Urine Blood Moderate A Urine WBC (Auto) 28.0 H U Epithel Cells (Auto) 14.0 H 10/23/21 10/24/21 10/24/21 17:59 00:01 05:00 MCV 82 L MCH Sterling % (Auto) Sterling # (Auto) Sodium Potassium Chloride Creatinine Glucose POC Glucose 109 H 111 H Hemoglobin A1c Magnesium Urine Blood Urine WBC (Auto) U Epithel Cells (Auto) 10/24/21 10/24/21 10/24/21 05:00 07:57 10:16 MCV MCH Sterling % (Auto) Sterling # (Auto) Sodium Potassium 3.5 L Chloride Creatinine 0.6 L Glucose 134 H POC Glucose 132 H Hemoglobin A1c 8.0 H Magnesium Urine Blood Urine WBC (Auto) U Epithel Cells (Auto) 10/24/21 10/24/21 10/25/21 16:26 20:57 04:47 MCV MCH Sterling % (Auto) Sterling # (Auto) Sodium Potassium Chloride Creatinine Glucose POC Glucose 109 H 145 H 159 H Hemoglobin A1c Magnesium Urine Blood Urine WBC (Auto) U Epithel Cells (Auto) 10/25/21 10/25/21 10/25/21 07:49 11:19 17:49 MCV MCH Sterling % (Auto) Sterling # (Auto) Sodium Potassium Chloride Creatinine Glucose POC Glucose 147 H 164 H 141 H Hemoglobin A1c Magnesium Urine Blood Urine WBC (Auto) U Epithel Cells (Auto) 10/25/21 10/26/21 10/26/21 20:54 04:56 07:23 MCV MCH Sterling % (Auto) Sterling # (Auto) Sodium Potassium Chloride Creatinine 0.7 L Glucose 165 H POC Glucose 136 H 172 H Hemoglobin A1c Magnesium 1.60 L Urine Blood Urine WBC (Auto) U Epithel Cells (Auto) 10/26/21 10/26/21 10/26/21 11:21 17:21 23:38 MCV MCH Sterling % (Auto) Sterling # (Auto) Sodium Potassium Chloride Creatinine Glucose POC Glucose 168 H 164 H 147 H Hemoglobin A1c Magnesium Urine Blood Urine WBC (Auto) U Epithel Cells (Auto) 10/27/21 10/27/21 10/27/21 04:39 07:32 11:33 MCV MCH Sterling % (Auto) Sterling # (Auto) Sodium 135 L Potassium Chloride 95.4 L Creatinine 0.6 L Glucose 156 H POC Glucose 137 H 180 H Hemoglobin A1c Magnesium Urine Blood Urine WBC (Auto) U Epithel Cells (Auto) 10/27/21 10/27/21 10/28/21 16:18 23:55 03:40 MCV MCH [place] % (Auto) Sterling # (Auto) Sodium Potassium Chloride 97.1 L Creatinine Glucose 127 H POC Glucose 130 H 123 H Hemoglobin A1c Magnesium Urine Blood Urine WBC (Auto) U Epithel Cells (Auto) 10/28/21 10/28/21 10/28/21 08:10 12:03 17:42 MCV MCH Sterling % (Auto) Sterling # (Auto) Sodium Potassium Chloride Creatinine Glucose POC Glucose 142 H 173 H 145 H Hemoglobin A1c Magnesium Urine Blood Urine WBC (Auto) U Epithel Cells (Auto) 10/28/21 10/29/21 10/29/21 23:31 05:35 11:48 MCV MCH Sterling % (Auto) Sterling # (Auto) Sodium Potassium Chloride Creatinine Glucose POC Glucose 181 H 225 H 166 H Hemoglobin A1c Magnesium Urine Blood Urine WBC (Auto) U Epithel Cells (Auto) 10/29/21 10/30/21 10/30/21 16:23 00:19 05:23 MCV MCH Sterling % (Auto) Sterling # (Auto) Sodium Potassium Chloride Creatinine Glucose POC Glucose 167 H 157 H 175 H Hemoglobin A1c Magnesium Urine Blood Urine WBC (Auto) U Epithel Cells (Auto) 10/30/21 10/30/21 10/31/21 13:58 23:07 05:56 MCV MCH Sterling % (Auto) Sterling # (Auto) Sodium Potassium Chloride Creatinine Glucose POC Glucose 201 H 171 H 215 H Hemoglobin A1c Magnesium Urine Blood Urine WBC (Auto) U Epithel Cells (Auto) 10/31/21 10/31/21 11/01/21 12:25 16:17 00:06 MCV MCH Sterling % (Auto) [place] # (Auto) Sodium Potassium Chloride Creatinine Glucose POC Glucose 230 H 222 H 186 H Hemoglobin A1c Magnesium Urine Blood Urine WBC (Auto) U Epithel Cells (Auto) 11/01/21 05:57 MCV MCH [place] % (Auto) [place] # (Auto) Sodium Potassium Chloride Creatinine Glucose POC Glucose 188 H Hemoglobin A1c Magnesium Urine Blood Urine WBC (Auto) U Epithel Cells (Auto) Allied health notes reviewed: nursing
[2021-11-01] MEDS: levETIRAcetam 500 MG/5 ML ORAL LIQD FEEDTUBE SCH ×2 (10:43→21:11)
[2021-11-01] MEDS: FLUoxetine 20 MG/5 ML ORAL LIQD FEEDTUBE SCH (10:43)
[2021-11-01] MEDS: LISINOPRIL 5 MG TAB FEEDTUBE SCH (10:43)
[2021-11-01] MEDS: ASPIRIN 325 MG TAB PO SCH (10:43)
[2021-11-01] MEDS: HEPARIN 5,000 UNIT/1 ML VIAL SUB-Q SCH ×2 (10:43→22:09)
[2021-11-01] MEDS: atenoloL 50 MG TAB FEEDTUBE SCH (10:43)
[2021-11-01] MEDS: INDAPAMIDE 2.5 MG TAB FEEDTUBE SCH (10:43)
[2021-11-01] MEDS: LANSOPRAZOLE 30 MG SOLUTAB FEEDTUBE SCH (17:07)
[2021-11-01] MEDS: SENNOSIDES ORAL LIQD 8.8 MG/5 ML ORAL LIQD FEEDTUBE SCH (22:08)
[2021-11-02] MEDS: INSULIN LISPRO 100 UNIT/ML SUB-Q SCH ×4 (00:33→18:45)
--- NOTE | 2021-11-02 09:15 | Progress Note ---
Assessment and Plan Assessment and plan: his is a 55-year-old with HTN, DM, CVA complicated by dysphagia s/p PEG tube placement, dysarthria, left hemiparesis and debility who presented to the emergency department on 10/22 via air ambulance for continued treatment. Patient was admitted to the [facility] and initiated on CIWA protocol with consults to [facility], neurology will need a cardiology. Hospital Course to Date: 10/23: Nonverbal, open eyes spontaneously, does not follow any commands with LUE paralysis/contraction. on RA, VSS. Echo and Neurology consult pending. PT/OT/Speech also consulted. PEG-tube noted, nutrition/director craft center consulted for TF management. Pulmonary is also following. Patient presented with a harden cat heter, per record history of urinary retention. Harden cath exchanged, UA pending. 10/24: SEKOU overnight. Neurology recommendations noted, orders placed for MRI brain and CTA head/Neck. Continue PT/OT/Speech, home meds resumed, and enteral nutrition initiated. UA noted, patient is asymptomatic with no leukocytosis, continue to monitor, urine culture pending. 10/25: Remains stable, mentation unchanged. CTA head/Neck noted, MRI brain/MRA head/Neck pending. Awaiting Neurology final recommendations. Continue current supportive measures. 10/26: Patient will have a BELLE, cardiology consulted per neurology recommendations, MRI/MRA/MRV pending no acute events reported overnight. Magnesium repleted. 10/27: Unable to complete BELLE as consent was not able to be obtained, [facility] contacted [facility] who declined the patient is a candidate, MRI brain and CTA chest and pelvis pending. No acute events reported overnight. 10/28: No acute overnight events. CTA chest and abdomen completed were negative studies. BELLE completed this AM, no acute findings noted. MR brain shows subacute right MCA infarction superimposed on chronic infarction. There is involvement of the lateral aspect of right temporal lobe. Large remote pontine infarction noted. No indication of recent intracranial hemorrhage or mass lesion. CM currently working on placement to SNF. Can transfer patient to floor bed. Attempted to call number in chart to update family. no response. 10/29: D/w brother Fabian Waldron [phone]. Updated him on patient clinical status. Discussed overall poor chance of regaining baseline function and current "locked in" appearance due to territory of stroke. I also discussed options of home health care if the family can support the patient versus hospice versus SNF. I also updated Fabian that thus far facilities have denied the patient due to him being out of network. He stated he would speak with his brother Tyrell regarding these updates and would also be coming to the hospital tomorrow to discuss the family's goals for the patient. Patient likely needs DOAC. Will await neuro recs re: anticoagulation. 10/30: Neurology recommends against doac. Will obtain covid pcr. Plan Family discussion today this AM with patient brother Fabian this AM re: GOK I discussed with the patient's brother, Fabian regarding goals of care as well as the events of the patient's hospitalization. He was very much adamant that the patient go to rehab/snf and did not think hospice was the right option for his brother. I explained that thus far the patient has been declined at more than 10 facilities in the [facility] area. He stated that he would be willing to help fund him should that be an issue. I notified the case packer about my conversation who stated they would speak with Mr Peralta. 10/31: Patient tolerating tube feed, clinically unchanged, PT recommendation is as noted below. WIll have case management consider a Personal assisted also. PER PT Pt presents with poor rehab potential due to CVA x4 months ago with L UE and LE hypertonicity, contractures, poor isolated movements, inability to follow instructions, Left side neglect, significant impairments of coordination and strength. Pt is total assist with mobilities and high risk for falls. Recommend SNF placement for 24hr care. If pt d/c home with family, will need hospital bed, cecil lift for potential transfers. Due to pt's involuntary movements and abnormal tone, pt is high risk for falling out of a w/c. If pt d/c home, recommend 1 PT visit for pt/family training re: positioning, bed mobility. Pt is not a candidate for skilled PT at this time. Pt was left in semi fowlers, needs in reach, all lines intact, no distress, pt with involuntary movements at times. 11/01: Continue supportive care. We will plan on further discussion with the family on discharge planning anticipated in a day or 2 following this history arrangements to be in place. We will follow-up with the pending correction facility to see if they accept him. 11/02: Patient seen and examined, discharge planning, continue supportive care, wound management, rehab. Assessment and Plan: Neuro: Recent CVA complicated by dysphagia/dysarthria/left hemiparesis/debility, h/o depression, seizure disorder -Neurology and CCM consulted, appreciate recommendations -Reorientation as needed -Maintain sleep-wake cycle -aspiration/seizure precautions -As needed analgesia -CT head shows old moderately sized MCA infarct the right involving the inferior frontal peritracheal regions, gangliocapsular Regions and Right Temporal Lobe, prominent Kuehner seen in the left anterior andrea, small scattered lacunar infarcts suggesting the andrea -Bilateral carotid Doppler ultrasound shows less than 50% diameter stenosis in the right and left internal carotid artery -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 There is involvement of the lateral aspect of right temporal lobe. Large remote pontine infarction noted. No indication of recent intracranial hemorrhage or mass lesion. -Lipitor, aspirin -Keppra -Aspiration/seizure precautions -Continue home Prozac -PT/OT/ST consulted -Neurochecks per protocol Cardiac: h/o HTN -Cardiology consulted, appreciate recommendations -Blood pressure monitoring per protocol -Antihypertensive regimen: Atenolol, Lozol, lisinopril -Echocardiogram shows LVEF 55%, mild diastolic dysfunction no PFO -BELLE pending per neurology recs Respiratory: NAD -CCM/ pulm consulted for dyspnea, appreciate recommendations -Supplemental oxygen as needed -Pulmonary hygiene -SPO2 monitoring GI: S/p PEG tube placement -24 hours +1285 mL -PPI -NTR consulted for tube feedings -BR: Senna : Slight hyponatremia, h/o urinary retention/obstruction -Presented with indwelling catheter which was exchanged -Monitor intake and output -Renally dose medications -Avoid nephrotoxic medications -Repeat magnesium -Trend BMP ID: NAD -Monitor WBC and temperature curve Endo: h/o DM -Avoid hypoglycemia -SSI -Accu-Cheks q. every 6 -Hemoglobin A1c 8 Heme: ? Hypercoagulable state -CTA chest and abdomen pending per neurology recommendation -Trend CBC -Transfuse hemoglobin less than 7 -SCDs to BLE while in bed #Advance care planning Disease education conducted, care plan discussed, diagnoses discussed, prognosis discussed, patient is full code, patient brother Fabian acknowledges understanding and agree with care plan, +30 minutes. History Interval history: Patient seen and examined, clinically unchanged. No new event reported by nursing staff. Hospitalist Physical - Physical exam Narrative exam: General: No Apparent Distress HEENT: Positive: Mucus Membranes Dry, intermittent tracks, SLEEPING BUT AROUSABLE Neck: Positive: trachea midline Cardiac: Positive: Reg Rate and Rhythm Lungs: Positive: Normal Breath Sounds Neuro: Positive: Other (Hemiparesis), non verbal. locked in appearance. does not follow commands. opens eyes but not purposefully following commands. Abdomen: Positive: Soft Skin: Negative: Rash, Suspicious Lesions, Ulceration Extremities: Present: upper extr. pulses. Absent: edema - Constitutional Vitals: Temp Pulse Resp BP Pulse Ox 97.6 F 103 H 20 114/67 100 11/02/21 05:01 11/02/21 05:01 11/02/21 05:01 11/02/21 05:01 11/02/21 05:01 General appearance: Present: no acute distress Results - Labs CBC & Chem 7: 10/24/21 05:00 10/28/21 03:40 Labs: Laboratory Last Values WBC 6.4 K/mm3 (4.5-11.0) 10/24/21 05:00 RBC 4.59 M/mm3 (3.65-5.03) 10/24/21 05:00 Hgb 12.7 gm/dl (11.8-15.2) 10/24/21 05:00 Hct 37.7 % (35.5-45.6) 10/24/21 05:00 MCV 82 fl (84-94) L 10/24/21 05:00 MCH 28 pg (28-32) 10/24/21 05:00 MCHC 34 % (32-34) 10/24/21 05:00 RDW 14.1 % (13.2-15.2) 10/24/21 05:00 Plt Count 222 K/mm3 (140-440) 10/24/21 05:00 Lymph % (Auto) 29.6 % (13.4-35.0) 10/22/21 16:00 Chambers % (Auto) 11.8 % (0.0-7.3) H 10/22/21 16:00 Eos % (Auto) 1.3 % (0.0-4.3) 10/22/21 16:00 Baso % (Auto) 0.4 % (0.0-1.8) 10/22/21 16:00 Lymph # (Auto) 2.4 K/mm3 (1.2-5.4) 10/22/21 16:00 Chambers # (Auto) 1.0 K/mm3 (0.0-0.8) H 10/22/21 16:00 Eos # (Auto) 0.1 K/mm3 (0.0-0.4) 10/22/21 16:00 Baso # (Auto) 0.0 K/mm3 (0.0-0.1) 10/22/21 16:00 Seg Neutrophils % 56.9 % (40.0-70.0) 10/22/21 16:00 Seg Neutrophils # 4.7 K/mm3 (1.8-7.7) 10/22/21 16:00 PT 14.8 Sec. (12.2-14.9) 10/22/21 16:00 INR 1.04 (0.87-1.13) 10/22/21 16:00 APTT 28.1 Sec. (24.2-36.6) 10/22/21 16:00 Sodium 137 mmol/L (137-145) 10/28/21 03:40 Potassium 4.2 mmol/L (3.6-5.0) 10/28/21 03:40 Chloride 97.1 mmol/L (98-107) L 10/28/21 03:40 Carbon Dioxide 29 mmol/L (22-30) 10/28/21 03:40 Anion Gap 15 mmol/L 10/28/21 03:40 BUN 14 mg/dL (9-20) 10/28/21 03:40 Creatinine 0.8 mg/dL (0.8-1.3) 10/28/21 03:40 Estimated GFR > 60 ml/min 10/28/21 03:40 BUN/Creatinine Ratio 18 % 10/28/21 03:40 Glucose 127 mg/dL (75-100) H 10/28/21 03:40 POC Glucose 187 mg/dL (70-105) H 11/02/21 06:36 Hemoglobin A1c 8.0 % (4-6) H 10/24/21 10:16 Calcium 10.1 mg/dL (8.4-10.2) 10/28/21 03:40 Phosphorus 4.20 mg/dL (2.5-4.5) 10/27/21 04:39 Magnesium 1.90 mg/dL (1.7-2.3) 10/27/21 04:39 Total Bilirubin 0.50 mg/dL (0.1-1.2) 10/22/21 16:00 AST 24 units/L (5-40) 10/22/21 16:00 ALT 28 units/L (7-56) 10/22/21 16:00 Alkaline Phosphatase 102 units/L (35-129) 10/22/21 16:00 Total Protein 6.9 g/dL (6.3-8.2) 10/22/21 16:00 Albumin 4.3 g/dL (3.9-5) 10/22/21 16:00 Albumin/Globulin Ratio 1.7 % 10/22/21 16:00 Triglycerides 85 mg/dL (2-149) 10/23/21 12:33 Cholesterol 148 mg/dL (50-199) 10/23/21 12:33 LDL Cholesterol Direct 86 mg/dL (50-130) 10/23/21 12:33 HDL Cholesterol 44 mg/dL (40-59) 10/23/21 12:33 Cholesterol/HDL Ratio 3.36 % 10/23/21 12:33 TSH 2.020 mlU/mL (0.270-4.200) 10/24/21 10:16 Free T4 0.88 ng/dL (0.76-1.46) 10/24/21 10:16 Urine Color Yellow (Yellow) 10/23/21 08:49 Urine Turbidity Clear (Clear) 10/23/21 08:49 Urine pH 6.5 (5.0-7.0) 10/23/21 08:49 Ur Specific [place] 1.005 (1.003-1.030) 10/23/21 08:49 Urine Protein 30 mg/dl mg/dL (Negative) 10/23/21 08:49 Urine Glucose (UA) Negative mg/dL (Negative) 10/23/21 08:49 Urine Ketones Negative mg/dL (Negative) 10/23/21 08:49 Urine Blood Moderate (Negative) A 10/23/21 08:49 Urine Nitrite Negative (Negative) 10/23/21 08:49 Ur Reducing Substances Not Reportable 10/23/21 08:49 Urine Bilirubin Negative (Negative) 10/23/21 08:49 Urine Ictotest Not Reportable 10/23/21 08:49 Urine Urobilinogen < 2.0 mg/dL (<2.0) 10/23/21 08:49 Ur Leukocyte Esterase Moderate (Negative) 10/23/21 08:49 Urine WBC (Auto) 28.0 /HPF (0.0-6.0) H 10/23/21 08:49 Urine RBC (Auto) 27.0 /HPF (0.0-6.0) 10/23/21 08:49 U Epithel Cells (Auto) 14.0 /HPF (0-13.0) H 10/23/21 08:49 Hyaline Casts 1 /LPF 10/23/21 08:49 Urine Mucus Few /HPF 10/23/21 08:49 Coronavirus (PCR) Negative (Negative) 10/30/21 Unknown Harden/IV: Voiding Method Indwelling Catheter Active Medications - Current Medications Current Medications: Generic Name Dose Route Start Last Admin Trade Name Freq PRN Reason Stop Dose Admin Acetaminophen 650 mg 10/22/21 16:19 10/28/21 22:11 Acetaminophen 325 Mg Tab PO 650 mg Q4H PRN Administration Pain, Mild (1-3) Albuterol 2.5 mg 10/22/21 16:19 Albuterol 2.5 Mg/3 Ml Nebu IH Q3HRT PRN Shortness Of Breath Aspirin 325 mg 10/23/21 10:00 11/01/21 10:43 Aspirin 325 Mg Tab PO 325 mg QDAY NEO Administration Atenolol 50 mg 10/24/21 10:00 11/01/21 10:43 Atenolol 50 Mg Tab FEEDTUBE 50 mg QDAY NEO Administration Atorvastatin Calcium 80 mg 10/24/21 22:00 11/01/21 21:11 Atorvastatin 40 Mg Tab FEEDTUBE 80 mg QHS NEO Administration Bisacodyl 10 mg 10/22/21 16:19 Bisacodyl 10 Mg Rect Supp MD QDAY PRN Constipation Dextrose 50 ml 10/22/21 17:23 Dextrose 50% In Water (25gm) 50 Ml Syringe IV Q30MIN PRN Hypoglycemia Protocol Fluoxetine HCl 10 mg 07/23/22 10:00 11/01/21 10:43 Fluoxetine 20 Mg/5 Ml Oral Liqd FEEDTUBE 10 mg QDAY NEO Administration Heparin Sodium (Porcine) 5,000 unit 10/22/21 22:00 11/01/21 22:09 Heparin 5,000 Unit/1 Ml Vial SUB-Q 5,000 unit Q12HR NEO Administration Indapamide 5 mg 10/24/21 10:00 11/01/21 10:43 Indapamide 2.5 Mg Tab FEEDTUBE 5 mg QDAY NEO Administration Insulin Human Lispro 0 unit 10/24/21 12:00 11/02/21 06:47 Insulin Lispro 100 Unit/Ml SUB-Q 2 unit Q6HR NEO Administration Protocol Lansoprazole 30 mg 10/23/21 18:00 11/01/21 17:07 Lansoprazole 30 Mg Solutab FEEDTUBE 30 mg QPM NEO Administration Levetiracetam 250 mg 10/24/21 10:00 11/01/21 21:11 Levetiracetam 500 Mg/5 Ml Oral Liqd FEEDTUBE 250 mg BID NEO Administration Lisinopril 5 mg 10/24/21 10:00 11/01/21 10:43 Lisinopril 5 Mg Tab FEEDTUBE 5 mg QDAY NEO Administration Lorazepam 1 mg 10/25/21 10:46 10/27/21 12:35 Lorazepam 2 Mg/Ml Vial IV 1 mg ONCE PRN Administration Prior to MRI Magnesium Hydroxide 30 ml 10/22/21 16:19 Magnesium Hydroxide (Mom) Oral Liqd Udc PO Q4H PRN Constipation Ondansetron HCl 4 mg 10/22/21 16:19 Ondansetron 4 Mg/2 Ml Inj IV Q8H PRN Nausea And Vomiting Oxycodone/Acetaminophen 1 tab 10/22/21 16:19 10/30/21 14:18 Oxycodone /Acetaminophen 5-325mg Tab PO 1 tab Q12H PRN Administration Pain, Moderate (4-6) Senna 8.8 mg 10/27/21 22:00 11/01/21 22:08 Sennosides Oral Liqd 8.8 Mg/5 Ml Oral Liqd FEEDTUBE 8.8 mg QHS NEO Administration Sodium Chloride 10 ml 10/22/21 16:19 11/01/21 21:14 Sodium Chloride 0.9% 10 Ml Flush Syringe IV 10 ml PRN PRN Administration LINE FLUSH Nutrition/Malnutrition Assess - Dietary Evaluation Nutrition/Malnutrition Findings: Nutrition Notes Start: 10/23/21 13:01 Freq: Status: Active Protocol: Document 10/26/21 11:40 JIM (Rec: 10/26/21 12:11 JIM [id number]) Nutrition Notes Initial or Follow up Brief Note Current Diagnosis Diabetes,Hypertension,Stroke Other Pertinent Diagnosis Dysphagia, L-Hemiparesis, Debility. Current Diet TF-Glucerna 1.2 [place] @ 70 ml/hr (since D 10/23). Height 5 ft 11 in Weight 90.718 kg [place] Body Weight (kg) 78.18 BMI 27.8 Intake Prior to Admission Good Weight change and time frame Pt states having loss, unitentionally, between 2 and 13 lb recently. No body weight change reported in 2 days. Weight Status Overweight Subjective/Other Information RD consult for routine F/U on TF tolerance/continuation. TF continues as prescribed, no further information on tolerance available at the time, will assess at F/U. LIT[employer]ATION [employer]NER note on 10/26/21 10:03: The patient is not an appropriate candidate for PO at this time due an inability to arouse him. Will discontinue services. An alternative method of nutrition is appropriate. No further recommendations. - END OF NOTE Pt is on Room Air, O2 saturation @ 100%, according to Physical Assessment History notes. Pt is swallow impaired, according to Physical Assessment History notes. Pt has PEG tube in place poa, according to History & Physical notes. Pt has missing teet, according to Physical Assessment History notes. Percent of energy/protein needs met: Prescribed TF-Glucerna 1.2 [place] @ 70 ml/hr provides for energy/protein needs (2,016 Kcal/111 g) during LOS, 95% Kcal; 111% AA. #1 Nutrition Diagnosis Swallowing difficulty Comments: LITIGATION PARTNER note on 10/26/21 10:03: The patient is not an appropriate candidate for PO at this time due an inability to arouse him. Will discontinue services. An alternative method of nutrition is appropriate. No further recommendations. - END OF NOTE Diagnosis Progress(for reassessment Continues documentation) Is patient on ventilator? No Is Patient Ambulatory and/or Out of Bed No REE-(Uneeda-. Jeor-confined to bed) 8735.258 Calculation Used for Recommendations [facility] Additional Notes Protein: 0.8-1 g/Kg ABW; 73-91 g/day. Fluids: 1 ml/Kcal, or as per MD. Nutrition Intervention Nutrition Support: Continue TF-Glucerna 1.2 [place] @ 70 ml/hr. Flush: 100 ml water Q 4 hr, or as per MD. Kcal 2,016 Protein (gm) 101 Carbohydrates (gm) 192 Fat (gm) 101 Fluid (mL) 1,352 Fiber (gm) 27 % RDI: 95% Kcal; 111% AA. Goal #1 Provide at least 75% of energy /protein needs through Enteral Feeding during LOS. Follow-Up By: 11/02/21 Additional Comments Continue monitoring TF tolerance and BM.
[2021-11-02] MEDS: FLUoxetine 20 MG/5 ML ORAL LIQD FEEDTUBE SCH (10:30)
[2021-11-02] MEDS: levETIRAcetam 500 MG/5 ML ORAL LIQD FEEDTUBE SCH ×2 (10:30→22:15)
[2021-11-02] MEDS: LISINOPRIL 5 MG TAB FEEDTUBE SCH (10:30)
[2021-11-02] MEDS: ASPIRIN 325 MG TAB PO SCH (10:31)
[2021-11-02] MEDS: atenoloL 50 MG TAB FEEDTUBE SCH (10:31)
[2021-11-02] MEDS: HEPARIN 5,000 UNIT/1 ML VIAL SUB-Q SCH ×2 (10:31→22:16)
[2021-11-02] MEDS: INDAPAMIDE 2.5 MG TAB FEEDTUBE SCH (10:31)
[2021-11-02] MEDS ORDERED: SODIUM BICARBONATE 325 MG TAB FEEDTUBE PRN (12:45)
[2021-11-02] MEDS ORDERED: SIMPLE SYRUP 15 ML FEEDTUBE PRN ×2 (12:45)
[2021-11-02] MEDS: LANSOPRAZOLE 30 MG SOLUTAB FEEDTUBE SCH (18:45)
[2021-11-02] MEDS: SENNOSIDES ORAL LIQD 8.8 MG/5 ML ORAL LIQD FEEDTUBE SCH (22:17)
[2021-11-03] MEDS: INSULIN LISPRO 100 UNIT/ML SUB-Q SCH ×4 (00:25→17:33)
[2021-11-03] MEDS: atenoloL 50 MG TAB FEEDTUBE SCH (09:11)
[2021-11-03] MEDS: HEPARIN 5,000 UNIT/1 ML VIAL SUB-Q SCH ×2 (09:11→21:25)
[2021-11-03] MEDS: levETIRAcetam 500 MG/5 ML ORAL LIQD FEEDTUBE SCH ×2 (09:11→21:25)
[2021-11-03] MEDS: LISINOPRIL 5 MG TAB FEEDTUBE SCH (09:11)
[2021-11-03] MEDS: ASPIRIN 325 MG TAB PO SCH (09:11)
[2021-11-03] MEDS: FLUoxetine 20 MG/5 ML ORAL LIQD FEEDTUBE SCH (09:12)
[2021-11-03] MEDS: INDAPAMIDE 2.5 MG TAB FEEDTUBE SCH (09:12)
--- NOTE | 2021-11-03 09:34 | Progress Note ---
Assessment and Plan Assessment and plan: his is a 55-year-old with HTN, DM, CVA complicated by dysphagia s/p PEG tube placement, dysarthria, left hemiparesis and debility who presented to the emergency department on 10/22 via air ambulance for continued treatment. Patient was admitted to the [facility] and initiated on CIWA protocol with consults to [facility], neurology will need a cardiology. Hospital Course to Date: 10/23: Nonverbal, open eyes spontaneously, does not follow any commands with LUE paralysis/contraction. on RA, VSS. Echo and Neurology consult pending. PT/OT/Speech also consulted. PEG-tube noted, nutrition/veterinary anatomist consulted for TF management. Pulmonary is also following. Patient presented with a harden cat heter, per record history of urinary retention. Harden cath exchanged, UA pending. 10/24: SEKOU overnight. Neurology recommendations noted, orders placed for MRI brain and CTA head/Neck. Continue PT/OT/Speech, home meds resumed, and enteral nutrition initiated. UA noted, patient is asymptomatic with no leukocytosis, continue to monitor, urine culture pending. 10/25: Remains stable, mentation unchanged. CTA head/Neck noted, MRI brain/MRA head/Neck pending. Awaiting Neurology final recommendations. Continue current supportive measures. 10/26: Patient will have a BELLE, cardiology consulted per neurology recommendations, MRI/MRA/MRV pending no acute events reported overnight. Magnesium repleted. 10/27: Unable to complete BELLE as consent was not able to be obtained, [facility] contacted [facility] who declined the patient is a candidate, MRI brain and CTA chest and pelvis pending. No acute events reported overnight. 10/28: No acute overnight events. CTA chest and abdomen completed were negative studies. BELLE completed this AM, no acute findings noted. MR brain shows subacute right MCA infarction superimposed on chronic infarction. There is involvement of the lateral aspect of right temporal lobe. Large remote pontine infarction noted. No indication of recent intracranial hemorrhage or mass lesion. CM currently working on placement to SNF. Can transfer patient to floor bed. Attempted to call number in chart to update family. no response. 10/29: D/w brother Fabian Waldron [phone]. Updated him on patient clinical status. Discussed overall poor chance of regaining baseline function and current "locked in" appearance due to territory of stroke. I also discussed options of home health care if the family can support the patient versus hospice versus SNF. I also updated Fabian that thus far facilities have denied the patient due to him being out of network. He stated he would speak with his brother Tyrell regarding these updates and would also be coming to the hospital tomorrow to discuss the family's goals for the patient. Patient likely needs DOAC. Will await neuro recs re: anticoagulation. 10/30: Neurology recommends against doac. Will obtain covid pcr. Plan Family discussion today this AM with patient brother Fabian this AM re: GOK I discussed with the patient's brother, Fabian regarding goals of care as well as the events of the patient's hospitalization. He was very much adamant that the patient go to rehab/snf and did not think hospice was the right option for his brother. I explained that thus far the patient has been declined at more than 10 facilities in the [facility] area. He stated that he would be willing to help fund him should that be an issue. I notified the pillowcase turner about my conversation who stated they would speak with Mr Peralta. 10/31: Patient tolerating tube feed, clinically unchanged, PT recommendation is as noted below. WIll have case management consider a Personal custodial also. PER PT Pt presents with poor rehab potential due to CVA x4 months ago with L UE and LE hypertonicity, contractures, poor isolated movements, inability to follow instructions, Left side neglect, significant impairments of coordination and strength. Pt is total assist with mobilities and high risk for falls. Recommend SNF placement for 24hr care. If pt d/c home with family, will need hospital bed, cecil lift for potential transfers. Due to pt's involuntary movements and abnormal tone, pt is high risk for falling out of a w/c. If pt d/c home, recommend 1 PT visit for pt/family training re: positioning, bed mobility. Pt is not a candidate for skilled PT at this time. Pt was left in semi fowlers, needs in reach, all lines intact, no distress, pt with involuntary movements at times. 11/01: Continue supportive care. We will plan on further discussion with the family on discharge planning anticipated in a day or 2 following this history arrangements to be in place. We will follow-up with the pending [facility] facility to see if they accept him. 11/02: Patient seen and examined, discharge planning, continue supportive care, wound management, rehab. 11/03: Patient seen and examined, remains with profused encephalopathy, still with left upper hemiparesis and spontaneous non purposeful movement of bilateral lower ext and right upper ext. Awaiting safe discharge plan. I have called to speak with the brother and left my personal cell phone number for call back Assessment and Plan: Neuro: Recent CVA complicated by dysphagia/dysarthria/left hemiparesis/debility, h/o depression, seizure disorder, Metabolic Encephalopathy secondary to CVA with left sided neglect -Neurology and CCM consulted, appreciate recommendations -Reorientation as needed -Maintain sleep-wake cycle -aspiration/seizure precautions -As needed analgesia -CT head shows old moderately sized MCA infarct the right involving the inferior frontal peritracheal regions, gangliocapsular Regions and Right Temporal Lobe, prominent Kuehner seen in the left anterior andrea, small scattered lacunar infarcts suggesting the andrea -Bilateral carotid Doppler ultrasound shows less than 50% diameter stenosis in the right and left internal carotid artery -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 There is involvement of the lateral aspect of right temporal lobe. Large remote pontine infarction noted. No indication of recent intracranial hemorrhage or mass lesion. -Lipitor, aspirin -Keppra -Aspiration/seizure precautions -Continue home Prozac -PT/OT/ST consulted -Neurochecks per protocol Cardiac: h/o HTN -Cardiology consulted, appreciate recommendations -Blood pressure monitoring per protocol -Antihypertensive regimen: Atenolol, Lozol, lisinopril -Echocardiogram shows LVEF 55%, mild diastolic dysfunction no PFO -BELLE pending per neurology recs Respiratory: NAD -CCM/ pulm consulted for dyspnea, appreciate recommendations -Supplemental oxygen as needed -Pulmonary hygiene -SPO2 monitoring GI: S/p PEG tube placement -24 hours +1285 mL -PPI -NTR consulted for tube feedings -BR: Senna : Slight hyponatremia, h/o urinary retention/obstruction -Presented with indwelling catheter which was exchanged -Monitor intake and output -Renally dose medications -Avoid nephrotoxic medications -Repeat magnesium -Trend BMP ID: NAD -Monitor WBC and temperature curve Endo: h/o DM -Avoid hypoglycemia -SSI -Accu-Cheks q. every 6 -Hemoglobin A1c 8 Heme: ? Hypercoagulable state -CTA chest and abdomen pending per neurology recommendation -Trend CBC -Transfuse hemoglobin less than 7 -SCDs to BLE while in bed #Advance care planning Disease education conducted, care plan discussed, diagnoses discussed, prognosis discussed, patient is full code, patient brother Fabian acknowledges understanding and agree with care plan, +30 minutes. History Interval history: Patient seen and examined, clinically unchanged. No new event reported by nursing staff. Remains encephalopathic with Left sided neglect Hospitalist Physical - Physical exam Narrative exam: General: No Apparent Distress HEENT: Positive: Mucus Membranes Dry, intermittent tracks, SLEEPING BUT AROUSABLE Neck: Positive: trachea midline Cardiac: Positive: Reg Rate and Rhythm Lungs: Positive: Normal Breath Sounds Neuro: Positive: Other (Hemiparesis), non verbal. locked in appearance. does not follow commands. opens eyes but not purposefully following commands. Abdomen: Positive: Soft Skin: Negative: Rash, Suspicious Lesions, Ulceration Extremities: Present: upper extr. pulses. Absent: edema - Constitutional Vitals: Temp Pulse Resp BP Pulse Ox 97.6 F 113 H 18 127/89 99 11/03/21 07:36 11/03/21 07:36 11/03/21 07:36 11/03/21 09:11 11/03/21 07:36 General appearance: Present: no acute distress Results - Labs CBC & Chem 7: 10/24/21 05:00 10/28/21 03:40 Labs: Laboratory Last Values WBC 6.4 K/mm3 (4.5-11.0) 10/24/21 05:00 RBC 4.59 M/mm3 (3.65-5.03) 10/24/21 05:00 Hgb 12.7 gm/dl (11.8-15.2) 10/24/21 05:00 Hct 37.7 % (35.5-45.6) 10/24/21 05:00 MCV 82 fl (84-94) L 10/24/21 05:00 MCH 28 pg (28-32) 10/24/21 05:00 MCHC 34 % (32-34) 10/24/21 05:00 RDW 14.1 % (13.2-15.2) 10/24/21 05:00 Plt Count 222 K/mm3 (140-440) 10/24/21 05:00 Lymph % (Auto) 29.6 % (13.4-35.0) 10/22/21 16:00 [place] % (Auto) 11.8 % (0.0-7.3) H 10/22/21 16:00 Eos % (Auto) 1.3 % (0.0-4.3) 10/22/21 16:00 Baso % (Auto) 0.4 % (0.0-1.8) 10/22/21 16:00 Lymph # (Auto) 2.4 K/mm3 (1.2-5.4) 10/22/21 16:00 [place] # (Auto) 1.0 K/mm3 (0.0-0.8) H 10/22/21 16:00 Eos # (Auto) 0.1 K/mm3 (0.0-0.4) 10/22/21 16:00 Baso # (Auto) 0.0 K/mm3 (0.0-0.1) 10/22/21 16:00 Seg Neutrophils % 56.9 % (40.0-70.0) 10/22/21 16:00 Seg Neutrophils # 4.7 K/mm3 (1.8-7.7) 10/22/21 16:00 PT 14.8 Sec. (12.2-14.9) 10/22/21 16:00 INR 1.04 (0.87-1.13) 10/22/21 16:00 APTT 28.1 Sec. (24.2-36.6) 10/22/21 16:00 Sodium 137 mmol/L (137-145) 10/28/21 03:40 Potassium 4.2 mmol/L (3.6-5.0) 10/28/21 03:40 Chloride 97.1 mmol/L (98-107) L 10/28/21 03:40 Carbon Dioxide 29 mmol/L (22-30) 10/28/21 03:40 Anion Gap 15 mmol/L 10/28/21 03:40 BUN 14 mg/dL (9-20) 10/28/21 03:40 Creatinine 0.8 mg/dL (0.8-1.3) 10/28/21 03:40 Estimated GFR > 60 ml/min 10/28/21 03:40 BUN/Creatinine Ratio 18 % 10/28/21 03:40 Glucose 127 mg/dL (75-100) H 10/28/21 03:40 POC Glucose 240 mg/dL (70-105) H 11/03/21 05:32 Hemoglobin A1c 8.0 % (4-6) H 10/24/21 10:16 Calcium 10.1 mg/dL (8.4-10.2) 10/28/21 03:40 Phosphorus 4.20 mg/dL (2.5-4.5) 10/27/21 04:39 Magnesium 1.90 mg/dL (1.7-2.3) 10/27/21 04:39 Total Bilirubin 0.50 mg/dL (0.1-1.2) 10/22/21 16:00 AST 24 units/L (5-40) 10/22/21 16:00 ALT 28 units/L (7-56) 10/22/21 16:00 Alkaline Phosphatase 102 units/L (35-129) 10/22/21 16:00 Total Protein 6.9 g/dL (6.3-8.2) 10/22/21 16:00 Albumin 4.3 g/dL (3.9-5) 10/22/21 16:00 Albumin/Globulin Ratio 1.7 % 10/22/21 16:00 Triglycerides 85 mg/dL (2-149) 10/23/21 12:33 Cholesterol 148 mg/dL (50-199) 10/23/21 12:33 LDL Cholesterol Direct 86 mg/dL (50-130) 10/23/21 12:33 HDL Cholesterol 44 mg/dL (40-59) 10/23/21 12:33 Cholesterol/HDL Ratio 3.36 % 10/23/21 12:33 TSH 2.020 mlU/mL (0.270-4.200) 10/24/21 10:16 Free T4 0.88 ng/dL (0.76-1.46) 10/24/21 10:16 Urine Color Yellow (Yellow) 10/23/21 08:49 Urine Turbidity Clear (Clear) 10/23/21 08:49 Urine pH 6.5 (5.0-7.0) 10/23/21 08:49 Ur Specific [place] 1.005 (1.003-1.030) 10/23/21 08:49 Urine Protein 30 mg/dl mg/dL (Negative) 10/23/21 08:49 Urine Glucose (UA) Negative mg/dL (Negative) 10/23/21 08:49 Urine Ketones Negative mg/dL (Negative) 10/23/21 08:49 Urine Blood Moderate (Negative) A 10/23/21 08:49 Urine Nitrite Negative (Negative) 10/23/21 08:49 Ur Reducing Substances Not Reportable 10/23/21 08:49 Urine Bilirubin Negative (Negative) 10/23/21 08:49 Urine Ictotest Not Reportable 10/23/21 08:49 Urine Urobilinogen < 2.0 mg/dL (<2.0) 10/23/21 08:49 Ur Leukocyte Esterase Moderate (Negative) 10/23/21 08:49 Urine WBC (Auto) 28.0 /HPF (0.0-6.0) H 10/23/21 08:49 Urine RBC (Auto) 27.0 /HPF (0.0-6.0) 10/23/21 08:49 U Epithel Cells (Auto) 14.0 /HPF (0-13.0) H 10/23/21 08:49 Hyaline Casts 1 /LPF 10/23/21 08:49 Urine Mucus Few /HPF 10/23/21 08:49 Coronavirus (PCR) Negative (Negative) 10/30/21 Unknown Harden/IV: Voiding Method Indwelling Catheter Active Medications - Current Medications Current Medications: Generic Name Dose Route Start Last Admin Trade Name Freq PRN Reason Stop Dose Admin Acetaminophen 650 mg 10/22/21 16:19 10/28/21 22:11 Acetaminophen 325 Mg Tab PO 650 mg Q4H PRN Administration Pain, Mild (1-3) Albuterol 2.5 mg 10/22/21 16:19 Albuterol 2.5 Mg/3 Ml Nebu IH Q3HRT PRN Shortness Of Breath Lipase/Protease/Amylase 1 each 11/02/21 12:45 Lipase 10,500/Protease 25,000/Amylase 43,750 (Units) Dr Wilson FEEDTUBE PRN PRN For Clogged Feeding Tube Aspirin 325 mg 10/23/21 10:00 11/03/21 09:11 Aspirin 325 Mg Tab PO 325 mg QDAY NEO Administration Atenolol 50 mg 10/24/21 10:00 11/03/21 09:11 Atenolol 50 Mg Tab FEEDTUBE 50 mg QDAY NEO Administration Atorvastatin Calcium 80 mg 10/24/21 22:00 11/02/21 22:15 Atorvastatin 40 Mg Tab FEEDTUBE 80 mg QHS NEO Administration Bisacodyl 10 mg 10/22/21 16:19 Bisacodyl 10 Mg Rect Supp [place] QDAY PRN Constipation Dextrose 50 ml 10/22/21 17:23 Dextrose 50% In Water (25gm) 50 Ml Syringe IV Q30MIN PRN Hypoglycemia Protocol Fluoxetine HCl 10 mg 10/24/21 10:00 11/03/21 09:12 Fluoxetine 20 Mg/5 Ml Oral Liqd FEEDTUBE 10 mg QDAY NEO Administration Heparin Sodium (Porcine) 5,000 unit 10/22/21 22:00 11/03/21 09:11 Heparin 5,000 Unit/1 Ml Vial SUB-Q 5,000 unit Q12HR NEO Administration Indapamide 5 mg 10/24/21 10:00 11/03/21 09:12 Indapamide 2.5 Mg Tab FEEDTUBE 5 mg QDAY NEO Administration Insulin Human Lispro 0 unit 10/24/21 12:00 11/03/21 06:30 Insulin Lispro 100 Unit/Ml SUB-Q 3 unit Q6HR NEO Administration Protocol Lansoprazole 30 mg 10/23/21 18:00 11/02/21 18:45 Lansoprazole 30 Mg Solutab FEEDTUBE 30 mg QPM NEO Administration Levetiracetam 250 mg 10/24/21 10:00 11/03/21 09:11 Levetiracetam 500 Mg/5 Ml Oral Liqd FEEDTUBE 250 mg BID NEO Administration Lisinopril 5 mg 10/24/21 10:00 11/03/21 09:11 Lisinopril 5 Mg Tab FEEDTUBE 5 mg QDAY NEO Administration Magnesium Hydroxide 30 ml 10/22/21 16:19 Magnesium Hydroxide (Mom) Oral Liqd Udc PO Q4H PRN Constipation Ondansetron HCl 4 mg 10/22/21 16:19 Ondansetron 4 Mg/2 Ml Inj IV Q8H PRN Nausea And Vomiting Oxycodone/Acetaminophen 1 tab 10/22/21 16:19 10/30/21 14:18 Oxycodone /Acetaminophen 5-325mg Tab PO 1 tab Q12H PRN Administration Pain, Moderate (4-6) Senna 8.8 mg 10/27/21 22:00 11/02/21 22:17 Sennosides Oral Liqd 8.8 Mg/5 Ml Oral Liqd FEEDTUBE 8.8 mg QHS NEO Administration Simple Syrup 15 ml 11/02/21 12:45 Simple Syrup 15 Ml FEEDTUBE PRN PRN Hypoglycemia Simple Syrup 30 ml 11/02/21 12:45 Simple Syrup 15 Ml FEEDTUBE PRN PRN Hypoglycemia Sodium Bicarbonate 325 mg 11/02/21 12:45 Sodium Bicarbonate 325 Mg Tab FEEDTUBE PRN PRN For Clogged Feeding Tube Sodium Chloride 10 ml 10/22/21 16:19 11/03/21 09:13 Sodium Chloride 0.9% 10 Ml Flush Syringe IV 10 ml PRN PRN Administration LINE FLUSH Nutrition/Malnutrition Assess - Dietary Evaluation Nutrition/Malnutrition Findings: Nutrition Notes Start: 10/23/21 13:01 Freq: Status: Active Protocol: Document 11/02/21 12:18 JIM (Rec: 11/02/21 12:47 JIM [email or web address]) Nutrition Notes Initial or Follow up Reassessment Current Diagnosis Diabetes,Hypertension,Stroke Other Pertinent Diagnosis Dysphagia, L-Hemiparesis, Debility. Current Diet TF-Glucerna 1.2 [place] @ 70 ml/hr (since D 10/30). Labs/Tests 11/02: N/A. Pertinent Medications 11/02: Humalog 2U, others nutritionally unremarkable. Height 5 ft 11 in Weight 69.9 kg [place] Body Weight (kg) 78.18 BMI 21.4 Weight change and time frame Discrepancy of 20.818 Kg body weight loss in 1 week reported . Weight Status Appropriate Subjective/Other Information RD consult for routine F/U on TF tolerance/continuation. TF continues as prescribed, and well tolerated, according to RN notes. RN note on 11/01/21 21:38: Assessed patient tube feeding residual by aspiration. No residual feeding not. Accessed tube placement prior to medications,water flushed per order. Changed tube feeding and water bag. Patient tolerating feeding well. No sign of abdominal discomfort. - END OF NOTE. Pt is on Room Air, O2 saturation @ 97%, according to Physical Assessment History notes. Pt is not a candidate for skilled PT at this time; ans is recommended SNF placement, according to Progress notes. Percent of energy/protein needs met: Prescribed TF-Glucerna 1.2 [place] @ 70 ml/hr provides for energy/protein needs (2,016 Kcal/111 g) during LOS, 95% Kcal; 111% AA. Burn Absent Trauma Absent GI Symptoms None Difficulty In Swallowing Food Allergy No Skin Integrity/Comment Assessment WNL. Current % PO Other Minimum of two criteria No Fluid Accumulation N/A Reduced Paragliding Instructor Strength N/A (non-severe) Protein-Calorie Malnutrition N\\A #1 Nutrition Diagnosis Swallowing difficulty Diagnosis Progress(for reassessment Continues documentation) Is patient on ventilator? No Is Patient Ambulatory and/or Out of Bed No REE-([facility]-confined to bed) 1865.892 Kcal/Kg value to use for calculation 30 Approximate Energy Requirements Using 2097 kcal/Kg Calculation Used for Recommendations Kcal/kg Additional Notes Protein: 0.8-1 g/Kg ABW; 73-91 g/day. Fluids: 1 ml/Kcal, or as per MD. Nutrition Intervention Nutrition Support: Continue TF-Glucerna 1.2 [place] @ 70 ml/hr. Flush: 100 ml water Q 4 hr, or as per MD. Kcal 2,016 Protein (gm) 101 Carbohydrates (gm) 192 Fat (gm) 101 Fluid (mL) 1,352 Fiber (gm) 27 % RDI: 95% Kcal; 111% AA. Goal #1 Provide at least 75% of energy /protein needs through Enteral Feeding during LOS. Follow-Up By: 11/09/21 Additional Comments Continue monitoring TF tolerance and BM.
--- NOTE | 2021-11-03 11:10 | Discharge Summary ---
Providers - Providers Date of Admission: 10/22/21 16:20 Attending physician: DIOR MCKEON MD 10/22/21 16:20 Consult to Case Management [CONS] Routine Services Needed at Discharge: Other Notified:: in am Additional Physician Instructions: SNF Placement Consult to Dietitian/Nutrition [CONS] Routine Physician Instructions: Reason For Exam: Reason for Consult: Nutrition Recommendations Reason for Consult: Write/Manage Tube Feeding Occupational Therapy Evaluate and Treat [CONS] Routine Comment: Reason For Exam: Neuro deficits Physical Therapy Evaluation and Treat [CONS] Routine Comment: Reason For Exam: Neuro deficits 10/22/21 17:22 Consult to Physician [CONS] Routine Comment: noted/ livia Consulting Provider: GERALD ARTIS Physician Instructions: Reason For Exam: dypsnea 10/22/21 21:10 Speech Therapy Evaluation and Treat [CONS] Routine Reason For Exam: cva 10/23/21 08:01 Consult to Physician [CONS] Routine Comment: noted/ livia Consulting Provider: NUBIA MEJIA Physician Instructions: Reason For Exam: CVA 10/23/21 09:53 Consult to Dietitian/Nutrition [CONS] Routine Physician Instructions: Reason For Exam: Reason for Consult: Write/Manage Tube Feeding 10/26/21 08:50 Consult to Physician [CONS] Routine Comment: Consulting Provider: ZAHRA MENDES Physician Instructions: Reason For Exam: cva, ?paroxysma afib 10/26/21 14:31 Consult to Anesthesiology [CONS] Routine Consulting Provider: DEREK MCGHEE Reason For Exam: assist with planned BELLE Primary care physician: TRANSPORTATION ESCORT Hospitalization Reason for admission: cva Condition: Stable Hospital course: This is a 55-year-old with HTN, DM, CVA complicated by dysphagia s/p PEG tube placement, dysarthria, left hemiparesis and debility who presented to the emergency department on 10/22 via air ambulance for continued treatment. Patient was admitted to the [facility] and initiated on CIWA protocol with consults to [facility], neurology will need a cardiology. Hospital Course to Date: 10/23: Nonverbal, open eyes spontaneously, does not follow any commands with LUE paralysis/contraction. on RA, VSS. Echo and Neurology consult pending. PT/OT/Speech also consulted. PEG-tube noted, nutrition/cigar bander hand consulted for TF management. Pulmonary is also following. Patient presented with a harden catheter, per record history of urinary retention. Harden cath exchanged, UA pending. 10/24: SEKOU overnight. Neurology recommendations noted, orders placed for MRI brain and CTA head/Neck. Continue PT/OT/Speech, home meds resumed, and enteral nutrition initiated. UA noted, patient is asymptomatic with no leukocytosis, continue to monitor, urine culture pending. 10/25: Remains stable, mentation unchanged. CTA head/Neck noted, MRI brain/MRA head/Neck pending. Awaiting Neurology final recommendations. Continue current supportive measures. 10/26: Patient will have a BELLE, cardiology consulted per neurology recommendations, MRI/MRA/MRV pending no acute events reported overnight. Magnesium repleted. 10/27: Unable to complete BELLE as consent was not able to be obtained, [facility] contacted [facility] who declined the patient is a candidate, MRI brain and CTA chest and pelvis pending. No acute events reported overnight. 10/28: No acute overnight events. CTA chest and abdomen completed were negative studies. BELLE completed this AM, no acute findings noted. MR brain shows subacute right MCA infarction superimposed on chronic infarction. There is involvement of the lateral aspect of right temporal lobe. Large remote pontine infarction noted. No indication of recent intracranial hemorrhage or mass lesion. CM currently working on placement to SNF. Can transfer patient to floor bed. Att empted to call number in chart to update family. no response. 10/29: D/w brother Fabian Waldron [phone]. Updated him on patient clinical status. Discussed overall poor chance of regaining baseline function and current "locked in" appearance due to territory of stroke. I also discussed options of home health care if the family can support the patient versus hospice versus SNF. I also updated Fabian that thus far facilities have denied the patient due to him being out of network. He stated he would speak with his brother Tyrell regarding these updates and would also be coming to the hosp ital tomorrow to discuss the family's goals for the patient. Patient likely needs DOAC. Will await neuro recs re: anticoagulation. 10/30: Neurology recommends against doac. Will obtain covid pcr. Plan Family discussion today this AM with patient brother Fabian this AM re: YOAN I discussed with the patient's brother, Fabian regarding goals of care as well as the events of the patient's hospitalization. He was very much adamant that the patient go to rehab/snf and did not think hospice was the right option for his brother. I explained that thus far the patient has been declined at more than 10 facilities in the [facility] area. He stated that he would be willing to help fund him should that be an issue. I notified the renal case manager about my conversation who stated they would speak with Mr Peralta. 10/31: Patient tolerating tube feed, clinically unchanged, PT recommendation is as noted below. WIll have case management consider a Personal alf also. PER PT Pt presents with poor rehab potential due to CVA x4 months ago with L UE and LE hypertonicity, contractures, poor isolated movements, inability to follow instructions, Left side neglect, significant impairments of coordination and strength. Pt is total assist with mobilities and high risk for falls. Recommend SNF placement for 24hr care. If pt d/c home with family, will need hospital bed, cecil lift for potential transfers. Due to pt's involuntary movements and abnormal tone, pt is high risk for falling out of a w/c. If pt d/c home, recommend 1 PT visit for pt/family training re: positioning, bed mobility. Pt is not a candidate for skilled PT at this time. Pt was left in semi fowlers, needs in reach, all lines intact, no distress, pt with involuntary movements at times. 11/01: Continue supportive care. We will plan on further discussion with the family on discharge planning anticipated in a day or 2 following this history arrangements to be in place. We will follow-up with the pending assisted facility to see if they accept him. 11/02: Patient seen and examined, discharge planning, continue supportive care, wound management, rehab. 11/03: Patient seen and examined, remains with profused encephalopathy, still with left upper hemiparesis and spontaneous non purposeful movement of bilateral lower ext and right upper ext. Awaiting safe discharge plan. I have called to speak with the brother and left my personal cell phone number for call back. 11/04: Patient seen and examined, He is able to respond to commands and Squeeze my hand on his right upper ext, He Unfortunately not following commands on the lower ext which he moves spontaneously and not on command. He continues to await safe discharge. Goals of care discussed extensively with advance care plan. He remains a full code and family will like aggresssive PT/OT/Speech therapy. 11/05: Patient seen and examined clinically stable at this time awaiting family arrangements for safe discharge. Hospital bed has been ordered for discharge to home. 11/06: Patient seen and examined awaiting discharge. Remains clinically stable. Assessment and Plan: Neuro: Recent CVA complicated by dysphagia/dysarthria/left hemiparesis/debility, h/o depression, seizure disorder, Metabolic Encephalopathy secondary to CVA with left sided neglect -Neurology and CCM consulted, appreciate recommendations -Reorientation as needed -Maintain sleep-wake cycle -aspiration/seizure precautions -As needed analgesia -CT head shows old moderately sized MCA infarct the right involving the inferior frontal peritracheal regions, gangliocapsular Regions and Right Temporal Lobe, prominent Kuehner seen in the left anterior andrea, small scattered lacunar infarcts suggesting the andrea -Bilateral carotid Doppler ultrasound shows less than 50% diameter stenosis in the right and left internal carotid artery -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 There is involvement of the lateral aspect of right temporal lobe. Large remote pontine infarction noted. No indication of recent intracranial hemorrhage or mass lesion. -Lipitor, aspirin -Keppra -Aspiration/seizure precautions -Continue home Prozac -PT/OT/ST consulted -Neurochecks per protocol Cardiac: h/o HTN -Cardiology consulted, appreciate recommendations -Blood pressure monitoring per protocol -Antihypertensive regimen: Atenolol, Lozol, lisinopril -Echocardiogram shows LVEF 55%, mild diastolic dysfunction no PFO -BELLE pending per neurology recs Respiratory: NAD -CCM/ pulm consulted for dyspnea, appreciate recommendations -Supplemental oxygen as needed -Pulmonary hygiene -SPO2 monitoring GI: S/p PEG tube placement -24 hours +1285 mL -PPI -NTR consulted for tube feedings -BR: Senna : Slight hyponatremia, h/o urinary retention/obstruction -Presented with indwelling catheter which was exchanged -Monitor intake and output -Renally dose medications -Avoid nephrotoxic medications -Repeat magnesium -Trend BMP ID: NAD -Monitor WBC and temperature curve Endo: h/o DM -Avoid hypoglycemia -SSI -Accu-Cheks q. every 6 -Hemoglobin A1c 8 Heme: ? Hypercoagulable state -CTA chest and abdomen pending per neurology recommendation -Trend CBC -Transfuse hemoglobin less than 7 -SCDs to BLE while in bed #Advance care planning Disease education conducted, care plan discussed, diagnoses discussed, prognosis discussed, patient is full code, patient brother Fabian acknowledges understanding and agree with care plan, +30 minutes. Disposition: [facility] HOSPICE/MEDICAL FACILITY Final Discharge Diagnosis (Prints w/discharge instructions): CVA complicated by dysphagia/dysarthria/left hemiparesis/debility, h/o depression, seizure disorder, Metabolic Encephalopathy secondary to CVA with left sided neglect Time spent for discharge: 35 mins Core Measure Documentation - Palliative Care Palliative Care/ Comfort Measures: Hospice Care - Core Measures Any of the following diagnoses?: none Exam - Physical Exam Narrative exam: General: No Apparent Distress HEENT: Positive: Mucus Membranes Dry, intermittent tracks occasionally. Follows some commands on the right side upper extremity only. Neck: Positive: trachea midline Cardiac: Positive: Reg Rate and Rhythm Lungs: Positive: Normal Breath Sounds Neuro: Positive: Other (Hemiparesis), non verbal. locked in appearance. does not follow commands. opens eyes but not purposefully following commands except upper extremity on the right side. Abdomen: Positive: Soft Skin: Negative: Rash, Suspicious Lesions, Ulceration Extremities: Present: upper extr. pulses. Absent: edema - Constitutional Vitals: Temp Pulse Resp BP Pulse Ox 97.6 F 98 H 18 127/89 99 11/03/21 07:36 11/03/21 10:00 11/03/21 07:36 11/03/21 09:11 11/03/21 07:36 Plan Activity: advance as tolerated, fall precautions Diet: diabetic Special Instructions: record daily weights, record daily BP diary, record blood sugar diary, physical therapy, occupational therapy Plan of Treatment: seizure precautions Follow up with: [facility] [Referring] - 7 Days TRACEY FUENTES MD [Staff Physician] - 7 Days Prescriptions: AtorvaSTATin [Lipitor] 80 mg FEEDTUBE QHS #30 tablet Sennosides Oral Liqd [Senokot] 8.8 mg FEEDTUBE QHS #60 ml Aspirin 325 mg PO QDAY #30 tablet bisacodyL [Dulcolax suppos] 10 mg DE QDAY PRN #30 supp.rect PRN Reason: Constipation levETIRAcetam [Keppra] 250 mg FEEDTUBE BID #120 ml Insulin Glargine [Lantus VIAL] 20 units SUB-Q QPM #10 ml Indapamide [Lozol] 5 mg FEEDTUBE QDAY #60 tablet oxyCODONE /ACETAMINOPHEN [Percocet 5/325 mg] 1 tab PO Q12H PRN #10 tablet PRN Reason: Pain, Moderate (4-6) Lansoprazole Solutab [Prevacid Solutab] 30 mg FEEDTUBE QPM #30 tab.rapdis FLUoxetine [Prozac] 10 mg FEEDTUBE QDAY #60 ml atenoloL [Tenormin] 50 mg FEEDTUBE QDAY #30 tablet lisinopriL [Zestril TAB] 5 mg FEEDTUBE QDAY #30 tablet Sodium Phosphate,Andrew-Dibasic [Enema Ready To Use] 133 ml RC Q72HR #7 enema
[2021-11-03] MEDS: LANSOPRAZOLE 30 MG SOLUTAB FEEDTUBE SCH (17:33)
[2021-11-03] MEDS: SENNOSIDES ORAL LIQD 8.8 MG/5 ML ORAL LIQD FEEDTUBE SCH (21:24)
[2021-11-04] MEDS: INSULIN LISPRO 100 UNIT/ML SUB-Q SCH ×4 (00:05→18:45)
--- NOTE | 2021-11-04 07:48 | Progress Note ---
Assessment and Plan 55 YO Male with HTN, DM, CVA complicated by Dysphagia, Dysarthria, Left Hemiparesis, Debility was admitted to [facility] in [facility] on 06/22/21. The patient was transported to [facility] today via air ambulance for continued treatment of the aforementioned symptoms. The patient was found to have clinical symptoms consistent with CVA but the patient was deemed outside the therapeutic window for tPA. The patient was admitted to [facility] and initiated on CVA protocol. The patient is nonverbal and has a palliative performance scor e of 30% and requires 6/6 assistance with activities of daily living. T No reports of fever, chills, chest pain, palpitation, productive cough, skin rash, recent contact, known exposure to COVID-19. Patient has PEG Placement. According to the chart. No history of smoking, alcohol or drug abuse. Patient is asleep. Not responding to Verbal stimuli. Patient is on room air. O2 saturation running 98%. No acute respiratory distress. Patient is afebrile. No leukocytosis. BP 126/73, pulse 88, RR 20. Chest x-ray done 10/23/21 reported no acute findings. CTA of chest 10/27/21 reported Limited exam due to motion artifact without CT evidence of pulmonary emboli or other acute findings. Patient is on albuterol inhaler, S/C heparin, and Prevacid. - Patient Problems (1) CVA (cerebral vascular accident) Current Visit: Yes Status: Acute Qualifiers: Precerebral and cerebral artery: middle cerebral artery Laterality of affected vessel: right Plan to address problem: Manage is per primary care and neurology. Recommend aspiration precautions. (2) Dysarthria as late effect of stroke Current Visit: Yes Status: Acute Plan to address problem: Management is per neurology. (3) Dysphagia as late effect of stroke Current Visit: Yes Status: Acute Plan to address problem: Management is per neurology. (4) Hemiparesis, left Current Visit: Yes Status: Acute Plan to address problem: Management is per neurology. (5) Diabetes Current Visit: Yes Status: Acute Plan to address problem: Management is per primary care. (6) Hypertension Current Visit: Yes Status: Acute Qualifiers: Hypertension type: primary hypertension Qualified Code(s): I10 - Essential (primary) hypertension Plan to address problem: Management is per primary care. Subjective Date of service: 11/04/21 Principal diagnosis: R. CVA with L. hemiparesis; HTN; DM II; Dysarthria; Oropharyngeal dysphagia Interval history: 55 YO Male with HTN, DM, CVA complicated by Dysphagia, Dysarthria, Left Hemiparesis, Debility was admitted to [facility] in [facility] on 06/22/21. The patient was transported to [facility] today via air ambulance for continued treatment of the aforementioned symptoms. The patient was found to have clinical symptoms consistent with CVA but the patient was deemed outside the therapeutic window for tPA. The patient was admitted to [facility] and initiated on CVA protocol. The patient is nonverbal and has a palliative performance score of 30% and requires 6/6 assistance with activities of daily living. T No reports of fever, chills, chest pain, palpitation, productive cough, skin rash, recent contact, known exposure to COVID-19. Patient has PEG Placement. According to the chart. No history of smoking, alcohol or drug abuse. Patient is asleep. Not responding to Verbal stimuli. Patient is on room air. O2 saturation running 98%. No acute respiratory distress. Patient is afebrile. No leukocytosis. BP 126/73, pulse 88, RR 20. Chest x-ray done 10/23/21 reported no acute findings. CTA of chest 10/27/21 reported Limited exam due to motion artifact without CT evidence of pulmonary emboli or other acute findings. Patient is on albuterol inhaler, S/C heparin, and Prevacid. Objective Vital Signs - 12hr 11/03/21 11/03/21 11/04/21 21:50 23:42 03:57 Temperature 98.0 F 98.3 F Pulse Rate 97 H 89 Respiratory 20 18 Rate Blood Pressure 116/86 113/74 O2 Sat by Pulse 97 96 100 Oximetry Constitutional: no acute distress, asleep Eyes: non-icteric ENT: oropharynx moist Neck: supple, no lymphadenopathy Effort: normal Ascultation: Bilateral: clear Percussion: Bilateral: not dull Cardiovascular: regular rate and rhythm, other (S1,S2) Gastrointestinal: normoactive bowel sounds, soft, non-tender, non-distended, other (PEG tube) Integumentary: normal Extremities: no cyanosis, no edema, pulses normal, no ischemia or petechiae Neurologic: pupils equal and round, other (left hemiplegia ) Psychiatric: other (unable to asses due to neurological status) CBC and BMP: 10/24/21 05:00 10/28/21 03:40 ABG, PT/INR, D-dimer: PT/INR, D-dimer PT 14.8 Sec. (12.2-14.9) 10/22/21 16:00 INR 1.04 (0.87-1.13) 10/22/21 16:00 Abnormal lab findings: Abnormal Labs 10/22/21 10/22/21 10/22/21 16:00 16:00 22:44 MCV 83 L MCH 27 L Taylor % (Auto) 11.8 H Taylor # (Auto) 1.0 H Sodium Potassium Chloride Creatinine 0.6 L Glucose 175 H POC Glucose 115 H Hemoglobin A1c Magnesium Urine Blood Urine WBC (Auto) U Epithel Cells (Auto) 10/23/21 10/23/21 10/23/21 07:28 08:49 11:31 MCV MCH Taylor % (Auto) Taylor # (Auto) Sodium Potassium Chloride Creatinine Glucose POC Glucose 129 H 136 H Hemoglobin A1c Magnesium Urine Blood Moderate A Urine WBC (Auto) 28.0 H U Epithel Cells (Auto) 14.0 H 10/23/21 10/24/21 10/24/21 17:59 00:01 05:00 MCV 82 L MCH Taylor % (Auto) Taylor # (Auto) Sodium Potassium Chloride Creatinine Glucose POC Glucose 109 H 111 H Hemoglobin A1c Magnesium Urine Blood Urine WBC (Auto) U Epithel Cells (Auto) 10/24/21 10/24/21 10/24/21 05:00 07:57 10:16 MCV MCH Taylor % (Auto) Taylor # (Auto) Sodium Potassium 3.5 L Chloride Creatinine 0.6 L Glucose 134 H POC Glucose 132 H Hemoglobin A1c 8.0 H Magnesium Urine Blood Urine WBC (Auto) U Epithel Cells (Auto) 10/24/21 10/24/21 10/25/21 16:26 20:57 04:47 MCV MCH Taylor % (Auto) Taylor # (Auto) Sodium Potassium Chloride Creatinine Glucose POC Glucose 109 H 145 H 159 H Hemoglobin A1c Magnesium Urine Blood Urine WBC (Auto) U Epithel Cells (Auto) 10/25/21 10/25/21 10/25/21 07:49 11:19 17:49 MCV MCH Taylor % (Auto) Taylor # (Auto) Sodium Potassium Chloride Creatinine Glucose POC Glucose 147 H 164 H 141 H Hemoglobin A1c Magnesium Urine Blood Urine WBC (Auto) U Epithel Cells (Auto) 10/25/21 10/26/21 10/26/21 20:54 04:56 07:23 MCV MCH Taylor % (Auto) Taylor # (Auto) Sodium Potassium Chloride Creatinine 0.7 L Glucose 165 H POC Glucose 136 H 172 H Hemoglobin A1c Magnesium 1.60 L Urine Blood Urine WBC (Auto) U Epithel Cells (Auto) 10/26/21 10/26/21 10/26/21 11:21 17:21 23:38 MCV MCH Taylor % (Auto) Taylor # (Auto) Sodium Potassium Chloride Creatinine Glucose POC Glucose 168 H 164 H 147 H Hemoglobin A1c Magnesium Urine Blood Urine WBC (Auto) U Epithel Cells (Auto) 10/27/21 10/27/21 10/27/21 04:39 07:32 11:33 MCV MCH Taylor % (Auto) Taylor # (Auto) Sodium 135 L Potassium Chloride 95.4 L Creatinine 0.6 L Glucose 156 H POC Glucose 137 H 180 H Hemoglobin A1c Magnesium Urine Blood Urine WBC (Auto) U Epithel Cells (Auto) 10/27/21 10/27/21 10/28/21 16:18 23:55 03:40 MCV MCH Taylor % (Auto) Taylor # (Auto) Sodium Potassium Chloride 97.1 L Creatinine Glucose 127 H POC Glucose 130 H 123 H Hemoglobin A1c Magnesium Urine Blood Urine WBC (Auto) U Epithel Cells (Auto) 10/28/21 10/28/21 10/28/21 08:10 12:03 17:42 MCV MCH Taylor % (Auto) Taylor # (Auto) Sodium Potassium Chloride Creatinine Glucose POC Glucose 142 H 173 H 145 H Hemoglobin A1c Magnesium Urine Blood Urine WBC (Auto) U Epithel Cells (Auto) 10/28/21 10/29/21 10/29/21 23:31 05:35 11:48 MCV MCH Taylor % (Auto) Taylor # (Auto) Sodium Potassium Chloride Creatinine Glucose POC Glucose 181 H 225 H 166 H Hemoglobin A1c Magnesium Urine Blood Urine WBC (Auto) U Epithel Cells (Auto) 10/29/21 10/30/21 10/30/21 16:23 00:19 05:23 MCV MCH Taylor % (Auto) Taylor # (Auto) Sodium Potassium Chloride Creatinine Glucose POC Glucose 167 H 157 H 175 H Hemoglobin A1c Magnesium Urine Blood Urine WBC (Auto) U Epithel Cells (Auto) 10/30/21 10/30/21 10/31/21 13:58 23:07 05:56 MCV MCH Taylor % (Auto) Taylor # (Auto) Sodium Potassium Chloride Creatinine Glucose POC Glucose 201 H 171 H 215 H Hemoglobin A1c Magnesium Urine Blood Urine WBC (Auto) U Epithel Cells (Auto) 10/31/21 10/31/21 11/01/21 12:25 16:17 00:06 MCV MCH Taylor % (Auto) Taylor # (Auto) Sodium Potassium Chloride Creatinine Glucose POC Glucose 230 H 222 H 186 H Hemoglobin A1c Magnesium Urine Blood Urine WBC (Auto) U Epithel Cells (Auto) 11/01/21 11/01/21 11/01/21 05:57 11:35 16:14 MCV MCH Taylor % (Auto) Taylor # (Auto) Sodium Potassium Chloride Creatinine Glucose POC Glucose 188 H 170 H 168 H Hemoglobin A1c Magnesium Urine Blood Urine WBC (Auto) U Epithel Cells (Auto) 11/01/21 11/02/21 11/02/21 23:41 06:36 11:44 MCV MCH Taylor % (Auto) Taylor # (Auto) Sodium Potassium Chloride Creatinine Glucose POC Glucose 172 H 187 H 161 H Hemoglobin A1c Magnesium Urine Blood Urine WBC (Auto) U Epithel Cells (Auto) 11/02/21 11/03/21 11/03/21 18:19 00:12 05:32 MCV MCH Taylor % (Auto) Taylor # (Auto) Sodium Potassium Chloride Creatinine Glucose POC Glucose 121 H 192 H 240 H Hemoglobin A1c Magnesium Urine Blood Urine WBC (Auto) U Epithel Cells (Auto) 11/03/21 11/03/21 11/03/21 11:46 16:45 23:36 MCV MCH Taylor % (Auto) Taylor # (Auto) Sodium Potassium Chloride Creatinine Glucose POC Glucose 201 H 170 H 167 H Hemoglobin A1c Magnesium Urine Blood Urine WBC (Auto) U Epithel Cells (Auto) 11/04/21 05:49 MCV MCH Taylor % (Auto) Taylor # (Auto) Sodium Potassium Chloride Creatinine Glucose POC Glucose 157 H Hemoglobin A1c Magnesium Urine Blood Urine WBC (Auto) U Epithel Cells (Auto) Allied health notes reviewed: nursing
--- NOTE | 2021-11-04 11:34 | Progress Note ---
Assessment and Plan Assessment and plan: his is a 55-year-old with HTN, DM, CVA complicated by dysphagia s/p PEG tube placement, dysarthria, left hemiparesis and debility who presented to the emergency department on 10/22 via air ambulance for continued treatment. Patient was admitted to the [facility] and initiated on CIWA protocol with consults to [facility], neurology will need a cardiology. Hospital Course to Date: 10/23: Nonverbal, open eyes spontaneously, does not follow any commands with LUE paralysis/contraction. on RA, VSS. Echo and Neurology consult pending. PT/OT/Speech also consulted. PEG-tube noted, nutrition/transfer car operator consulted for TF management. Pulmonary is also following. Patient presented with a harden cat heter, per record history of urinary retention. Harden cath exchanged, UA pending. 10/24: SEKOU overnight. Neurology recommendations noted, orders placed for MRI brain and CTA head/Neck. Continue PT/OT/Speech, home meds resumed, and enteral nutrition initiated. UA noted, patient is asymptomatic with no leukocytosis, continue to monitor, urine culture pending. 10/25: Remains stable, mentation unchanged. CTA head/Neck noted, MRI brain/MRA head/Neck pending. Awaiting Neurology final recommendations. Continue current supportive measures. 10/26: Patient will have a BELLE, cardiology consulted per neurology recommendations, MRI/MRA/MRV pending no acute events reported overnight. Magnesium repleted. 10/27: Unable to complete BELLE as consent was not able to be obtained, [facility] contacted [facility] who declined the patient is a candidate, MRI brain and CTA chest and pelvis pending. No acute events reported overnight. 10/28: No acute overnight events. CTA chest and abdomen completed were negative studies. BELLE completed this AM, no acute findings noted. MR brain shows subacute right MCA infarction superimposed on chronic infarction. There is involvement of the lateral aspect of right temporal lobe. Large remote pontine infarction noted. No indication of recent intracranial hemorrhage or mass lesion. CM currently working on placement to SNF. Can transfer patient to floor bed. Attempted to call number in chart to update family. no response. 10/29: D/w brother Fabian Waldron [phone]. Updated him on patient clinical status. Discussed overall poor chance of regaining baseline function and current "locked in" appearance due to territory of stroke. I also discussed options of home health care if the family can support the patient versus hospice versus SNF. I also updated Fabian that thus far facilities have denied the patient due to him being out of network. He stated he would speak with his brother Tyrell regarding these updates and would also be coming to the hospital tomorrow to discuss the family's goals for the patient. Patient likely needs DOAC. Will await neuro recs re: anticoagulation. 10/30: Neurology recommends against doac. Will obtain covid pcr. Plan Family discussion today this AM with patient brother Fabian this AM re: GOK I discussed with the patient's brother, Fabian regarding goals of care as well as the events of the patient's hospitalization. He was very much adamant that the patient go to rehab/snf and did not think hospice was the right option for his brother. I explained that thus far the patient has been declined at more than 10 facilities in the [facility] area. He stated that he would be willing to help fund him should that be an issue. I notified the case checker about my conversation who stated they would speak with Mr Peralta. 10/31: Patient tolerating tube feed, clinically unchanged, PT recommendation is as noted below. WIll have case management consider a Personal residential also. PER PT Pt presents with poor rehab potential due to CVA x4 months ago with L UE and LE hypertonicity, contractures, poor isolated movements, inability to follow instructions, Left side neglect, significant impairments of coordination and strength. Pt is total assist with mobilities and high risk for falls. Recommend SNF placement for 24hr care. If pt d/c home with family, will need hospital bed, cecil lift for potential transfers. Due to pt's involuntary movements and abnormal tone, pt is high risk for falling out of a w/c. If pt d/c home, recommend 1 PT visit for pt/family training re: positioning, bed mobility. Pt is not a candidate for skilled PT at this time. Pt was left in semi fowlers, needs in reach, all lines intact, no distress, pt with involuntary movements at times. 11/01: Continue supportive care. We will plan on further discussion with the family on discharge planning anticipated in a day or 2 following this history arrangements to be in place. We will follow-up with the pending [facility] facility to see if they accept him. 11/02: Patient seen and examined, discharge planning, continue supportive care, wound management, rehab. 11/03: Patient seen and examined, remains with profused encephalopathy, still with left upper hemiparesis and spontaneous non purposeful movement of bilateral lower ext and right upper ext. Awaiting safe discharge plan. I have called to speak with the brother and left my personal cell phone number for call back. 11/04: Patient seen and examined, He is able to respond to commands and Squeeze my hand on his right upper ext, He Unfortunately not following commands on the lower ext which he moves spontaneously and not on command. He continues to await safe discharge. Goals of care discussed extensively with advance care plan. He remains a full code and family will like aggresssive PT/OT/Speech therapy Assessment and Plan: Neuro: Recent CVA complicated by dysphagia/dysarthria/left hemiparesis/debility, h/o depression, seizure disorder, Metabolic Encephalopathy secondary to CVA with left sided neglect -Neurology and CCM consulted, appreciate recommendations -Reorientation as needed -Maintain sleep-wake cycle -aspiration/seizure precautions -As needed analgesia -CT head shows old moderately sized MCA infarct the right involving the inferior frontal peritracheal regions, gangliocapsular Regions and Right Temporal Lobe, prominent Kuehner seen in the left anterior andrea, small scattered lacunar infar cts suggesting the andrea -Bilateral carotid Doppler ultrasound shows less than 50% diameter stenosis in the right and left internal carotid artery -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 There is involvement of the lateral aspect of right temporal lobe. Large remote pontine infarction noted. No indication of recent intracranial hemorrhage or mass lesion. -Lipitor, aspirin -Keppra -Aspiration/seizure precautions -Continue home Prozac -PT/OT/ST consulted -Neurochecks per protocol Cardiac: h/o HTN -Cardiology consulted, appreciate recommendations -Blood pressure monitoring per protocol -Antihypertensive regimen: Atenolol, Lozol, lisinopril -Echocardiogram shows LVEF 55%, mild diastolic dysfunction no PFO -BELLE pending per neurology recs Respiratory: NAD -CCM/ pulm consulted for dyspnea, appreciate recommendations -Supplemental oxygen as needed -Pulmonary hygiene -SPO2 monitoring GI: S/p PEG tube placement -24 hours +1285 mL -PPI -NTR consulted for tube feedings -BR: Senna : Slight hyponatremia, h/o urinary retention/obstruction -Presented with indwelling catheter which was exchanged -Monitor intake and output -Renally dose medications -Avoid nephrotoxic medications -Repeat magnesium -Trend BMP ID: NAD -Monitor WBC and temperature curve Endo: h/o DM -Avoid hypoglycemia -SSI -Accu-Cheks q. every 6 -Hemoglobin A1c 8 Heme: ? Hypercoagulable state -CTA chest and abdomen pending per neurology recommendation -Trend CBC -Transfuse hemoglobin less than 7 -SCDs to BLE while in bed #Advance care planning Disease education conducted, care plan discussed, diagnoses discussed, prognosis discussed, patient is full code, patient brother Fabian acknowledges understanding and agree with care plan, +30 minutes. History Interval history: Patient seen and examined, clinically unchanged. No new event reported by [facility] staff. Remains encephalopathic with Left sided neglect Hospitalist Physical - Physical exam Narrative exam: General: No Apparent Distress HEENT: Positive: Mucus Membranes Dry, intermittent tracks, SLEEPING BUT AROUSABLE Neck: Positive: trachea midline Cardiac: Positive: Reg Rate and Rhythm Lungs: Positive: Normal Breath Sounds Neuro: Positive: Other (Hemiparesis), non verbal. locked in appearance. does not follow commands. opens eyes but not purposefully following commands. Abdomen: Positive: Soft Skin: Negative: Rash, Suspicious Lesions, Ulceration Extremities: Present: upper extr. pulses. Absent: edema - Constitutional Vitals: Temp Pulse Resp BP Pulse Ox 97.4 F L 88 20 126/73 98 11/04/21 08:40 11/04/21 08:40 11/04/21 08:40 11/04/21 08:40 11/04/21 08:40 General appearance: Present: no acute distress Results - Labs CBC & Chem 7: 10/24/21 05:00 10/28/21 03:40 Labs: Laboratory Last Values WBC 6.4 K/mm3 (4.5-11.0) 10/24/21 05:00 RBC 4.59 M/mm3 (3.65-5.03) 10/24/21 05:00 Hgb 12.7 gm/dl (11.8-15.2) 10/24/21 05:00 Hct 37.7 % (35.5-45.6) 10/24/21 05:00 MCV 82 fl (84-94) L 10/24/21 05:00 MCH 28 pg (28-32) 10/24/21 05:00 MCHC 34 % (32-34) 10/24/21 05:00 RDW 14.1 % (13.2-15.2) 10/24/21 05:00 Plt Count 222 K/mm3 (140-440) 10/24/21 05:00 Lymph % (Auto) 29.6 % (13.4-35.0) 10/22/21 16:00 [place] % (Auto) 11.8 % (0.0-7.3) H 10/22/21 16:00 Eos % (Auto) 1.3 % (0.0-4.3) 10/22/21 16:00 Baso % (Auto) 0.4 % (0.0-1.8) 10/22/21 16:00 Lymph # (Auto) 2.4 K/mm3 (1.2-5.4) 10/22/21 16:00 [place] # (Auto) 1.0 K/mm3 (0.0-0.8) H 10/22/21 16:00 Eos # (Auto) 0.1 K/mm3 (0.0-0.4) 10/22/21 16:00 Baso # (Auto) 0.0 K/mm3 (0.0-0.1) 10/22/21 16:00 Seg Neutrophils % 56.9 % (40.0-70.0) 10/22/21 16:00 Seg Neutrophils # 4.7 K/mm3 (1.8-7.7) 10/22/21 16:00 PT 14.8 Sec. (12.2-14.9) 10/22/21 16:00 INR 1.04 (0.87-1.13) 10/22/21 16:00 APTT 28.1 Sec. (24.2-36.6) 10/22/21 16:00 Sodium 137 mmol/L (137-145) 10/28/21 03:40 Potassium 4.2 mmol/L (3.6-5.0) 10/28/21 03:40 Chloride 97.1 mmol/L (98-107) L 10/28/21 03:40 Carbon Dioxide 29 mmol/L (22-30) 10/28/21 03:40 Anion Gap 15 mmol/L 10/28/21 03:40 BUN 14 mg/dL (9-20) 10/28/21 03:40 Creatinine 0.8 mg/dL (0.8-1.3) 10/28/21 03:40 Estimated GFR > 60 ml/min 10/28/21 03:40 BUN/Creatinine Ratio 18 % 10/28/21 03:40 Glucose 127 mg/dL (75-100) H 10/28/21 03:40 POC Glucose 172 mg/dL (70-105) H 11/04/21 11:26 Hemoglobin A1c 8.0 % (4-6) H 10/24/21 10:16 Calcium 10.1 mg/dL (8.4-10.2) 10/28/21 03:40 Phosphorus 4.20 mg/dL (2.5-4.5) 10/27/21 04:39 Magnesium 1.90 mg/dL (1.7-2.3) 10/27/21 04:39 Total Bilirubin 0.50 mg/dL (0.1-1.2) 10/22/21 16:00 AST 24 units/L (5-40) 10/22/21 16:00 ALT 28 units/L (7-56) 10/22/21 16:00 Alkaline Phosphatase 102 units/L (35-129) 10/22/21 16:00 Total Protein 6.9 g/dL (6.3-8.2) 10/22/21 16:00 Albumin 4.3 g/dL (3.9-5) 10/22/21 16:00 Albumin/Globulin Ratio 1.7 % 10/22/21 16:00 Triglycerides 85 mg/dL (2-149) 10/23/21 12:33 Cholesterol 148 mg/dL (50-199) 10/23/21 12:33 LDL Cholesterol Direct 86 mg/dL (50-130) 10/23/21 12:33 HDL Cholesterol 44 mg/dL (40-59) 10/23/21 12:33 Cholesterol/HDL Ratio 3.36 % 10/23/21 12:33 TSH 2.020 mlU/mL (0.270-4.200) 10/24/21 10:16 Free T4 0.88 ng/dL (0.76-1.46) 10/24/21 10:16 Urine Color Yellow (Yellow) 10/23/21 08:49 Urine Turbidity Clear (Clear) 10/23/21 08:49 Urine pH 6.5 (5.0-7.0) 10/23/21 08:49 Ur Specific [place] 1.005 (1.003-1.030) 10/23/21 08:49 Urine Protein 30 mg/dl mg/dL (Negative) 10/23/21 08:49 Urine Glucose (UA) Negative mg/dL (Negative) 10/23/21 08:49 Urine Ketones Negative mg/dL (Negative) 10/23/21 08:49 Urine Blood Moderate (Negative) A 10/23/21 08:49 Urine Nitrite Negative (Negative) 10/23/21 08:49 Ur Reducing Substances Not Reportable 10/23/21 08:49 Urine Bilirubin Negative (Negative) 10/23/21 08:49 Urine Ictotest Not Reportable 10/23/21 08:49 Urine Urobilinogen < 2.0 mg/dL (<2.0) 10/23/21 08:49 Ur Leukocyte Esterase Moderate (Negative) 10/23/21 08:49 Urine WBC (Auto) 28.0 /HPF (0.0-6.0) H 10/23/21 08:49 Urine RBC (Auto) 27.0 /HPF (0.0-6.0) 10/23/21 08:49 U Epithel Cells (Auto) 14.0 /HPF (0-13.0) H 10/23/21 08:49 Hyaline Casts 1 /LPF 10/23/21 08:49 Urine Mucus Few /HPF 10/23/21 08:49 Coronavirus (PCR) Negative (Negative) 10/30/21 Unknown Harden/IV: Voiding Method Indwelling Catheter Active Medications - Current Medications Current Medications: Generic Name Dose Route Start Last Admin Trade Name Freq PRN Reason Stop Dose Admin Acetaminophen 650 mg 10/22/21 16:19 10/28/21 22:11 Acetaminophen 325 Mg Tab PO 650 mg Q4H PRN Administration Pain, Mild (1-3) Albuterol 2.5 mg 10/22/21 16:19 Albuterol 2.5 Mg/3 Ml Nebu IH Q3HRT PRN Shortness Of Breath Lipase/Protease/Amylase 1 each 11/02/21 12:45 Lipase 10,500/Protease 25,000/Amylase 43,750 (Units) Dr Wilson FEEDTUBE PRN PRN For Clogged Feeding Tube Aspirin 325 mg 10/23/21 10:00 11/03/21 09:11 Aspirin 325 Mg Tab PO 325 mg QDAY NEO Administration Atenolol 50 mg 10/24/21 10:00 11/03/21 09:11 Atenolol 50 Mg Tab FEEDTUBE 50 mg QDAY NEO Administration Atorvastatin Calcium 80 mg 10/24/21 22:00 11/03/21 21:25 Atorvastatin 40 Mg Tab FEEDTUBE 80 mg QHS NEO Administration Bisacodyl 10 mg 10/22/21 16:19 Bisacodyl 10 Mg Rect Supp AR QDAY PRN Constipation Dextrose 50 ml 10/22/21 17:23 Dextrose 50% In Water (25gm) 50 Ml Syringe IV Q30MIN PRN Hypoglycemia Protocol Fluoxetine HCl 10 mg 10/24/21 10:00 11/03/21 09:12 Fluoxetine 20 Mg/5 Ml Oral Liqd FEEDTUBE 10 mg QDAY NEO Administration Heparin Sodium (Porcine) 5,000 unit 10/22/21 22:00 11/03/21 21:25 Heparin 5,000 Unit/1 Ml Vial SUB-Q 5,000 unit Q12HR NEO Administration Indapamide 5 mg 10/24/21 10:00 11/03/21 09:12 Indapamide 2.5 Mg Tab FEEDTUBE 5 mg QDAY NEO Administration Insulin Human Lispro 0 unit 10/24/21 12:00 11/04/21 06:23 Insulin Lispro 100 Unit/Ml SUB-Q 2 unit Q6HR NEO Administration Protocol Lansoprazole 30 mg 10/23/21 18:00 11/03/21 17:33 Lansoprazole 30 Mg Solutab FEEDTUBE 30 mg QPM NEO Administration Levetiracetam 250 mg 10/24/21 10:00 11/03/21 21:25 Levetiracetam 500 Mg/5 Ml Oral Liqd FEEDTUBE 250 mg BID NEO Administration Lisinopril 5 mg 10/24/21 10:00 11/03/21 09:11 Lisinopril 5 Mg Tab FEEDTUBE 5 mg QDAY NEO Administration Magnesium Hydroxide 30 ml 10/22/21 16:19 Magnesium Hydroxide (Mom) Oral Liqd Udc PO Q4H PRN Constipation Ondansetron HCl 4 mg 10/22/21 16:19 Ondansetron 4 Mg/2 Ml Inj IV Q8H PRN Nausea And Vomiting Oxycodone/Acetaminophen 1 tab 10/22/21 16:19 10/30/21 14:18 Oxycodone /Acetaminophen 5-325mg Tab PO 1 tab Q12H PRN Administration Pain, Moderate (4-6) Senna 8.8 mg 10/27/21 22:00 11/03/21 21:24 Sennosides Oral Liqd 8.8 Mg/5 Ml Oral Liqd FEEDTUBE 8.8 mg QHS NEO Administration Simple Syrup 15 ml 11/02/21 12:45 Simple Syrup 15 Ml FEEDTUBE PRN PRN Hypoglycemia Simple Syrup 30 ml 11/02/21 12:45 Simple Syrup 15 Ml FEEDTUBE PRN PRN Hypoglycemia Sodium Bicarbonate 325 mg 11/02/21 12:45 Sodium Bicarbonate 325 Mg Tab FEEDTUBE PRN PRN For Clogged Feeding Tube Sodium Chloride 10 ml 10/22/21 16:19 11/03/21 09:13 Sodium Chloride 0.9% 10 Ml Flush Syringe IV 10 ml PRN PRN Administration LINE FLUSH Nutrition/Malnutrition Assess - Dietary Evaluation Nutrition/Malnutrition Findings: Nutrition Notes Start: 10/23/21 13:01 Freq: Status: Active Protocol: Document 11/02/21 12:18 JIM (Rec: 11/02/21 12:47 JIM [email or web address]) Nutrition Notes Initial or Follow up Reassessment Current Diagnosis Diabetes,Hypertension,Stroke Other Pertinent Diagnosis Dysphagia, L-Hemiparesis, Debility. Current Diet TF-Glucerna 1.2 [place] @ 70 ml/hr (since D 10/30). Labs/Tests 11/02: N/A. Pertinent Medications 11/02: Humalog 2U, others nutritionally unremarkable. Height 5 ft 11 in Weight 69.9 kg [place] Body Weight (kg) 78.18 BMI 21.4 Weight change and time frame Discrepancy of 20.818 Kg body weight loss in 1 week reported . Weight Status Appropriate Subjective/Other Information RD consult for routine F/U on TF tolerance/continuation. TF continues as prescribed, and well tolerated, according to RN notes. RN note on 11/01/21 21:38: Assessed patient tube feeding residual by aspiration. No residual feeding not. Accessed tube placement prior to medications,water flushed per order. Changed tube feeding and water bag. Patient tolerating feeding well. No sign of abdominal discomfort. - END OF NOTE. Pt is on Room Air, O2 saturation @ 97%, according to Physical Assessment History notes. Pt is not a candidate for skilled PT at this time; ans is recommended SNF placement, according to Progress notes. Percent of energy/protein needs met: Prescribed TF-Glucerna 1.2 [place] @ 70 ml/hr provides for energy/protein needs (2,016 Kcal/111 g) during LOS, 95% Kcal; 111% AA. Burn Absent Trauma Absent GI Symptoms None Difficulty In Swallowing Food Allergy No Skin Integrity/Comment Assessment WNL. Current % PO Other Minimum of two criteria No Fluid Accumulation N/A Reduced [employer] Executive Assistant Strength N/A (non-severe) Protein-Calorie Malnutrition N\\A #1 Nutrition Diagnosis Swallowing difficulty Diagnosis Progress(for reassessment Continues documentation) Is patient on ventilator? No Is Patient Ambulatory and/or Out of Bed No REE-([facility]-confined to bed) 1865.892 Kcal/Kg value to use for calculation 30 Approximate Energy Requirements Using 2097 kcal/Kg Calculation Used for Recommendations Kcal/kg Additional Notes Protein: 0.8-1 g/Kg ABW; 73-91 g/day. Fluids: 1 ml/Kcal, or as per MD. Nutrition Intervention Nutrition Support: Continue TF-Glucerna 1.2 [place] @ 70 ml/hr. Flush: 100 ml water Q 4 hr, or as per MD. Kcal 2,016 Protein (gm) 101 Carbohydrates (gm) 192 Fat (gm) 101 Fluid (mL) 1,352 Fiber (gm) 27 % RDI: 95% Kcal; 111% AA. Goal #1 Provide at least 75% of energy /protein needs through Enteral Feeding during LOS. Follow-Up By: 11/09/21 Additional Comments Continue monitoring TF tolerance and BM.
[2021-11-04] MEDS: LISINOPRIL 5 MG TAB FEEDTUBE SCH (11:45)
[2021-11-04] MEDS: ASPIRIN 325 MG TAB PO SCH (11:45)
[2021-11-04] MEDS: FLUoxetine 20 MG/5 ML ORAL LIQD FEEDTUBE SCH (11:45)
[2021-11-04] MEDS: levETIRAcetam 500 MG/5 ML ORAL LIQD FEEDTUBE SCH ×2 (11:45→21:58)
[2021-11-04] MEDS: INDAPAMIDE 2.5 MG TAB FEEDTUBE SCH (11:46)
[2021-11-04] MEDS: HEPARIN 5,000 UNIT/1 ML VIAL SUB-Q SCH ×2 (11:46→21:58)
[2021-11-04] MEDS: atenoloL 50 MG TAB FEEDTUBE SCH (11:47)
[2021-11-04] MEDS: LANSOPRAZOLE 30 MG SOLUTAB FEEDTUBE SCH (18:44)
[2021-11-04] MEDS: SENNOSIDES ORAL LIQD 8.8 MG/5 ML ORAL LIQD FEEDTUBE SCH (21:58)
[2021-11-05] MEDS: INSULIN LISPRO 100 UNIT/ML SUB-Q SCH ×4 (00:51→18:24)
[2021-11-05] MEDS: atenoloL 50 MG TAB FEEDTUBE SCH (09:50)
[2021-11-05] MEDS: LISINOPRIL 5 MG TAB FEEDTUBE SCH (09:50)
[2021-11-05] MEDS: levETIRAcetam 500 MG/5 ML ORAL LIQD FEEDTUBE SCH ×2 (09:50→21:32)
[2021-11-05] MEDS: ASPIRIN 325 MG TAB PO SCH (09:50)
[2021-11-05] MEDS: HEPARIN 5,000 UNIT/1 ML VIAL SUB-Q SCH ×2 (09:50→21:31)
[2021-11-05] MEDS: INDAPAMIDE 2.5 MG TAB FEEDTUBE SCH (09:50)
[2021-11-05] MEDS: FLUoxetine 20 MG/5 ML ORAL LIQD FEEDTUBE SCH (09:51)
[2021-11-05] MEDS: LIPASE 10,500/PROTEASE 25,000/AMYLASE 43,750 (UNITS) DR CAP FEEDTUBE PRN (11:25)
--- NOTE | 2021-11-05 12:25 | Progress Note ---
Assessment and Plan 55 YO Male with HTN, DM, CVA complicated by Dysphagia, Dysarthria, Left Hemiparesis, Debility was admitted to [facility] in [facility] on 06/22/21. The patient was transported to [facility] today via air ambulance for continued treatment of the aforementioned symptoms. The patient was found to have clinical symptoms consistent with CVA but the patient was deemed outside the therapeutic window for tPA. The patient was admitted to [facility] and initiated on CVA protocol. The patient is nonverbal and has a palliative performance scor e of 30% and requires 6/6 assistance with activities of daily living. T No reports of fever, chills, chest pain, palpitation, productive cough, skin rash, recent contact, known exposure to COVID-19. Patient has PEG Placement. According to the chart. No history of smoking, alcohol or drug abuse. Patient is asleep. Not responding to Verbal stimuli. Patient is on room air. O2 saturation running 97%. No acute respiratory distress. Patient is afebrile. No leukocytosis. BP 150/93, pulse 77, RR 18. Chest x-ray done 10/23/21 reported no acute findings. CTA of chest 10/27/21 reported Limited exam due to motion artifact without CT evidence of pulmonary emboli or other acute findings. Patient is on albuterol inhaler, S/C heparin, and Prevacid. - Patient Problems (1) CVA (cerebral vascular accident) Current Visit: Yes Status: Acute Qualifiers: Precerebral and cerebral artery: middle cerebral artery Laterality of affected vessel: right Plan to address problem: Manage is per primary care and neurology. Recommend aspiration precautions. (2) Dysarthria as late effect of stroke Current Visit: Yes Status: Acute Plan to address problem: Management is per neurology. (3) Dysphagia as late effect of stroke Current Visit: Yes Status: Acute Plan to address problem: Management is per neurology. (4) Hemiparesis, left Current Visit: Yes Status: Acute Plan to address problem: Management is per neurology. (5) Diabetes Current Visit: Yes Status: Acute Plan to address problem: Management is per primary care. (6) Hypertension Current Visit: Yes Status: Acute Qualifiers: Hypertension type: primary hypertension Qualified Code(s): I10 - Essential (primary) hypertension Plan to address problem: Management is per primary care. Subjective Date of service: 11/05/21 Principal diagnosis: R. CVA with L. hemiparesis; HTN; DM II; Dysarthria; Oropharyngeal dysphagia Interval history: 55 YO Male with HTN, DM, CVA complicated by Dysphagia, Dysarthria, Left Hemiparesis, Debility was admitted to [facility] in [facility] on 06/22/21. The patient was transported to [facility] today via air ambulance for continued treatment of the aforementioned symptoms. The patient was found to have clinical symptoms consistent with CVA but the patient was deemed outside the therapeutic window for tPA. The patient was admitted to [facility] and initiated on CVA protocol. The patient is nonverbal and has a palliative performance score of 30% and requires 6/6 assistance with activities of daily living. T No reports of fever, chills, chest pain, palpitation, productive cough, skin rash, recent contact, known exposure to COVID-19. Patient has PEG Placement. According to the chart. No history of smoking, alcohol or drug abuse. Patient is asleep. Not responding to Verbal stimuli. Patient is on room air. O2 saturation running 97%. No acute respiratory distress. Patient is afebrile. No leukocytosis. BP 150/93, pulse 77, RR 18. Chest x-ray done 10/23/21 reported no acute findings. CTA of chest 10/27/21 reported Limited exam due to motion artifact without CT evidence of pulmonary emboli or other acute findings. Patient is on albuterol inhaler, S/C heparin, and Prevacid. Objective Vital Signs - 12hr 11/05/21 11/05/21 03:44 09:03 Temperature 98.6 F 98.6 F Pulse Rate 100 H 98 H Respiratory 20 16 Rate Blood Pressure 152/93 Blood Pressure 140/20 [Right] O2 Sat by Pulse 97 98 Oximetry Constitutional: no acute distress, asleep Eyes: non-icteric ENT: oropharynx moist Neck: supple, no lymphadenopathy Effort: normal Ascultation: Bilateral: clear Percussion: Bilateral: not dull Cardiovascular: regular rate and rhythm, other (S1,S2) Gastrointestinal: normoactive bowel sounds, soft, non-tender, non-distended, other (PEG tube) Integumentary: normal Extremities: no cyanosis, no edema, pulses normal, no ischemia or petechiae Neurologic: pupils equal and round, other (left hemiplegia ) Psychiatric: other (unable to asses due to neurological status) CBC and BMP: 10/24/21 05:00 10/28/21 03:40 ABG, PT/INR, D-dimer: PT/INR, D-dimer PT 14.8 Sec. (12.2-14.9) 10/22/21 16:00 INR 1.04 (0.87-1.13) 10/22/21 16:00 Abnormal lab findings: Abnormal Labs 10/22/21 10/22/21 10/22/21 16:00 16:00 22:44 MCV 83 L MCH 27 L Dixie % (Auto) 11.8 H [place] # (Auto) 1.0 H Sodium Potassium Chloride Creatinine 0.6 L Glucose 175 H POC Glucose 115 H Hemoglobin A1c Magnesium Urine Blood Urine WBC (Auto) U Epithel Cells (Auto) 10/23/21 10/23/21 10/23/21 07:28 08:49 11:31 MCV MCH [place] % (Auto) [place] # (Auto) Sodium Potassium Chloride Creatinine Glucose POC Glucose 129 H 136 H Hemoglobin A1c Magnesium Urine Blood Moderate A Urine WBC (Auto) 28.0 H U Epithel Cells (Auto) 14.0 H 10/23/21 10/24/21 10/24/21 17:59 00:01 05:00 MCV 82 L MCH [place] % (Auto) [place] # (Auto) Sodium Potassium Chloride Creatinine Glucose POC Glucose 109 H 111 H Hemoglobin A1c Magnesium Urine Blood Urine WBC (Auto) U Epithel Cells (Auto) 10/24/21 10/24/21 10/24/21 05:00 07:57 10:16 MCV MCH [place] % (Auto) [place] # (Auto) Sodium Potassium 3.5 L Chloride Creatinine 0.6 L Glucose 134 H POC Glucose 132 H Hemoglobin A1c 8.0 H Magnesium Urine Blood Urine WBC (Auto) U Epithel Cells (Auto) 10/24/21 10/24/21 10/25/21 16:26 20:57 04:47 MCV MCH [place] % (Auto) [place] # (Auto) Sodium Potassium Chloride Creatinine Glucose POC Glucose 109 H 145 H 159 H Hemoglobin A1c Magnesium Urine Blood Urine WBC (Auto) U Epithel Cells (Auto) 10/25/21 10/25/21 10/25/21 07:49 11:19 17:49 MCV MCH [place] % (Auto) [place] # (Auto) Sodium Potassium Chloride Creatinine Glucose POC Glucose 147 H 164 H 141 H Hemoglobin A1c Magnesium Urine Blood Urine WBC (Auto) U Epithel Cells (Auto) 10/25/21 10/26/21 10/26/21 20:54 04:56 07:23 MCV MCH [place] % (Auto) [place] # (Auto) Sodium Potassium Chloride Creatinine 0.7 L Glucose 165 H POC Glucose 136 H 172 H Hemoglobin A1c Magnesium 1.60 L Urine Blood Urine WBC (Auto) U Epithel Cells (Auto) 10/26/21 10/26/21 10/26/21 11:21 17:21 23:38 MCV MCH [place] % (Auto) [place] # (Auto) Sodium Potassium Chloride Creatinine Glucose POC Glucose 168 H 164 H 147 H Hemoglobin A1c Magnesium Urine Blood Urine WBC (Auto) U Epithel Cells (Auto) 10/27/21 10/27/21 10/27/21 04:39 07:32 11:33 MCV MCH [place] % (Auto) [place] # (Auto) Sodium 135 L Potassium Chloride 95.4 L Creatinine 0.6 L Glucose 156 H POC Glucose 137 H 180 H Hemoglobin A1c Magnesium Urine Blood Urine WBC (Auto) U Epithel Cells (Auto) 10/27/21 10/27/21 10/28/21 16:18 23:55 03:40 MCV MCH [place] % (Auto) [place] # (Auto) Sodium Potassium Chloride 97.1 L Creatinine Glucose 127 H POC Glucose 130 H 123 H Hemoglobin A1c Magnesium Urine Blood Urine WBC (Auto) U Epithel Cells (Auto) 10/28/21 10/28/21 10/28/21 08:10 12:03 17:42 MCV MCH [place] % (Auto) [place] # (Auto) Sodium Potassium Chloride Creatinine Glucose POC Glucose 142 H 173 H 145 H Hemoglobin A1c Magnesium Urine Blood Urine WBC (Auto) U Epithel Cells (Auto) 10/28/21 10/29/21 10/29/21 23:31 05:35 11:48 MCV MCH [place] % (Auto) [place] # (Auto) Sodium Potassium Chloride Creatinine Glucose POC Glucose 181 H 225 H 166 H Hemoglobin A1c Magnesium Urine Blood Urine WBC (Auto) U Epithel Cells (Auto) 10/29/21 10/30/21 10/30/21 16:23 00:19 05:23 MCV MCH [place] % (Auto) [place] # (Auto) Sodium Potassium Chloride Creatinine Glucose POC Glucose 167 H 157 H 175 H Hemoglobin A1c Magnesium Urine Blood Urine WBC (Auto) U Epithel Cells (Auto) 10/30/21 10/30/21 10/31/21 13:58 23:07 05:56 MCV MCH [place] % (Auto) [place] # (Auto) Sodium Potassium Chloride Creatinine Glucose POC Glucose 201 H 171 H 215 H Hemoglobin A1c Magnesium Urine Blood Urine WBC (Auto) U Epithel Cells (Auto) 10/31/21 10/31/21 11/01/21 12:25 16:17 00:06 MCV MCH [place] % (Auto) [place] # (Auto) Sodium Potassium Chloride Creatinine Glucose POC Glucose 230 H 222 H 186 H Hemoglobin A1c Magnesium Urine Blood Urine WBC (Auto) U Epithel Cells (Auto) 11/01/21 11/01/21 11/01/21 05:57 11:35 16:14 MCV MCH [place] % (Auto) [place] # (Auto) Sodium Potassium Chloride Creatinine Glucose POC Glucose 188 H 170 H 168 H Hemoglobin A1c Magnesium Urine Blood Urine WBC (Auto) U Epithel Cells (Auto) 11/01/21 11/02/21 11/02/21 23:41 06:36 11:44 MCV MCH [place] % (Auto) [place] # (Auto) Sodium Potassium Chloride Creatinine Glucose POC Glucose 172 H 187 H 161 H Hemoglobin A1c Magnesium Urine Blood Urine WBC (Auto) U Epithel Cells (Auto) 11/02/21 11/03/21 11/03/21 18:19 00:12 05:32 MCV MCH [place] % (Auto) [place] # (Auto) Sodium Potassium Chloride Creatinine Glucose POC Glucose 121 H 192 H 240 H Hemoglobin A1c Magnesium Urine Blood Urine WBC (Auto) U Epithel Cells (Auto) 11/03/21 11/03/21 11/03/21 11:46 16:45 23:36 MCV MCH [place] % (Auto) [place] # (Auto) Sodium Potassium Chloride Creatinine Glucose POC Glucose 201 H 170 H 167 H Hemoglobin A1c Magnesium Urine Blood Urine WBC (Auto) U Epithel Cells (Auto) 11/04/21 11/04/21 11/04/21 05:49 11:26 16:18 MCV MCH [place] % (Auto) [place] # (Auto) Sodium Potassium Chloride Creatinine Glucose POC Glucose 157 H 172 H 188 H Hemoglobin A1c Magnesium Urine Blood Urine WBC (Auto) U Epithel Cells (Auto) 11/04/21 11/05/21 23:27 05:23 MCV MCH [place] % (Auto) [place] # (Auto) Sodium Potassium Chloride Creatinine Glucose POC Glucose 168 H 165 H Hemoglobin A1c Magnesium Urine Blood Urine WBC (Auto) U Epithel Cells (Auto) Allied health notes reviewed: nursing
--- NOTE | 2021-11-05 14:21 | Progress Note ---
Assessment and Plan Assessment and plan: his is a 55-year-old with HTN, DM, CVA complicated by dysphagia s/p PEG tube placement, dysarthria, left hemiparesis and debility who presented to the emergency department on 10/22 via air ambulance for continued treatment. Patient was admitted to the [facility] and initiated on CIWA protocol with consults to [facility], neurology will need a cardiology. Hospital Course to Date: 10/23: Nonverbal, open eyes spontaneously, does not follow any commands with LUE paralysis/contraction. on RA, VSS. Echo and Neurology consult pending. PT/OT/Speech also consulted. PEG-tube noted, nutrition/design engineer consulted for TF management. Pulmonary is also following. Patient presented with a harden cat heter, per record history of urinary retention. Harden cath exchanged, UA pending. 10/24: SEKOU overnight. Neurology recommendations noted, orders placed for MRI brain and CTA head/Neck. Continue PT/OT/Speech, home meds resumed, and enteral nutrition initiated. UA noted, patient is asymptomatic with no leukocytosis, continue to monitor, urine culture pending. 10/25: Remains stable, mentation unchanged. CTA head/Neck noted, MRI brain/MRA head/Neck pending. Awaiting Neurology final recommendations. Continue current supportive measures. 10/26: Patient will have a BELLE, cardiology consulted per neurology recommendations, MRI/MRA/MRV pending no acute events reported overnight. Magnesium repleted. 10/27: Unable to complete BELLE as consent was not able to be obtained, [facility] contacted [facility] who declined the patient is a candidate, MRI brain and CTA chest and pelvis pending. No acute events reported overnight. 10/28: No acute overnight events. CTA chest and abdomen completed were negative studies. BELLE completed this AM, no acute findings noted. MR brain shows subacute right MCA infarction superimposed on chronic infarction. There is involvement of the lateral aspect of right temporal lobe. Large remote pontine infarction noted. No indication of recent intracranial hemorrhage or mass lesion. CM currently working on placement to SNF. Can transfer patient to floor bed. Attempted to call number in chart to update family. no response. 10/29: D/w brother Fabian Waldron [phone]. Updated him on patient clinical status. Discussed overall poor chance of regaining baseline function and current "locked in" appearance due to territory of stroke. I also discussed options of home health care if the family can support the patient versus hospice versus SNF. I also updated Fabian that thus far facilities have denied the patient due to him being out of network. He stated he would speak with his brother Tyrell regarding these updates and would also be coming to the hospital tomorrow to discuss the family's goals for the patient. Patient likely needs DOAC. Will await neuro recs re: anticoagulation. 10/30: Neurology recommends against doac. Will obtain covid pcr. Plan Family discussion today this AM with patient brother Fabian this AM re: GOK I discussed with the patient's brother, Fabian regarding goals of care as well as the events of the patient's hospitalization. He was very much adamant that the patient go to rehab/snf and did not think hospice was the right option for his brother. I explained that thus far the patient has been declined at more than 10 facilities in the [facility] area. He stated that he would be willing to help fund him should that be an issue. I notified the hospice case manager about my conversation who stated they would speak with Mr Peralta. 10/31: Patient tolerating tube feed, clinically unchanged, PT recommendation is as noted below. WIll have case management consider a Personal skilled nursing also. PER PT Pt presents with poor rehab potential due to CVA x4 months ago with L UE and LE hypertonicity, contractures, poor isolated movements, inability to follow instructions, Left side neglect, significant impairments of coordination and strength. Pt is total assist with mobilities and high risk for falls. Recommend SNF placement for 24hr care. If pt d/c home with family, will need hospital bed, cecil lift for potential transfers. Due to pt's involuntary movements and abnormal tone, pt is high risk for falling out of a w/c. If pt d/c home, recommend 1 PT visit for pt/family training re: positioning, bed mobility. Pt is not a candidate for skilled PT at this time. Pt was left in semi fowlers, needs in reach, all lines intact, no distress, pt with involuntary movements at times. 11/01: Continue supportive care. We will plan on further discussion with the family on discharge planning anticipated in a day or 2 following this history arrangements to be in place. We will follow-up with the pending intermediate facility to see if they accept him. 11/02: Patient seen and examined, discharge planning, continue supportive care, wound management, rehab. 11/03: Patient seen and examined, remains with profused encephalopathy, still with left upper hemiparesis and spontaneous non purposeful movement of bilateral lower ext and right upper ext. Awaiting safe discharge plan. I have called to speak with the brother and left my personal cell phone number for call back. 11/04: Patient seen and examined, He is able to respond to commands and Squeeze my hand on his right upper ext, He Unfortunately not following commands on the lower ext which he moves spontaneously and not on command. He continues to await safe discharge. Goals of care discussed extensively with advance care plan. He remains a full code and family will like aggresssive PT/OT/Speech therapy. 11/05: Patient seen and examined clinically stable at this time awaiting family arrangements for safe discharge. Hospital bed has been ordered for discharge to home. Assessment and Plan: Neuro: Recent CVA complicated by dysphagia/dysarthria/left hemiparesis/debility, h/o depression, seizure disorder, Metabolic Encephalopathy secondary to CVA with left sided neglect -Neurology and CCM consulted, appreciate recommendations -Reorientation as needed -Maintain sleep-wake cycle -aspiration/seizure precautions -As needed analgesia -CT head shows old moderately sized MCA infarct the right involving the inferior frontal peritracheal regions, gangliocapsular Regions and Right Temporal Lobe, prominent Kuehner seen in the left anterior andrea, small scattered lacunar infarcts suggesting the andrea -Bilateral carotid Doppler ultrasound shows less than 50% diameter stenosis in the right and left internal carotid artery -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 There is involvement of the lateral aspect of right temporal lobe. Large remote pontine infarction noted. No indication of recent intracranial hemorrhage or mass lesion. -Lipitor, aspirin -Keppra -Aspiration/seizure precautions -Continue home Prozac -PT/OT/ST consulted -Neurochecks per protocol Cardiac: h/o HTN -Cardiology consulted, appreciate recommendations -Blood pressure monitoring per protocol -Antihypertensive regimen: Atenolol, Lozol, lisinopril -Echocardiogram shows LVEF 55%, mild diastolic dysfunction no PFO -BELLE pending per neurology recs Respiratory: NAD -CCM/ pulm consulted for dyspnea, appreciate recommendations -Supplemental oxygen as needed -Pulmonary hygiene -SPO2 monitoring GI: S/p PEG tube placement -24 hours +1285 mL -PPI -NTR consulted for tube feedings -BR: Senna : Slight hyponatremia, h/o urinary retention/obstruction -Presented with indwelling catheter which was exchanged -Monitor intake and output -Renally dose medications -Avoid nephrotoxic medications -Repeat magnesium -Trend BMP ID: NAD -Monitor WBC and temperature curve Endo: h/o DM -Avoid hypoglycemia -SSI -Accu-Cheks q. every 6 -Hemoglobin A1c 8 Heme: ? Hypercoagulable state -CTA chest and abdomen pending per neurology recommendation -Trend CBC -Transfuse hemoglobin less than 7 -SCDs to BLE while in bed #Advance care planning Disease education conducted, care plan discussed, diagnoses discussed, prognosis discussed, patient is full code, patient brother Fabian acknowledges understanding and agree with care plan, +30 minutes. History Interval history: Patient seen and examined, clinically unchanged. No new event reported by nursing staff. Remains encephalopathic with Left sided neglect Hospitalist Physical - Physical exam Narrative exam: General: No Apparent Distress HEENT: Positive: Mucus Membranes Dry, intermittent tracks, SLEEPING BUT AROUSABLE Neck: Positive: trachea midline Cardiac: Positive: Reg Rate and Rhythm Lungs: Positive: Normal Breath Sounds Neuro: Positive: Other (Hemiparesis), non verbal. locked in appearance. does not follow commands. opens eyes but not purposefully following commands. Abdomen: Positive: Soft Skin: Negative: Rash, Suspicious Lesions, Ulceration Extremities: Present: upper extr. pulses. Absent: edema - Constitutional Vitals: Temp Pulse Resp BP Pulse Ox 98.6 F 77 18 150/93 97 11/05/21 12:32 11/05/21 12:32 11/05/21 12:32 11/05/21 12:32 11/05/21 12:32 General appearance: Present: no acute distress Results - Labs CBC & Chem 7: 10/24/21 05:00 10/28/21 03:40 Labs: Laboratory Last Values WBC 6.4 K/mm3 (4.5-11.0) 10/24/21 05:00 RBC 4.59 M/mm3 (3.65-5.03) 10/24/21 05:00 Hgb 12.7 gm/dl (11.8-15.2) 10/24/21 05:00 Hct 37.7 % (35.5-45.6) 10/24/21 05:00 MCV 82 fl (84-94) L 10/24/21 05:00 MCH 28 pg (28-32) 10/24/21 05:00 MCHC 34 % (32-34) 10/24/21 05:00 RDW 14.1 % (13.2-15.2) 10/24/21 05:00 Plt Count 222 K/mm3 (140-440) 10/24/21 05:00 Lymph % (Auto) 29.6 % (13.4-35.0) 10/22/21 16:00 [place] % (Auto) 11.8 % (0.0-7.3) H 10/22/21 16:00 Eos % (Auto) 1.3 % (0.0-4.3) 10/22/21 16:00 Baso % (Auto) 0.4 % (0.0-1.8) 10/22/21 16:00 Lymph # (Auto) 2.4 K/mm3 (1.2-5.4) 10/22/21 16:00 [place] # (Auto) 1.0 K/mm3 (0.0-0.8) H 10/22/21 16:00 Eos # (Auto) 0.1 K/mm3 (0.0-0.4) 10/22/21 16:00 Baso # (Auto) 0.0 K/mm3 (0.0-0.1) 10/22/21 16:00 Seg Neutrophils % 56.9 % (40.0-70.0) 10/22/21 16:00 Seg Neutrophils # 4.7 K/mm3 (1.8-7.7) 10/22/21 16:00 PT 14.8 Sec. (12.2-14.9) 10/22/21 16:00 INR 1.04 (0.87-1.13) 10/22/21 16:00 APTT 28.1 Sec. (24.2-36.6) 10/22/21 16:00 Sodium 137 mmol/L (137-145) 10/28/21 03:40 Potassium 4.2 mmol/L (3.6-5.0) 10/28/21 03:40 Chloride 97.1 mmol/L (98-107) L 10/28/21 03:40 Carbon Dioxide 29 mmol/L (22-30) 10/28/21 03:40 Anion Gap 15 mmol/L 10/28/21 03:40 BUN 14 mg/dL (9-20) 10/28/21 03:40 Creatinine 0.8 mg/dL (0.8-1.3) 10/28/21 03:40 Estimated GFR > 60 ml/min 10/28/21 03:40 BUN/Creatinine Ratio 18 % 10/28/21 03:40 Glucose 127 mg/dL (75-100) H 10/28/21 03:40 POC Glucose 161 mg/dL (70-105) H 11/05/21 12:36 Hemoglobin A1c 8.0 % (4-6) H 10/24/21 10:16 Calcium 10.1 mg/dL (8.4-10.2) 10/28/21 03:40 Phosphorus 4.20 mg/dL (2.5-4.5) 10/27/21 04:39 Magnesium 1.90 mg/dL (1.7-2.3) 10/27/21 04:39 Total Bilirubin 0.50 mg/dL (0.1-1.2) 10/22/21 16:00 AST 24 units/L (5-40) 10/22/21 16:00 ALT 28 units/L (7-56) 10/22/21 16:00 Alkaline Phosphatase 102 units/L (35-129) 10/22/21 16:00 Total Protein 6.9 g/dL (6.3-8.2) 10/22/21 16:00 Albumin 4.3 g/dL (3.9-5) 10/22/21 16:00 Albumin/Globulin Ratio 1.7 % 10/22/21 16:00 Triglycerides 85 mg/dL (2-149) 10/23/21 12:33 Cholesterol 148 mg/dL (50-199) 10/23/21 12:33 LDL Cholesterol Direct 86 mg/dL (50-130) 10/23/21 12:33 HDL Cholesterol 44 mg/dL (40-59) 10/23/21 12:33 Cholesterol/HDL Ratio 3.36 % 10/23/21 12:33 TSH 2.020 mlU/mL (0.270-4.200) 10/24/21 10:16 Free T4 0.88 ng/dL (0.76-1.46) 10/24/21 10:16 Urine Color Yellow (Yellow) 10/23/21 08:49 Urine Turbidity Clear (Clear) 10/23/21 08:49 Urine pH 6.5 (5.0-7.0) 10/23/21 08:49 Ur Specific [place] 1.005 (1.003-1.030) 10/23/21 08:49 Urine Protein 30 mg/dl mg/dL (Negative) 10/23/21 08:49 Urine Glucose (UA) Negative mg/dL (Negative) 10/23/21 08:49 Urine Ketones Negative mg/dL (Negative) 10/23/21 08:49 Urine Blood Moderate (Negative) A 10/23/21 08:49 Urine Nitrite Negative (Negative) 10/23/21 08:49 Ur Reducing Substances Not Reportable 10/23/21 08:49 Urine Bilirubin Negative (Negative) 10/23/21 08:49 Urine Ictotest Not Reportable 10/23/21 08:49 Urine Urobilinogen < 2.0 mg/dL (<2.0) 10/23/21 08:49 Ur Leukocyte Esterase Moderate (Negative) 10/23/21 08:49 Urine WBC (Auto) 28.0 /HPF (0.0-6.0) H 10/23/21 08:49 Urine RBC (Auto) 27.0 /HPF (0.0-6.0) 10/23/21 08:49 U Epithel Cells (Auto) 14.0 /HPF (0-13.0) H 10/23/21 08:49 Hyaline Casts 1 /LPF 10/23/21 08:49 Urine Mucus Few /HPF 10/23/21 08:49 Coronavirus (PCR) Negative (Negative) 10/30/21 Unknown Harden/IV: Voiding Method Indwelling Catheter Active Medications - Current Medications Current Medications: Generic Name Dose Route Start Last Admin Trade Name Freq PRN Reason Stop Dose Admin Acetaminophen 650 mg 10/22/21 16:19 10/28/21 22:11 Acetaminophen 325 Mg Tab PO 650 mg Q4H PRN Administration Pain, Mild (1-3) Albuterol 2.5 mg 10/22/21 16:19 Albuterol 2.5 Mg/3 Ml Nebu IH Q3HRT PRN Shortness Of Breath Lipase/Protease/Amylase 1 each 11/02/21 12:45 11/05/21 11:25 Lipase 10,500/Protease 25,000/Amylase 43,750 (Units) Dr Wilson FEEDTUBE 1 each PRN PRN Administration For Clogged Feeding Tube Aspirin 325 mg 10/23/21 10:00 11/05/21 09:50 Aspirin 325 Mg Tab PO 325 mg QDAY NEO Administration Atenolol 50 mg 10/24/21 10:00 11/05/21 09:50 Atenolol 50 Mg Tab FEEDTUBE 50 mg QDAY NEO Administration Atorvastatin Calcium 80 mg 10/24/21 22:00 11/04/21 21:58 Atorvastatin 40 Mg Tab FEEDTUBE 80 mg QHS NEO Administration Bisacodyl 10 mg 10/22/21 16:19 Bisacodyl 10 Mg Rect Supp NJ QDAY PRN Constipation Dextrose 50 ml 10/22/21 17:23 Dextrose 50% In Water (25gm) 50 Ml Syringe IV Q30MIN PRN Hypoglycemia Protocol Fluoxetine HCl 10 mg 10/24/21 10:00 11/05/21 09:51 Fluoxetine 20 Mg/5 Ml Oral Liqd FEEDTUBE 10 mg QDAY NEO Administration Heparin Sodium (Porcine) 5,000 unit 10/22/21 22:00 11/05/21 09:50 Heparin 5,000 Unit/1 Ml Vial SUB-Q 5,000 unit Q12HR NEO Administration Indapamide 5 mg 10/24/21 10:00 11/05/21 09:50 Indapamide 2.5 Mg Tab FEEDTUBE 5 mg QDAY NEO Administration Insulin Human Lispro 0 unit 10/24/21 12:00 11/05/21 13:00 Insulin Lispro 100 Unit/Ml SUB-Q 2 unit Q6HR NEO Administration Protocol Lansoprazole 30 mg 10/23/21 18:00 11/04/21 18:44 Lansoprazole 30 Mg Solutab FEEDTUBE 30 mg QPM NEO Administration Levetiracetam 250 mg 10/24/21 10:00 11/05/21 09:50 Levetiracetam 500 Mg/5 Ml Oral Liqd FEEDTUBE 250 mg BID NEO Administration Lisinopril 5 mg 10/24/21 10:00 11/05/21 09:50 Lisinopril 5 Mg Tab FEEDTUBE 5 mg QDAY NEO Administration Magnesium Hydroxide 30 ml 10/22/21 16:19 Magnesium Hydroxide (Mom) Oral Liqd Udc PO Q4H PRN Constipation Ondansetron HCl 4 mg 10/22/21 16:19 Ondansetron 4 Mg/2 Ml Inj IV Q8H PRN Nausea And Vomiting Oxycodone/Acetaminophen 1 tab 10/22/21 16:19 10/30/21 14:18 Oxycodone /Acetaminophen 5-325mg Tab PO 1 tab Q12H PRN Administration Pain, Moderate (4-6) Senna 8.8 mg 10/27/21 22:00 11/04/21 21:58 Sennosides Oral Liqd 8.8 Mg/5 Ml Oral Liqd FEEDTUBE 8.8 mg QHS NEO Administration Simple Syrup 15 ml 11/02/21 12:45 Simple Syrup 15 Ml FEEDTUBE PRN PRN Hypoglycemia Simple Syrup 30 ml 11/02/21 12:45 Simple Syrup 15 Ml FEEDTUBE PRN PRN Hypoglycemia Sodium Bicarbonate 325 mg 11/02/21 12:45 11/05/21 11:25 Sodium Bicarbonate 325 Mg Tab FEEDTUBE 325 mg PRN PRN Administration For Clogged Feeding Tube Sodium Chloride 10 ml 10/22/21 16:19 11/03/21 09:13 Sodium Chloride 0.9% 10 Ml Flush Syringe IV 10 ml PRN PRN Administration LINE FLUSH Nutrition/Malnutrition Assess - Dietary Evaluation Nutrition/Malnutrition Findings: Nutrition Notes Start: 10/23/21 1 3:01 Freq: Status: Active Protocol: Document 11/02/21 12:18 JIM (Rec: 11/02/21 12:47 JIM [email or web address]) Nutrition Notes Initial or Follow up Reassessment Current Diagnosis Diabetes,Hypertension,Stroke Other Pertinent Diagnosis Dysphagia, L-Hemiparesis, Debility. Current Diet TF-Glucerna 1.2 [place] @ 70 ml/hr (since D 10/30). Labs/Tests 11/02: N/A. Pertinent Medications 11/02: Humalog 2U, others nutritionally unremarkable. Height 5 ft 11 in Weight 69.9 kg [place] Body Weight (kg) 78.18 BMI 21.4 Weight change and time frame Discrepancy of 20.818 Kg body weight loss in 1 week reported . Weight Status Appropriate Subjective/Other Information RD consult for routine F/U on TF tolerance/continuation. TF continues as prescribed, and well tolerated, according to RN notes. RN note on 11/01/21 21:38: Assessed patient tube feeding residual by aspiration. No residual feeding not. Accessed tube placement prior to medications,water flushed per order. Changed tube feeding and water bag. Patient tolerating feeding well. No sign of abdominal discomfort. - END OF NOTE. Pt is on Room Air, O2 saturation @ 97%, according to Physical Assessment History notes. Pt is not a candidate for skilled PT at this time; ans is recommended SNF placement, according to Progress notes. Percent of energy/protein needs met: Prescribed TF-Glucerna 1.2 [place] @ 70 ml/hr provides for energy/protein needs (2,016 Kcal/111 g) during LOS, 95% Kcal; 111% AA. Burn Absent Trauma Absent GI Symptoms None Difficulty In Swallowing Food Allergy No Skin Integrity/Comment Assessment WNL. Current % PO Other Minimum of two criteria No Fluid Accumulation N/A Reduced [employer] Strength N/A (non-severe) Protein-Calorie Malnutrition N\\A #1 Nutrition Diagnosis Swallowing difficulty Diagnosis Progress(for reassessment Continues documentation) Is patient on ventilator? No Is Patient Ambulatory and/or Out of Bed No REE-([facility]-confined to bed) 1865.892 Kcal/Kg value to use for calculation 30 Approximate Energy Requirements Using 2097 kcal/Kg Calculation Used for Recommendations Kcal/kg Additional Notes Protein: 0.8-1 g/Kg ABW; 73-91 g/day. Fluids: 1 ml/Kcal, or as per MD. Nutrition Intervention Nutrition Support: Continue TF-Glucerna 1.2 [place] @ 70 ml/hr. Flush: 100 ml water Q 4 hr, or as per MD. Kcal 2,016 Protein (gm) 101 Carbohydrates (gm) 192 Fat (gm) 101 Fluid (mL) 1,352 Fiber (gm) 27 % RDI: 95% Kcal; 111% AA. Goal #1 Provide at least 75% of energy /protein needs through Enteral Feeding during LOS. Follow-Up By: 11/09/21 Additional Comments Continue monitoring TF tolerance and BM.
[2021-11-05] MEDS: LANSOPRAZOLE 30 MG SOLUTAB FEEDTUBE SCH (18:24)
[2021-11-05] MEDS: SENNOSIDES ORAL LIQD 8.8 MG/5 ML ORAL LIQD FEEDTUBE SCH (21:32)
[2021-11-06] MEDS: INSULIN LISPRO 100 UNIT/ML SUB-Q SCH ×4 (00:41→18:04)
--- NOTE | 2021-11-06 08:43 | Progress Note ---
Assessment and Plan 55 YO Male with HTN, DM, CVA complicated by Dysphagia, Dysarthria, Left Hemiparesis, Debility was admitted to [facility] in [facility] on 06/22/21. The patient was transported to [facility] today via air ambulance for continued treatment of the aforementioned symptoms. The patient was found to have clinical symptoms consistent with CVA but the patient was deemed outside the therapeutic window for tPA. The patient was admitted to [facility] and initiated on CVA protocol. The patient is nonverbal and has a palliative performance scor e of 30% and requires 6/6 assistance with activities of daily living. T No reports of fever, chills, chest pain, palpitation, productive cough, skin rash, recent contact, known exposure to COVID-19. Patient has PEG Placement. According to the chart. No history of smoking, alcohol or drug abuse. Patient is asleep. Not responding to Verbal stimuli. Patient is on room air. O2 saturation running 99%. No acute respiratory distress. Patient is afebrile. No leukocytosis. BP 153/93, pulse 87, RR 18. Chest x-ray done 10/23/21 reported no acute findings. CTA of chest 10/27/21 reported Limited exam due to motion artifact without CT evidence of pulmonary emboli or other acute findings. Patient is on albuterol inhaler, S/C heparin, and Prevacid. - Patient Problems (1) CVA (cerebral vascular accident) Current Visit: Yes Status: Acute Qualifiers: Precerebral and cerebral artery: middle cerebral artery Laterality of affected vessel: right Plan to address problem: Manage is per primary care and neurology. Recommend aspiration precautions. (2) Dysarthria as late effect of stroke Current Visit: Yes Status: Acute Plan to address problem: Management is per neurology. (3) Dysphagia as late effect of stroke Current Visit: Yes Status: Acute Plan to address problem: Management is per neurology. (4) Hemiparesis, left Current Visit: Yes Status: Acute Plan to address problem: Management is per neurology. (5) Diabetes Current Visit: Yes Status: Acute Plan to address problem: Management is per primary care. (6) Hypertension Current Visit: Yes Status: Acute Qualifiers: Hypertension type: primary hypertension Qualified Code(s): I10 - Essential (primary) hypertension Plan to address problem: Management is per primary care. Subjective Date of service: 11/06/21 Principal diagnosis: R. CVA with L. hemiparesis; HTN; DM II; Dysarthria; Oropharyngeal dysphagia Interval history: 55 YO Male with HTN, DM, CVA complicated by Dysphagia, Dysarthria, Left Hemiparesis, Debility was admitted to [facility] in [facility] on 06/22/21. The patient was transported to [facility] today via air ambulance for continued treatment of the aforementioned symptoms. The patient was found to have clinical symptoms consistent with CVA but the patient was deemed outside the therapeutic window for tPA. The patient was admitted to [facility] and initiated on CVA protocol. The patient is nonverbal and has a palliative performance score of 30% and requires 6/6 assistance with activities of daily living. T No reports of fever, chills, chest pain, palpitation, productive cough, skin rash, recent contact, known exposure to COVID-19. Patient has PEG Placement. According to the chart. No history of smoking, alcohol or drug abuse. Patient is asleep. Not responding to Verbal stimuli. Patient is on room air. O2 saturation running 99%. No acute respiratory distress. Patient is afebrile. No leukocytosis. BP 153/93, pulse 87, RR 18. Chest x-ray done 10/23/21 reported no acute findings. CTA of chest 10/27/21 reported Limited exam due to motion artifact without CT evidence of pulmonary emboli or other acute findings. Patient is on albuterol inhaler, S/C heparin, and Prevacid. Objective Vital Signs - 12hr 11/05/21 11/05/21 11/06/21 22:00 23:27 03:59 Temperature 98.2 F 98.5 F Pulse Rate 92 H 93 H Respiratory 20 20 16 Rate Blood Pressure 134/69 129/87 O2 Sat by Pulse 98 98 100 Oximetry 11/06/21 07:55 Temperature 97.8 F Pulse Rate 87 Respiratory 18 Rate Blood Pressure 153/93 O2 Sat by Pulse 99 Oximetry Constitutional: no acute distress, asleep Eyes: non-icteric ENT: oropharynx moist Neck: supple, no lymphadenopathy Effort: normal Ascultation: Bilateral: clear Percussion: Bilateral: not dull Cardiovascular: regular rate and rhythm, other (S1,S2) Gastrointestinal: normoactive bowel sounds, soft, non-tender, non-distended, other (PEG tube) Integumentary: normal Extremities: no cyanosis, no edema, pulses normal, no ischemia or petechiae Neurologic: pupils equal and round, other (left hemiplegia ) Psychiatric: other (unable to asses due to neurological status) CBC and BMP: 10/24/21 05:00 10/28/21 03:40 ABG, PT/INR, D-dimer: PT/INR, D-dimer PT 14.8 Sec. (12.2-14.9) 10/22/21 16:00 INR 1.04 (0.87-1.13) 10/22/21 16:00 Abnormal lab findings: Abnormal Labs 10/22/21 10/22/21 10/22/21 16:00 16:00 22:44 MCV 83 L MCH 27 L Hand % (Auto) 11.8 H Hand # (Auto) 1.0 H Sodium Potassium Chloride Creatinine 0.6 L Glucose 175 H POC Glucose 115 H Hemoglobin A1c Magnesium Urine Blood Urine WBC (Auto) U Epithel Cells (Auto) 10/23/21 10/23/21 10/23/21 07:28 08:49 11:31 MCV MCH Hand % (Auto) Hand # (Auto) Sodium Potassium Chloride Creatinine Glucose POC Glucose 129 H 136 H Hemoglobin A1c Magnesium Urine Blood Moderate A Urine WBC (Auto) 28.0 H U Epithel Cells (Auto) 14.0 H 10/23/21 10/24/21 10/24/21 17:59 00:01 05:00 MCV 82 L MCH Hand % (Auto) Hand # (Auto) Sodium Potassium Chloride Creatinine Glucose POC Glucose 109 H 111 H Hemoglobin A1c Magnesium Urine Blood Urine WBC (Auto) U Epithel Cells (Auto) 10/24/21 10/24/21 10/24/21 05:00 07:57 10:16 MCV MCH Hand % (Auto) Hand # (Auto) Sodium Potassium 3.5 L Chloride Creatinine 0.6 L Glucose 134 H POC Glucose 132 H Hemoglobin A1c 8.0 H Magnesium Urine Blood Urine WBC (Auto) U Epithel Cells (Auto) 10/24/21 10/24/21 10/25/21 16:26 20:57 04:47 MCV MCH Hand % (Auto) Hand # (Auto) Sodium Potassium Chloride Creatinine Glucose POC Glucose 109 H 145 H 159 H Hemoglobin A1c Magnesium Urine Blood Urine WBC (Auto) U Epithel Cells (Auto) 10/25/21 10/25/21 10/25/21 07:49 11:19 17:49 MCV MCH Hand % (Auto) Hand # (Auto) Sodium Potassium Chloride Creatinine Glucose POC Glucose 147 H 164 H 141 H Hemoglobin A1c Magnesium Urine Blood Urine WBC (Auto) U Epithel Cells (Auto) 10/25/21 10/26/21 10/26/21 20:54 04:56 07:23 MCV MCH Hand % (Auto) Hand # (Auto) Sodium Potassium Chloride Creatinine 0.7 L Glucose 165 H POC Glucose 136 H 172 H Hemoglobin A1c Magnesium 1.60 L Urine Blood Urine WBC (Auto) U Epithel Cells (Auto) 10/26/21 10/26/21 10/26/21 11:21 17:21 23:38 MCV MCH Hand % (Auto) Hand # (Auto) Sodium Potassium Chloride Creatinine Glucose POC Glucose 168 H 164 H 147 H Hemoglobin A1c Magnesium Urine Blood Urine WBC (Auto) U Epithel Cells (Auto) 10/27/21 10/27/21 10/27/21 04:39 07:32 11:33 MCV MCH Hand % (Auto) Hand # (Auto) Sodium 135 L Potassium Chloride 95.4 L Creatinine 0.6 L Glucose 156 H POC Glucose 137 H 180 H Hemoglobin A1c Magnesium Urine Blood Urine WBC (Auto) U Epithel Cells (Auto) 10/27/21 10/27/21 10/28/21 16:18 23:55 03:40 MCV MCH Hand % (Auto) Hand # (Auto) Sodium Potassium Chloride 97.1 L Creatinine Glucose 127 H POC Glucose 130 H 123 H Hemoglobin A1c Magnesium Urine Blood Urine WBC (Auto) U Epithel Cells (Auto) 10/28/21 10/28/21 10/28/21 08:10 12:03 17:42 MCV MCH Hand % (Auto) Hand # (Auto) Sodium Potassium Chloride Creatinine Glucose POC Glucose 142 H 173 H 145 H Hemoglobin A1c Magnesium Urine Blood Urine WBC (Auto) U Epithel Cells (Auto) 10/28/21 10/29/21 10/29/21 23:31 05:35 11:48 MCV MCH Hand % (Auto) Hand # (Auto) Sodium Potassium Chloride Creatinine Glucose POC Glucose 181 H 225 H 166 H Hemoglobin A1c Magnesium Urine Blood Urine WBC (Auto) U Epithel Cells (Auto) 10/29/21 10/30/21 10/30/21 16:23 00:19 05:23 MCV MCH Hand % (Auto) Hand # (Auto) Sodium Potassium Chloride Creatinine Glucose POC Glucose 167 H 157 H 175 H Hemoglobin A1c Magnesium Urine Blood Urine WBC (Auto) U Epithel Cells (Auto) 10/30/21 10/30/21 10/31/21 13:58 23:07 05:56 MCV MCH Hand % (Auto) Hand # (Auto) Sodium Potassium Chloride Creatinine Glucose POC Glucose 201 H 171 H 215 H Hemoglobin A1c Magnesium Urine Blood Urine WBC (Auto) U Epithel Cells (Auto) 10/31/21 10/31/21 11/01/21 12:25 16:17 00:06 MCV MCH Hand % (Auto) Hand # (Auto) Sodium Potassium Chloride Creatinine Glucose POC Glucose 230 H 222 H 186 H Hemoglobin A1c Magnesium Urine Blood Urine WBC (Auto) U Epithel Cells (Auto) 11/01/21 11/01/21 11/01/21 05:57 11:35 16:14 MCV MCH Hand % (Auto) Hand # (Auto) Sodium Potassium Chloride Creatinine Glucose POC Glucose 188 H 170 H 168 H Hemoglobin A1c Magnesium Urine Blood Urine WBC (Auto) U Epithel Cells (Auto) 11/01/21 11/02/21 11/02/21 23:41 06:36 11:44 MCV MCH Hand % (Auto) Hand # (Auto) Sodium Potassium Chloride Creatinine Glucose POC Glucose 172 H 187 H 161 H Hemoglobin A1c Magnesium Urine Blood Urine WBC (Auto) U Epithel Cells (Auto) 11/02/21 11/03/21 11/03/21 18:19 00:12 05:32 MCV MCH Hand % (Auto) Hand # (Auto) Sodium Potassium Chloride Creatinine Glucose POC Glucose 121 H 192 H 240 H Hemoglobin A1c Magnesium Urine Blood Urine WBC (Auto) U Epithel Cells (Auto) 11/03/21 11/03/21 11/03/21 11:46 16:45 23:36 MCV MCH Hand % (Auto) Hand # (Auto) Sodium Potassium Chloride Creatinine Glucose POC Glucose 201 H 170 H 167 H Hemoglobin A1c Magnesium Urine Blood Urine WBC (Auto) U Epithel Cells (Auto) 11/04/21 11/04/21 11/04/21 05:49 11:26 16:18 MCV MCH Hand % (Auto) Hand # (Auto) Sodium Potassium Chloride Creatinine Glucose POC Glucose 157 H 172 H 188 H Hemoglobin A1c Magnesium Urine Blood Urine WBC (Auto) U Epithel Cells (Auto) 11/04/21 11/05/21 11/05/21 23:27 05:23 12:36 MCV MCH Hand % (Auto) Hand # (Auto) Sodium Potassium Chloride Creatinine Glucose POC Glucose 168 H 165 H 161 H Hemoglobin A1c Magnesium Urine Blood Urine WBC (Auto) U Epithel Cells (Auto) 11/05/21 11/05/21 11/06/21 16:17 23:28 05:11 MCV MCH Hand % (Auto) Hand # (Auto) Sodium Potassium Chloride Creatinine Glucose POC Glucose 187 H 169 H 174 H Hemoglobin A1c Magnesium Urine Blood Urine WBC (Auto) U Epithel Cells (Auto) Allied health notes reviewed: nursing
[2021-11-06] MEDS: ASPIRIN 325 MG TAB PO SCH (09:40)
[2021-11-06] MEDS: LISINOPRIL 5 MG TAB FEEDTUBE SCH (09:40)
[2021-11-06] MEDS: levETIRAcetam 500 MG/5 ML ORAL LIQD FEEDTUBE SCH ×2 (09:41→21:48)
[2021-11-06] MEDS: atenoloL 50 MG TAB FEEDTUBE SCH (09:41)
[2021-11-06] MEDS: HEPARIN 5,000 UNIT/1 ML VIAL SUB-Q SCH ×2 (09:41→21:49)
[2021-11-06] MEDS: FLUoxetine 20 MG/5 ML ORAL LIQD FEEDTUBE SCH (09:41)
[2021-11-06] MEDS: INDAPAMIDE 2.5 MG TAB FEEDTUBE SCH (09:41)
[2021-11-06] MEDS: LANSOPRAZOLE 30 MG SOLUTAB FEEDTUBE SCH (18:04)
[2021-11-06] MEDS: SENNOSIDES ORAL LIQD 8.8 MG/5 ML ORAL LIQD FEEDTUBE SCH (21:48)
[2021-11-07] MEDS: INSULIN LISPRO 100 UNIT/ML SUB-Q SCH ×5 (00:28→23:37)
--- NOTE | 2021-11-07 07:38 | Progress Note ---
Assessment and Plan Assessment and plan: This is a 55-year-old with HTN, DM, CVA complicated by dysphagia s/p PEG tube placement, dysarthria, left hemiparesis and debility who presented to the emergency department on 10/22 via air ambulance for continued treatment. Patient was admitted to the [facility] and initiated on CIWA protocol with consults to [facility], neurology will need a cardiology. Hospital Course to Date: 10/23: Nonverbal, open eyes spontaneously, does not follow any commands with LUE paralysis/contraction. on RA, VSS. Echo and Neurology consult pending. PT/OT/Speech also consulted. PEG-tube noted, nutrition/corrosion control fitter consulted for TF management. Pulmonary is also following. Patient presented with a harden ca theter, per record history of urinary retention. Harden cath exchanged, UA pending. 10/24: SEKOU overnight. Neurology recommendations noted, orders placed for MRI brain and CTA head/Neck. Continue PT/OT/Speech, home meds resumed, and enteral nutrition initiated. UA noted, patient is asymptomatic with no leukocytosis, continue to monitor, urine culture pending. 10/25: Remains stable, mentation unchanged. CTA head/Neck noted, MRI brain/MRA head/Neck pending. Awaiting Neurology final recommendations. Continue current supportive measures. 10/26: Patient will have a BELLE, cardiology consulted per neurology recommendations, MRI/MRA/MRV pending no acute events reported overnight. Magnesium repleted. 10/27: Unable to complete BELLE as consent was not able to be obtained, [facility] contacted [facility] who declined the patient is a candidate, MRI brain and CTA chest and pelvis pending. No acute events reported overnight. 10/28: No acute overnight events. CTA chest and abdomen completed were negative studies. BELLE completed this AM, no acute findings noted. MR brain shows subacute right MCA infarction superimposed on chronic infarction. There is involvement of the lateral aspect of right temporal lobe. Large remote pontine infarction noted. No indication of recent intracranial hemorrhage or mass lesion. CM currently working on placement to SNF. Can transfer patient to floor bed. Attempted to call number in chart to update family. no response. 10/29: D/w brother Fabian Waldron [phone]. Updated him on patient clinical status. Discussed overall poor chance of regaining baseline function and current "locked in" appearance due to territory of stroke. I also discussed options of home health care if the family can support the patient versus hospice versus SNF. I also updated Fabian that thus far facilities have denied the patient due to him being out of network. He stated he would speak with his brother Tyrell regarding these updates and would also be coming to the hospital tomorrow to discuss the family's goals for the patient. Patient likely needs DOAC. Will await neuro recs re: anticoagulation. 10/30: Neurology recommends against doac. Will obtain covid pcr. Plan Family discussion today this AM with patient brother Fabian this AM re: GOK I discussed with the patient's brother, Fabian regarding goals of care as well as the events of the patient's hospitalization. He was very much adamant that the patient go to rehab/snf and did not think hospice was the right option for his brother. I explained that thus far the patient has been declined at more than 10 facilities in the [facility]. He stated that he would be willing to help fund him should that be an issue. I notified the case managers about my conversation who stated they would speak with Mr Peralta. 10/31: Patient tolerating tube feed, clinically unchanged, PT recommendation is as noted below. WIll have case management consider a Personal long term also. PER PT Pt presents with poor rehab potential due to CVA x4 months ago with L UE and LE hypertonicity, contractures, poor isolated movements, inability to follow instructions, Left side neglect, significant impairments of coordination and strength. Pt is total assist with mobilities and high risk for falls. Recommend SNF placement for 24hr care. If pt d/c home with family, will need hospital bed, cecil lift for potential transfers. Due to pt's involuntary movements and abnormal tone, pt is high risk for falling out of a w/c. If pt d/c home, recommend 1 PT visit for pt/family training re: positioning, bed mobility. Pt is not a candidate for skilled PT at this time. Pt was left in semi fowlers, needs in reach, all lines intact, no distress, pt with involuntary movements at times. 11/01: Continue supportive care. We will plan on further discussion with the family on discharge planning anticipated in a day or 2 following this history arrangements to be in place. We will follow-up with the pending retirement facility to see if they accept him. 11/02: Patient seen and examined, discharge planning, continue supportive care, wound management, rehab. 11/03: Patient seen and examined, remains with profused encephalopathy, still with left upper hemiparesis and spontaneous non purposeful movement of bilateral lower ext and right upper ext. Awaiting safe discharge plan. I have called to speak with the brother and left my personal cell phone number for call back. 11/04: Patient seen and examined, He is able to respond to commands and Squeeze my hand on his right upper ext, He Unfortunately not following commands on the lower ext which he moves spontaneously and not on command. He continues to await safe discharge. Goals of care discussed extensively with advance care plan. He remains a full code and family will like aggresssive PT/OT/Speech therapy. 11/05: Patient seen and examined clinically stable at this time awaiting family arrangements for safe discharge. Hospital bed has been ordered for discharge to home. 11/06: Patient seen and examined awaiting discharge. Remains clinically stable. 11/07: Patient seen and examined no acute distress. Blood pressure mildly elevated with a little bit of tachycardia no difficulty breathing noted. Pain medication has been held due to attempting to see if patient can be more participatory. May need to restart as needed pain meds. Was a bit agitated today. Anticipating discharge later today. Patient will need as needed pain medication to ensure maximum participation in treatment plan. Assessment and Plan: Neuro: Recent CVA complicated by dysphagia/dysarthria/left hemiparesis/debility, h/o depression, seizure disorder, Metabolic Encephalopathy secondary to CVA with left sided neglect -Neurology and CCM consulted, appreciate recommendations -Reorientation as needed -Maintain sleep-wake cycle -aspiration/seizure precautions -As needed analgesia -CT head shows old moderately sized MCA infarct the right involving the inferior frontal peritracheal regions, gangliocapsular Regions and Right Temporal Lobe, prominent Kuehner seen in the left anterior andrea, small scattered lacunar infarcts suggesting the andrea -Bilateral carotid Doppler ultrasound shows less than 50% diameter stenosis in the right and left internal carotid artery -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 There is involvement of the lateral aspect of right temporal lobe. Large remote pontine infarction noted. No indication of recent intracranial hemorrhage or mass lesion. -Lipitor, aspirin -Keppra -Aspiration/seizure precautions -Continue home Prozac -PT/OT/ST consulted -Neurochecks per protocol Cardiac: h/o HTN -Cardiology consulted, appreciate recommendations -Blood pressure monitoring per protocol -Antihypertensive regimen: Atenolol, Lozol, lisinopril -Echocardiogram shows LVEF 55%, mild diastolic dysfunction no PFO -BELLE pending per neurology recs Respiratory: NAD -CCM/ pulm consulted for dyspnea, appreciate recommendations -Supplemental oxygen as needed -Pulmonary hygiene -SPO2 monitoring GI: S/p PEG tube placement -24 hours +1285 mL -PPI -NTR consulted for tube feedings -BR: Senna : Slight hyponatremia, h/o urinary retention/obstruction -Presented with indwelling catheter which was exchanged -Monitor intake and output -Renally dose medications -Avoid nephrotoxic medications -Repeat magnesium -Trend BMP ID: NAD -Monitor WBC and temperature curve Endo: h/o DM -Avoid hypoglycemia -SSI -Accu-Cheks q. every 6 -Hemoglobin A1c 8 Heme: ? Hypercoagulable state -CTA chest and abdomen pending per neurology recommendation -Trend CBC -Transfuse hemoglobin less than 7 -SCDs to BLE while in bed #Advance care planning Disease education conducted, care plan discussed, diagnoses discussed, prognosis discussed, patient is full code, patient brother Fabian acknowledges underst anding and agree with care plan, +30 minutes. Disposition: [facility] HOSPICE/MEDICAL FACILITY Final Discharge Diagnosis (Prints w/discharge instructions): CVA complicated by dysphagia/dysarthria/left hemiparesis/debility, h/o depression, seizure disorder, Metabolic Encephalopathy secondary to CVA with left sided neglect History Interval history: Patient seen and examined, clinically unchanged. No new event reported by nursing staff. Remains encephalopathic with Left sided neglect. Was a little agitated this morning Hospitalist Physical - Physical exam Narrative exam: General: No Apparent Distress HEENT: Positive: Mucus Membranes Dry, intermittent tracks occasionally. Follows some commands on the right side upper extremity only. Neck: Positive: trachea midline Cardiac: Positive: Reg Rate and Rhythm Lungs: Positive: Normal Breath Sounds Neuro: Positive: Other (Hemiparesis), non verbal. locked in appearance. does not follow commands. opens eyes but not purposefully following commands except upper extremity on the right side. Abdomen: Positive: Soft Skin: Negative: Rash, Suspicious Lesions, Ulceration Extremities: Present: upper extr. pulses. Absent: edema - Constitutional Vitals: Temp Pulse Resp BP Pulse Ox 97.8 F 112 H 24 152/95 95 11/07/21 04:47 11/07/21 04:47 11/07/21 04:47 11/07/21 04:47 11/07/21 04:47 General appearance: Present: no acute distress Results - Labs CBC & Chem 7: 10/24/21 05:00 10/28/21 03:40 Labs: Laboratory Last Values WBC 6.4 K/mm3 (4.5-11.0) 10/24/21 05:00 RBC 4.59 M/mm3 (3.65-5.03) 10/24/21 05:00 Hgb 12.7 gm/dl (11.8-15.2) 10/24/21 05:00 Hct 37.7 % (35.5-45.6) 10/24/21 05:00 MCV 82 fl (84-94) L 10/24/21 05:00 MCH 28 pg (28-32) 10/24/21 05:00 MCHC 34 % (32-34) 10/24/21 05:00 RDW 14.1 % (13.2-15.2) 10/24/21 05:00 Plt Count 222 K/mm3 (140-440) 10/24/21 05:00 Lymph % (Auto) 29.6 % (13.4-35.0) 10/22/21 16:00 [place] % (Auto) 11.8 % (0.0-7.3) H 10/22/21 16:00 Eos % (Auto) 1.3 % (0.0-4.3) 10/22/21 16:00 Baso % (Auto) 0.4 % (0.0-1.8) 10/22/21 16:00 Lymph # (Auto) 2.4 K/mm3 (1.2-5.4) 10/22/21 16:00 [place] # (Auto) 1.0 K/mm3 (0.0-0.8) H 10/22/21 16:00 Eos # (Auto) 0.1 K/mm3 (0.0-0.4) 10/22/21 16:00 Baso # (Auto) 0.0 K/mm3 (0.0-0.1) 10/22/21 16:00 Seg Neutrophils % 56.9 % (40.0-70.0) 10/22/21 16:00 Seg Neutrophils # 4.7 K/mm3 (1.8-7.7) 10/22/21 16:00 PT 14.8 Sec. (12.2-14.9) 10/22/21 16:00 INR 1.04 (0.87-1.13) 10/22/21 16:00 APTT 28.1 Sec. (24.2-36.6) 10/22/21 16:00 Sodium 137 mmol/L (137-145) 10/28/21 03:40 Potassium 4.2 mmol/L (3.6-5.0) 10/28/21 03:40 Chloride 97.1 mmol/L (98-107) L 10/28/21 03:40 Carbon Dioxide 29 mmol/L (22-30) 10/28/21 03:40 Anion Gap 15 mmol/L 10/28/21 03:40 BUN 14 mg/dL (9-20) 10/28/21 03:40 Creatinine 0.8 mg/dL (0.8-1.3) 10/28/21 03:40 Estimated GFR > 60 ml/min 10/28/21 03:40 BUN/Creatinine Ratio 18 % 10/28/21 03:40 Glucose 127 mg/dL (75-100) H 10/28/21 03:40 POC Glucose 194 mg/dL (70-105) H 11/07/21 05:48 Hemoglobin A1c 8.0 % (4-6) H 10/24/21 10:16 Calcium 10.1 mg/dL (8.4-10.2) 10/28/21 03:40 Phosphorus 4.20 mg/dL (2.5-4.5) 10/27/21 04:39 Magnesium 1.90 mg/dL (1.7-2.3) 10/27/21 04:39 Total Bilirubin 0.50 mg/dL (0.1-1.2) 10/22/21 16:00 AST 24 units/L (5-40) 10/22/21 16:00 ALT 28 units/L (7-56) 10/22/21 16:00 Alkaline Phosphatase 102 units/L (35-129) 10/22/21 16:00 Total Protein 6.9 g/dL (6.3-8.2) 10/22/21 16:00 Albumin 4.3 g/dL (3.9-5) 10/22/21 16:00 Albumin/Globulin Ratio 1.7 % 10/22/21 16:00 Triglycerides 85 mg/dL (2-149) 10/23/21 12:33 Cholesterol 148 mg/dL (50-199) 10/23/21 12:33 LDL Cholesterol Direct 86 mg/dL (50-130) 10/23/21 12:33 HDL Cholesterol 44 mg/dL (40-59) 10/23/21 12:33 Cholesterol/HDL Ratio 3.36 % 10/23/21 12:33 TSH 2.020 mlU/mL (0.270-4.200) 10/24/21 10:16 Free T4 0.88 ng/dL (0.76-1.46) 10/24/21 10:16 Urine Color Yellow (Yellow) 10/23/21 08:49 Urine Turbidity Clear (Clear) 10/23/21 08:49 Urine pH 6.5 (5.0-7.0) 10/23/21 08:49 Ur Specific [place]ill 1.005 (1.003-1.030) 10/23/21 08:49 Urine Protein 30 mg/dl mg/dL (Negative) 10/23/21 08:49 Urine Glucose (UA) Negative mg/dL (Negative) 10/23/21 08:49 Urine Ketones Negative mg/dL (Negative) 10/23/21 08:49 Urine Blood Moderate (Negative) A 10/23/21 08:49 Urine Nitrite Negative (Negative) 10/23/21 08:49 Ur Reducing Substances Not Reportable 10/23/21 08:49 Urine Bilirubin Negative (Negative) 10/23/21 08:49 Urine Ictotest Not Reportable 10/23/21 08:49 Urine Urobilinogen < 2.0 mg/dL (<2.0) 10/23/21 08:49 Ur Leukocyte Esterase Moderate (Negative) 10/23/21 08:49 Urine WBC (Auto) 28.0 /HPF (0.0-6.0) H 10/23/21 08:49 Urine RBC (Auto) 27.0 /HPF (0.0-6.0) 10/23/21 08:49 U Epithel Cells (Auto) 14.0 /HPF (0-13.0) H 10/23/21 08:49 Hyaline Casts 1 /LPF 10/23/21 08:49 Urine Mucus Few /HPF 10/23/21 08:49 Coronavirus (PCR) Negative (Negative) 10/30/21 Unknown Harden/IV: Voiding Method Indwelling Catheter Active Medications - Current Medications Current Medications: Generic Name Dose Route Start Last Admin Trade Name Freq PRN Reason Stop Dose Admin Acetaminophen 650 mg 10/22/21 16:19 10/28/21 22:11 Acetaminophen 325 Mg Tab PO 650 mg Q4H PRN Administration Pain, Mild (1-3) Albuterol 2.5 mg 10/22/21 16:19 Albuterol 2.5 Mg/3 Ml Nebu IH Q3HRT PRN Shortness Of Breath Lipase/Protease/Amylase 1 each 11/02/21 12:45 11/05/21 11:25 Lipase 10,500/Protease 25,000/Amylase 43,750 (Units) Dr Wilson FEEDTUBE 1 each PRN PRN Administration For Clogged Feeding Tube Aspirin 325 mg 10/23/21 10:00 11/06/21 09:40 Aspirin 325 Mg Tab PO 325 mg QDAY NEO Administration Atenolol 50 mg 10/24/21 10:00 11/06/21 09:41 Atenolol 50 Mg Tab FEEDTUBE 50 mg QDAY NEO Administration Atorvastatin Calcium 80 mg 10/24/21 22:00 11/06/21 21:48 Atorvastatin 40 Mg Tab FEEDTUBE 80 mg QHS NEO Administration Bisacodyl 10 mg 10/22/21 16:19 Bisacodyl 10 Mg Rect Supp [place] QDAY PRN Constipation Dextrose 50 ml 10/22/21 17:23 Dextrose 50% In Water (25gm) 50 Ml Syringe IV Q30MIN PRN Hypoglycemia Protocol Fluoxetine HCl 10 mg 10/24/21 10:00 11/06/21 09:41 Fluoxetine 20 Mg/5 Ml Oral Liqd FEEDTUBE 10 mg QDAY NEO Administration Heparin Sodium (Porcine) 5,000 unit 10/22/21 22:00 11/06/21 21:49 Heparin 5,000 Unit/1 Ml Vial SUB-Q 5,000 unit Q12HR NEO Administration Indapamide 5 mg 10/24/21 10:00 11/06/21 09:41 Indapamide 2.5 Mg Tab FEEDTUBE 5 mg QDAY NEO Administration Insulin Human Lispro 0 unit 10/24/21 12:00 11/07/21 06:13 Insulin Lispro 100 Unit/Ml SUB-Q 2 unit Q6HR NEO Administration Protocol Lansoprazole 30 mg 10/23/21 18:00 11/06/21 18:04 Lansoprazole 30 Mg Solutab FEEDTUBE 30 mg QPM NEO Administration Levetiracetam 250 mg 10/24/21 10:00 11/06/21 21:48 Levetiracetam 500 Mg/5 Ml Oral Liqd FEEDTUBE 250 mg BID NEO Administration Lisinopril 5 mg 10/24/21 10:00 11/06/21 09:40 Lisinopril 5 Mg Tab FEEDTUBE 5 mg QDAY NEO Administration Magnesium Hydroxide 30 ml 10/22/21 16:19 Magnesium Hydroxide (Mom) Oral Liqd Udc PO Q4H PRN Constipation Ondansetron HCl 4 mg 10/22/21 16:19 Ondansetron 4 Mg/2 Ml Inj IV Q8H PRN Nausea And Vomiting Oxycodone/Acetaminophen 1 tab 10/22/21 16:19 10/30/21 14:18 Oxycodone /Acetaminophen 5-325mg Tab PO 1 tab Q12H PRN Administration Pain, Moderate (4-6) Senna 8.8 mg 10/27/21 22:00 11/06/21 21:48 Sennosides Oral Liqd 8.8 Mg/5 Ml Oral Liqd FEEDTUBE 8.8 mg QHS NEO Administration Simple Syrup 15 ml 11/02/21 12:45 Simple Syrup 15 Ml FEEDTUBE PRN PRN Hypoglycemia Simple Syrup 30 ml 11/02/21 12:45 Simple Syrup 15 Ml FEEDTUBE PRN PRN Hypoglycemia Sodium Bicarbonate 325 mg 11/02/21 12:45 11/05/21 11:25 Sodium Bicarbonate 325 Mg Tab FEEDTUBE 325 mg PRN PRN Administration For Clogged Feeding Tube Sodium Chloride 10 ml 10/22/21 16:19 11/03/21 09:13 Sodium Chloride 0.9% 10 Ml Flush Syringe IV 10 ml PRN PRN Administration LINE FLUSH Nutrition/Malnutrition Assess - Dietary Evaluation Nutrition/Malnutrition Findings: Nutrition Notes Start: 10/23/21 13:01 Freq: Status: Active Protocol: Document 11/02/21 12:18 JIM (Rec: 11/02/21 12:47 JIM [id number]) Nutrition Notes Initial or Follow up Reassessment Current Diagnosis Diabetes,Hypertension,Stroke Other Pertinent Diagnosis Dysphagia, L-Hemiparesis, Debility. Current Diet TF-Glucerna 1.2 Trem[place] @ 70 ml/hr (since D 10/30). Labs/Tests 11/02: N/A. Pertinent Medications 11/02: Humalog 2U, others nutritionally unremarkable. Height 5 ft 11 in Weight 69.9 kg [place] Body Weight (kg) 78.18 BMI 21.4 Weight change and time frame Discrepancy of 20.818 Kg body weight loss in 1 week reported . Weight Status Appropriate Subjective/Other Information RD consult for routine F/U on TF tolerance/continuation. TF continues as prescribed, and well tolerated, according to RN notes. RN note on 11/01/21 21:38: Assessed patient tube feeding residual by aspiration. No residual feeding not. Accessed tube placement prior to medications,water flushed per order. Changed tube feeding and water bag. Patient tolerating feeding well. No sign of abdominal discomfort. - END OF NOTE. Pt is on Room Air, O2 saturation @ 97%, according to Physical Assessment History notes. Pt is not a candidate for skilled PT at this time; ans is recommended SNF placement, according to Progress notes. Percent of energy/protein needs met: Prescribed TF-Glucerna 1.2 [place] @ 70 ml/hr provides for energy/protein needs (2,016 Kcal/111 g) during LOS, 95% Kcal; 111% AA. Burn Absent Trauma Absent GI Symptoms None Difficulty In Swallowing Food Allergy No Skin Integrity/Comment Assessment WNL. Current % PO Other Minimum of two criteria No Fluid Accumulation N/A Reduced Emergency Department Strength N/A (non-severe) Protein-Calorie Malnutrition N\\A #1 Nutrition Diagnosis Swallowing difficulty Diagnosis Progress(for reassessment Continues documentation) Is patient on ventilator? No Is Patient Ambulatory and/or Out of Bed No REE-([facility]-confined to bed) 1865.892 Kcal/Kg value to use for calculation 30 Approximate Energy Requirements Using 2097 kcal/Kg Calculation Used for Recommendations Kcal/kg Additional Notes Protein: 0.8-1 g/Kg ABW; 73-91 g/day. Fluids: 1 ml/Kcal, or as per MD. Nutrition Intervention Nutrition Support: Continue TF-Glucerna 1.2 [place] @ 70 ml/hr. Flush: 100 ml water Q 4 hr, or as per MD. Kcal 2,016 Protein (gm) 101 Carbohydrates (gm) 192 Fat (gm) 101 Fluid (mL) 1,352 Fiber (gm) 27 % RDI: 95% Kcal; 111% AA. Goal #1 Provide at least 75% of energy /protein needs through Enteral Feeding during LOS. Follow-Up By: 11/09/21 Additional Comments Continue monitoring TF tolerance and BM.
--- NOTE | 2021-11-07 08:09 | Progress Note ---
Assessment and Plan 55 YO Male with HTN, DM, CVA complicated by Dysphagia, Dysarthria, Left Hemiparesis, Debility was admitted to [facility] in [facility] on 06/22/21. The patient was transported to [facility] today via air ambulance for continued treatment of the aforementioned symptoms. The patient was found to have clinical symptoms consistent with CVA but the patient was deemed outside the therapeutic window for tPA. The patient was admitted to [facility] and initiated on CVA protocol. The patient is nonverbal and has a palliative performance scor e of 30% and requires 6/6 assistance with activities of daily living. T No reports of fever, chills, chest pain, palpitation, productive cough, skin rash, recent contact, known exposure to COVID-19. Patient has PEG Placement. According to the chart. No history of smoking, alcohol or drug abuse. Patient is asleep. Not responding to Verbal stimuli. Patient is on room air. O2 saturation running 99%. No acute respiratory distress. Patient is afebrile. No leukocytosis. BP 93/75, pulse 80, RR 18. Chest x-ray done 10/23/21 reported no acute findings. CTA of chest 10/27/21 reported Limited exam due to motion artifact without CT evidence of pulmonary emboli or other acute findings. Patient is on albuterol inhaler, S/C heparin, and Prevacid. - Patient Problems (1) CVA (cerebral vascular accident) Current Visit: Yes Status: Acute Qualifiers: Precerebral and cerebral artery: middle cerebral artery Laterality of affected vessel: right Plan to address problem: Manage is per primary care and neurology. Recommend aspiration precautions. (2) Dysarthria as late effect of stroke Current Visit: Yes Status: Acute Plan to address problem: Management is per neurology. (3) Dysphagia as late effect of stroke Current Visit: Yes Status: Acute Plan to address problem: Management is per neurology. (4) Hemiparesis, left Current Visit: Yes Status: Acute Plan to address problem: Management is per neurology. (5) Diabetes Current Visit: Yes Status: Acute Plan to address problem: Management is per primary care. (6) Hypertension Current Visit: Yes Status: Acute Qualifiers: Hypertension type: primary hypertension Qualified Code(s): I10 - Essential (primary) hypertension Plan to address problem: Management is per primary care. Subjective Date of service: 11/07/21 Principal diagnosis: R. CVA with L. hemiparesis; HTN; DM II; Dysarthria; Oropharyngeal dysphagia Interval history: 55 YO Male with HTN, DM, CVA complicated by Dysphagia, Dysarthria, Left Hemiparesis, Debility was admitted to [facility] in [facility] on 06/22/21. The patient was transported to [facility] today via air ambulance for continued treatment of the aforementioned symptoms. The patient was found to have clinical symptoms consistent with CVA but the patient was deemed outside the therapeutic window for tPA. The patient was admitted to [facility] and initiated on CVA protocol. The patient is nonverbal and has a palliative performance score of 30% and requires 6/6 assistance with activities of daily living. T No reports of fever, chills, chest pain, palpitation, productive cough, skin rash, recent contact, known exposure to COVID-19. Patient has PEG Placement. According to the chart. No history of smoking, alcohol or drug abuse. Patient is asleep. Not responding to Verbal stimuli. Patient is on room air. O2 saturation running 99%. No acute respiratory distress. Patient is afebrile. No leukocytosis. BP 93/75, pulse 80, RR 18. Chest x-ray done 10/23/21 reported no acute findings. CTA of chest 10/27/21 reported Limited exam due to motion artifact without CT evidence of pulmonary emboli or other acute findings. Patient is on albuterol inhaler, S/C heparin, and Prevacid. Objective Vital Signs - 12hr 11/06/21 11/06/21 11/07/21 22:00 23:54 04:47 Temperature 98.3 F 97.8 F Pulse Rate 82 94 H 112 H Respiratory 18 20 24 Rate Blood Pressure 125/76 152/95 O2 Sat by Pulse 98 98 95 Oximetry Constitutional: no acute distress, asleep Eyes: non-icteric ENT: oropharynx moist Neck: supple, no lymphadenopathy Effort: normal Ascultation: Bilateral: clear Percussion: Bilateral: not dull Cardiovascular: regular rate and rhythm, other (S1,S2) Gastrointestinal: normoactive bowel sounds, soft, non-tender, non-distended, other (PEG tube) Integumentary: normal Extremities: no cyanosis, no edema, pulses normal, no ischemia or petechiae Neurologic: pupils equal and round, other (left hemiplegia ) Psychiatric: other (unable to asses due to neurological status) CBC and BMP: 10/24/21 05:00 10/28/21 03:40 ABG, PT/INR, D-dimer: PT/INR, D-dimer PT 14.8 Sec. (12.2-14.9) 10/22/21 16:00 INR 1.04 (0.87-1.13) 10/22/21 16:00 Abnormal lab findings: Abnormal Labs 10/22/21 10/22/21 10/22/21 16:00 16:00 22:44 MCV 83 L MCH 27 L [place] % (Auto) 11.8 H [place] # (Auto) 1.0 H Sodium Potassium Chloride Creatinine 0.6 L Glucose 175 H POC Glucose 115 H Hemoglobin A1c Magnesium Urine Blood Urine WBC (Auto) U Epithel Cells (Auto) 10/23/21 10/23/21 10/23/21 07:28 08:49 11:31 MCV MCH [place] % (Auto) [place] # (Auto) Sodium Potassium Chloride Creatinine Glucose POC Glucose 129 H 136 H Hemoglobin A1c Magnesium Urine Blood Moderate A Urine WBC (Auto) 28.0 H U Epithel Cells (Auto) 14.0 H 10/23/21 10/24/21 10/24/21 17:59 00:01 05:00 MCV 82 L MCH [place] % (Auto) [place] # (Auto) Sodium Potassium Chloride Creatinine Glucose POC Glucose 109 H 111 H Hemoglobin A1c Magnesium Urine Blood Urine WBC (Auto) U Epithel Cells (Auto) 10/24/21 10/24/21 10/24/21 05:00 07:57 10:16 MCV MCH [place] % (Auto) [place] # (Auto) Sodium Potassium 3.5 L Chloride Creatinine 0.6 L Glucose 134 H POC Glucose 132 H Hemoglobin A1c 8.0 H Magnesium Urine Blood Urine WBC (Auto) U Epithel Cells (Auto) 10/24/21 10/24/21 10/25/21 16:26 20:57 04:47 MCV MCH [place] % (Auto) [place] # (Auto) Sodium Potassium Chloride Creatinine Glucose POC Glucose 109 H 145 H 159 H Hemoglobin A1c Magnesium Urine Blood Urine WBC (Auto) U Epithel Cells (Auto) 10/25/21 10/25/21 10/25/21 07:49 11:19 17:49 MCV MCH [place] % (Auto) [place] # (Auto) Sodium Potassium Chloride Creatinine Glucose POC Glucose 147 H 164 H 141 H Hemoglobin A1c Magnesium Urine Blood Urine WBC (Auto) U Epithel Cells (Auto) 10/25/21 10/26/21 10/26/21 20:54 04:56 07:23 MCV MCH [place] % (Auto) [place] # (Auto) Sodium Potassium Chloride Creatinine 0.7 L Glucose 165 H POC Glucose 136 H 172 H Hemoglobin A1c Magnesium 1.60 L Urine Blood Urine WBC (Auto) U Epithel Cells (Auto) 10/26/21 10/26/21 10/26/21 11:21 17:21 23:38 MCV MCH [place] % (Auto) [place] # (Auto) Sodium Potassium Chloride Creatinine Glucose POC Glucose 168 H 164 H 147 H Hemoglobin A1c Magnesium Urine Blood Urine WBC (Auto) U Epithel Cells (Auto) 10/27/21 10/27/21 10/27/21 04:39 07:32 11:33 MCV MCH [place] % (Auto) [place] # (Auto) Sodium 135 L Potassium Chloride 95.4 L Creatinine 0.6 L Glucose 156 H POC Glucose 137 H 180 H Hemoglobin A1c Magnesium Urine Blood Urine WBC (Auto) U Epithel Cells (Auto) 10/27/21 10/27/21 10/28/21 16:18 23:55 03:40 MCV MCH [place] % (Auto) [place] # (Auto) Sodium Potassium Chloride 97.1 L Creatinine Glucose 127 H POC Glucose 130 H 123 H Hemoglobin A1c Magnesium Urine Blood Urine WBC (Auto) U Epithel Cells (Auto) 10/28/21 10/28/21 10/28/21 08:10 12:03 17:42 MCV MCH [place] % (Auto) [place] # (Auto) Sodium Potassium Chloride Creatinine Glucose POC Glucose 142 H 173 H 145 H Hemoglobin A1c Magnesium Urine Blood Urine WBC (Auto) U Epithel Cells (Auto) 10/28/21 10/29/21 10/29/21 23:31 05:35 11:48 MCV MCH [place] % (Auto) [place] # (Auto) Sodium Potassium Chloride Creatinine Glucose POC Glucose 181 H 225 H 166 H Hemoglobin A1c Magnesium Urine Blood Urine WBC (Auto) U Epithel Cells (Auto) 10/29/21 10/30/21 10/30/21 16:23 00:19 05:23 MCV MCH [place] % (Auto) [place] # (Auto) Sodium Potassium Chloride Creatinine Glucose POC Glucose 167 H 157 H 175 H Hemoglobin A1c Magnesium Urine Blood Urine WBC (Auto) U Epithel Cells (Auto) 10/30/21 10/30/21 10/31/21 13:58 23:07 05:56 MCV MCH [place] % (Auto) [place] # (Auto) Sodium Potassium Chloride Creatinine Glucose POC Glucose 201 H 171 H 215 H Hemoglobin A1c Magnesium Urine Blood Urine WBC (Auto) U Epithel Cells (Auto) 10/31/21 10/31/21 11/01/21 12:25 16:17 00:06 MCV MCH [place] % (Auto) [place] # (Auto) Sodium Potassium Chloride Creatinine Glucose POC Glucose 230 H 222 H 186 H Hemoglobin A1c Magnesium Urine Blood Urine WBC (Auto) U Epithel Cells (Auto) 11/01/21 11/01/21 11/01/21 05:57 11:35 16:14 MCV MCH [place] % (Auto) [place] # (Auto) Sodium Potassium Chloride Creatinine Glucose POC Glucose 188 H 170 H 168 H Hemoglobin A1c Magnesium Urine Blood Urine WBC (Auto) U Epithel Cells (Auto) 11/01/21 11/02/21 11/02/21 23:41 06:36 11:44 MCV MCH [place] % (Auto) [place] # (Auto) Sodium Potassium Chloride Creatinine Glucose POC Glucose 172 H 187 H 161 H Hemoglobin A1c Magnesium Urine Blood Urine WBC (Auto) U Epithel Cells (Auto) 11/02/21 11/03/21 11/03/21 18:19 00:12 05:32 MCV MCH [place] % (Auto) [place] # (Auto) Sodium Potassium Chloride Creatinine Glucose POC Glucose 121 H 192 H 240 H Hemoglobin A1c Magnesium Urine Blood Urine WBC (Auto) U Epithel Cells (Auto) 11/03/21 11/03/21 11/03/21 11:46 16:45 23:36 MCV MCH [place] % (Auto) [place] # (Auto) Sodium Potassium Chloride Creatinine Glucose POC Glucose 201 H 170 H 167 H Hemoglobin A1c Magnesium Urine Blood Urine WBC (Auto) U Epithel Cells (Auto) 11/04/21 11/04/21 11/04/21 05:49 11:26 16:18 MCV MCH [place] % (Auto) [place] # (Auto) Sodium Potassium Chloride Creatinine Glucose POC Glucose 157 H 172 H 188 H Hemoglobin A1c Magnesium Urine Blood Urine WBC (Auto) U Epithel Cells (Auto) 11/04/21 11/05/21 11/05/21 23:27 05:23 12:36 MCV MCH [place] % (Auto) [place] # (Auto) Sodium Potassium Chloride Creatinine Glucose POC Glucose 168 H 165 H 161 H Hemoglobin A1c Magnesium Urine Blood Urine WBC (Auto) U Epithel Cells (Auto) 11/05/21 11/05/21 11/06/21 16:17 23:28 05:11 MCV MCH [place] % (Auto) [place] # (Auto) Sodium Potassium Chloride Creatinine Glucose POC Glucose 187 H 169 H 174 H Hemoglobin A1c Magnesium Urine Blood Urine WBC (Auto) U Epithel Cells (Auto) 11/06/21 11/06/21 11/06/21 11:10 15:54 23:58 MCV MCH [place] % (Auto) [place] # (Auto) Sodium Potassium Chloride Creatinine Glucose POC Glucose 178 H 154 H 137 H Hemoglobin A1c Magnesium Urine Blood Urine WBC (Auto) U Epithel Cells (Auto) 11/07/21 05:48 MCV MCH [place] % (Auto) [place] # (Auto) Sodium Potassium Chloride Creatinine Glucose POC Glucose 194 H Hemoglobin A1c Magnesium Urine Blood Urine WBC (Auto) U Epithel Cells (Auto) Allied health notes reviewed: nursing
[2021-11-07] MEDS: levETIRAcetam 500 MG/5 ML ORAL LIQD FEEDTUBE SCH ×2 (10:00→21:11)
[2021-11-07] MEDS: INDAPAMIDE 2.5 MG TAB FEEDTUBE SCH (10:00)
[2021-11-07] MEDS: ASPIRIN 325 MG TAB PO SCH (10:01)
[2021-11-07] MEDS: LISINOPRIL 5 MG TAB FEEDTUBE SCH (10:01)
[2021-11-07] MEDS: FLUoxetine 20 MG/5 ML ORAL LIQD FEEDTUBE SCH (10:01)
[2021-11-07] MEDS: atenoloL 50 MG TAB FEEDTUBE SCH (10:01)
[2021-11-07] MEDS: HEPARIN 5,000 UNIT/1 ML VIAL SUB-Q SCH ×2 (10:01→21:11)
[2021-11-07] MEDS ORDERED: oxyCODONE /ACETAMINOPHEN 5-325MG TAB PO PRN (12:00)
[2021-11-07] MEDS: LANSOPRAZOLE 30 MG SOLUTAB FEEDTUBE SCH (18:40)
[2021-11-07] MEDS: SENNOSIDES ORAL LIQD 8.8 MG/5 ML ORAL LIQD FEEDTUBE SCH (21:12)
[2021-11-08] MEDS: INSULIN LISPRO 100 UNIT/ML SUB-Q SCH ×3 (07:07→18:09)
--- NOTE | 2021-11-08 08:50 | Progress Note ---
Assessment and Plan Assessment and plan: This is a 55-year-old with HTN, DM, CVA complicated by dysphagia s/p PEG tube placement, dysarthria, left hemiparesis and debility who presented to the emergency department on 10/22 via air ambulance for continued treatment. Patient was admitted to the [facility] and initiated on CIWA protocol with consults to [facility], neurology will need a cardiology. Hospital Course to Date: 10/23: Nonverbal, open eyes spontaneously, does not follow any commands with LUE paralysis/contraction. on RA, VSS. Echo and Neurology consult pending. PT/OT/Speech also consulted. PEG-tube noted, nutrition/pull out operator consulted for TF management. Pulmonary is also following. Patient presented with a harden ca theter, per record history of urinary retention. Harden cath exchanged, UA pending. 10/24: SEKOU overnight. Neurology recommendations noted, orders placed for MRI brain and CTA head/Neck. Continue PT/OT/Speech, home meds resumed, and enteral nutrition initiated. UA noted, patient is asymptomatic with no leukocytosis, continue to monitor, urine culture pending. 10/25: Remains stable, mentation unchanged. CTA head/Neck noted, MRI brain/MRA head/Neck pending. Awaiting Neurology final recommendations. Continue current supportive measures. 10/26: Patient will have a BELLE, cardiology consulted per neurology recommendations, MRI/MRA/MRV pending no acute events reported overnight. Magnesium repleted. 10/27: Unable to complete BELLE as consent was not able to be obtained, [facility] contacted [facility] who declined the patient is a candidate, MRI brain and CTA chest and pelvis pending. No acute events reported overnight. 10/28: No acute overnight events. CTA chest and abdomen completed were negative studies. BELLE completed this AM, no acute findings noted. MR brain shows subacute right MCA infarction superimposed on chronic infarction. There is involvement of the lateral aspect of right temporal lobe. Large remote pontine infarction noted. No indication of recent intracranial hemorrhage or mass lesion. CM currently working on placement to SNF. Can transfer patient to floor bed. Attempted to call number in chart to update family. no response. 10/29: D/w brother Fabian Waldron [phone]. Updated him on patient clinical status. Discussed overall poor chance of regaining baseline function and current "locked in" appearance due to territory of stroke. I also discussed options of home health care if the family can support the patient versus hospice versus SNF. I also updated Fabian that thus far facilities have denied the patient due to him being out of network. He stated he would speak with his brother Tyrell regarding these updates and would also be coming to the hospital tomorrow to discuss the family's goals for the patient. Patient likely needs DOAC. Will await neuro recs re: anticoagulation. 10/30: Neurology recommends against doac. Will obtain covid pcr. Plan Family discussion today this AM with patient brother Fabian this AM re: GOK I discussed with the patient's brother, Fabian regarding goals of care as well as the events of the patient's hospitalization. He was very much adamant that the patient go to rehab/snf and did not think hospice was the right option for his brother. I explained that thus far the patient has been declined at more than 10 facilities in the [facility]. He stated that he would be willing to help fund him should that be an issue. I notified the adult protective caseworker about my conversation who stated they would speak with Mr Peralta. 10/31: Patient tolerating tube feed, clinically unchanged, PT recommendation is as noted below. WIll have case management consider a Personal detention also. PER PT Pt presents with poor rehab potential due to CVA x4 months ago with L UE and LE hypertonicity, contractures, poor isolated movements, inability to follow instructions, Left side neglect, significant impairments of coordination and strength. Pt is total assist with mobilities and high risk for falls. Recommend SNF placement for 24hr care. If pt d/c home with family, will need hospital bed, cecil lift for potential transfers. Due to pt's involuntary movements and abnormal tone, pt is high risk for falling out of a w/c. If pt d/c home, recommend 1 PT visit for pt/family training re: positioning, bed mobility. Pt is not a candidate for skilled PT at this time. Pt was left in semi fowlers, needs in reach, all lines intact, no distress, pt with involuntary movements at times. 11/01: Continue supportive care. We will plan on further discussion with the family on discharge planning anticipated in a day or 2 following this history arrangements to be in place. We will follow-up with the pending prison facility to see if they accept him. 11/02: Patient seen and examined, discharge planning, continue supportive care, wound management, rehab. 11/03: Patient seen and examined, remains with profused encephalopathy, still with left upper hemiparesis and spontaneous non purposeful movement of bilateral lower ext and right upper ext. Awaiting safe discharge plan. I have called to speak with the brother and left my personal cell phone number for call back. 11/04: Patient seen and examined, He is able to respond to commands and Squeeze my hand on his right upper ext, He Unfortunately not following commands on the lower ext which he moves spontaneously and not on command. He continues to await safe discharge. Goals of care discussed extensively with advance care plan. He remains a full code and family will like aggresssive PT/OT/Speech therapy. 11/05: Patient seen and examined clinically stable at this time awaiting family arrangements for safe discharge. Hospital bed has been ordered for discharge to home. 11/06: Patient seen and examined awaiting discharge. Remains clinically stable. 11/07: Patient seen and examined no acute distress. Blood pressure mildly elevated with a little bit of tachycardia no difficulty breathing noted. Pain medication has been held due to attempting to see if patient can be more participatory. May need to restart as needed pain meds. Was a bit agitated today. Anticipating discharge later today. Patient will need as needed pain medication to ensure maximum participation in treatment plan. 11/08: Patient seen and examined, clinically unchanged, awaiting placement. Assessment and Plan: Neuro: Recent CVA complicated by dysphagia/dysarthria/left hemiparesis/debility, h/o depression, seizure disorder, Metabolic Encephalopathy secondary to CVA with left sided neglect -Neurology and CCM consulted, appreciate recommendations -Reorientation as needed -Maintain sleep-wake cycle -aspiration/seizure precautions -As needed analgesia -CT head shows old moderately sized MCA infarct the right involving the inferior frontal peritracheal regions, gangliocapsular Regions and Right Temporal Lobe, prominent Kuehner seen in the left anterior andrea, small scattered lacunar infarcts suggesting the andrea -Bilateral carotid Doppler ultrasound shows less than 50% diameter stenosis in the right and left internal carotid artery -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 There is involvement of the lateral aspect of right temporal lobe. Large remote pontine infarction noted. No indication of recent intracranial hemorrhage or mass lesion. -Lipitor, aspirin -Keppra -Aspiration/seizure precautions -Continue home Prozac -PT/OT/ST consulted -Neurochecks per protocol Cardiac: h/o HTN -Cardiology consulted, appreciate recommendations -Blood pressure monitoring per protocol -Antihypertensive regimen: Atenolol, Lozol, lisinopril -Echocardiogram shows LVEF 55%, mild diastolic dysfunction no PFO -BELLE pending per neurology recs Respiratory: NAD -CCM/ pulm consulted for dyspnea, appreciate recommendations -Supplemental oxygen as needed -Pulmonary hygiene -SPO2 monitoring GI: S/p PEG tube placement -24 hours +1285 mL -PPI -NTR consulted for tube feedings -BR: Senna : Slight hyponatremia, h/o urinary retention/obstruction -Presented with indwelling catheter which was exchanged -Monitor intake and output -Renally dose medications -Avoid nephrotoxic medications -Repeat magnesium -Trend BMP ID: NAD -Monitor WBC and temperature curve Endo: h/o DM -Avoid hypoglycemia -SSI -Accu-Cheks q. every 6 -Hemoglobin A1c 8 Heme: ? Hypercoagulable state -CTA chest and abdomen pending per neurology recommendation -Trend CBC -Transfuse hemoglobin less than 7 -SCDs to BLE while in bed #Advance care planning Disease education conducted, care plan discussed, diagnoses discussed, prognosis discussed, patient is full code, patient brother Fabian acknowledges understanding and agree with care plan, +30 minutes. Disposition: 51 HOSPICE/MEDICAL FACILITY Final Discharge Diagnosis (Prints w/discharge instructions): CVA complicated by dysphagia/dysarthria/left hemiparesis/debility, h/o depression, seizure disorder, Metabolic Encephalopathy secondary to CVA with left sided neglect History Interval history: Patient seen and examined, clinically unchanged. No new event reported by nursing staff. Remains encephalopathic with Left sided neglect. Hospitalist Physical - Physical exam Narrative exam: General: No Apparent Distress HEENT: Positive: Mucus Membranes Dry, intermittent tracks occasionally. Follows some commands on the right side upper extremity only. Neck: Positive: trachea midline Cardiac: Positive: Reg Rate and Rhythm Lungs: Positive: Normal Breath Sounds Neuro: Positive: Other (Hemiparesis), non verbal. locked in appearance. does not follow commands. opens eyes but not purposefully following commands except upper extremity on the right side. Abdomen: Positive: Soft Skin: Negative: Rash, Suspicious Lesions, Ulceration Extremities: Present: upper extr. pulses. Absent: edema - Constitutional Vitals: Temp Pulse Resp BP Pulse Ox 98.2 F 78 18 128/75 97 11/08/21 06:00 11/08/21 06:01 11/08/21 06:00 11/08/21 06:00 11/08/21 06:01 General appearance: Present: no acute distress Results - Labs CBC & Chem 7: 10/24/21 05:00 10/28/21 03:40 Labs: Laboratory Last Values WBC 6.4 K/mm3 (4.5-11.0) 10/24/21 05:00 RBC 4.59 M/mm3 (3.65-5.03) 10/24/21 05:00 Hgb 12.7 gm/dl (11.8-15.2) 10/24/21 05:00 Hct 37.7 % (35.5-45.6) 10/24/21 05:00 MCV 82 fl (84-94) L 10/24/21 05:00 MCH 28 pg (28-32) 10/24/21 05:00 MCHC 34 % (32-34) 10/24/21 05:00 RDW 14.1 % (13.2-15.2) 10/24/21 05:00 Plt Count 222 K/mm3 (140-440) 10/24/21 05:00 Lymph % (Auto) 29.6 % (13.4-35.0) 10/22/21 16:00 [place] % (Auto) 11.8 % (0.0-7.3) H 10/22/21 16:00 Eos % (Auto) 1.3 % (0.0-4.3) 10/22/21 16:00 Baso % (Auto) 0.4 % (0.0-1.8) 10/22/21 16:00 Lymph # (Auto) 2.4 K/mm3 (1.2-5.4) 10/22/21 16:00 [place] # (Auto) 1.0 K/mm3 (0.0-0.8) H 10/22/21 16:00 Eos # (Auto) 0.1 K/mm3 (0.0-0.4) 10/22/21 16:00 Baso # (Auto) 0.0 K/mm3 (0.0-0.1) 10/22/21 16:00 Seg Neutrophils % 56.9 % (40.0-70.0) 10/22/21 16:00 Seg Neutrophils # 4.7 K/mm3 (1.8-7.7) 10/22/21 16:00 PT 14.8 Sec. (12.2-14.9) 10/22/21 16:00 INR 1.04 (0.87-1.13) 10/22/21 16:00 APTT 28.1 Sec. (24.2-36.6) 10/22/21 16:00 Sodium 137 mmol/L (137-145) 10/28/21 03:40 Potassium 4.2 mmol/L (3.6-5.0) 10/28/21 03:40 Chloride 97.1 mmol/L (98-107) L 10/28/21 03:40 Carbon Dioxide 29 mmol/L (22-30) 10/28/21 03:40 Anion Gap 15 mmol/L 10/28/21 03:40 BUN 14 mg/dL (9-20) 10/28/21 03:40 Creatinine 0.8 mg/dL (0.8-1.3) 10/28/21 03:40 Estimated GFR > 60 ml/min 10/28/21 03:40 BUN/Creatinine Ratio 18 % 10/28/21 03:40 Glucose 127 mg/dL (75-100) H 10/28/21 03:40 POC Glucose 124 mg/dL (70-105) H 11/08/21 06:18 Hemoglobin A1c 8.0 % (4-6) H 10/24/21 10:16 Calcium 10.1 mg/dL (8.4-10.2) 10/28/21 03:40 Phosphorus 4.20 mg/dL (2.5-4.5) 10/27/21 04:39 Magnesium 1.90 mg/dL (1.7-2.3) 10/27/21 04:39 Total Bilirubin 0.50 mg/dL (0.1-1.2) 10/22/21 16:00 AST 24 units/L (5-40) 10/22/21 16:00 ALT 28 units/L (7-56) 10/22/21 16:00 Alkaline Phosphatase 102 units/L (35-129) 10/22/21 16:00 Total Protein 6.9 g/dL (6.3-8.2) 10/22/21 16:00 Albumin 4.3 g/dL (3.9-5) 10/22/21 16:00 Albumin/Globulin Ratio 1.7 % 10/22/21 16:00 Triglycerides 85 mg/dL (2-149) 10/23/21 12:33 Cholesterol 148 mg/dL (50-199) 10/23/21 12:33 LDL Cholesterol Direct 86 mg/dL (50-130) 10/23/21 12:33 HDL Cholesterol 44 mg/dL (40-59) 10/23/21 12:33 Cholesterol/HDL Ratio 3.36 % 10/23/21 12:33 TSH 2.020 mlU/mL (0.270-4.200) 10/24/21 10:16 Free T4 0.88 ng/dL (0.76-1.46) 10/24/21 10:16 Urine Color Yellow (Yellow) 10/23/21 08:49 Urine Turbidity Clear (Clear) 10/23/21 08:49 Urine pH 6.5 (5.0-7.0) 10/23/21 08:49 Ur Specific [place] 1.005 (1.003-1.030) 10/23/21 08:49 Urine Protein 30 mg/dl mg/dL (Negative) 10/23/21 08:49 Urine Glucose (UA) Negative mg/dL (Negative) 10/23/21 08:49 Urine Ketones Negative mg/dL (Negative) 10/23/21 08:49 Urine Blood Moderate (Negative) A 10/23/21 08:49 Urine Nitrite Negative (Negative) 10/23/21 08:49 Ur Reducing Substances Not Reportable 10/23/21 08:49 Urine Bilirubin Negative (Negative) 10/23/21 08:49 Urine Ictotest Not Reportable 10/23/21 08:49 Urine Urobilinogen < 2.0 mg/dL (<2.0) 10/23/21 08:49 Ur Leukocyte Esterase Moderate (Negative) 10/23/21 08:49 Urine WBC (Auto) 28.0 /HPF (0.0-6.0) H 10/23/21 08:49 Urine RBC (Auto) 27.0 /HPF (0.0-6.0) 10/23/21 08:49 U Epithel Cells (Auto) 14.0 /HPF (0-13.0) H 10/23/21 08:49 Hyaline Casts 1 /LPF 10/23/21 08:49 Urine Mucus Few /HPF 10/23/21 08:49 Coronavirus (PCR) Negative (Negative) 10/30/21 Unknown Harden/IV: Voiding Method Indwelling Catheter Active Medications - Current Medications Current Medications: Generic Name Dose Route Start Last Admin Trade Name Freq PRN Reason Stop Dose Admin Acetaminophen 650 mg 10/22/21 16:19 10/28/21 22:11 Acetaminophen 325 Mg Tab PO 650 mg Q4H PRN Administration Pain, Mild (1-3) Albuterol 2.5 mg 10/22/21 16:19 Albuterol 2.5 Mg/3 Ml Nebu IH Q3HRT PRN Shortness Of Breath Lipase/Protease/Amylase 1 each 11/02/21 12:45 11/05/21 11:25 Lipase 10,500/Protease 25,000/Amylase 43,750 (Units) Dr Wilson FEEDTUBE 1 each PRN PRN Administration For Clogged Feeding Tube Aspirin 325 mg 10/23/21 10:00 11/07/21 10:01 Aspirin 325 Mg Tab PO 325 mg QDAY NEO Administration Atenolol 50 mg 10/24/21 10:00 11/07/21 10:01 Atenolol 50 Mg Tab FEEDTUBE 50 mg QDAY NEO Administration Atorvastatin Calcium 80 mg 10/24/21 22:00 11/07/21 21:12 Atorvastatin 40 Mg Tab FEEDTUBE 80 mg QHS NEO Administration Bisacodyl 10 mg 10/22/21 16:19 Bisacodyl 10 Mg Rect Supp SC QDAY PRN Constipation Dextrose 50 ml 10/22/21 17:23 Dextrose 50% In Water (25gm) 50 Ml Syringe IV Q30MIN PRN Hypoglycemia Protocol Fluoxetine HCl 10 mg 10/24/21 10:00 11/07/21 10:01 Fluoxetine 20 Mg/5 Ml Oral Liqd FEEDTUBE 10 mg QDAY NEO Administration Heparin Sodium (Porcine) 5,000 unit 10/22/21 22:00 11/07/21 21:11 Heparin 5,000 Unit/1 Ml Vial SUB-Q 5,000 unit Q12HR NEO Administration Indapamide 5 mg 10/24/21 10:00 11/07/21 10:00 Indapamide 2.5 Mg Tab FEEDTUBE 5 mg QDAY NEO Administration Insulin Human Lispro 0 unit 10/24/21 12:00 11/08/21 07:07 Insulin Lispro 100 Unit/Ml SUB-Q Not Given Q6HR [facility] Protocol Lansoprazole 30 mg 10/23/21 18:00 11/07/21 18:40 Lansoprazole 30 Mg Solutab FEEDTUBE 30 mg QPM NEO Administration Levetiracetam 250 mg 10/24/21 10:00 11/07/21 21:11 Levetiracetam 500 Mg/5 Ml Oral Liqd FEEDTUBE 250 mg BID NEO Administration Lisinopril 5 mg 10/24/21 10:00 11/07/21 10:01 Lisinopril 5 Mg Tab FEEDTUBE 5 mg QDAY NEO Administration Magnesium Hydroxide 30 ml 10/22/21 16:19 Magnesium Hydroxide (Mom) Oral Liqd Udc PO Q4H PRN Constipation Ondansetron HCl 4 mg 10/22/21 16:19 Ondansetron 4 Mg/2 Ml Inj IV Q8H PRN Nausea And Vomiting Oxycodone/Acetaminophen 1 tab 11/07/21 12:00 Oxycodone /Acetaminophen 5-325mg Tab PO Q6H PRN Pain, Moderate (4-6) Senna 8.8 mg 10/27/21 22:00 11/07/21 21:12 Sennosides Oral Liqd 8.8 Mg/5 Ml Oral Liqd FEEDTUBE Not Given QHS NEO Simple Syrup 15 ml 11/02/21 12:45 Simple Syrup 15 Ml FEEDTUBE PRN PRN Hypoglycemia Simple Syrup 30 ml 11/02/21 12:45 Simple Syrup 15 Ml FEEDTUBE PRN PRN Hypoglycemia Sodium Bicarbonate 325 mg 11/02/21 12:45 11/05/21 11:25 Sodium Bicarbonate 325 Mg Tab FEEDTUBE 325 mg PRN PRN Administration For Clogged Feeding Tube Sodium Chloride 10 ml 10/22/21 16:19 11/07/21 10:01 Sodium Chloride 0.9% 10 Ml Flush Syringe IV 10 ml PRN PRN Administration LINE FLUSH Nutrition/Malnutrition Assess - Dietary Evaluation Nutrition/Malnutrition Findings: Nutrition Notes Start: 10/23/21 13:01 Freq: Status: Active Protocol: Document 11/02/21 12:18 JIM (Rec: 11/02/21 12:47 JIM [id number]) Nutrition Notes Initial or Follow up Reassessment Current Diagnosis Diabetes,Hypertension,Stroke Other Pertinent Diagnosis Dysphagia, L-Hemiparesis, Debility. Current Diet TF-Glucerna 1.2 [place]rem[place] @ 70 ml/hr (since D 10/30). Labs/Tests 11/02: N/A. Pertinent Medications 11/02: Humalog 2U, others nutritionally unremarkable. Height 5 ft 11 in Weight 69.9 kg [place] Body Weight (kg) 78.18 BMI 21.4 Weight change and time frame Discrepancy of 20.818 Kg body weight loss in 1 week reported . Weight Status Appropriate Subjective/Other Information RD consult for routine F/U on TF tolerance/continuation. TF continues as prescribed, and well tolerated, according to RN notes. RN note on 11/01/21 21:38: Assessed patient tube feeding residual by aspiration. No residual feeding not. Accessed tube placement prior to medications,water flushed per order. Changed tube feeding and water bag. Patient tolerating feeding well. No sign of abdominal discomfort. - END OF NOTE. Pt is on Room Air, O2 saturation @ 97%, according to Physical Assessment History notes. Pt is not a candidate for skilled PT at this time; ans is recommended SNF placement, according to Progress notes. Percent of energy/protein needs met: Prescribed TF-Glucerna 1.2 [place] @ 70 ml/hr provides for energy/protein needs (2,016 Kcal/111 g) during LOS, 95% Kcal; 111% AA. Burn Absent Trauma Absent GI Symptoms None Difficulty In Swallowing Food Allergy No Skin Integrity/Comment Assessment WNL. Current % PO Other Minimum of two criteria No Fluid Accumulation N/A Reduced Paper Machine Tender Strength N/A (non-severe) Protein-Calorie Malnutrition N\\A #1 Nutrition Diagnosis Swallowing difficulty Diagnosis Progress(for reassessment Continues documentation) Is patient on ventilator? No Is Patient Ambulatory and/or Out of Bed No REE-([facility]-confined to bed) 1865.892 Kcal/Kg value to use for calculation 30 Approximate Energy Requirements Using 7 kcal/Kg Calculation Used for Recommendations Kcal/kg Additional Notes Protein: 0.8-1 g/Kg ABW; 73-91 g/day. Fluids: 1 ml/Kcal, or as per MD. Nutrition Intervention Nutrition Support: Continue TF-Glucerna 1.2 [place] @ 70 ml/hr. Flush: 100 ml water Q 4 hr, or as per MD. Kcal 2,016 Protein (gm) 101 Carbohydrates (gm) 192 Fat (gm) 101 Fluid (mL) 1,352 Fiber (gm) 27 % RDI: 95% Kcal; 111% AA. Goal #1 Provide at least 75% of energy /protein needs through Enteral Feeding during LOS. Follow-Up By: 11/09/21 Additional Comments Continue monitoring TF tolerance and BM.
[2021-11-08] MEDS: levETIRAcetam 500 MG/5 ML ORAL LIQD FEEDTUBE SCH ×2 (09:35→21:25)
[2021-11-08] MEDS: LISINOPRIL 5 MG TAB FEEDTUBE SCH (09:35)
[2021-11-08] MEDS: atenoloL 50 MG TAB FEEDTUBE SCH (09:35)
[2021-11-08] MEDS: ASPIRIN 325 MG TAB PO SCH (09:35)
[2021-11-08] MEDS: FLUoxetine 20 MG/5 ML ORAL LIQD FEEDTUBE SCH (09:35)
[2021-11-08] MEDS: INDAPAMIDE 2.5 MG TAB FEEDTUBE SCH (09:35)
[2021-11-08] MEDS: HEPARIN 5,000 UNIT/1 ML VIAL SUB-Q SCH ×2 (09:36→21:24)
--- NOTE | 2021-11-08 11:49 | Progress Note ---
Assessment and Plan 55 YO Male with HTN, DM, CVA complicated by Dysphagia, Dysarthria, Left Hemiparesis, Debility was admitted to [facility] in [facility] on 06/22/21. The patient was transported to [facility] today via air ambulance for continued treatment of the aforementioned symptoms. The patient was found to have clinical symptoms consistent with CVA but the patient was deemed outside the therapeutic window for tPA. The patient was admitted to [facility] and initiated on CVA protocol. The patient is nonverbal and has a palliative performance scor e of 30% and requires 6/6 assistance with activities of daily living. T No reports of fever, chills, chest pain, palpitation, productive cough, skin rash, recent contact, known exposure to COVID-19. Patient has PEG Placement. According to the chart. No history of smoking, alcohol or drug abuse. Patient is asleep. Not responding to Verbal stimuli. Patient is on room air. O2 saturation running 100%. No acute respiratory distress. Patient is afebrile. No leukocytosis. BP 147/81, pulse 92, RR 18. Chest x-ray done 10/23/21 reported no acute findings. CTA of chest 10/27/21 reported Limited exam due to motion artifact without CT evidence of pulmonary emboli or other acute findings. Patient is on albuterol inhaler, S/C heparin, and Prevacid. - Patient Problems (1) CVA (cerebral vascular accident) Current Visit: Yes Status: Acute Qualifiers: Precerebral and cerebral artery: middle cerebral artery Laterality of affected vessel: right Plan to address problem: Manage is per primary care and neurology. Recommend aspiration precautions. (2) Dysarthria as late effect of stroke Current Visit: Yes Status: Acute Plan to address problem: Management is per neurology. (3) Dysphagia as late effect of stroke Current Visit: Yes Status: Acute Plan to address problem: Management is per neurology. (4) Hemiparesis, left Current Visit: Yes Status: Acute Plan to address problem: Management is per neurology. (5) Diabetes Current Visit: Yes Status: Acute Plan to address problem: Management is per primary care. (6) Hypertension Current Visit: Yes Status: Acute Qualifiers: Hypertension type: primary hypertension Qualified Code(s): I10 - Essential (primary) hypertension Plan to address problem: Management is per primary care. Subjective Date of service: 11/08/21 Principal diagnosis: R. CVA with L. hemiparesis; HTN; DM II; Dysarthria; Oropharyngeal dysphagia Interval history: 55 YO Male with HTN, DM, CVA complicated by Dysphagia, Dysarthria, Left Hemiparesis, Debility was admitted to [facility] in [facility] on 06/22/21. The patient was transported to [facility] today via air ambulance for continued treatment of the aforementioned symptoms. The patient was found to have clinical symptoms consistent with CVA but the patient was deemed outside the therapeutic window for tPA. The patient was admitted to [facility] and initiated on CVA protocol. The patient is nonverbal and has a palliative performance score of 30% and requires 6/6 assistance with activities of daily living. T No reports of fever, chills, chest pain, palpitation, productive cough, skin rash, recent contact, known exposure to COVID-19. Patient has PEG Placement. According to the chart. No history of smoking, alcohol or drug abuse. Patient is asleep. Not responding to Verbal stimuli. Patient is on room air. O2 saturation running 100%. No acute respiratory distress. Patient is afebrile. No leukocytosis. BP 147/81, pulse 92, RR 18. Chest x-ray done 10/23/21 reported no acute findings. CTA of chest 10/27/21 reported Limited exam due to motion artifact without CT evidence of pulmonary emboli or other acute findings. Patient is on albuterol inhaler, S/C heparin, and Prevacid. Objective Vital Signs - 12hr 11/08/21 11/08/21 06:00 06:01 Temperature 98.2 F Pulse Rate 80 78 Respiratory 18 Rate Blood Pressure 128/75 O2 Sat by Pulse 94 97 Oximetry Constitutional: no acute distress, asleep Eyes: non-icteric ENT: oropharynx moist Neck: supple, no lymphadenopathy Effort: normal Ascultation: Bilateral: clear Percussion: Bilateral: not dull Cardiovascular: regular rate and rhythm, other (S1,S2) Gastrointestinal: normoactive bowel sounds, soft, non-tender, non-distended, other (PEG tube) Integumentary: normal Extremities: no cyanosis, no edema, pulses normal, no ischemia or petechiae Neurologic: pupils equal and round, other (left hemiplegia ) Psychiatric: other (unable to asses due to neurological status) CBC and BMP: 10/24/21 05:00 10/28/21 03:40 ABG, PT/INR, D-dimer: PT/INR, D-dimer PT 14.8 Sec. (12.2-14.9) 10/22/21 16:00 INR 1.04 (0.87-1.13) 10/22/21 16:00 Abnormal lab findings: Abnormal Labs 10/22/21 10/22/21 10/22/21 16:00 16:00 22:44 MCV 83 L MCH 27 L [place] % (Auto) 11.8 H [place] # (Auto) 1.0 H Sodium Potassium Chloride Creatinine 0.6 L Glucose 175 H POC Glucose 115 H Hemoglobin A1c Magnesium Urine Blood Urine WBC (Auto) U Epithel Cells (Auto) 10/23/21 10/23/21 10/23/21 07:28 08:49 11:31 MCV MCH [place] % (Auto) [place] # (Auto) Sodium Potassium Chloride Creatinine Glucose POC Glucose 129 H 136 H Hemoglobin A1c Magnesium Urine Blood Moderate A Urine WBC (Auto) 28.0 H U Epithel Cells (Auto) 14.0 H 10/23/21 10/24/21 10/24/21 17:59 00:01 05:00 MCV 82 L MCH [place] % (Auto) [place] # (Auto) Sodium Potassium Chloride Creatinine Glucose POC Glucose 109 H 111 H Hemoglobin A1c Magnesium Urine Blood Urine WBC (Auto) U Epithel Cells (Auto) 10/24/21 10/24/21 10/24/21 05:00 07:57 10:16 MCV MCH [place] % (Auto) [place] # (Auto) Sodium Potassium 3.5 L Chloride Creatinine 0.6 L Glucose 134 H POC Glucose 132 H Hemoglobin A1c 8.0 H Magnesium Urine Blood Urine WBC (Auto) U Epithel Cells (Auto) 10/24/21 10/24/21 10/25/21 16:26 20:57 04:47 MCV MCH [place] % (Auto) [place] # (Auto) Sodium Potassium Chloride Creatinine Glucose POC Glucose 109 H 145 H 159 H Hemoglobin A1c Magnesium Urine Blood Urine WBC (Auto) U Epithel Cells (Auto) 10/25/21 10/25/21 10/25/21 07:49 11:19 17:49 MCV MCH [place] % (Auto) [place] # (Auto) Sodium Potassium Chloride Creatinine Glucose POC Glucose 147 H 164 H 141 H Hemoglobin A1c Magnesium Urine Blood Urine WBC (Auto) U Epithel Cells (Auto) 10/25/21 10/26/21 10/26/21 20:54 04:56 07:23 MCV MCH [place] % (Auto) [place] # (Auto) Sodium Potassium Chloride Creatinine 0.7 L Glucose 165 H POC Glucose 136 H 172 H Hemoglobin A1c Magnesium 1.60 L Urine Blood Urine WBC (Auto) U Epithel Cells (Auto) 10/26/21 10/26/21 10/26/21 11:21 17:21 23:38 MCV MCH [place] % (Auto) [place] # (Auto) Sodium Potassium Chloride Creatinine Glucose POC Glucose 168 H 164 H 147 H Hemoglobin A1c Magnesium Urine Blood Urine WBC (Auto) U Epithel Cells (Auto) 10/27/21 10/27/21 10/27/21 04:39 07:32 11:33 MCV MCH [place] % (Auto) [place] # (Auto) Sodium 135 L Potassium Chloride 95.4 L Creatinine 0.6 L Glucose 156 H POC Glucose 137 H 180 H Hemoglobin A1c Magnesium Urine Blood Urine WBC (Auto) U Epithel Cells (Auto) 10/27/21 10/27/21 10/28/21 16:18 23:55 03:40 MCV MCH [place] % (Auto) [place] # (Auto) Sodium Potassium Chloride 97.1 L Creatinine Glucose 127 H POC Glucose 130 H 123 H Hemoglobin A1c Magnesium Urine Blood Urine WBC (Auto) U Epithel Cells (Auto) 10/28/21 10/28/21 10/28/21 08:10 12:03 17:42 MCV MCH [place] % (Auto) [place] # (Auto) Sodium Potassium Chloride Creatinine Glucose POC Glucose 142 H 173 H 145 H Hemoglobin A1c Magnesium Urine Blood Urine WBC (Auto) U Epithel Cells (Auto) 10/28/21 10/29/21 10/29/21 23:31 05:35 11:48 MCV MCH [place] % (Auto) [place] # (Auto) Sodium Potassium Chloride Creatinine Glucose POC Glucose 181 H 225 H 166 H Hemoglobin A1c Magnesium Urine Blood Urine WBC (Auto) U Epithel Cells (Auto) 10/29/21 10/30/21 10/30/21 16:23 00:19 05:23 MCV MCH [place] % (Auto) [place] # (Auto) Sodium Potassium Chloride Creatinine Glucose POC Glucose 167 H 157 H 175 H Hemoglobin A1c Magnesium Urine Blood Urine WBC (Auto) U Epithel Cells (Auto) 10/30/21 10/30/21 10/31/21 13:58 23:07 05:56 MCV MCH [place] % (Auto) [place] # (Auto) Sodium Potassium Chloride Creatinine Glucose POC Glucose 201 H 171 H 215 H Hemoglobin A1c Magnesium Urine Blood Urine WBC (Auto) U Epithel Cells (Auto) 10/31/21 10/31/21 11/01/21 12:25 16:17 00:06 MCV MCH [place] % (Auto) [place] # (Auto) Sodium Potassium Chloride Creatinine Glucose POC Glucose 230 H 222 H 186 H Hemoglobin A1c Magnesium Urine Blood Urine WBC (Auto) U Epithel Cells (Auto) 11/01/21 11/01/21 11/01/21 05:57 11:35 16:14 MCV MCH [place] % (Auto) [place] # (Auto) Sodium Potassium Chloride Creatinine Glucose POC Glucose 188 H 170 H 168 H Hemoglobin A1c Magnesium Urine Blood Urine WBC (Auto) U Epithel Cells (Auto) 11/01/21 11/02/21 11/02/21 23:41 06:36 11:44 MCV MCH [place] % (Auto) [place] # (Auto) Sodium Potassium Chloride Creatinine Glucose POC Glucose 172 H 187 H 161 H Hemoglobin A1c Magnesium Urine Blood Urine WBC (Auto) U Epithel Cells (Auto) 11/02/21 11/03/21 11/03/21 18:19 00:12 05:32 MCV MCH [place] % (Auto) [place] # (Auto) Sodium Potassium Chloride Creatinine Glucose POC Glucose 121 H 192 H 240 H Hemoglobin A1c Magnesium Urine Blood Urine WBC (Auto) U Epithel Cells (Auto) 11/03/21 11/03/21 11/03/21 11:46 16:45 23:36 MCV MCH [place] % (Auto) [place] # (Auto) Sodium Potassium Chloride Creatinine Glucose POC Glucose 201 H 170 H 167 H Hemoglobin A1c Magnesium Urine Blood Urine WBC (Auto) U Epithel Cells (Auto) 11/04/21 11/04/21 11/04/21 05:49 11:26 16:18 MCV MCH [place] % (Auto) [place] # (Auto) Sodium Potassium Chloride Creatinine Glucose POC Glucose 157 H 172 H 188 H Hemoglobin A1c Magnesium Urine Blood Urine WBC (Auto) U Epithel Cells (Auto) 11/04/21 11/05/21 11/05/21 23:27 05:23 12:36 MCV MCH [place] % (Auto) [place] # (Auto) Sodium Potassium Chloride Creatinine Glucose POC Glucose 168 H 165 H 161 H Hemoglobin A1c Magnesium Urine Blood Urine WBC (Auto) U Epithel Cells (Auto) 11/05/21 11/05/21 11/06/21 16:17 23:28 05:11 MCV MCH [place] % (Auto) [place] # (Auto) Sodium Potassium Chloride Creatinine Glucose POC Glucose 187 H 169 H 174 H Hemoglobin A1c Magnesium Urine Blood Urine WBC (Auto) U Epithel Cells (Auto) 11/06/21 11/06/21 11/06/21 11:10 15:54 23:58 MCV MCH [place] % (Auto) [place] # (Auto) Sodium Potassium Chloride Creatinine Glucose POC Glucose 178 H 154 H 137 H Hemoglobin A1c Magnesium Urine Blood Urine WBC (Auto) U Epithel Cells (Auto) 11/07/21 11/07/21 11/07/21 05:48 14:09 16:31 MCV MCH [place] % (Auto) [place] # (Auto) Sodium Potassium Chloride Creatinine Glucose POC Glucose 194 H 196 H 136 H Hemoglobin A1c Magnesium Urine Blood Urine WBC (Auto) U Epithel Cells (Auto) 11/07/21 11/08/21 11/08/21 23:09 06:18 11:43 MCV MCH [place] % (Auto) [place] # (Auto) Sodium Potassium Chloride Creatinine Glucose POC Glucose 140 H 124 H 170 H Hemoglobin A1c Magnesium Urine Blood Urine WBC (Auto) U Epithel Cells (Auto) Allied health notes reviewed: nursing
[2021-11-08] MEDS: LANSOPRAZOLE 30 MG SOLUTAB FEEDTUBE SCH (18:09)
[2021-11-08] MEDS: SENNOSIDES ORAL LIQD 8.8 MG/5 ML ORAL LIQD FEEDTUBE SCH (21:28)
[2021-11-09] MEDS: INSULIN LISPRO 100 UNIT/ML SUB-Q SCH ×4 (00:07→18:21)
--- NOTE | 2021-11-09 08:12 | Progress Note ---
Hospitalist Physical - Constitutional Vitals: Temp Pulse Resp BP Pulse Ox 98.2 F 55 L 18 118/65 97 11/09/21 04:22 11/09/21 07:45 11/09/21 07:45 11/09/21 07:45 11/09/21 07:45 General appearance: Present: no acute distress Results - Labs CBC & Chem 7: 10/24/21 05:00 10/28/21 03:40 Labs: Laboratory Last Values WBC 6.4 K/mm3 (4.5-11.0) 10/24/21 05:00 RBC 4.59 M/mm3 (3.65-5.03) 10/24/21 05:00 Hgb 12.7 gm/dl (11.8-15.2) 10/24/21 05:00 Hct 37.7 % (35.5-45.6) 10/24/21 05:00 MCV 82 fl (84-94) L 10/24/21 05:00 MCH 28 pg (28-32) 10/24/21 05:00 MCHC 34 % (32-34) 10/24/21 05:00 RDW 14.1 % (13.2-15.2) 10/24/21 05:00 Plt Count 222 K/mm3 (140-440) 10/24/21 05:00 Lymph % (Auto) 29.6 % (13.4-35.0) 10/22/21 16:00 [place] % (Auto) 11.8 % (0.0-7.3) H 10/22/21 16:00 Eos % (Auto) 1.3 % (0.0-4.3) 10/22/21 16:00 Baso % (Auto) 0.4 % (0.0-1.8) 10/22/21 16:00 Lymph # (Auto) 2.4 K/mm3 (1.2-5.4) 10/22/21 16:00 [place] # (Auto) 1.0 K/mm3 (0.0-0.8) H 10/22/21 16:00 Eos # (Auto) 0.1 K/mm3 (0.0-0.4) 10/22/21 16:00 Baso # (Auto) 0.0 K/mm3 (0.0-0.1) 10/22/21 16:00 Seg Neutrophils % 56.9 % (40.0-70.0) 10/22/21 16:00 Seg Neutrophils # 4.7 K/mm3 (1.8-7.7) 10/22/21 16:00 PT 14.8 Sec. (12.2-14.9) 10/22/21 16:00 INR 1.04 (0.87-1.13) 10/22/21 16:00 APTT 28.1 Sec. (24.2-36.6) 10/22/21 16:00 Sodium 137 mmol/L (137-145) 10/28/21 03:40 Potassium 4.2 mmol/L (3.6-5.0) 10/28/21 03:40 Chloride 97.1 mmol/L (98-107) L 10/28/21 03:40 Carbon Dioxide 29 mmol/L (22-30) 10/28/21 03:40 Anion Gap 15 mmol/L 10/28/21 03:40 BUN 14 mg/dL (9-20) 10/28/21 03:40 Creatinine 0.8 mg/dL (0.8-1.3) 10/28/21 03:40 Estimated GFR > 60 ml/min 10/28/21 03:40 BUN/Creatinine Ratio 18 % 10/28/21 03:40 Glucose 127 mg/dL (75-100) H 10/28/21 03:40 POC Glucose 157 mg/dL (70-105) H 11/09/21 05:13 Hemoglobin A1c 8.0 % (4-6) H 10/24/21 10:16 Calcium 10.1 mg/dL (8.4-10.2) 10/28/21 03:40 Phosphorus 4.20 mg/dL (2.5-4.5) 10/27/21 04:39 Magnesium 1.90 mg/dL (1.7-2.3) 10/27/21 04:39 Total Bilirubin 0.50 mg/dL (0.1-1.2) 10/22/21 16:00 AST 24 units/L (5-40) 10/22/21 16:00 ALT 28 units/L (7-56) 10/22/21 16:00 Alkaline Phosphatase 102 units/L (35-129) 10/22/21 16:00 Total Protein 6.9 g/dL (6.3-8.2) 10/22/21 16:00 Albumin 4.3 g/dL (3.9-5) 10/22/21 16:00 Albumin/Globulin Ratio 1.7 % 10/22/21 16:00 Triglycerides 85 mg/dL (2-149) 10/23/21 12:33 Cholesterol 148 mg/dL (50-199) 10/23/21 12:33 LDL Cholesterol Direct 86 mg/dL (50-130) 10/23/21 12:33 HDL Cholesterol 44 mg/dL (40-59) 10/23/21 12:33 Cholesterol/HDL Ratio 3.36 % 10/23/21 12:33 TSH 2.020 mlU/mL (0.270-4.200) 10/24/21 10:16 Free T4 0.88 ng/dL (0.76-1.46) 10/24/21 10:16 Urine Color Yellow (Yellow) 10/23/21 08:49 Urine Turbidity Clear (Clear) 10/23/21 08:49 Urine pH 6.5 (5.0-7.0) 10/23/21 08:49 Ur Specific [place] 1.005 (1.003-1.030) 10/23/21 08:49 Urine Protein 30 mg/dl mg/dL (Negative) 10/23/21 08:49 Urine Glucose (UA) Negative mg/dL (Negative) 10/23/21 08:49 Urine Ketones Negative mg/dL (Negative) 10/23/21 08:49 Urine Blood Moderate (Negative) A 10/23/21 08:49 Urine Nitrite Negative (Negative) 10/23/21 08:49 Ur Reducing Substances Not Reportable 10/23/21 08:49 Urine Bilirubin Negative (Negative) 10/23/21 08:49 Urine Ictotest Not Reportable 10/23/21 08:49 Urine Urobilinogen < 2.0 mg/dL (<2.0) 10/23/21 08:49 Ur Leukocyte Esterase Moderate (Negative) 10/23/21 08:49 Urine WBC (Auto) 28.0 /HPF (0.0-6.0) H 10/23/21 08:49 Urine RBC (Auto) 27.0 /HPF (0.0-6.0) 10/23/21 08:49 U Epithel Cells (Auto) 14.0 /HPF (0-13.0) H 10/23/21 08:49 Hyaline Casts 1 /LPF 10/23/21 08:49 Urine Mucus Few /HPF 10/23/21 08:49 Coronavirus (PCR) Negative (Negative) 10/30/21 Unknown Agrawal/IV: Voiding Method Indwelling Catheter Active Medications - Current Medications Current Medications: Generic Name Dose Route Start Last Admin Trade Name Freq PRN Reason Stop Dose Admin Acetaminophen 650 mg 10/22/21 16:19 10/28/21 22:11 Acetaminophen 325 Mg Tab PO 650 mg Q4H PRN Administration Pain, Mild (1-3) Albuterol 2.5 mg 10/22/21 16:19 Albuterol 2.5 Mg/3 Ml Nebu IH Q3HRT PRN Shortness Of Breath Lipase/Protease/Amylase 1 each 11/02/21 12:45 11/05/21 11:25 Lipase 10,500/Protease 25,000/Amylase 43,750 (Units) Dr Wilson FEEDTUBE 1 each PRN PRN Administration For Clogged Feeding Tube Aspirin 325 mg 10/23/21 10:00 11/08/21 09:35 Aspirin 325 Mg Tab PO 325 mg QDAY NEO Administration Atenolol 50 mg 10/24/21 10:00 11/08/21 09:35 Atenolol 50 Mg Tab FEEDTUBE 50 mg QDAY NEO Administration Atorvastatin Calcium 80 mg 10/24/21 22:00 11/08/21 21:25 Atorvastatin 40 Mg Tab FEEDTUBE 80 mg QHS NEO Administration Bisacodyl 10 mg 10/22/21 16:19 Bisacodyl 10 Mg Rect Supp PA QDAY PRN Constipation Dextrose 50 ml 10/22/21 17:23 Dextrose 50% In Water (25gm) 50 Ml Syringe IV Q30MIN PRN Hypoglycemia Protocol Fluoxetine HCl 10 mg 10/24/21 10:00 11/08/21 09:35 Fluoxetine 20 Mg/5 Ml Oral Liqd FEEDTUBE 10 mg QDAY NEO Administration Heparin Sodium (Porcine) 5,000 unit 10/22/21 22:00 11/08/21 21:24 Heparin 5,000 Unit/1 Ml Vial SUB-Q 5,000 unit Q12HR NEO Administration Indapamide 5 mg 10/24/21 10:00 11/08/21 09:35 Indapamide 2.5 Mg Tab FEEDTUBE 5 mg QDAY NEO Administration Insulin Human Lispro 0 unit 10/24/21 12:00 11/09/21 06:50 Insulin Lispro 100 Unit/Ml SUB-Q 2 unit Q6HR NEO Administration Protocol Lansoprazole 30 mg 10/23/21 18:00 11/08/21 18:09 Lansoprazole 30 Mg Solutab FEEDTUBE 30 mg QPM NEO Administration Levetiracetam 250 mg 10/24/21 10:00 11/08/21 21:25 Levetiracetam 500 Mg/5 Ml Oral Liqd FEEDTUBE 250 mg BID NEO Administration Lisinopril 5 mg 10/24/21 10:00 11/08/21 09:35 Lisinopril 5 Mg Tab FEEDTUBE 5 mg QDAY NEO Administration Magnesium Hydroxide 30 ml 10/22/21 16:19 Magnesium Hydroxide (Mom) Oral Liqd Udc PO Q4H PRN Constipation Ondansetron HCl 4 mg 10/22/21 16:19 Ondansetron 4 Mg/2 Ml Inj IV Q8H PRN Nausea And Vomiting Oxycodone/Acetaminophen 1 tab 11/07/21 12:00 Oxycodone /Acetaminophen 5-325mg Tab PO Q6H PRN Pain, Moderate (4-6) Senna 8.8 mg 10/27/21 22:00 11/08/21 21:28 Sennosides Oral Liqd 8.8 Mg/5 Ml Oral Liqd FEEDTUBE 8.8 mg QHS NEO Administration Simple Syrup 15 ml 11/02/21 12:45 Simple Syrup 15 Ml FEEDTUBE PRN PRN Hypoglycemia Simple Syrup 30 ml 11/02/21 12:45 Simple Syrup 15 Ml FEEDTUBE PRN PRN Hypoglycemia Sodium Bicarbonate 325 mg 11/02/21 12:45 11/05/21 11:25 Sodium Bicarbonate 325 Mg Tab FEEDTUBE 325 mg PRN PRN Administration For Clogged Feeding Tube Sodium Chloride 10 ml 10/22/21 16:19 11/08/21 21:29 Sodium Chloride 0.9% 10 Ml Flush Syringe IV 10 ml PRN PRN Administration LINE FLUSH Nutrition/Malnutrition Assess - Dietary Evaluation Nutrition/Malnutrition Findings: Nutrition Notes Start: 10/23/21 13:01 Freq: Status: Active Protocol: Document 11/02/21 12:18 JIM (Rec: 11/02/21 12:47 JIM [id number]) Nutrition Notes Initial or Follow up Reassessment Current Diagnosis Diabetes,Hypertension,Stroke Other Pertinent Diagnosis Dysphagia, L-Hemiparesis, Debility. Current Diet TF-Glucerna 1.2 [place] @ 70 ml/hr (since D 10/30). Labs/Tests 11/02: N/A. Pertinent Medications 11/02: Humalog 2U, others nutritionally unremarkable. Height 5 ft 11 in Weight 69.9 kg [place] Body Weight (kg) 78.18 BMI 21.4 Weight change and time frame Discrepancy of 20.818 Kg body weight loss in 1 week reported . Weight Status Appropriate Subjective/Other Information RD consult for routine F/U on TF tolerance/continuation. TF continues as prescribed, and well tolerated, according to RN notes. RN note on 11/01/21 21:38: Assessed patient tube feeding residual by aspiration. No residual feeding not. Accessed tube placement prior to medications,water flushed per order. Changed tube feeding and water bag. Patient tolerating feeding well. No sign of abdominal discomfort. - END OF NOTE. Pt is on Room Air, O2 saturation @ 97%, according to Physical Assessment History notes. Pt is not a candidate for skilled PT at this time; ans is recommended SNF placement, according to Progress notes. Percent of energy/protein needs met: Prescribed TF-Glucerna 1.2 [place] @ 70 ml/hr provides for energy/protein needs (2,016 Kcal/111 g) during LOS, 95% Kcal; 111% AA. Burn Absent Trauma Absent GI Symptoms None Difficulty In Swallowing Food Allergy No Skin Integrity/Comment Assessment WNL. Current % PO Other Minimum of two criteria No Fluid Accumulation N/A Reduced Group Counselor Strength N/A (non-severe) Protein-Calorie Malnutrition N\A #1 Nutrition Diagnosis Swallowing difficulty Diagnosis Progress(for reassessment Continues documentation) Is patient on ventilator? No Is Patient Ambulatory and/or Out of Bed No REE-([facility]-confined to bed) 1865.892 Kcal/Kg value to use for calculation 30 Approximate Energy Requirements Using 2097 kcal/Kg Calculation Used for Recommendations Kcal/kg Additional Notes Protein: 0.8-1 g/Kg ABW; 73-91 g/day. Fluids: 1 ml/Kcal, or as per MD. Nutrition Intervention Nutrition Support: Continue TF-Glucerna 1.2 [place] @ 70 ml/hr. Flush: 100 ml water Q 4 hr, or as per MD. Kcal 2,016 Protein (gm) 101 Carbohydrates (gm) 192 Fat (gm) 101 Fluid (mL) 1,352 Fiber (gm) 27 % RDI: 95% Kcal; 111% AA. Goal #1 Provide at least 75% of energy /protein needs through Enteral Feeding during LOS. Follow-Up By: 11/09/21 Additional Comments Continue monitoring TF tolerance and BM.
--- NOTE | 2021-11-09 08:25 | Discharge Summary ---
Providers - Providers Date of Admission: 10/22/21 16:20 Attending physician: DIOR MCKEON MD 10/22/21 16:20 Consult to Case Management [CONS] Routine Services Needed at Discharge: Other Notified:: in am Additional Physician Instructions: SNF Placement Consult to Dietitian/Nutrition [CONS] Routine Physician Instructions: Reason For Exam: Reason for Consult: Nutrition Recommendations Reason for Consult: Write/Manage Tube Feeding Occupational Therapy Evaluate and Treat [CONS] Routine Comment: Reason For Exam: Neuro deficits Physical Therapy Evaluation and Treat [CONS] Routine Comment: Reason For Exam: Neuro deficits 10/22/21 17:22 Consult to Physician [CONS] Routine Comment: noted/ livia Consulting Provider: GERALD ARTIS Physician Instructions: Reason For Exam: dypsnea 10/22/21 21:10 Speech Therapy Evaluation and Treat [CONS] Routine Reason For Exam: cva 10/23/21 08:01 Consult to Physician [CONS] Routine Comment: noted/ livia Consulting Provider: NUBIA MEJIA Physician Instructions: Reason For Exam: CVA 10/23/21 09:53 Consult to Dietitian/Nutrition [CONS] Routine Physician Instructions: Reason For Exam: Reason for Consult: Write/Manage Tube Feeding 10/26/21 08:50 Consult to Physician [CONS] Routine Comment: Consulting Provider: ZAHRA MENDES Physician Instructions: Reason For Exam: cva, ?paroxysma afib 10/26/21 14:31 Consult to Anesthesiology [CONS] Routine Consulting Provider: DEREK MCGHEE Reason For Exam: assist with planned BELLE 11/04/21 09:19 Physical Therapy Evaluation and Treat [CONS] Routine Comment: Reason For Exam: Debility 11/04/21 09:20 Occupational Therapy Evaluate and Treat [CONS] Routine Comment: Reason For Exam: re-evalution -ADLS Primary care physician: AUTOM[employer]IC PATTERN EDGER Hospitalization Reason for admission: cva Condition: Stable Hospital course: This is a 55-year-old with HTN, DM, CVA complicated by dysphagia s/p PEG tube placement, dysarthria, left hemiparesis and debility who presented to the emergency department on 10/22 via air ambulance for continued treatment. Patient was admitted to the [facility] and initiated on CIWA protocol with consults to [facility], neurology will need a cardiology. Hospital Course to Date: 10/23: Nonverbal, open eyes spontaneously, does not follow any commands with LUE paralysis/contraction. on RA, VSS. Echo and Neurology consult pending. PT/OT/Speech also consulted. PEG-tube noted, nutrition/social secretary consulted for TF management. Pulmonary is also following. Patient presented with a harden catheter, per record history of urinary retention. Harden cath exchanged, UA pending. 10/24: SEKOU overnight. Neurology recommendations noted, orders placed for MRI brai n and CTA head/Neck. Continue PT/OT/Speech, home meds resumed, and enteral nutrition initiated. UA noted, patient is asymptomatic with no leukocytosis, continue to monitor, urine culture pending. 10/25: Remains stable, mentation unchanged. CTA head/Neck noted, MRI brain/MRA head/Neck pending. Awaiting Neurology final recommendations. Continue current supportive measures. 10/26: Patient will have a BELLE, cardiology consulted per neurology recommendations, MRI/MRA/MRV pending no acute events reported overnight. Magnesium repleted. 10/27: Unable to complete BELLE as consent was not able to be obtained, [facility] contacted who declined the patient is a candidate, MRI brain and CTA chest and pelvis pending. No acute events reported overnight. 10/28: No acute overnight events. CTA chest and abdomen completed were negative studies. BELLE completed this AM, no acute findings noted. MR brain shows subacute right MCA infarction superimposed on chronic infarction. There is involvement of the lateral aspect of right temporal lobe. Large remote pontine infarction noted. No indication of recent intracranial hemorrhage or mass lesion. CM currently working on placement to SNF. Can transfer patient to floor bed. Attempted to call number in chart to update family. no response. 10/29: D/w brother Fabian Waldron [phone]. Updated him on patient clinical status. Discussed overall poor chance of regaining baseline function and current "locked in" appearance due to territory of stroke. I also discussed options of home health care if the family can support the patient versus hospice versus SNF. I also updated Fabian that thus far facilities have denied the patient due to him being out of network. He stated he would speak with his brother Tyrell regarding these updates and would also be coming to the hospital tomorrow to discuss the family's goals for the patient. Patient likely needs DOAC. Will await neuro recs re: anticoagulation. 10/30: Neurology recommends against doac. Will obtain covid pcr. Plan Family discussion today this AM with patient brother Fabian this AM re: YOAN I discussed with the patient's brother, Fabian regarding goals of care as well as the events of the patient's hospitalization. He was very much adamant that the patient go to rehab/snf and did not think hospice was the right option for his brother. I explained that thus far the patient has been declined at more than 10 facilities in the [facility]. He stated that he would be willing to help fund him should that be an issue. I notified the family caseworker about my conversation who stated they would speak with Mr Fabian. 10/31: Patient tolerating tube feed, clinically unchanged, PT recommendation is as noted below. WIll have case management consider a Personal long term also. PER PT Pt presents with poor rehab potential due to CVA x4 months ago with L UE and LE hypertonicity, contractures, poor isolated movements, inability to follow instructions, Left side neglect, significant impairments of coordination and strength. Pt is total assist with mobilities and high risk for falls. Recommend SNF placement for 24hr care. If pt d/c home with family, will need hospital bed, cecil lift for potential transfers. Due to pt's involuntary movements and abnormal tone, pt is high risk for falling out of a w/c. If pt d/c home, recommend 1 PT visit for pt/family training re: positioning, bed mobility. Pt is not a candidate for skilled PT at this time. Pt was left in semi fowlers, needs in reach, all lines intact, no distress, pt with involuntary movements at times. 11/01: Continue supportive care. We will plan on further discussion with the family on discharge planning anticipated in a day or 2 following this history arrangements to be in place. We will follow-up with the pending long term facility to see if they accept him. 11/02: Patient seen and examined, discharge planning, continue supportive care, wound management, rehab. 11/03: Patient seen and examined, remains with profused encephalopathy, still with left upper hemiparesis and spontaneous non purposeful movement of bilateral lower ext and right upper ext. Awaiting safe discharge plan. I have called to speak with the brother and left my personal cell phone number for call back. 11/04: Patient seen and examined, He is able to respond to commands and Squeeze my hand on his right upper ext, He Unfortunately not following commands on the lower ext which he moves spontaneously and not on command. He continues to await safe discharge. Goals of care discussed extensively with advance care plan. He remains a full code and family will like aggresssive PT/OT/Speech therapy. 11/05: Patient seen and examined clinically stable at this time awaiting family arrangements for safe discharge. Hospital bed has been ordered for discharge to home. 11/06: Patient seen and examined awaiting discharge. Remains clinically stable. 11/07: Patient seen and examined no acute distress. Blood pressure mildly elevated with a little bit of tachycardia no difficulty breathing noted. Pain medication has been held due to attempting to see if patient can be more participatory. May need to restart as needed pain meds. Was a bit agitated today. Anticipating discharge later today. Patient will need as needed pain medication to ensure maximum participation in treatment plan. 11/08: Patient seen and examined, clinically unchanged, awaiting placement. 11/09: Patient seen and examined, clinically unchanged, awaiting placement. Assessment and Plan: Neuro: Recent CVA complicated by dysphagia/dysarthria/left hemiparesis/debility, h/o depression, seizure disorder, Metabolic Encephalopathy secondary to CVA with left sided neglect -Neurology and CCM consulted, appreciate recommendations -Reorientation as needed -Maintain sleep-wake cycle -aspiration/seizure precautions -As needed analgesia -CT head shows old moderately sized MCA infarct the right involving the inferior frontal peritracheal regions, gangliocapsular Regions and Right Temporal Lobe, prominent Kuehner seen in the left anterior andrea, small scattered lacunar infarcts suggesting the andrea -Bilateral carotid Doppler ultrasound shows less than 50% diameter stenosis in the right and left internal carotid artery -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 There is involvement of the lateral aspect of right temporal lobe. Large remote pontine infarction noted. No indication of recent intracranial hemorrhage or mass lesion. -Lipitor, aspirin -Keppra -Aspiration/seizure precautions -Continue home Prozac -PT/OT/ST consulted -Neurochecks per protocol Cardiac: h/o HTN -Cardiology consulted, appreciate recommendations -Blood pressure monitoring per protocol -Antihypertensive regimen: Atenolol, Lozol, lisinopril -Echocardiogram shows LVEF 55%, mild diastolic dysfunction no PFO -BELLE pending per neurology recs Respiratory: NAD -CCM/ pulm consulted for dyspnea, appreciate recommendations -Supplemental oxygen as needed -Pulmonary hygiene -SPO2 monitoring GI: S/p PEG tube placement -24 hours +1285 mL -PPI -NTR consulted for tube feedings -BR: Senna : Slight hyponatremia, h/o urinary retention/obstruction -Presented with indwelling catheter which was exchanged -Monitor intake and output -Renally dose medications -Avoid nephrotoxic medications -Repeat magnesium -Trend BMP ID: NAD -Monitor WBC and temperature curve Endo: h/o DM -Avoid hypoglycemia -SSI -Accu-Cheks q. every 6 -Hemoglobin A1c 8 Heme: ? Hypercoagulable state -CTA chest and abdomen pending per neurology recommendation -Trend CBC -Transfuse hemoglobin less than 7 -SCDs to BLE while in bed #Advance care planning Disease education conducted, care plan discussed, diagnoses discussed, prognosis discussed, patient is full code, patient brother Fabian acknowledges understanding and agree with care plan, +30 minutes. Disposition: [facility] HOSPICE/MEDICAL FACILITY Final Discharge Diagnosis (Prints w/discharge instructions): CVA complicated by dysphagia/dysarthria/left hemiparesis/debility, h/o depression, seizure disorder, Metabolic Encephalopathy secondary to CVA with left sided neglect Time spent for discharge: 35 mins Core Measure Documentation - Palliative Care Palliative Care/ Comfort Measures: Hospice Care - Core Measures Any of the following diagnoses?: none Exam - Physical Exam Narrative exam: General: No Apparent Distress HEENT: Positive: Mucus Membranes Dry, intermittent tracks occasionally. Follows some commands on the right side upper extremity only. Neck: Positive: trachea midline Cardiac: Positive: Reg Rate and Rhythm Lungs: Positive: Normal Breath Sounds Neuro: Positive: Other (Hemiparesis), non verbal. locked in appearance. does not follow commands. opens eyes but not purposefully following commands except upper extremity on the right side. Abdomen: Positive: Soft Skin: Negative: Rash, Suspicious Lesions, Ulceration Extremities: Present: upper extr. pulses. Absent: edema - Constitutional Vitals: Temp Pulse Resp BP Pulse Ox 98.2 F 55 L 18 118/65 97 11/09/21 04:22 11/09/21 07:45 11/09/21 07:45 11/09/21 07:45 11/09/21 07:45 Plan Activity: advance as tolerated, fall precautions Diet: low fat Special Instructions: record daily weights, record daily BP diary Plan of Treatment: seizure precautions Follow up with: MOUNIKA,ANA LUCAS [Referring] - 7 Days TRACEY FUENTES MD [Staff Physician] - 7 Days Prescriptions: AtorvaSTATin [Lipitor] 80 mg FEEDTUBE QHS #30 tablet Sennosides Oral Liqd [Senokot] 8.8 mg FEEDTUBE QHS #60 ml Aspirin 325 mg PO QDAY #30 tablet bisacodyL [Dulcolax suppos] 10 mg NV QDAY PRN #30 supp.rect PRN Reason: Constipation levETIRAcetam [Keppra] 250 mg FEEDTUBE BID #120 ml Insulin Glargine [Lantus VIAL] 20 units SUB-Q QPM #10 ml Indapamide [Lozol] 5 mg FEEDTUBE QDAY #60 tablet oxyCODONE /ACETAMINOPHEN [Percocet 5/325 mg] 1 tab PO Q12H PRN #10 tablet PRN Reason: Pain, Moderate (4-6) Lansoprazole Solutab [Prevacid Solutab] 30 mg FEEDTUBE QPM #30 tab.rapdis FLUoxetine [Prozac] 10 mg FEEDTUBE QDAY #60 ml atenoloL [Tenormin] 50 mg FEEDTUBE QDAY #30 tablet lisinopriL [Zestril TAB] 5 mg FEEDTUBE QDAY #30 tablet Sodium Phosphate,Mccook-Dibasic [Enema Ready To Use] 133 ml RC Q72HR #7 enema
[2021-11-09] MEDS: atenoloL 50 MG TAB FEEDTUBE SCH (09:42)
[2021-11-09] MEDS: levETIRAcetam 500 MG/5 ML ORAL LIQD FEEDTUBE SCH ×2 (09:43→22:47)
[2021-11-09] MEDS: LISINOPRIL 5 MG TAB FEEDTUBE SCH (09:43)
[2021-11-09] MEDS: INDAPAMIDE 2.5 MG TAB FEEDTUBE SCH (09:43)
[2021-11-09] MEDS: ASPIRIN 325 MG TAB PO SCH (09:43)
[2021-11-09] MEDS: HEPARIN 5,000 UNIT/1 ML VIAL SUB-Q SCH ×2 (09:44→22:47)
[2021-11-09] MEDS: FLUoxetine 20 MG/5 ML ORAL LIQD FEEDTUBE SCH (09:44)
--- NOTE | 2021-11-09 13:51 | Progress Note ---
Assessment and Plan 55 YO Male with HTN, DM, CVA complicated by Dysphagia, Dysarthria, Left Hemiparesis, Debility was admitted to [facility] in [facility] on 06/22/21. The patient was transported to [facility] today via air ambulance for continued treatment of the aforementioned symptoms. The patient was found to have clinical symptoms consistent with CVA but the patient was deemed outside the therapeutic window for tPA. The patient was admitted to [facility] and initiated on CVA protocol. The patient is nonverbal and has a palliative performance scor e of 30% and requires 6/6 assistance with activities of daily living. T No reports of fever, chills, chest pain, palpitation, productive cough, skin rash, recent contact, known exposure to COVID-19. Patient has PEG Placement. According to the chart. No history of smoking, alcohol or drug abuse. Patient is asleep. Not responding to Verbal stimuli. Patient is on room air. O2 saturation running 98%. No acute respiratory distress. Patient is afebrile. No leukocytosis. BP 115/64, pulse 71, RR 18. Chest x-ray done 10/23/21 reported no acute findings. CTA of chest 10/27/21 reported Limited exam due to motion artifact without CT evidence of pulmonary emboli or other acute findings. Patient is on albuterol inhaler, S/C heparin, and Prevacid. - Patient Problems (1) CVA (cerebral vascular accident) Current Visit: Yes Status: Acute Qualifiers: Precerebral and cerebral artery: middle cerebral artery Laterality of affected vessel: right Plan to address problem: Manage is per primary care and neurology. Recommend aspiration precautions. (2) Dysarthria as late effect of stroke Current Visit: Yes Status: Acute Plan to address problem: Management is per neurology. (3) Dysphagia as late effect of stroke Current Visit: Yes Status: Acute Plan to address problem: Management is per neurology. (4) Hemiparesis, left Current Visit: Yes Status: Acute Plan to address problem: Management is per neurology. (5) Diabetes Current Visit: Yes Status: Acute Plan to address problem: Management is per primary care. (6) Hypertension Current Visit: Yes Status: Acute Qualifiers: Hypertension type: primary hypertension Qualified Code(s): I10 - Essential (primary) hypertension Plan to address problem: Management is per primary care. Subjective Date of service: 11/09/21 Principal diagnosis: R. CVA with L. hemiparesis; HTN; DM II; Dysarthria; Oropharyngeal dysphagia Interval history: 55 YO Male with HTN, DM, CVA complicated by Dysphagia, Dysarthria, Left Hemiparesis, Debility was admitted to [facility] in [facility] on 06/22/21. The patient was transported to [facility] today via air ambulance for continued treatment of the aforementioned symptoms. The patient was found to have clinical symptoms consistent with CVA but the patient was deemed outside the therapeutic window for tPA. The patient was admitted to [facility] and initiated on CVA protocol. The patient is nonverbal and has a palliative performance score of 30% and requires 6/6 assistance with activities of daily living. T No reports of fever, chills, chest pain, palpitation, productive cough, skin rash, recent contact, known exposure to COVID-19. Patient has PEG Placement. According to the chart. No history of smoking, alcohol or drug abuse. Patient is asleep. Not responding to Verbal stimuli. Patient is on room air. O2 saturation running 98%. No acute respiratory distress. Patient is afebrile. No leukocytosis. BP 115/64, pulse 71, RR 18. Chest x-ray done 10/23/21 reported no acute findings. CTA of chest 10/27/21 reported Limited exam due to motion artifact without CT evidence of pulmonary emboli or other acute findings. Patient is on albuterol inhaler, S/C heparin, and Prevacid. Objective Vital Signs - 12hr 11/09/21 11/09/21 11/09/21 04:22 07:45 11:36 Temperature 98.2 F 98.3 F Pulse Rate 55 L 55 L 71 Respiratory 20 18 18 Rate Blood Pressure 132/87 115/64 Blood Pressure 118/65 [Right] O2 Sat by Pulse 100 97 98 Oximetry Constitutional: no acute distress, asleep Eyes: non-icteric ENT: oropharynx moist Neck: supple, no lymphadenopathy Effort: normal Ascultation: Bilateral: clear Percussion: Bilateral: not dull Cardiovascular: regular rate and rhythm, other (S1,S2) Gastrointestinal: normoactive bowel sounds, soft, non-tender, non-distended, other (PEG tube) Integumentary: normal Extremities: no cyanosis, no edema, pulses normal, no ischemia or petechiae Neurologic: pupils equal and round, other (left hemiplegia ) Psychiatric: other (unable to asses due to neurological status) CBC and BMP: 10/24/21 05:00 10/28/21 03:40 ABG, PT/INR, D-dimer: PT/INR, D-dimer PT 14.8 Sec. (12.2-14.9) 10/22/21 16:00 INR 1.04 (0.87-1.13) 10/22/21 16:00 Abnormal lab findings: Abnormal Labs 10/22/21 10/22/21 10/22/21 16:00 16:00 22:44 MCV 83 L MCH 27 L [place] % (Auto) 11.8 H [place] # (Auto) 1.0 H Sodium Potassium Chloride Creatinine 0.6 L Glucose 175 H POC Glucose 115 H Hemoglobin A1c Magnesium Urine Blood Urine WBC (Auto) U Epithel Cells (Auto) 10/23/21 10/23/21 10/23/21 07:28 08:49 11:31 MCV MCH [place] % (Auto) [place] # (Auto) Sodium Potassium Chloride Creatinine Glucose POC Glucose 129 H 136 H Hemoglobin A1c Magnesium Urine Blood Moderate A Urine WBC (Auto) 28.0 H U Epithel Cells (Auto) 14.0 H 10/23/21 10/24/21 10/24/21 17:59 00:01 05:00 MCV 82 L MCH [place] % (Auto) [place] # (Auto) Sodium Potassium Chloride Creatinine Glucose POC Glucose 109 H 111 H Hemoglobin A1c Magnesium Urine Blood Urine WBC (Auto) U Epithel Cells (Auto) 10/24/21 10/24/21 10/24/21 05:00 07:57 10:16 MCV MCH [place] % (Auto) [place] # (Auto) Sodium Potassium 3.5 L Chloride Creatinine 0.6 L Glucose 134 H POC Glucose 132 H Hemoglobin A1c 8.0 H Magnesium Urine Blood Urine WBC (Auto) U Epithel Cells (Auto) 10/24/21 10/24/21 10/25/21 16:26 20:57 04:47 MCV MCH [place] % (Auto) [place] # (Auto) Sodium Potassium Chloride Creatinine Glucose POC Glucose 109 H 145 H 159 H Hemoglobin A1c Magnesium Urine Blood Urine WBC (Auto) U Epithel Cells (Auto) 10/25/21 10/25/21 10/25/21 07:49 11:19 17:49 MCV MCH [place] % (Auto) [place] # (Auto) Sodium Potassium Chloride Creatinine Glucose POC Glucose 147 H 164 H 141 H Hemoglobin A1c Magnesium Urine Blood Urine WBC (Auto) U Epithel Cells (Auto) 10/25/21 10/26/21 10/26/21 20:54 04:56 07:23 MCV MCH [place] % (Auto) [place] # (Auto) Sodium Potassium Chloride Creatinine 0.7 L Glucose 165 H POC Glucose 136 H 172 H Hemoglobin A1c Magnesium 1.60 L Urine Blood Urine WBC (Auto) U Epithel Cells (Auto) 10/26/21 10/26/21 10/26/21 11:21 17:21 23:38 MCV MCH [place] % (Auto) [place] # (Auto) Sodium Potassium Chloride Creatinine Glucose POC Glucose 168 H 164 H 147 H Hemoglobin A1c Magnesium Urine Blood Urine WBC (Auto) U Epithel Cells (Auto) 10/27/21 10/27/21 10/27/21 04:39 07:32 11:33 MCV MCH [place] % (Auto) [place] # (Auto) Sodium 135 L Potassium Chloride 95.4 L Creatinine 0.6 L Glucose 156 H POC Glucose 137 H 180 H Hemoglobin A1c Magnesium Urine Blood Urine WBC (Auto) U Epithel Cells (Auto) 10/27/21 10/27/21 10/28/21 16:18 23:55 03:40 MCV MCH [place] % (Auto) [place] # (Auto) Sodium Potassium Chloride 97.1 L Creatinine Glucose 127 H POC Glucose 130 H 123 H Hemoglobin A1c Magnesium Urine Blood Urine WBC (Auto) U Epithel Cells (Auto) 10/28/21 10/28/21 10/28/21 08:10 12:03 17:42 MCV MCH [place] % (Auto) [place] # (Auto) Sodium Potassium Chloride Creatinine Glucose POC Glucose 142 H 173 H 145 H Hemoglobin A1c Magnesium Urine Blood Urine WBC (Auto) U Epithel Cells (Auto) 10/28/21 10/29/21 10/29/21 23:31 05:35 11:48 MCV MCH [place] % (Auto) [place] # (Auto) Sodium Potassium Chloride Creatinine Glucose POC Glucose 181 H 225 H 166 H Hemoglobin A1c Magnesium Urine Blood Urine WBC (Auto) U Epithel Cells (Auto) 10/29/21 10/30/21 10/30/21 16:23 00:19 05:23 MCV MCH [place] % (Auto) [place] # (Auto) Sodium Potassium Chloride Creatinine Glucose POC Glucose 167 H 157 H 175 H Hemoglobin A1c Magnesium Urine Blood Urine WBC (Auto) U Epithel Cells (Auto) 10/30/21 10/30/21 10/31/21 13:58 23:07 05:56 MCV MCH [place] % (Auto) [place] # (Auto) Sodium Potassium Chloride Creatinine Glucose POC Glucose 201 H 171 H 215 H Hemoglobin A1c Magnesium Urine Blood Urine WBC (Auto) U Epithel Cells (Auto) 10/31/21 10/31/21 11/01/21 12:25 16:17 00:06 MCV MCH [place] % (Auto) [place] # (Auto) Sodium Potassium Chloride Creatinine Glucose POC Glucose 230 H 222 H 186 H Hemoglobin A1c Magnesium Urine Blood Urine WBC (Auto) U Epithel Cells (Auto) 11/01/21 11/01/21 11/01/21 05:57 11:35 16:14 MCV MCH [place] % (Auto) [place] # (Auto) Sodium Potassium Chloride Creatinine Glucose POC Glucose 188 H 170 H 168 H Hemoglobin A1c Magnesium Urine Blood Urine WBC (Auto) U Epithel Cells (Auto) 11/01/21 11/02/21 11/02/21 23:41 06:36 11:44 MCV MCH [place] % (Auto) [place] # (Auto) Sodium Potassium Chloride Creatinine Glucose POC Glucose 172 H 187 H 161 H Hemoglobin A1c Magnesium Urine Blood Urine WBC (Auto) U Epithel Cells (Auto) 11/02/21 11/03/21 11/03/21 18:19 00:12 05:32 MCV MCH [place] % (Auto) [place] # (Auto) Sodium Potassium Chloride Creatinine Glucose POC Glucose 121 H 192 H 240 H Hemoglobin A1c Magnesium Urine Blood Urine WBC (Auto) U Epithel Cells (Auto) 11/03/21 11/03/21 11/03/21 11:46 16:45 23:36 MCV MCH [place] % (Auto) [place] # (Auto) Sodium Potassium Chloride Creatinine Glucose POC Glucose 201 H 170 H 167 H Hemoglobin A1c Magnesium Urine Blood Urine WBC (Auto) U Epithel Cells (Auto) 11/04/21 11/04/21 11/04/21 05:49 11:26 16:18 MCV MCH [place] % (Auto) [place] # (Auto) Sodium Potassium Chloride Creatinine Glucose POC Glucose 157 H 172 H 188 H Hemoglobin A1c Magnesium Urine Blood Urine WBC (Auto) U Epithel Cells (Auto) 11/04/21 11/05/21 11/05/21 23:27 05:23 12:36 MCV MCH [place] % (Auto) [place] # (Auto) Sodium Potassium Chloride Creatinine Glucose POC Glucose 168 H 165 H 161 H Hemoglobin A1c Magnesium Urine Blood Urine WBC (Auto) U Epithel Cells (Auto) 11/05/21 11/05/21 11/06/21 16:17 23:28 05:11 MCV MCH [place] % (Auto) [place] # (Auto) Sodium Potassium Chloride Creatinine Glucose POC Glucose 187 H 169 H 174 H Hemoglobin A1c Magnesium Urine Blood Urine WBC (Auto) U Epithel Cells (Auto) 11/06/21 11/06/21 11/06/21 11:10 15:54 23:58 MCV MCH [place] % (Auto) [place] # (Auto) Sodium Potassium Chloride Creatinine Glucose POC Glucose 178 H 154 H 137 H Hemoglobin A1c Magnesium Urine Blood Urine WBC (Auto) U Epithel Cells (Auto) 11/07/21 11/07/21 11/07/21 05:48 14:09 16:31 MCV MCH [place] % (Auto) [place] # (Auto) Sodium Potassium Chloride Creatinine Glucose POC Glucose 194 H 196 H 136 H Hemoglobin A1c Magnesium Urine Blood Urine WBC (Auto) U Epithel Cells (Auto) 11/07/21 11/08/21 11/08/21 23:09 06:18 11:43 MCV MCH [place] % (Auto) [place] # (Auto) Sodium Potassium Chloride Creatinine Glucose POC Glucose 140 H 124 H 170 H Hemoglobin A1c Magnesium Urine Blood Urine WBC (Auto) U Epithel Cells (Auto) 11/08/21 11/09/21 11/09/21 16:29 00:03 05:13 MCV MCH [place] % (Auto) [place] # (Auto) Sodium Potassium Chloride Creatinine Glucose POC Glucose 167 H 138 H 157 H Hemoglobin A1c Magnesium Urine Blood Urine WBC (Auto) U Epithel Cells (Auto) 11/09/21 11:30 MCV MCH [place] % (Auto) [place] # (Auto) Sodium Potassium Chloride Creatinine Glucose POC Glucose 161 H Hemoglobin A1c Magnesium Urine Blood Urine WBC (Auto) U Epithel Cells (Auto) Allied health notes reviewed: nursing
[2021-11-09] MEDS: LANSOPRAZOLE 30 MG SOLUTAB FEEDTUBE SCH (18:22)
[2021-11-09] MEDS: SENNOSIDES ORAL LIQD 8.8 MG/5 ML ORAL LIQD FEEDTUBE SCH (22:48)
[2021-11-10] MEDS: INSULIN LISPRO 100 UNIT/ML SUB-Q SCH ×4 (00:30→17:17)
--- NOTE | 2021-11-10 07:56 | Progress Note ---
Assessment and Plan Assessment and plan: Hospital course: This is a 55-year-old with HTN, DM, CVA complicated by dysphagia s/p PEG tube placement, dysarthria, left hemiparesis and debility who presented to the emergency department on 10/22 via air ambulance for continued treatment. Patient was admitted to the [facility] and initiated on CIWA protocol with consults to [facility], neurology will need a cardiology. Hospital Course to Date: 10/23: Nonverbal, open eyes spontaneously, does not follow any commands with LUE paralysis/contraction. on RA, VSS. Echo and Neurology consult pending. PT/OT/Speech also consulted. PEG-tube noted, nutrition/statistical analyst consulted for TF management. Pulmonary is also following. Patient presented with a harden catheter, per record history of urinary retention. Harden cath exchanged, UA pending. 10/24: SEKOU overnight. Neurology recommendations noted, orders placed for MRI brain and CTA head/Neck. Continue PT/OT/Speech, home meds resumed, and enteral nutrition initiated. UA noted, patient is asymptomatic with no leukocytosis, continue to monitor, urine culture pending. 10/25: Remains stable, mentation unchanged. CTA head/Neck noted, MRI brain/MRA head/Neck pending. Awaiting Neurology final recommendations. Continue current supportive measures. 10/26: Patient will have a BELLE, cardiology consulted per neurology recommendations, MRI/MRA/MRV pending no acute events reported overnight. Magnesium repleted. 10/27: Unable to complete BELLE as consent was not able to be obtained, [facility] contacted [facility] who declined the patient is a candidate, MRI brain and CTA chest and pelvis pending. No acute events reported overnight. 10/28: No acute overnight events. CTA chest and abdomen completed were negative studies. BELLE completed this AM, no acute findings noted. MR brain shows subacute right MCA infarction superimposed on chronic infarction. There is involvement of the lateral aspect of right temporal lobe. Large remote pontine infarction noted. No indication of recent intracranial hemorrhage or mass lesion. CM currently working on placement to SNF. Can transfer patient to floor bed. Attempted to call number in chart to update family. no response. 10/29: D/w brother Fabian Waldron [phone]. Updated him on patient clinical status. Discussed overall poor chance of regaining baseline function and current "locked in" appearance due to territory of stroke. I also discussed options of home health care if the family can support the patient versus hospice versus SNF. I also updated Fabian that thus far facilities have denied the patient due to him being out of network. He stated he would speak with his brother Tyrell regarding these updates and would also be coming to the hospital tomorrow to discuss the family's goals for the patient. Patient likely needs DOAC. Will await neuro recs re: anticoagulation. 10/30: Neurology recommends against doac. Will obtain covid pcr. Plan Family discussion today this AM with patient brother Fabian this AM re: GOK I discussed with the patient's brother, Fabian regarding goals of care as well as the events of the patient's hospitalization. He was very much adamant that the patient go to rehab/snf and did not think hospice was the right option for his brother. I explained that thus far the patient has been declined at more than 10 facilities in the [facility] area. He stated that he would be willing to help fund him should that be an issue. I notified the rn case manager about my conversation who stated they would speak with Mr Peralta. 10/31: Patient tolerating tube feed, clinically unchanged, PT recommendation is as noted below. WIll have case management consider a Personal retirement also. PER PT Pt presents with poor rehab potential due to CVA x4 months ago with L UE and LE hypertonicity, contractures, poor isolated movements, inability to follow instructions, Left side neglect, significant impairments of coordination and strength. Pt is total assist with mobilities and high risk for falls. Recommend SNF placement for 24hr care. If pt d/c home with family, will need hospital bed, cecil lift for potential transfers. Due to pt's involuntary movements and abnormal tone, pt is high risk for falling out of a w/c. If pt d/c home, recommend 1 PT visit for pt/family training re: positioning, bed mobility. Pt is not a candidate for skilled PT at this time. Pt was left in semi fowlers, needs in reach, all lines intact, no distress, pt with involuntary movements at times. 11/01: Continue supportive care. We will plan on further discussion with the ariane amin on discharge planning anticipated in a day or 2 following this history arrangements to be in place. We will follow-up with the pending shelter facility to see if they accept him. 11/02: Patient seen and examined, discharge planning, continue supportive care, wound management, rehab. 11/03: Patient seen and examined, remains with profused encephalopathy, still with left upper hemiparesis and spontaneous non purposeful movement of bilateral lower ext and right upper ext. Awaiting safe discharge plan. I have called to speak with the brother and left my personal cell phone number for call back. 11/04: Patient seen and examined, He is able to respond to commands and Squeeze my hand on his right upper ext, He Unfortunately not following commands on the lower ext which he moves spontaneously and not on command. He continues to await safe discharge. Goals of care discussed extensively with advance care plan. He remains a full code and family will like aggresssive PT/OT/Speech therapy. 11/05: Patient seen and examined clinically stable at this time awaiting family arrangements for safe discharge. Hospital bed has been ordered for discharge to home. 11/06: Patient seen and examined awaiting discharge. Remains clinically stable. 11/07: Patient seen and examined no acute distress. Blood pressure mildly elevated with a little bit of tachycardia no difficulty breathing noted. Pain medication has been held due to attempting to see if patient can be more participatory. May need to restart as needed pain meds. Was a bit agitated today. Anticipating discharge later today. Patient will need as needed pain medication to ensure maximum participation in treatment plan. 11/08: Patient seen and examined, clinically unchanged, awaiting placement. 11/09: Patient seen and examined, clinically unchanged, awaiting placement. 11/10: Patient seen and examined. Clinically stable, unchanged. D/w CM at rounds this AM re: placmeent options and barriers to discharge. Currenlty awaiting potential acceptance at [place] vs IRU vs hospice. Assessment and Plan: Neuro: Recent CVA complicated by dysphagia/dysarthria/left hemiparesis/debility, h/o depression, seizure disorder, Metabolic Encephalopathy secondary to CVA with left sided neglect -Neurology and CCM consulted, appreciate recommendations -Reorientation as needed -Maintain sleep-wake cycle -aspiration/seizure precautions -As needed analgesia -CT head shows old moderately sized MCA infarct the right involving the inferior frontal peritracheal regions, gangliocapsular Regions and Right Temporal Lobe, prominent Kuehner seen in the left anterior andrea, small scattered lacunar infarcts suggesting the andrea -Bilateral carotid Doppler ultrasound shows less than 50% diameter stenosis in the right and left internal carotid artery -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 There is involvement of the lateral aspect of right temporal lobe. Large remote pontine infarction noted. No indication of recent intracranial hemorrhage or mass lesion. -Lipitor, aspirin -Keppra -Aspiration/seizure precautions -Continue home Prozac -PT/OT/ST consulted -Neurochecks per protocol Cardiac: h/o HTN -Cardiology consulted, appreciate recommendations -Blood pressure monitoring per protocol -Antihypertensive regimen: Atenolol, Lozol, lisinopril -Echocardiogram shows LVEF 55%, mild diastolic dysfunction no PFO -BELLE pending per neurology recs Respiratory: NAD -CCM/ pulm consulted for dyspnea, appreciate recommendations -Supplemental oxygen as needed -Pulmonary hygiene -SPO2 monitoring GI: S/p PEG tube placement -24 hours +1285 mL -PPI -NTR consulted for tube feedings -BR: Senna : Slight hyponatremia, h/o urinary retention/obstruction -Presented with indwelling catheter which was exchanged -Monitor intake and output -Renally dose medications -Avoid nephrotoxic medications -Repeat magnesium -Trend BMP ID: NAD -Monitor WBC and temperature curve Endo: h/o DM -Avoid hypoglycemia -SSI -Accu-Cheks q. every 6 -Hemoglobin A1c 8 Heme: ? Hypercoagulable state -CTA chest and abdomen pending per neurology recommendation -Trend CBC -Transfuse hemoglobin less than 7 -SCDs to BLE while in bed #Advance care planning Disease education conducted, care plan discussed, diagnoses discussed, prognosis discussed, patient is full code, patient brother Fabian acknowledges understanding and agree with care plan, +30 minutes. Total Time Spent with Patient (Minutes): 35 History Interval history: No overnight events. Remains nonverbal. not in any acute distress on my encounter. Hospitalist Physical - Physical exam Narrative exam: Narrative exam: General: No Apparent Distress HEENT: Positive: Mucus Membranes Dry, intermittent tracks occasionally. Follows some commands on the right side upper extremity only. Neck: Positive: trachea midline Cardiac: Positive: Reg Rate and Rhythm Lungs: Positive: Normal Breath Sounds Neuro: Positive: Other (Hemiparesis), non verbal. locked in appearance. does not follow commands. opens eyes but not purposefully following commands except upper extremity on the right side. Abdomen: Positive: Soft Skin: Negative: Rash, Suspicious Lesions, Ulceration Extremities: Present: upper extr. pulses. Absent: edema - Constitutional Vitals: Temp Pulse Resp BP Pulse Ox 98.3 F 91 H 18 113/65 97 11/10/21 03:32 11/10/21 03:32 11/10/21 03:32 11/10/21 03:32 11/10/21 03:32 General appearance: Present: no acute distress Results - Labs CBC & Chem 7: 10/24/21 05:00 10/28/21 03:40 Labs: Laboratory Last Values WBC 6.4 K/mm3 (4.5-11.0) 10/24/21 05:00 RBC 4.59 M/mm3 (3.65-5.03) 10/24/21 05:00 Hgb 12.7 gm/dl (11.8-15.2) 10/24/21 05:00 Hct 37.7 % (35.5-45.6) 10/24/21 05:00 MCV 82 fl (84-94) L 10/24/21 05:00 MCH 28 pg (28-32) 10/24/21 05:00 MCHC 34 % (32-34) 10/24/21 05:00 RDW 14.1 % (13.2-15.2) 10/24/21 05:00 Plt Count 222 K/mm3 (140-440) 10/24/21 05:00 Lymph % (Auto) 29.6 % (13.4-35.0) 10/22/21 16:00 Phillips % (Auto) 11.8 % (0.0-7.3) H 10/22/21 16:00 Eos % (Auto) 1.3 % (0.0-4.3) 10/22/21 16:00 Baso % (Auto) 0.4 % (0.0-1.8) 10/22/21 16:00 Lymph # (Auto) 2.4 K/mm3 (1.2-5.4) 10/22/21 16:00 Phillips # (Auto) 1.0 K/mm3 (0.0-0.8) H 10/22/21 16:00 Eos # (Auto) 0.1 K/mm3 (0.0-0.4) 10/22/21 16:00 Baso # (Auto) 0.0 K/mm3 (0.0-0.1) 10/22/21 16:00 Seg Neutrophils % 56.9 % (40.0-70.0) 10/22/21 16:00 Seg Neutrophils # 4.7 K/mm3 (1.8-7.7) 10/22/21 16:00 PT 14.8 Sec. (12.2-14.9) 10/22/21 16:00 INR 1.04 (0.87-1.13) 10/22/21 16:00 APTT 28.1 Sec. (24.2-36.6) 10/22/21 16:00 Sodium 137 mmol/L (137-145) 10/28/21 03:40 Potassium 4.2 mmol/L (3.6-5.0) 10/28/21 03:40 Chloride 97.1 mmol/L (98-107) L 10/28/21 03:40 Carbon Dioxide 29 mmol/L (22-30) 10/28/21 03:40 Anion Gap 15 mmol/L 10/28/21 03:40 BUN 14 mg/dL (9-20) 10/28/21 03:40 Creatinine 0.8 mg/dL (0.8-1.3) 10/28/21 03:40 Estimated GFR > 60 ml/min 10/28/21 03:40 BUN/Creatinine Ratio 18 % 10/28/21 03:40 Glucose 127 mg/dL (75-100) H 10/28/21 03:40 POC Glucose 165 mg/dL (70-105) H 11/10/21 04:52 Hemoglobin A1c 8.0 % (4-6) H 10/24/21 10:16 Calcium 10.1 mg/dL (8.4-10.2) 10/28/21 03:40 Phosphorus 4.20 mg/dL (2.5-4.5) 10/27/21 04:39 Magnesium 1.90 mg/dL (1.7-2.3) 10/27/21 04:39 Total Bilirubin 0.50 mg/dL (0.1-1.2) 10/22/21 16:00 AST 24 units/L (5-40) 10/22/21 16:00 ALT 28 units/L (7-56) 10/22/21 16:00 Alkaline Phosphatase 102 units/L (35-129) 10/22/21 16:00 Total Protein 6.9 g/dL (6.3-8.2) 10/22/21 16:00 Albumin 4.3 g/dL (3.9-5) 10/22/21 16:00 Albumin/Globulin Ratio 1.7 % 10/22/21 16:00 Triglycerides 85 mg/dL (2-149) 10/23/21 12:33 Cholesterol 148 mg/dL (50-199) 10/23/21 12:33 LDL Cholesterol Direct 86 mg/dL (50-130) 10/23/21 12:33 HDL Cholesterol 44 mg/dL (40-59) 10/23/21 12:33 Cholesterol/HDL Ratio 3.36 % 10/23/21 12:33 TSH 2.020 mlU/mL (0.270-4.200) 10/24/21 10:16 Free T4 0.88 ng/dL (0.76-1.46) 10/24/21 10:16 Urine Color Yellow (Yellow) 10/23/21 08:49 Urine Turbidity Clear (Clear) 10/23/21 08:49 Urine pH 6.5 (5.0-7.0) 10/23/21 08:49 Ur Specific [place] 1.005 (1.003-1.030) 10/23/21 08:49 Urine Protein 30 mg/dl mg/dL (Negative) 10/23/21 08:49 Urine Glucose (UA) Negative mg/dL (Negative) 10/23/21 08:49 Urine Ketones Negative mg/dL (Negative) 10/23/21 08:49 Urine Blood Moderate (Negative) A 10/23/21 08:49 Urine Nitrite Negative (Negative) 10/23/21 08:49 Ur Reducing Substances Not Reportable 10/23/21 08:49 Urine Bilirubin Negative (Negative) 10/23/21 08:49 Urine Ictotest Not Reportable 10/23/21 08:49 Urine Urobilinogen < 2.0 mg/dL (<2.0) 10/23/21 08:49 Ur Leukocyte Esterase Moderate (Negative) 10/23/21 08:49 Urine WBC (Auto) 28.0 /HPF (0.0-6.0) H 10/23/21 08:49 Urine RBC (Auto) 27.0 /HPF (0.0-6.0) 10/23/21 08:49 U Epithel Cells (Auto) 14.0 /HPF (0-13.0) H 10/23/21 08:49 Hyaline Casts 1 /LPF 10/23/21 08:49 Urine Mucus Few /HPF 10/23/21 08:49 Coronavirus (PCR) Negative (Negative) 10/30/21 Unknown Harden/IV: Voiding Method Indwelling Catheter Active Medications - Current Medications Current Medications: Generic Name Dose Route Start Last Admin Trade Name Freq PRN Reason Stop Dose Admin Acetaminophen 650 mg 10/22/21 16:19 10/28/21 22:11 Acetaminophen 325 Mg Tab PO 650 mg Q4H PRN Administration Pain, Mild (1-3) Albuterol 2.5 mg 10/22/21 16:19 Albuterol 2.5 Mg/3 Ml Nebu IH Q3HRT PRN Shortness Of Breath Lipase/Protease/Amylase 1 each 11/02/21 12:45 11/05/21 11:25 Lipase 10,500/Protease 25,000/Amylase 43,750 (Units) Dr Wilson FEEDTUBE 1 each PRN PRN Administration For Clogged Feeding Tube Aspirin 325 mg 10/23/21 10:00 11/09/21 09:43 Aspirin 325 Mg Tab PO 325 mg QDAY NEO Administration Atenolol 50 mg 10/24/21 10:00 11/09/21 09:42 Atenolol 50 Mg Tab FEEDTUBE 50 mg QDAY NEO Administration Atorvastatin Calcium 80 mg 10/24/21 22:00 11/09/21 22:47 Atorvastatin 40 Mg Tab FEEDTUBE 80 mg QHS NEO Administration Bisacodyl 10 mg 10/22/21 16:19 Bisacodyl 10 Mg Rect Supp MN QDAY PRN Constipation Dextrose 50 ml 10/22/21 17:23 Dextrose 50% In Water (25gm) 50 Ml Syringe IV Q30MIN PRN Hypoglycemia Protocol Fluoxetine HCl 10 mg 10/24/21 10:00 11/09/21 09:44 Fluoxetine 20 Mg/5 Ml Oral Liqd FEEDTUBE 10 mg QDAY NEO Administration Heparin Sodium (Porcine) 5,000 unit 10/22/21 22:00 11/09/21 22:47 Heparin 5,000 Unit/1 Ml Vial SUB-Q 5,000 unit Q12HR NEO Administration Indapamide 5 mg 10/24/21 10:00 11/09/21 09:43 Indapamide 2.5 Mg Tab FEEDTUBE 5 mg QDAY NEO Administration Insulin Human Lispro 0 unit 10/24/21 12:00 11/10/21 06:53 Insulin Lispro 100 Unit/Ml SUB-Q 2 unit Q6HR NEO Administration Protocol Lansoprazole 30 mg 10/23/21 18:00 11/09/21 18:22 Lansoprazole 30 Mg Solutab FEEDTUBE 30 mg QPM NEO Administration Levetiracetam 250 mg 10/24/21 10:00 11/09/21 22:47 Levetiracetam 500 Mg/5 Ml Oral Liqd FEEDTUBE 250 mg BID NEO Administration Lisinopril 5 mg 10/24/21 10:00 11/09/21 09:43 Lisinopril 5 Mg Tab FEEDTUBE 5 mg QDAY NEO Administration Magnesium Hydroxide 30 ml 10/22/21 16:19 Magnesium Hydroxide (Mom) Oral Liqd Udc PO Q4H PRN Constipation Ondansetron HCl 4 mg 10/22/21 16:19 Ondansetron 4 Mg/2 Ml Inj IV Q8H PRN Nausea And Vomiting Oxycodone/Acetaminophen 1 tab 11/07/21 12:00 Oxycodone /Acetaminophen 5-325mg Tab PO Q6H PRN Pain, Moderate (4-6) Senna 8.8 mg 10/27/21 22:00 11/09/21 22:48 Sennosides Oral Liqd 8.8 Mg/5 Ml Oral Liqd FEEDTUBE 8.8 mg QHS NEO Administration Simple Syrup 15 ml 11/02/21 12:45 Simple Syrup 15 Ml FEEDTUBE PRN PRN Hypoglycemia Simple Syrup 30 ml 11/02/21 12:45 Simple Syrup 15 Ml FEEDTUBE PRN PRN Hypoglycemia Sodium Bicarbonate 325 mg 11/02/21 12:45 11/05/21 11:25 Sodium Bicarbonate 325 Mg Tab FEEDTUBE 325 mg PRN PRN Administration For Clogged Feeding Tube Sodium Chloride 10 ml 10/22/21 16:19 11/09/21 22:48 Sodium Chloride 0.9% 10 Ml Flush Syringe IV 10 ml PRN PRN Administration LINE FLUSH Nutrition/Malnutrition Assess - Dietary Evaluation Nutrition/Malnutrition Findings: Nutrition Notes Start: 10/23/21 13:01 Freq: Status: Active Protocol: Document 11/09/21 16:00 JIM (Rec: 11/09/21 16:18 JIM [id number]) Nutrition Notes Initial or Follow up Reassessment Current Diagnosis Diabetes,Hypertension,Stroke Other Pertinent Diagnosis Dysphagia, L-Hemiparesis, Debility. Current Diet TF-Glucerna 1.2 [place] @ 70 ml/hr (since D 10/30). Labs/Tests 11/09: N/A. Pertinent Medications 11/09: Humalog 2U, others nutritionally unremarkable. Height 5 ft 11 in Weight 66.4 kg Murray Body Weight (kg) 78.18 BMI 20.4 Weight change and time frame 3.5 Kg body weight loss reported in 1 week. Weight Status Appropriate Subjective/Other Information RD consult for routine F/U on TF tolerance/continuation. TF continues as prescribed, an well tolerated, according to RN notes. Pt is on Room Air, O2 saturation @ 98%, according to Physical Assessment History notes. Percent of energy/protein needs met: Prescribed TF-Glucerna 1.2 [place] @ 70 ml/hr provides for energy/protein needs (2,016 Kcal/111 g) during LOS, 95% Kcal; 111% AA. Burn Absent Trauma Absent GI Symptoms None Difficulty In Swallowing Food Allergy No Skin Integrity/Comment Assessment WNL. Current % PO Other Minimum of two criteria No Fluid Accumulation N/A Reduced Tree Surgeon Strength N/A (non-severe) Protein-Calorie Malnutrition N\\A #1 Nutrition Diagnosis Swallowing difficulty Diagnosis Progress(for reassessment Continues documentation) Is patient on ventilator? No Is Patient Ambulatory and/or Out of Bed No REE-([facility]-confined to bed) 1823.928 Kcal/Kg value to use for calculation 31 Approximate Energy Requirements Using 2057 kcal/Kg Calculation Used for Recommendations Kcal/kg Additional Notes Protein: 0.8-1 g/Kg ABW; 73-91 g/day. Fluids: 1 ml/Kcal, or as per MD. Nutrition Intervention Nutrition Support: Continue TF-Glucerna 1.2 [place] @ 70 ml/hr. Flush: 100 ml water Q 4 hr, or as per MD. Kcal 2,016 Protein (gm) 101 Carbohydrates (gm) 192 Fat (gm) 101 Fluid (mL) 1,352 Fiber (gm) 27 % RDI: 95% Kcal; 111% AA. Goal #1 Provide at least 75% of energy /protein needs through Enteral Feeding during LOS. Follow-Up By: 11/30/21 Additional Comments Continue monitoring TF tolerance and BM.
[2021-11-10] MEDS: FLUoxetine 20 MG/5 ML ORAL LIQD FEEDTUBE SCH (08:59)
[2021-11-10] MEDS: HEPARIN 5,000 UNIT/1 ML VIAL SUB-Q SCH ×2 (08:59→22:40)
[2021-11-10] MEDS: ASPIRIN 325 MG TAB PO SCH (08:59)
[2021-11-10] MEDS: levETIRAcetam 500 MG/5 ML ORAL LIQD FEEDTUBE SCH ×2 (08:59→22:39)
[2021-11-10] MEDS: INDAPAMIDE 2.5 MG TAB FEEDTUBE SCH (09:00)
[2021-11-10] MEDS: atenoloL 50 MG TAB FEEDTUBE SCH (09:01)
[2021-11-10] MEDS: LISINOPRIL 5 MG TAB FEEDTUBE SCH (09:02)
--- NOTE | 2021-11-10 12:07 | Progress Note ---
Assessment and Plan 55 YO Male with HTN, DM, CVA complicated by Dysphagia, Dysarthria, Left Hemiparesis, Debility was admitted to [facility] in [facility] on 06/22/21. The patient was transported to [facility] today via air ambulance for continued treatment of the aforementioned symptoms. The patient was found to have clinical symptoms consistent with CVA but the patient was deemed outside the therapeutic window for tPA. The patient was admitted to [facility] and initiated on CVA protocol. The patient is nonverbal and has a palliative performance scor e of 30% and requires 6/6 assistance with activities of daily living. T No reports of fever, chills, chest pain, palpitation, productive cough, skin rash, recent contact, known exposure to COVID-19. Patient has PEG Placement. According to the chart. No history of smoking, alcohol or drug abuse. Patient is asleep. Not responding to Verbal stimuli. Patient is on room air. O2 saturation running 100%. No acute respiratory distress. Patient is afebrile. No leukocytosis. BP 102/67, pulse 76, RR 18. Chest x-ray done 10/23/21 reported no acute findings. CTA of chest 10/27/21 reported Limited exam due to motion artifact without CT evidence of pulmonary emboli or other acute findings. Patient is on albuterol inhaler, S/C heparin, and Prevacid. - Patient Problems (1) CVA (cerebral vascular accident) Current Visit: Yes Status: Acute Qualifiers: Precerebral and cerebral artery: middle cerebral artery Laterality of affected vessel: right Plan to address problem: Manage is per primary care and neurology. Recommend aspiration precautions. (2) Dysarthria as late effect of stroke Current Visit: Yes Status: Acute Plan to address problem: Management is per neurology. (3) Dysphagia as late effect of stroke Current Visit: Yes Status: Acute Plan to address problem: Management is per neurology. (4) Hemiparesis, left Current Visit: Yes Status: Acute Plan to address problem: Management is per neurology. (5) Diabetes Current Visit: Yes Status: Acute Plan to address problem: Management is per primary care. (6) Hypertension Current Visit: Yes Status: Acute Qualifiers: Hypertension type: primary hypertension Qualified Code(s): I10 - Essential (primary) hypertension Plan to address problem: Management is per primary care. Subjective Date of service: 11/10/21 Principal diagnosis: R. CVA with L. hemiparesis; HTN; DM II; Dysarthria; Oropharyngeal dysphagia Interval history: 55 YO Male with HTN, DM, CVA complicated by Dysphagia, Dysarthria, Left Hemiparesis, Debility was admitted to [facility] in [facility] on 06/22/21. The patient was transported to [facility] today via air ambulance for continued treatment of the aforementioned symptoms. The patient was found to have clinical symptoms consistent with CVA but the patient was deemed outside the therapeutic window for tPA. The patient was admitted to [facility] and initiated on CVA protocol. The patient is nonverbal and has a palliative performance score of 30% and requires 6/6 assistance with activities of daily living. T No reports of fever, chills, chest pain, palpitation, productive cough, skin rash, recent contact, known exposure to COVID-19. Patient has PEG Placement. According to the chart. No history of smoking, alcohol or drug abuse. Patient is asleep. Not responding to Verbal stimuli. Patient is on room air. O2 saturation running 100%. No acute respiratory distress. Patient is afebrile. No leukocytosis. BP 102/67, pulse 76, RR 18. Chest x-ray done 10/23/21 reported no acute findings. CTA of chest 10/27/21 reported Limited exam due to motion artifact without CT evidence of pulmonary emboli or other acute findings. Patient is on albuterol inhaler, S/C heparin, and Prevacid. Objective Vital Signs - 12hr 11/10/21 11/10/21 11/10/21 03:32 08:03 09:01 Temperature 98.3 F 98.4 F Pulse Rate 91 H 81 81 Pulse Rate [ From Monitor] Pulse Rate [ Radial] Respiratory 18 18 Rate Blood Pressure 113/65 106/67 110/72 O2 Sat by Pulse 97 100 Oximetry 11/10/21 10:00 Temperature Pulse Rate Pulse Rate [ 81 From Monitor] Pulse Rate [ 80 Radial] Respiratory 20 Rate Blood Pressure O2 Sat by Pulse 98 Oximetry Constitutional: no acute distress, asleep Eyes: non-icteric ENT: oropharynx moist Neck: supple, no lymphadenopathy Effort: normal Ascultation: Bilateral: clear Percussion: Bilateral: not dull Cardiovascular: regular rate and rhythm, other (S1,S2) Gastrointestinal: normoactive bowel sounds, soft, non-tender, non-distended, other (PEG tube) Integumentary: normal Extremities: no cyanosis, no edema, pulses normal, no ischemia or petechiae Neurologic: pupils equal and round, other (left hemiplegia ) Psychiatric: other (unable to asses due to neurological status) CBC and BMP: 10/24/21 05:00 10/28/21 03:40 ABG, PT/INR, D-dimer: PT/INR, D-dimer PT 14.8 Sec. (12.2-14.9) 10/22/21 16:00 INR 1.04 (0.87-1.13) 10/22/21 16:00 Abnormal lab findings: Abnormal Labs 10/22/21 10/22/21 10/22/21 16:00 16:00 22:44 MCV 83 L MCH 27 L Loving % (Auto) 11.8 H Loving # (Auto) 1.0 H Sodium Potassium Chloride Creatinine 0.6 L Glucose 175 H POC Glucose 115 H Hemoglobin A1c Magnesium Urine Blood Urine WBC (Auto) U Epithel Cells (Auto) 10/23/21 10/23/21 10/23/21 07:28 08:49 11:31 MCV MCH Loving % (Auto) Loving # (Auto) Sodium Potassium Chloride Creatinine Glucose POC Glucose 129 H 136 H Hemoglobin A1c Magnesium Urine Blood Moderate A Urine WBC (Auto) 28.0 H U Epithel Cells (Auto) 14.0 H 10/23/21 10/24/21 10/24/21 17:59 00:01 05:00 MCV 82 L MCH Loving % (Auto) Loving # (Auto) Sodium Potassium Chloride Creatinine Glucose POC Glucose 109 H 111 H Hemoglobin A1c Magnesium Urine Blood Urine WBC (Auto) U Epithel Cells (Auto) 10/24/21 10/24/21 10/24/21 05:00 07:57 10:16 MCV MCH Loving % (Auto) Loving # (Auto) Sodium Potassium 3.5 L Chloride Creatinine 0.6 L Glucose 134 H POC Glucose 132 H Hemoglobin A1c 8.0 H Magnesium Urine Blood Urine WBC (Auto) U Epithel Cells (Auto) 10/24/21 10/24/21 10/25/21 16:26 20:57 04:47 MCV MCH Loving % (Auto) Loving # (Auto) Sodium Potassium Chloride Creatinine Glucose POC Glucose 109 H 145 H 159 H Hemoglobin A1c Magnesium Urine Blood Urine WBC (Auto) U Epithel Cells (Auto) 10/25/21 10/25/21 10/25/21 07:49 11:19 17:49 MCV MCH Loving % (Auto) Loving # (Auto) Sodium Potassium Chloride Creatinine Glucose POC Glucose 147 H 164 H 141 H Hemoglobin A1c Magnesium Urine Blood Urine WBC (Auto) U Epithel Cells (Auto) 10/25/21 10/26/21 10/26/21 20:54 04:56 07:23 MCV MCH Loving % (Auto) Loving # (Auto) Sodium Potassium Chloride Creatinine 0.7 L Glucose 165 H POC Glucose 136 H 172 H Hemoglobin A1c Magnesium 1.60 L Urine Blood Urine WBC (Auto) U Epithel Cells (Auto) 10/26/21 10/26/21 10/26/21 11:21 17:21 23:38 MCV MCH Loving % (Auto) Loving # (Auto) Sodium Potassium Chloride Creatinine Glucose POC Glucose 168 H 164 H 147 H Hemoglobin A1c Magnesium Urine Blood Urine WBC (Auto) U Epithel Cells (Auto) 10/27/21 10/27/21 10/27/21 04:39 07:32 11:33 MCV MCH Loving % (Auto) Loving # (Auto) Sodium 135 L Potassium Chloride 95.4 L Creatinine 0.6 L Glucose 156 H POC Glucose 137 H 180 H Hemoglobin A1c Magnesium Urine Blood Urine WBC (Auto) U Epithel Cells (Auto) 10/27/21 10/27/21 10/28/21 16:18 23:55 03:40 MCV MCH Loving % (Auto) Loving # (Auto) Sodium Potassium Chloride 97.1 L Creatinine Glucose 127 H POC Glucose 130 H 123 H Hemoglobin A1c Magnesium Urine Blood Urine WBC (Auto) U Epithel Cells (Auto) 10/28/21 10/28/21 10/28/21 08:10 12:03 17:42 MCV MCH Loving % (Auto) Loving # (Auto) Sodium Potassium Chloride Creatinine Glucose POC Glucose 142 H 173 H 145 H Hemoglobin A1c Magnesium Urine Blood Urine WBC (Auto) U Epithel Cells (Auto) 10/28/21 10/29/21 10/29/21 23:31 05:35 11:48 MCV MCH Loving % (Auto) Loving # (Auto) Sodium Potassium Chloride Creatinine Glucose POC Glucose 181 H 225 H 166 H Hemoglobin A1c Magnesium Urine Blood Urine WBC (Auto) U Epithel Cells (Auto) 10/29/21 10/30/21 10/30/21 16:23 00:19 05:23 MCV MCH Loving % (Auto) Loving # (Auto) Sodium Potassium Chloride Creatinine Glucose POC Glucose 167 H 157 H 175 H Hemoglobin A1c Magnesium Urine Blood Urine WBC (Auto) U Epithel Cells (Auto) 10/30/21 10/30/21 10/31/21 13:58 23:07 05:56 MCV MCH Loving % (Auto) Loving # (Auto) Sodium Potassium Chloride Creatinine Glucose POC Glucose 201 H 171 H 215 H Hemoglobin A1c Magnesium Urine Blood Urine WBC (Auto) U Epithel Cells (Auto) 10/31/21 10/31/21 11/01/21 12:25 16:17 00:06 MCV MCH Loving % (Auto) Loving # (Auto) Sodium Potassium Chloride Creatinine Glucose POC Glucose 230 H 222 H 186 H Hemoglobin A1c Magnesium Urine Blood Urine WBC (Auto) U Epithel Cells (Auto) 11/01/21 11/01/21 11/01/21 05:57 11:35 16:14 MCV MCH Loving % (Auto) Loving # (Auto) Sodium Potassium Chloride Creatinine Glucose POC Glucose 188 H 170 H 168 H Hemoglobin A1c Magnesium Urine Blood Urine WBC (Auto) U Epithel Cells (Auto) 11/01/21 11/02/21 11/02/21 23:41 06:36 11:44 MCV MCH Loving % (Auto) Loving # (Auto) Sodium Potassium Chloride Creatinine Glucose POC Glucose 172 H 187 H 161 H Hemoglobin A1c Magnesium Urine Blood Urine WBC (Auto) U Epithel Cells (Auto) 11/02/21 11/03/21 11/03/21 18:19 00:12 05:32 MCV MCH Loving % (Auto) Loving # (Auto) Sodium Potassium Chloride Creatinine Glucose POC Glucose 121 H 192 H 240 H Hemoglobin A1c Magnesium Urine Blood Urine WBC (Auto) U Epithel Cells (Auto) 11/03/21 11/03/21 11/03/21 11:46 16:45 23:36 MCV MCH Loving % (Auto) Loving # (Auto) Sodium Potassium Chloride Creatinine Glucose POC Glucose 201 H 170 H 167 H Hemoglobin A1c Magnesium Urine Blood Urine WBC (Auto) U Epithel Cells (Auto) 11/04/21 11/04/21 11/04/21 05:49 11:26 16:18 MCV MCH Loving % (Auto) Loving # (Auto) Sodium Potassium Chloride Creatinine Glucose POC Glucose 157 H 172 H 188 H Hemoglobin A1c Magnesium Urine Blood Urine WBC (Auto) U Epithel Cells (Auto) 11/04/21 11/05/21 11/05/21 23:27 05:23 12:36 MCV MCH Loving % (Auto) Loving # (Auto) Sodium Potassium Chloride Creatinine Glucose POC Glucose 168 H 165 H 161 H Hemoglobin A1c Magnesium Urine Blood Urine WBC (Auto) U Epithel Cells (Auto) 11/05/21 11/05/21 11/06/21 16:17 23:28 05:11 MCV MCH Loving % (Auto) Loving # (Auto) Sodium Potassium Chloride Creatinine Glucose POC Glucose 187 H 169 H 174 H Hemoglobin A1c Magnesium Urine Blood Urine WBC (Auto) U Epithel Cells (Auto) 11/06/21 11/06/21 11/06/21 11:10 15:54 23:58 MCV MCH Loving % (Auto) Loving # (Auto) Sodium Potassium Chloride Creatinine Glucose POC Glucose 178 H 154 H 137 H Hemoglobin A1c Magnesium Urine Blood Urine WBC (Auto) U Epithel Cells (Auto) 11/07/21 11/07/21 11/07/21 05:48 14:09 16:31 MCV MCH Loving % (Auto) Loving # (Auto) Sodium Potassium Chloride Creatinine Glucose POC Glucose 194 H 196 H 136 H Hemoglobin A1c Magnesium Urine Blood Urine WBC (Auto) U Epithel Cells (Auto) 11/07/21 11/08/21 11/08/21 23:09 06:18 11:43 MCV MCH Loving % (Auto) Loving # (Auto) Sodium Potassium Chloride Creatinine Glucose POC Glucose 140 H 124 H 170 H Hemoglobin A1c Magnesium Urine Blood Urine WBC (Auto) U Epithel Cells (Auto) 11/08/21 11/09/21 11/09/21 16:29 00:03 05:13 MCV MCH Loving % (Auto) Loving # (Auto) Sodium Potassium Chloride Creatinine Glucose POC Glucose 167 H 138 H 157 H Hemoglobin A1c Magnesium Urine Blood Urine WBC (Auto) U Epithel Cells (Auto) 11/09/21 11/09/21 11/09/21 11:30 17:45 23:36 MCV MCH Loving % (Auto) Loving # (Auto) Sodium Potassium Chloride Creatinine Glucose POC Glucose 161 H 149 H 165 H Hemoglobin A1c Magnesium Urine Blood Urine WBC (Auto) U Epithel Cells (Auto) 11/10/21 04:52 MCV MCH Loving % (Auto) Loving # (Auto) Sodium Potassium Chloride Creatinine Glucose POC Glucose 165 H Hemoglobin A1c Magnesium Urine Blood Urine WBC (Auto) U Epithel Cells (Auto) Allied health notes reviewed: nursing
[2021-11-10] MEDS: LIPASE 10,500/PROTEASE 25,000/AMYLASE 43,750 (UNITS) DR CAP FEEDTUBE PRN (12:51)
[2021-11-10] MEDS: LANSOPRAZOLE 30 MG SOLUTAB FEEDTUBE SCH (17:18)
[2021-11-10] MEDS: SENNOSIDES ORAL LIQD 8.8 MG/5 ML ORAL LIQD FEEDTUBE SCH (22:39)
[2021-11-11] MEDS: INSULIN LISPRO 100 UNIT/ML SUB-Q SCH ×3 (00:45→17:47)
--- NOTE | 2021-11-11 08:07 | Progress Note ---
Assessment and Plan Assessment and plan: Hospital course: This is a 55-year-old with HTN, DM, CVA complicated by dysphagia s/p PEG tube placement, dysarthria, left hemiparesis and debility who presented to the emergency department on 10/22 via air ambulance for continued treatment. Patient was admitted to the [facility] and initiated on CIWA protocol with consults to [facility], neurology will need a cardiology. Hospital Course to Date: 10/23: Nonverbal, open eyes spontaneously, does not follow any commands with LUE paralysis/contraction. on RA, VSS. Echo and Neurology consult pending. PT/OT/Speech also consulted. PEG-tube noted, nutrition/docketing specialist consulted for TF management. Pulmonary is also following. Patient presented with a harden catheter, per record history of urinary retention. Harden cath exchanged, UA pending. 10/24: SEKOU overnight. Neurology recommendations noted, orders placed for MRI brain and CTA head/Neck. Continue PT/OT/Speech, home meds resumed, and enteral nutrition initiated. UA noted, patient is asymptomatic with no leukocytosis, continue to monitor, urine culture pending. 10/25: Remains stable, mentation unchanged. CTA head/Neck noted, MRI brain/MRA head/Neck pending. Awaiting Neurology final recommendations. Continue current supportive measures. 10/26: Patient will have a BELLE, cardiology consulted per neurology recommendations, MRI/MRA/MRV pending no acute events reported overnight. Magnesium repleted. 10/27: Unable to complete BELLE as consent was not able to be obtained, [facility] contacted [facility] who declined the patient is a candidate, MRI brain and CTA chest and pelvis pending. No acute events reported overnight. 10/28: No acute overnight events. CTA chest and abdomen completed were negative studies. BELLE completed this AM, no acute findings noted. MR brain shows subacute right MCA infarction superimposed on chronic infarction. There is involvement of the lateral aspect of right temporal lobe. Large remote pontine infarction noted. No indication of recent intracranial hemorrhage or mass lesion. CM currently working on placement to SNF. Can transfer patient to floor bed. Attempted to call number in chart to update family. no response. 10/29: D/w brother Fabian Waldron [phone]. Updated him on patient clinical status. Discussed overall poor chance of regaining baseline function and current "locked in" appearance due to territory of stroke. I also discussed options of home health care if the family can support the patient versus hospice versus SNF. I also updated Fabian that thus far facilities have denied the patient due to him being out of network. He stated he would speak with his brother Tyrell regarding these updates and would also be coming to the hospital tomorrow to discuss the family's goals for the patient. Patient likely needs DOAC. Will await neuro recs re: anticoagulation. 10/30: Neurology recommends against doac. Will obtain covid pcr. Plan Family discussion today this AM with patient brother Fabian this AM re: GOK I discussed with the patient's brother, Fabian regarding goals of care as well as the events of the patient's hospitalization. He was very much adamant that the patient go to rehab/snf and did not think hospice was the right option for his brother. I explained that thus far the patient has been declined at more than 10 facilities in the [facility] area. He stated that he would be willing to help fund him should that be an issue. I notified the sample case porter about my conversation who stated they would speak with Mr Peralta. 10/31: Patient tolerating tube feed, clinically unchanged, PT recommendation is as noted below. WIll have case management consider a Personal chcf also. PER PT Pt presents with poor rehab potential due to CVA x4 months ago with L UE and LE hypertonicity, contractures, poor isolated movements, inability to follow instructions, Left side neglect, significant impairments of coordination and strength. Pt is total assist with mobilities and high risk for falls. Recommend SNF placement for 24hr care. If pt d/c home with family, will need hospital bed, cecil lift for potential transfers. Due to pt's involuntary movements and abnormal tone, pt is high risk for falling out of a w/c. If pt d/c home, recommend 1 PT visit for pt/family training re: positioning, bed mobility. Pt is not a candidate for skilled PT at this time. Pt was left in semi fowlers, needs in reach, all lines intact, no distress, pt with involuntary movements at times. 11/01: Continue supportive care. We will plan on further discussion with the ariane amin on discharge planning anticipated in a day or 2 following this history arrangements to be in place. We will follow-up with the pending intermediate facility to see if they accept him. 11/02: Patient seen and examined, discharge planning, continue supportive care, wound management, rehab. 11/03: Patient seen and examined, remains with profused encephalopathy, still with left upper hemiparesis and spontaneous non purposeful movement of bilateral lower ext and right upper ext. Awaiting safe discharge plan. I have called to speak with the brother and left my personal cell phone number for call back. 11/04: Patient seen and examined, He is able to respond to commands and Squeeze my hand on his right upper ext, He Unfortunately not following commands on the lower ext which he moves spontaneously and not on command. He continues to await safe discharge. Goals of care discussed extensively with advance care plan. He remains a full code and family will like aggresssive PT/OT/Speech therapy. 11/05: Patient seen and examined clinically stable at this time awaiting family arrangements for safe discharge. Hospital bed has been ordered for discharge to home. 11/06: Patient seen and examined awaiting discharge. Remains clinically stable. 11/07: Patient seen and examined no acute distress. Blood pressure mildly elevated with a little bit of tachycardia no difficulty breathing noted. Pain medication has been held due to attempting to see if patient can be more participatory. May need to restart as needed pain meds. Was a bit agitated today. Anticipating discharge later today. Patient will need as needed pain medication to ensure maximum participation in treatment plan. 11/08: Patient seen and examined, clinically unchanged, awaiting placement. 11/09: Patient seen and examined, clinically unchanged, awaiting placement. 11/10: Patient seen and examined. Clinically stable, unchanged. D/w CM at rounds this AM re: placmeent options and barriers to discharge. Currenlty awaiting potential acceptance at [facility] vs IRU vs hospice. 11/11: Seen and examined. Currently plan per family is HHC with PT. Pending med supplies/bed/equipment delivery to home. Assessment and Plan: Neuro: Recent CVA complicated by dysphagia/dysarthria/left hemiparesis/debility, h/o depression, seizure disorder, Metabolic Encephalopathy secondary to CVA with left sided neglect -Neurology and CCM consulted, appreciate recommendations -Reorientation as needed -Maintain sleep-wake cycle -aspiration/seizure precautions -As needed analgesia -CT head shows old moderately sized MCA infarct the right involving the inferior frontal peritracheal regions, gangliocapsular Regions and Right Temporal Lobe, prominent Kuehner seen in the left anterior andrea, small scattered lacunar infarcts suggesting the andrea -Bilateral carotid Doppler ultrasound shows less than 50% diameter stenosis in the right and left internal carotid artery -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 There is involvement of the lateral aspect of right temporal lobe. Large remote pontine infarction noted. No indication of recent intracranial hemorrhage or mass lesion. -Lipitor, aspirin -Keppra -Aspiration/seizure precautions -Continue home Prozac -PT/OT/ST consulted -Neurochecks per protocol Cardiac: h/o HTN -Cardiology consulted, appreciate recommendations -Blood pressure monitoring per protocol -Antihypertensive regimen: Atenolol, Lozol, lisinopril -Echocardiogram shows LVEF 55%, mild diastolic dysfunction no PFO -BELLE pending per neurology recs Respiratory: NAD -CCM/ pulm consulted for dyspnea, appreciate recommendations -Supplemental oxygen as needed -Pulmonary hygiene -SPO2 monitoring GI: S/p PEG tube placement -24 hours +1285 mL -PPI -NTR consulted for tube feedings -BR: Senna : Slight hyponatremia, h/o urinary retention/obstruction -Presented with indwelling catheter which was exchanged -Monitor intake and output -Renally dose medications -Avoid nephrotoxic medications -Repeat magnesium -Trend BMP ID: NAD -Monitor WBC and temperature curve Endo: h/o DM -Avoid hypoglycemia -SSI -Accu-Cheks q. every 6 -Hemoglobin A1c 8 Heme: ? Hypercoagulable state -CTA chest and abdomen pending per neurology recommendation -Trend CBC -Transfuse hemoglobin less than 7 -SCDs to BLE while in bed #Advance care planning Disease education conducted, care plan discussed, diagnoses discussed, prognosis discussed, patient is full code, patient brother Fabian acknowledges understanding and agree with care plan, +30 minutes. Disposition Plan: tele Total Time Spent with Patient (Minutes): 35 History Interval history: Clinically unchanged. Hospitalist Physical - Physical exam Narrative exam: Narrative exam: General: No Apparent Distress HEENT: Positive: Mucus Membranes Dry, intermittent tracks occasionally. Follows some commands on the right side upper extremity only. Neck: Positive: trachea midline Cardiac: Positive: Reg Rate and Rhythm Lungs: Positive: Normal Breath Sounds Neuro: Positive: Other (Hemiparesis), non verbal. locked in appearance. does not follow commands. opens eyes but not purposefully following commands except upper extremity on the right side. Abdomen: Positive: Soft Skin: Negative: Rash, Suspicious Lesions, Ulceration Extremities: Present: upper extr. pulses. Absent: edema - Constitutional Vitals: Temp Pulse Resp BP Pulse Ox 98.1 F 88 18 152/73 100 11/11/21 04:38 11/11/21 04:38 11/11/21 04:38 11/11/21 04:38 11/11/21 04:38 General appearance: Present: no acute distress Results - Labs CBC & Chem 7: 10/24/21 05:00 10/28/21 03:40 Labs: Laboratory Last Values WBC 6.4 K/mm3 (4.5-11.0) 10/24/21 05:00 RBC 4.59 M/mm3 (3.65-5.03) 10/24/21 05:00 Hgb 12.7 gm/dl (11.8-15.2) 10/24/21 05:00 Hct 37.7 % (35.5-45.6) 10/24/21 05:00 MCV 82 fl (84-94) L 10/24/21 05:00 MCH 28 pg (28-32) 10/24/21 05:00 MCHC 34 % (32-34) 10/24/21 05:00 RDW 14.1 % (13.2-15.2) 10/24/21 05:00 Plt Count 222 K/mm3 (140-440) 10/24/21 05:00 Lymph % (Auto) 29.6 % (13.4-35.0) 10/22/21 16:00 Knott % (Auto) 11.8 % (0.0-7.3) H 10/22/21 16:00 Eos % (Auto) 1.3 % (0.0-4.3) 10/22/21 16:00 Baso % (Auto) 0.4 % (0.0-1.8) 10/22/21 16:00 Lymph # (Auto) 2.4 K/mm3 (1.2-5.4) 10/22/21 16:00 Knott # (Auto) 1.0 K/mm3 (0.0-0.8) H 10/22/21 16:00 Eos # (Auto) 0.1 K/mm3 (0.0-0.4) 10/22/21 16:00 Baso # (Auto) 0.0 K/mm3 (0.0-0.1) 10/22/21 16:00 Seg Neutrophils % 56.9 % (40.0-70.0) 10/22/21 16:00 Seg Neutrophils # 4.7 K/mm3 (1.8-7.7) 10/22/21 16:00 PT 14.8 Sec. (12.2-14.9) 10/22/21 16:00 INR 1.04 (0.87-1.13) 10/22/21 16:00 APTT 28.1 Sec. (24.2-36.6) 10/22/21 16:00 Sodium 137 mmol/L (137-145) 10/28/21 03:40 Potassium 4.2 mmol/L (3.6-5.0) 10/28/21 03:40 Chloride 97.1 mmol/L (98-107) L 10/28/21 03:40 Carbon Dioxide 29 mmol/L (22-30) 10/28/21 03:40 Anion Gap 15 mmol/L 10/28/21 03:40 BUN 14 mg/dL (9-20) 10/28/21 03:40 Creatinine 0.8 mg/dL (0.8-1.3) 10/28/21 03:40 Estimated GFR > 60 ml/min 10/28/21 03:40 BUN/Creatinine Ratio 18 % 10/28/21 03:40 Glucose 127 mg/dL (75-100) H 10/28/21 03:40 POC Glucose 163 mg/dL (70-105) H 11/10/21 23:41 Hemoglobin A1c 8.0 % (4-6) H 10/24/21 10:16 Calcium 10.1 mg/dL (8.4-10.2) 10/28/21 03:40 Phosphorus 4.20 mg/dL (2.5-4.5) 10/27/21 04:39 Magnesium 1.90 mg/dL (1.7-2.3) 10/27/21 04:39 Total Bilirubin 0.50 mg/dL (0.1-1.2) 10/22/21 16:00 AST 24 units/L (5-40) 10/22/21 16:00 ALT 28 units/L (7-56) 10/22/21 16:00 Alkaline Phosphatase 102 units/L (35-129) 10/22/21 16:00 Total Protein 6.9 g/dL (6.3-8.2) 10/22/21 16:00 Albumin 4.3 g/dL (3.9-5) 10/22/21 16:00 Albumin/Globulin Ratio 1.7 % 10/22/21 16:00 Triglycerides 85 mg/dL (2-149) 10/23/21 12:33 Cholesterol 148 mg/dL (50-199) 10/23/21 12:33 LDL Cholesterol Direct 86 mg/dL (50-130) 10/23/21 12:33 HDL Cholesterol 44 mg/dL (40-59) 10/23/21 12:33 Cholesterol/HDL Ratio 3.36 % 10/23/21 12:33 TSH 2.020 mlU/mL (0.270-4.200) 10/24/21 10:16 Free T4 0.88 ng/dL (0.76-1.46) 10/24/21 10:16 Urine Color Yellow (Yellow) 10/23/21 08:49 Urine Turbidity Clear (Clear) 10/23/21 08:49 Urine pH 6.5 (5.0-7.0) 10/23/21 08:49 Ur Specific [place] 1.005 (1.003-1.030) 10/23/21 08:49 Urine Protein 30 mg/dl mg/dL (Negative) 10/23/21 08:49 Urine Glucose (UA) Negative mg/dL (Negative) 10/23/21 08:49 Urine Ketones Negative mg/dL (Negative) 10/23/21 08:49 Urine Blood Moderate (Negative) A 10/23/21 08:49 Urine Nitrite Negative (Negative) 10/23/21 08:49 Ur Reducing Substances Not Reportable 10/23/21 08:49 Urine Bilirubin Negative (Negative) 10/23/21 08:49 Urine Ictotest Not Reportable 10/23/21 08:49 Urine Urobilinogen < 2.0 mg/dL (<2.0) 10/23/21 08:49 Ur Leukocyte Esterase Moderate (Negative) 10/23/21 08:49 Urine WBC (Auto) 28.0 /HPF (0.0-6.0) H 10/23/21 08:49 Urine RBC (Auto) 27.0 /HPF (0.0-6.0) 10/23/21 08:49 U Epithel Cells (Auto) 14.0 /HPF (0-13.0) H 10/23/21 08:49 Hyaline Casts 1 /LPF 10/23/21 08:49 Urine Mucus Few /HPF 10/23/21 08:49 Coronavirus (PCR) Negative (Negative) 10/30/21 Unknown Harden/IV: Voiding Method Indwelling Catheter Active Medications - Current Medications Current Medications: Generic Name Dose Route Start Last Admin Trade Name Freq PRN Reason Stop Dose Admin Acetaminophen 650 mg 10/22/21 16:19 10/28/21 22:11 Acetaminophen 325 Mg Tab PO 650 mg Q4H PRN Administration Pain, Mild (1-3) Albuterol 2.5 mg 10/22/21 16:19 Albuterol 2.5 Mg/3 Ml Nebu IH Q3HRT PRN Shortness Of Breath Lipase/Protease/Amylase 1 each 11/02/21 12:45 11/10/21 12:51 Lipase 10,500/Protease 25,000/Amylase 43,750 (Units) Dr Wilson FEEDTUBE 1 each PRN PRN Administration For Clogged Feeding Tube Aspirin 325 mg 10/23/21 10:00 11/10/21 08:59 Aspirin 325 Mg Tab PO 325 mg QDAY NEO Administration Atenolol 50 mg 10/24/21 10:00 11/10/21 09:01 Atenolol 50 Mg Tab FEEDTUBE 50 mg QDAY NEO Administration Atorvastatin Calcium 80 mg 10/24/21 22:00 11/10/21 22:40 Atorvastatin 40 Mg Tab FEEDTUBE 80 mg QHS NEO Administration Bisacodyl 10 mg 10/22/21 16:19 Bisacodyl 10 Mg Rect Supp HI QDAY PRN Constipation Dextrose 50 ml 10/22/21 17:23 Dextrose 50% In Water (25gm) 50 Ml Syringe IV Q30MIN PRN Hypoglycemia Protocol Fluoxetine HCl 10 mg 10/24/21 10:00 11/10/21 08:59 Fluoxetine 20 Mg/5 Ml Oral Liqd FEEDTUBE 10 mg QDAY NEO Administration Heparin Sodium (Porcine) 5,000 unit 10/22/21 22:00 11/10/21 22:40 Heparin 5,000 Unit/1 Ml Vial SUB-Q 5,000 unit Q12HR NEO Administration Indapamide 5 mg 10/24/21 10:00 11/10/21 09:00 Indapamide 2.5 Mg Tab FEEDTUBE 5 mg QDAY NEO Administration Insulin Human Lispro 0 unit 10/24/21 12:00 11/11/21 06:36 Insulin Lispro 100 Unit/Ml SUB-Q Not Given Q6HR [facility] Protocol Lansoprazole 30 mg 10/23/21 18:00 11/10/21 17:18 Lansoprazole 30 Mg Solutab FEEDTUBE 30 mg QPM NEO Administration Levetiracetam 250 mg 10/24/21 10:00 11/10/21 22:39 Levetiracetam 500 Mg/5 Ml Oral Liqd FEEDTUBE 250 mg BID NEO Administration Lisinopril 5 mg 10/24/21 10:00 11/10/21 09:02 Lisinopril 5 Mg Tab FEEDTUBE 5 mg QDAY NEO Administration Magnesium Hydroxide 30 ml 10/22/21 16:19 Magnesium Hydroxide (Mom) Oral Liqd Udc PO Q4H PRN Constipation Ondansetron HCl 4 mg 10/22/21 16:19 Ondansetron 4 Mg/2 Ml Inj IV Q8H PRN Nausea And Vomiting Oxycodone/Acetaminophen 1 tab 11/07/21 12:00 Oxycodone /Acetaminophen 5-325mg Tab PO Q6H PRN Pain, Moderate (4-6) Senna 8.8 mg 10/27/21 22:00 11/10/21 22:39 Sennosides Oral Liqd 8.8 Mg/5 Ml Oral Liqd FEEDTUBE 8.8 mg QHS NEO Administration Simple Syrup 15 ml 11/02/21 12:45 Simple Syrup 15 Ml FEEDTUBE PRN PRN Hypoglycemia Simple Syrup 30 ml 11/02/21 12:45 Simple Syrup 15 Ml FEEDTUBE PRN PRN Hypoglycemia Sodium Bicarbonate 325 mg 11/02/21 12:45 11/05/21 11:25 Sodium Bicarbonate 325 Mg Tab FEEDTUBE 325 mg PRN PRN Administration For Clogged Feeding Tube Sodium Chloride 10 ml 10/22/21 16:19 11/09/21 22:48 Sodium Chloride 0.9% 10 Ml Flush Syringe IV 10 ml PRN PRN Administration LINE FLUSH Nutrition/Malnutrition Assess - Dietary Evaluation Nutrition/Malnutrition Findings: Nutrition Notes Start: 10/23/21 13:01 Freq: Status: Active Protocol: Document 11/09/21 16:00 JIM (Rec: 11/09/21 16:18 JIM [id number]) Nutrition Notes Initial or Follow up Reassessment Current Diagnosis Diabetes,Hypertension,Stroke Other Pertinent Diagnosis Dysphagia, L-Hemiparesis, Debility. Current Diet TF-Glucerna 1.2 [place] @ 70 ml/hr (since D 10/30). Labs/Tests 11/09: N/A. Pertinent Medications 11/09: Humalog 2U, others nutritionally unremarkable. Height 5 ft 11 in Weight 66.4 kg [place] Body Weight (kg) 78.18 BMI 20.4 Weight change and time frame 3.5 Kg body weight loss reported in 1 week. Weight Status Appropriate Subjective/Other Information RD consult for routine F/U on TF tolerance/continuation. TF continues as prescribed, an well tolerated, according to RN notes. Pt is on Room Air, O2 saturation @ 98%, according to Physical Assessment History notes. Percent of energy/protein needs met: Prescribed TF-Glucerna 1.2 [place] @ 70 ml/hr provides for energy/protein needs (2,016 Kcal/111 g) during LOS, 95% Kcal; 111% AA. Burn Absent Trauma Absent GI Symptoms None Difficulty In Swallowing Food Allergy No Skin Integrity/Comment Assessment WNL. Current % PO Other Minimum of two criteria No Fluid Accumulation N/A Reduced Big Data Developer Strength N/A (non-severe) Protein-Calorie Malnutrition N\\A #1 Nutrition Diagnosis Swallowing difficulty Diagnosis Progress(for reassessment Continues documentation) Is patient on ventilator? No Is Patient Ambulatory and/or Out of Bed No REE-([facility]-confined to bed) 1823.928 Kcal/Kg value to use for calculation 31 Approximate Energy Requirements Using 8 kcal/Kg Calculation Used for Recommendations Kcal/kg Additional Notes Protein: 0.8-1 g/Kg ABW; 73-91 g/day. Fluids: 1 ml/Kcal, or as per MD. Nutrition Intervention Nutrition Support: Continue TF-Glucerna 1.2 [place] @ 70 ml/hr. Flush: 100 ml water Q 4 hr, or as per MD. Kcal 2,016 Protein (gm) 101 Carbohydrates (gm) 192 Fat (gm) 101 Fluid (mL) 1,352 Fiber (gm) 27 % RDI: 95% Kcal; 111% AA. Goal #1 Provide at least 75% of energy /protein needs through Enteral Feeding during LOS. Follow-Up By: 11/30/21 Additional Comments Continue monitoring TF tolerance and BM.
[2021-11-11] MEDS: ASPIRIN 325 MG TAB PO SCH (09:35)
[2021-11-11] MEDS: atenoloL 50 MG TAB FEEDTUBE SCH (09:36)
[2021-11-11] MEDS: INDAPAMIDE 2.5 MG TAB FEEDTUBE SCH (09:37)
[2021-11-11] MEDS: levETIRAcetam 500 MG/5 ML ORAL LIQD FEEDTUBE SCH ×2 (09:38→22:00)
[2021-11-11] MEDS: FLUoxetine 20 MG/5 ML ORAL LIQD FEEDTUBE SCH (09:38)
[2021-11-11] MEDS: HEPARIN 5,000 UNIT/1 ML VIAL SUB-Q SCH ×2 (09:39→22:01)
[2021-11-11] MEDS: LISINOPRIL 5 MG TAB FEEDTUBE SCH (09:39)
--- NOTE | 2021-11-11 11:25 | Progress Note ---
Assessment and Plan 55 YO Male with HTN, DM, CVA complicated by Dysphagia, Dysarthria, Left Hemiparesis, Debility was admitted to [facility] in [facility] on 06/22/21. The patient was transported to [facility] today via air ambulance for continued treatment of the aforementioned symptoms. The patient was found to have clinical symptoms consistent with CVA but the patient was deemed outside the therapeutic window for tPA. The patient was admitted to [facility] and initiated on CVA protocol. The patient is nonverbal and has a palliative performance scor e of 30% and requires 6/6 assistance with activities of daily living. T No reports of fever, chills, chest pain, palpitation, productive cough, skin rash, recent contact, known exposure to COVID-19. Patient has PEG Placement. According to the chart. No history of smoking, alcohol or drug abuse. Patients condition remain same. Patient is sleeping. Not responding to Verbal stimuli. Patient is on room air. O2 saturation running 100%. No acute respiratory distress. Patient is afebrile. No leukocytosis. BP 101/70, pulse 72, RR 18. Chest x-ray done 10/23/21 reported no acute findings. CTA of chest 10/27/21 reported Limited exam due to motion artifact without CT evidence of pulmonary emboli or other acute findings. Patient is on albuterol inhaler, S/C heparin, and Prevacid. - Patient Problems (1) CVA (cerebral vascular accident) Current Visit: Yes Status: Acute Qualifiers: Precerebral and cerebral artery: middle cerebral artery Laterality of affected vessel: right Plan to address problem: Manage is per primary care and neurology. Recommend aspiration precautions. (2) Dysarthria as late effect of stroke Current Visit: Yes Status: Acute Plan to address problem: Management is per neurology. (3) Dysphagia as late effect of stroke Current Visit: Yes Status: Acute Plan to address problem: Management is per neurology. (4) Hemiparesis, left Current Visit: Yes Status: Acute Plan to address problem: Management is per neurology. (5) Diabetes Current Visit: Yes Status: Acute Plan to address problem: Management is per primary care. (6) Hypertension Current Visit: Yes Status: Acute Qualifiers: Hypertension type: primary hypertension Qualified Code(s): I10 - Essential (primary) hypertension Plan to address problem: Management is per primary care. Subjective Date of service: 11/11/21 Principal diagnosis: R. CVA with L. hemiparesis; HTN; DM II; Dysarthria; Oropharyngeal dysphagia Interval history: 55 YO Male with HTN, DM, CVA complicated by Dysphagia, Dysarthria, Left Hemipare sis, Debility was admitted to [facility] in [facility] on 06/22/21. The patient was transported to [facility] today via air ambulance for continued treatment of the aforementioned symptoms. The patient was found to have clinical symptoms consistent with CVA but the patient was deemed outside the therapeutic window for tPA. The patient was admitted to [facility] and initiated on CVA protocol. The patient is nonverbal and has a palliative performance score of 30% and requires 6/6 assistance with activities of daily living. T No reports of fever, chills, chest pain, palpitation, productive cough, skin rash, recent contact, known exposure to COVID-19. Patient has PEG Placement. According to the chart. No history of smoking, alcohol or drug abuse. Patients condition remain same. Patient is sleeping. Not responding to Verbal stimuli. Patient is on room air. O2 saturation running 100%. No acute respiratory distress. Patient is afebrile. No leukocytosis. BP 101/70, pulse 72, RR 18. Chest x-ray done 10/23/21 reported no acute findings. CTA of chest 10/27/21 reported Limited exam due to motion artifact without CT evidence of pulmonary emboli or other acute findings. Patient is on albuterol inhaler, S/C heparin, and Prevacid. Objective Vital Signs - 12hr 11/10/21 11/11/21 11/11/21 23:40 04:38 08:30 Temperature 98.1 F 97.9 F Pulse Rate 82 88 93 H Respiratory 18 18 Rate Blood Pressure 152/73 154/95 O2 Sat by Pulse 100 100 98 Oximetry 11/11/21 11/11/21 11/11/21 09:36 09:39 10:00 Temperature Pulse Rate 94 H 94 H Respiratory Rate Blood Pressure 154/92 O2 Sat by Pulse Oximetry Constitutional: no acute distress, asleep Eyes: non-icteric ENT: oropharynx moist Neck: supple, no lymphadenopathy Effort: normal Ascultation: Bilateral: clear Percussion: Bilateral: not dull Cardiovascular: regular rate and rhythm, other (S1,S2) Gastrointestinal: normoactive bowel sounds, soft, non-tender, non-distended, other (PEG tube) Integumentary: normal Extremities: no cyanosis, no edema, pulses normal, no ischemia or petechiae Neurologic: pupils equal and round, other (left hemiplegia ) Psychiatric: other (unable to asses due to neurological status) CBC and BMP: 10/24/21 05:00 10/28/21 03:40 ABG, PT/INR, D-dimer: PT/INR, D-dimer PT 14.8 Sec. (12.2-14.9) 10/22/21 16:00 INR 1.04 (0.87-1.13) 10/22/21 16:00 Abnormal lab findings: Abnormal Labs 10/22/21 10/22/21 10/22/21 16:00 16:00 22:44 MCV 83 L MCH 27 L Johnson % (Auto) 11.8 H Johnson # (Auto) 1.0 H Sodium Potassium Chloride Creatinine 0.6 L Glucose 175 H POC Glucose 115 H Hemoglobin A1c Magnesium Urine Blood Urine WBC (Auto) U Epithel Cells (Auto) 10/23/21 10/23/21 10/23/21 07:28 08:49 11:31 MCV MCH Johnson % (Auto) Johnson # (Auto) Sodium Potassium Chloride Creatinine Glucose POC Glucose 129 H 136 H Hemoglobin A1c Magnesium Urine Blood Moderate A Urine WBC (Auto) 28.0 H U Epithel Cells (Auto) 14.0 H 10/23/21 10/24/21 10/24/21 17:59 00:01 05:00 MCV 82 L MCH Johnson % (Auto) Johnson # (Auto) Sodium Potassium Chloride Creatinine Glucose POC Glucose 109 H 111 H Hemoglobin A1c Magnesium Urine Blood Urine WBC (Auto) U Epithel Cells (Auto) 10/24/21 10/24/21 10/24/21 05:00 07:57 10:16 MCV MCH Johnson % (Auto) Johnson # (Auto) Sodium Potassium 3.5 L Chloride Creatinine 0.6 L Glucose 134 H POC Glucose 132 H Hemoglobin A1c 8.0 H Magnesium Urine Blood Urine WBC (Auto) U Epithel Cells (Auto) 10/24/21 10/24/21 10/25/21 16:26 20:57 04:47 MCV MCH Johnson % (Auto) Johnson # (Auto) Sodium Potassium Chloride Creatinine Glucose POC Glucose 109 H 145 H 159 H Hemoglobin A1c Magnesium Urine Blood Urine WBC (Auto) U Epithel Cells (Auto) 10/25/21 10/25/21 10/25/21 07:49 11:19 17:49 MCV MCH Johnson % (Auto) Johnson # (Auto) Sodium Potassium Chloride Creatinine Glucose POC Glucose 147 H 164 H 141 H Hemoglobin A1c Magnesium Urine Blood Urine WBC (Auto) U Epithel Cells (Auto) 10/25/21 10/26/21 10/26/21 20:54 04:56 07:23 MCV MCH Johnson % (Auto) Johnson # (Auto) Sodium Potassium Chloride Creatinine 0.7 L Glucose 165 H POC Glucose 136 H 172 H Hemoglobin A1c Magnesium 1.60 L Urine Blood Urine WBC (Auto) U Epithel Cells (Auto) 10/26/21 10/26/21 10/26/21 11:21 17:21 23:38 MCV MCH Johnson % (Auto) Johnson # (Auto) Sodium Potassium Chloride Creatinine Glucose POC Glucose 168 H 164 H 147 H Hemoglobin A1c Magnesium Urine Blood Urine WBC (Auto) U Epithel Cells (Auto) 10/27/21 10/27/21 10/27/21 04:39 07:32 11:33 MCV MCH Johnson % (Auto) Johnson # (Auto) Sodium 135 L Potassium Chloride 95.4 L Creatinine 0.6 L Glucose 156 H POC Glucose 137 H 180 H Hemoglobin A1c Magnesium Urine Blood Urine WBC (Auto) U Epithel Cells (Auto) 10/27/21 10/27/21 10/28/21 16:18 23:55 03:40 MCV MCH Johnson % (Auto) Johnson # (Auto) Sodium Potassium Chloride 97.1 L Creatinine Glucose 127 H POC Glucose 130 H 123 H Hemoglobin A1c Magnesium Urine Blood Urine WBC (Auto) U Epithel Cells (Auto) 10/28/21 10/28/21 10/28/21 08:10 12:03 17:42 MCV MCH Johnson % (Auto) Johnson # (Auto) Sodium Potassium Chloride Creatinine Glucose POC Glucose 142 H 173 H 145 H Hemoglobin A1c Magnesium Urine Blood Urine WBC (Auto) U Epithel Cells (Auto) 10/28/21 10/29/21 10/29/21 23:31 05:35 11:48 MCV MCH Johnson % (Auto) Johnson # (Auto) Sodium Potassium Chloride Creatinine Glucose POC Glucose 181 H 225 H 166 H Hemoglobin A1c Magnesium Urine Blood Urine WBC (Auto) U Epithel Cells (Auto) 10/29/21 10/30/21 10/30/21 16:23 00:19 05:23 MCV MCH Johnson % (Auto) Johnson # (Auto) Sodium Potassium Chloride Creatinine Glucose POC Glucose 167 H 157 H 175 H Hemoglobin A1c Magnesium Urine Blood Urine WBC (Auto) U Epithel Cells (Auto) 10/30/21 10/30/21 10/31/21 13:58 23:07 05:56 MCV MCH Johnson % (Auto) Johnson # (Auto) Sodium Potassium Chloride Creatinine Glucose POC Glucose 201 H 171 H 215 H Hemoglobin A1c Magnesium Urine Blood Urine WBC (Auto) U Epithel Cells (Auto) 10/31/21 10/31/21 11/01/21 12:25 16:17 00:06 MCV MCH Johnson % (Auto) Johnson # (Auto) Sodium Potassium Chloride Creatinine Glucose POC Glucose 230 H 222 H 186 H Hemoglobin A1c Magnesium Urine Blood Urine WBC (Auto) U Epithel Cells (Auto) 11/01/21 11/01/21 11/01/21 05:57 11:35 16:14 MCV MCH Johnson % (Auto) Johnson # (Auto) Sodium Potassium Chloride Creatinine Glucose POC Glucose 188 H 170 H 168 H Hemoglobin A1c Magnesium Urine Blood Urine WBC (Auto) U Epithel Cells (Auto) 11/01/21 11/02/21 11/02/21 23:41 06:36 11:44 MCV MCH Johnson % (Auto) Johnson # (Auto) Sodium Potassium Chloride Creatinine Glucose POC Glucose 172 H 187 H 161 H Hemoglobin A1c Magnesium Urine Blood Urine WBC (Auto) U Epithel Cells (Auto) 11/02/21 11/03/21 11/03/21 18:19 00:12 05:32 MCV MCH Johnson % (Auto) Johnson # (Auto) Sodium Potassium Chloride Creatinine Glucose POC Glucose 121 H 192 H 240 H Hemoglobin A1c Magnesium Urine Blood Urine WBC (Auto) U Epithel Cells (Auto) 11/03/21 11/03/21 11/03/21 11:46 16:45 23:36 MCV MCH Johnson % (Auto) Johnson # (Auto) Sodium Potassium Chloride Creatinine Glucose POC Glucose 201 H 170 H 167 H Hemoglobin A1c Magnesium Urine Blood Urine WBC (Auto) U Epithel Cells (Auto) 11/04/21 11/04/21 11/04/21 05:49 11:26 16:18 MCV MCH Johnson % (Auto) Johnson # (Auto) Sodium Potassium Chloride Creatinine Glucose POC Glucose 157 H 172 H 188 H Hemoglobin A1c Magnesium Urine Blood Urine WBC (Auto) U Epithel Cells (Auto) 11/04/21 11/05/21 11/05/21 23:27 05:23 12:36 MCV MCH Johnson % (Auto) Johnson # (Auto) Sodium Potassium Chloride Creatinine Glucose POC Glucose 168 H 165 H 161 H Hemoglobin A1c Magnesium Urine Blood Urine WBC (Auto) U Epithel Cells (Auto) 11/05/21 11/05/21 11/06/21 16:17 23:28 05:11 MCV MCH Johnson % (Auto) Johnson # (Auto) Sodium Potassium Chloride Creatinine Glucose POC Glucose 187 H 169 H 174 H Hemoglobin A1c Magnesium Urine Blood Urine WBC (Auto) U Epithel Cells (Auto) 11/06/21 11/06/21 11/06/21 11:10 15:54 23:58 MCV MCH Johnson % (Auto) Johnson # (Auto) Sodium Potassium Chloride Creatinine Glucose POC Glucose 178 H 154 H 137 H Hemoglobin A1c Magnesium Urine Blood Urine WBC (Auto) U Epithel Cells (Auto) 11/07/21 11/07/21 11/07/21 05:48 14:09 16:31 MCV MCH Johnson % (Auto) Johnson # (Auto) Sodium Potassium Chloride Creatinine Glucose POC Glucose 194 H 196 H 136 H Hemoglobin A1c Magnesium Urine Blood Urine WBC (Auto) U Epithel Cells (Auto) 11/07/21 11/08/21 11/08/21 23:09 06:18 11:43 MCV MCH Johnson % (Auto) Johnson # (Auto) Sodium Potassium Chloride Creatinine Glucose POC Glucose 140 H 124 H 170 H Hemoglobin A1c Magnesium Urine Blood Urine WBC (Auto) U Epithel Cells (Auto) 11/08/21 11/09/21 11/09/21 16:29 00:03 05:13 MCV MCH Johnson % (Auto) Johnson # (Auto) Sodium Potassium Chloride Creatinine Glucose POC Glucose 167 H 138 H 157 H Hemoglobin A1c Magnesium Urine Blood Urine WBC (Auto) U Epithel Cells (Auto) 11/09/21 11/09/21 11/09/21 11:30 17:45 23:36 MCV MCH Johnson % (Auto) Johnson # (Auto) Sodium Potassium Chloride Creatinine Glucose POC Glucose 161 H 149 H 165 H Hemoglobin A1c Magnesium Urine Blood Urine WBC (Auto) U Epithel Cells (Auto) 11/10/21 11/10/21 11/10/21 04:52 12:33 17:03 MCV MCH Johnson % (Auto) Johnson # (Auto) Sodium Potassium Chloride Creatinine Glucose POC Glucose 165 H 154 H 113 H Hemoglobin A1c Magnesium Urine Blood Urine WBC (Auto) U Epithel Cells (Auto) 11/10/21 23:41 MCV MCH Johnson % (Auto) Johnson # (Auto) Sodium Potassium Chloride Creatinine Glucose POC Glucose 163 H Hemoglobin A1c Magnesium Urine Blood Urine WBC (Auto) U Epithel Cells (Auto) Allied health notes reviewed: nursing
[2021-11-11] MEDS: LANSOPRAZOLE 30 MG SOLUTAB FEEDTUBE SCH (18:47)
[2021-11-11] MEDS: SENNOSIDES ORAL LIQD 8.8 MG/5 ML ORAL LIQD FEEDTUBE SCH (22:01)
[2021-11-12] MEDS: INSULIN LISPRO 100 UNIT/ML SUB-Q SCH ×4 (00:34→14:51)
--- NOTE | 2021-11-12 08:55 | Progress Note ---
Assessment and Plan Assessment and plan: Hospital course: This is a 55-year-old with HTN, DM, CVA complicated by dysphagia s/p PEG tube placement, dysarthria, left hemiparesis and debility who presented to the emergency department on 10/22 via air ambulance for continued treatment. Patient was admitted to the [facility] and initiated on CIWA protocol with consults to [facility], neurology will need a cardiology. Hospital Course to Date: 10/23: Nonverbal, open eyes spontaneously, does not follow any commands with LUE paralysis/contraction. on RA, VSS. Echo and Neurology consult pending. PT/OT/Speech also consulted. PEG-tube noted, nutrition/exploration geologist consulted for TF management. Pulmonary is also following. Patient presented with a harden catheter, per record history of urinary retention. Harden cath exchanged, UA pending. 10/24: SEKOU overnight. Neurology recommendations noted, orders placed for MRI brain and CTA head/Neck. Continue PT/OT/Speech, home meds resumed, and enteral nutrition initiated. UA noted, patient is asymptomatic with no leukocytosis, continue to monitor, urine culture pending. 10/25: Remains stable, mentation unchanged. CTA head/Neck noted, MRI brain/MRA head/Neck pending. Awaiting Neurology final recommendations. Continue current supportive measures. 10/26: Patient will have a BELLE, cardiology consulted per neurology recommendations, MRI/MRA/MRV pending no acute events reported overnight. Magnesium repleted. 10/27: Unable to complete BELLE as consent was not able to be obtained, [facility] contacted [facility] who declined the patient is a candidate, MRI brain and CTA chest and pelvis pending. No acute events reported overnight. 10/28: No acute overnight events. CTA chest and abdomen completed were negative studies. BELLE completed this AM, no acute findings noted. MR brain shows subacute right MCA infarction superimposed on chronic infarction. There is involvement of the lateral aspect of right temporal lobe. Large remote pontine infarction noted. No indication of recent intracranial hemorrhage or mass lesion. CM currently working on placement to SNF. Can transfer patient to floor bed. Attempted to call number in chart to update family. no response. 10/29: D/w brother Fabian Waldron [phone]. Updated him on patient clinical status. Discussed overall poor chance of regaining baseline function and current "locked in" appearance due to territory of stroke. I also discussed options of home health care if the family can support the patient versus hospice versus SNF. I also updated Fabian that thus far facilities have denied the patient due to him being out of network. He stated he would speak with his brother Tyrell regarding these updates and would also be coming to the hospital tomorrow to discuss the family's goals for the patient. Patient likely needs DOAC. Will await neuro recs re: anticoagulation. 10/30: Neurology recommends against doac. Will obtain covid pcr. Plan Family discussion today this AM with patient brother Fabian this AM re: GOK I discussed with the patient's brother, Fabian regarding goals of care as well as the events of the patient's hospitalization. He was very much adamant that the patient go to rehab/snf and did not think hospice was the right option for his brother. I explained that thus far the patient has been declined at more than 10 facilities in the [facility] area. He stated that he would be willing to help fund him should that be an issue. I notified the manager rn case about my conversation who stated they would speak with Mr Peralta. 10/31: Patient tolerating tube feed, clinically unchanged, PT recommendation is as noted below. WIll have case management consider a Personal halfway also. PER PT Pt presents with poor rehab potential due to CVA x4 months ago with L UE and LE hypertonicity, contractures, poor isolated movements, inability to follow instructions, Left side neglect, significant impairments of coordination and strength. Pt is total assist with mobilities and high risk for falls. Recommend SNF placement for 24hr care. If pt d/c home with family, will need hospital bed, cecil lift for potential transfers. Due to pt's involuntary movements and abnormal tone, pt is high risk for falling out of a w/c. If pt d/c home, recommend 1 PT visit for pt/family training re: positioning, bed mobility. Pt is not a candidate for skilled PT at this time. Pt was left in semi fowlers, needs in reach, all lines intact, no distress, pt with involuntary movements at times. 11/01: Continue supportive care. We will plan on further discussion with the ariane amin on discharge planning anticipated in a day or 2 following this history arrangements to be in place. We will follow-up with the pending [place] [facility] facility to see if they accept him. 11/02: Patient seen and examined, discharge planning, continue supportive care, wound management, rehab. 11/03: Patient seen and examined, remains with profused encephalopathy, still with left upper hemiparesis and spontaneous non purposeful movement of bilateral lower ext and right upper ext. Awaiting safe discharge plan. I have called to speak with the brother and left my personal cell phone number for call back. 11/04: Patient seen and examined, He is able to respond to commands and Squeeze my hand on his right upper ext, He Unfortunately not following commands on the lower ext which he moves spontaneously and not on command. He continues to await safe discharge. Goals of care discussed extensively with advance care plan. He remains a full code and family will like aggresssive PT/OT/Speech therapy. 11/05: Patient seen and examined clinically stable at this time awaiting family arrangements for safe discharge. Hospital bed has been ordered for discharge to home. 11/06: Patient seen and examined awaiting discharge. Remains clinically stable. 11/07: Patient seen and examined no acute distress. Blood pressure mildly elevated with a little bit of tachycardia no difficulty breathing noted. Pain medication has been held due to attempting to see if patient can be more participatory. May need to restart as needed pain meds. Was a bit agitated today. Anticipating discharge later today. Patient will need as needed pain medication to ensure maximum participation in treatment plan. 11/08: Patient seen and examined, clinically unchanged, awaiting placement. 11/09: Patient seen and examined, clinically unchanged, awaiting placement. 11/10: Patient seen and examined. Clinically stable, unchanged. D/w CM at rounds this AM re: placmeent options and barriers to discharge. Currenlty awaiting potential acceptance at [facility] vs IRU vs hospice. 11/11: Seen and examined. Currently plan per family is HHC with PT. Pending med supplies/bed/equipment delivery to home. 11/12: Assessment and Plan: Neuro: Recent CVA complicated by dysphagia/dysarthria/left hemiparesis/debility, h/o depression, seizure disorder, Metabolic Encephalopathy secondary to CVA with left sided neglect -Neurology and CCM consulted, appreciate recommendations -Reorientation as needed -Maintain sleep-wake cycle -aspiration/seizure precautions -As needed analgesia -CT head shows old moderately sized MCA infarct the right involving the inferior frontal peritracheal regions, gangliocapsular Regions and Right Temporal Lobe, prominent Kuehner seen in the left anterior andrea, small scattered lacunar infarcts suggesting the andrea -Bilateral carotid Doppler ultrasound shows less than 50% diameter stenosis in the right and left internal carotid artery -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 There is involvement of the lateral aspect of right temporal lobe. Large remote pontine infarction noted. No indication of recent intracranial hemorrhage or mass lesion. -Lipitor, aspirin -Keppra -Aspiration/seizure precautions -Continue home Prozac -PT/OT/ST consulted -Neurochecks per protocol Cardiac: h/o HTN -Cardiology consulted, appreciate recommendations -Blood pressure monitoring per protocol -Antihypertensive regimen: Atenolol, Lozol, lisinopril -Echocardiogram shows LVEF 55%, mild diastolic dysfunction no PFO -BELLE pending per neurology recs Respiratory: NAD -CCM/ pulm consulted for dyspnea, appreciate recommendations -Supplemental oxygen as needed -Pulmonary hygiene -SPO2 monitoring GI: S/p PEG tube placement -24 hours +1285 mL -PPI -NTR consulted for tube feedings -BR: Senna : Slight hyponatremia, h/o urinary retention/obstruction -Presented with indwelling catheter which was exchanged -Monitor intake and output -Renally dose medications -Avoid nephrotoxic medications -Repeat magnesium -Trend BMP ID: NAD -Monitor WBC and temperature curve Endo: h/o DM -Avoid hypoglycemia -SSI -Accu-Cheks q. every 6 -Hemoglobin A1c 8 Heme: ? Hypercoagulable state -CTA chest and abdomen pending per neurology recommendation -Trend CBC -Transfuse hemoglobin less than 7 -SCDs to BLE while in bed #Advance care planning Disease education conducted, care plan discussed, diagnoses discussed, prognosis discussed, patient is full code, patient brother Fabian acknowledges understanding and agree with care plan, +30 minutes. Hospitalist Physical - Physical exam Narrative exam: Narrative exam: General: No Apparent Distress HEENT: Positive: Mucus Membranes Dry, intermittent tracks occasionally. Follows some commands on the right side upper extremity only. Neck: Positive: trachea midline Cardiac: Positive: Reg Rate and Rhythm Lungs: Positive: Normal Breath Sounds Neuro: Positive: Other (Hemiparesis), non verbal. locked in appearance. does not follow commands. opens eyes but not purposefully following commands except upper extremity on the right side. Abdomen: Positive: Soft Skin: Negative: Rash, Suspicious Lesions, Ulceration Extremities: Present: upper extr. pulses. Absent: edema - Constitutional Vitals: Temp Pulse Resp BP Pulse Ox 97.8 F 101 H 18 144/93 98 11/12/21 08:18 11/12/21 08:18 11/12/21 08:18 11/12/21 08:18 11/12/21 08:18 General appearance: Present: no acute distress Results - Labs CBC & Chem 7: 10/24/21 05:00 10/28/21 03:40 Labs: Laboratory Last Values WBC 6.4 K/mm3 (4.5-11.0) 10/24/21 05:00 RBC 4.59 M/mm3 (3.65-5.03) 10/24/21 05:00 Hgb 12.7 gm/dl (11.8-15.2) 10/24/21 05:00 Hct 37.7 % (35.5-45.6) 10/24/21 05:00 MCV 82 fl (84-94) L 10/24/21 05:00 MCH 28 pg (28-32) 10/24/21 05:00 MCHC 34 % (32-34) 10/24/21 05:00 RDW 14.1 % (13.2-15.2) 10/24/21 05:00 Plt Count 222 K/mm3 (140-440) 10/24/21 05:00 Lymph % (Auto) 29.6 % (13.4-35.0) 10/22/21 16:00 [place] % (Auto) 11.8 % (0.0-7.3) H 10/22/21 16:00 Eos % (Auto) 1.3 % (0.0-4.3) 10/22/21 16:00 Baso % (Auto) 0.4 % (0.0-1.8) 10/22/21 16:00 Lymph # (Auto) 2.4 K/mm3 (1.2-5.4) 10/22/21 16:00 [place] # (Auto) 1.0 K/mm3 (0.0-0.8) H 10/22/21 16:00 Eos # (Auto) 0.1 K/mm3 (0.0-0.4) 10/22/21 16:00 Baso # (Auto) 0.0 K/mm3 (0.0-0.1) 10/22/21 16:00 Seg Neutrophils % 56.9 % (40.0-70.0) 10/22/21 16:00 Seg Neutrophils # 4.7 K/mm3 (1.8-7.7) 10/22/21 16:00 PT 14.8 Sec. (12.2-14.9) 10/22/21 16:00 INR 1.04 (0.87-1.13) 10/22/21 16:00 APTT 28.1 Sec. (24.2-36.6) 10/22/21 16:00 Sodium 137 mmol/L (137-145) 10/28/21 03:40 Potassium 4.2 mmol/L (3.6-5.0) 10/28/21 03:40 Chloride 97.1 mmol/L (98-107) L 10/28/21 03:40 Carbon Dioxide 29 mmol/L (22-30) 10/28/21 03:40 Anion Gap 15 mmol/L 10/28/21 03:40 BUN 14 mg/dL (9-20) 10/28/21 03:40 Creatinine 0.8 mg/dL (0.8-1.3) 10/28/21 03:40 Estimated GFR > 60 ml/min 10/28/21 03:40 BUN/Creatinine Ratio 18 % 10/28/21 03:40 Glucose 127 mg/dL (75-100) H 10/28/21 03:40 POC Glucose 177 mg/dL (70-105) H 11/12/21 06:17 Hemoglobin A1c 8.0 % (4-6) H 10/24/21 10:16 Calcium 10.1 mg/dL (8.4-10.2) 10/28/21 03:40 Phosphorus 4.20 mg/dL (2.5-4.5) 10/27/21 04:39 Magnesium 1.90 mg/dL (1.7-2.3) 10/27/21 04:39 Total Bilirubin 0.50 mg/dL (0.1-1.2) 10/22/21 16:00 AST 24 units/L (5-40) 10/22/21 16:00 ALT 28 units/L (7-56) 10/22/21 16:00 Alkaline Phosphatase 102 units/L (35-129) 10/22/21 16:00 Total Protein 6.9 g/dL (6.3-8.2) 10/22/21 16:00 Albumin 4.3 g/dL (3.9-5) 10/22/21 16:00 Albumin/Globulin Ratio 1.7 % 10/22/21 16:00 Triglycerides 85 mg/dL (2-149) 10/23/21 12:33 Cholesterol 148 mg/dL (50-199) 10/23/21 12:33 LDL Cholesterol Direct 86 mg/dL (50-130) 10/23/21 12:33 HDL Cholesterol 44 mg/dL (40-59) 10/23/21 12:33 Cholesterol/HDL Ratio 3.36 % 10/23/21 12:33 TSH 2.020 mlU/mL (0.270-4.200) 10/24/21 10:16 Free T4 0.88 ng/dL (0.76-1.46) 10/24/21 10:16 Urine Color Yellow (Yellow) 10/23/21 08:49 Urine Turbidity Clear (Clear) 10/23/21 08:49 Urine pH 6.5 (5.0-7.0) 10/23/21 08:49 Ur Specific [place] 1.005 (1.003-1.030) 10/23/21 08:49 Urine Protein 30 mg/dl mg/dL (Negative) 10/23/21 08:49 Urine Glucose (UA) Negative mg/dL (Negative) 10/23/21 08:49 Urine Ketones Negative mg/dL (Negative) 10/23/21 08:49 Urine Blood Moderate (Negative) A 10/23/21 08:49 Urine Nitrite Negative (Negative) 10/23/21 08:49 Ur Reducing Substances Not Reportable 10/23/21 08:49 Urine Bilirubin Negative (Negative) 10/23/21 08:49 Urine Ictotest Not Reportable 10/23/21 08:49 Urine Urobilinogen < 2.0 mg/dL (<2.0) 10/23/21 08:49 Ur Leukocyte Esterase Moderate (Negative) 10/23/21 08:49 Urine WBC (Auto) 28.0 /HPF (0.0-6.0) H 10/23/21 08:49 Urine RBC (Auto) 27.0 /HPF (0.0-6.0) 10/23/21 08:49 U Epithel Cells (Auto) 14.0 /HPF (0-13.0) H 10/23/21 08:49 Hyaline Casts 1 /LPF 10/23/21 08:49 Urine Mucus Few /HPF 10/23/21 08:49 Coronavirus (PCR) Negative (Negative) 10/30/21 Unknown Harden/IV: Voiding Method Indwelling Catheter Active Medications - Current Medications Current Medications: Generic Name Dose Route Start Last Admin Trade Name Freq PRN Reason Stop Dose Admin Acetaminophen 650 mg 10/22/21 16:19 10/28/21 22:11 Acetaminophen 325 Mg Tab PO 650 mg Q4H PRN Administration Pain, Mild (1-3) Albuterol 2.5 mg 10/22/21 16:19 Albuterol 2.5 Mg/3 Ml Nebu IH Q3HRT PRN Shortness Of Breath Lipase/Protease/Amylase 1 each 11/02/21 12:45 11/10/21 12:51 Lipase 10,500/Protease 25,000/Amylase 43,750 (Units) Dr Wilson FEEDTUBE 1 each PRN PRN Administration For Clogged Feeding Tube Aspirin 325 mg 10/23/21 10:00 11/11/21 09:35 Aspirin 325 Mg Tab PO 325 mg QDAY NEO Administration Atenolol 50 mg 10/24/21 10:00 11/11/21 09:36 Atenolol 50 Mg Tab FEEDTUBE 50 mg QDAY NEO Administration Atorvastatin Calcium 80 mg 10/24/21 22:00 11/11/21 22:01 Atorvastatin 40 Mg Tab FEEDTUBE 80 mg QHS NEO Administration Bisacodyl 10 mg 10/22/21 16:19 Bisacodyl 10 Mg Rect Supp MN QDAY PRN Constipation Dextrose 50 ml 10/22/21 17:23 Dextrose 50% In Water (25gm) 50 Ml Syringe IV Q30MIN PRN Hypoglycemia Protocol Fluoxetine HCl 10 mg 10/24/21 10:00 11/11/21 09:38 Fluoxetine 20 Mg/5 Ml Oral Liqd FEEDTUBE 10 mg QDAY NEO Administration Heparin Sodium (Porcine) 5,000 unit 10/22/21 22:00 11/11/21 22:01 Heparin 5,000 Unit/1 Ml Vial SUB-Q 5,000 unit Q12HR NEO Administration Indapamide 5 mg 10/24/21 10:00 11/11/21 09:37 Indapamide 2.5 Mg Tab FEEDTUBE 5 mg QDAY NEO Administration Insulin Human Lispro 0 unit 10/24/21 12:00 11/12/21 06:23 Insulin Lispro 100 Unit/Ml SUB-Q 2 unit Q6HR NEO Administration Protocol Lansoprazole 30 mg 10/23/21 18:00 11/11/21 18:47 Lansoprazole 30 Mg Solutab FEEDTUBE 30 mg QPM NEO Administration Levetiracetam 250 mg 10/24/21 10:00 11/11/21 22:00 Levetiracetam 500 Mg/5 Ml Oral Liqd FEEDTUBE 250 mg BID NEO Administration Lisinopril 5 mg 10/24/21 10:00 11/11/21 09:39 Lisinopril 5 Mg Tab FEEDTUBE 5 mg QDAY NEO Administration Magnesium Hydroxide 30 ml 10/22/21 16:19 Magnesium Hydroxide (Mom) Oral Liqd Udc PO Q4H PRN Constipation Ondansetron HCl 4 mg 10/22/21 16:19 Ondansetron 4 Mg/2 Ml Inj IV Q8H PRN Nausea And Vomiting Oxycodone/Acetaminophen 1 tab 11/07/21 12:00 Oxycodone /Acetaminophen 5-325mg Tab PO Q6H PRN Pain, Moderate (4-6) Senna 8.8 mg 10/27/21 22:00 11/11/21 22:01 Sennosides Oral Liqd 8.8 Mg/5 Ml Oral Liqd FEEDTUBE 8.8 mg QHS NEO Administration Simple Syrup 15 ml 11/02/21 12:45 Simple Syrup 15 Ml FEEDTUBE PRN PRN Hypoglycemia Simple Syrup 30 ml 11/02/21 12:45 Simple Syrup 15 Ml FEEDTUBE PRN PRN Hypoglycemia Sodium Bicarbonate 325 mg 11/02/21 12:45 11/05/21 11:25 Sodium Bicarbonate 325 Mg Tab FEEDTUBE 325 mg PRN PRN Administration For Clogged Feeding Tube Sodium Chloride 10 ml 10/22/21 16:19 11/09/21 22:48 Sodium Chloride 0.9% 10 Ml Flush Syringe IV 10 ml PRN PRN Administration LINE FLUSH Nutrition/Malnutrition Assess - Dietary Evaluation Nutrition/Malnutrition Findings: Nutrition Notes Start: 10/23/21 13:01 Freq: Status: Active Protocol: Document 11/09/21 16:00 JIM (Rec: 11/09/21 16:18 JIM [id number]) Nutrition Notes Initial or Follow up Reassessment Current Diagnosis Diabetes,Hypertension,Stroke Other Pertinent Diagnosis Dysphagia, L-Hemiparesis, Debility. Current Diet TF-Glucerna 1.2 [place] @ 70 ml/hr (since D 10/30). Labs/Tests 11/09: N/A. Pertinent Medications 11/09: Humalog 2U, others nutritionally unremarkable. Height 5 ft 11 in Weight 66.4 kg [place] Body Weight (kg) 78.18 BMI 20.4 Weight change and time frame 3.5 Kg body weight loss reported in 1 week. Weight Status Appropriate Subjective/Other Information RD consult for routine F/U on TF tolerance/continuation. TF continues as prescribed, an well tolerated, according to RN notes. Pt is on Room Air, O2 saturation @ 98%, according to Physical Assessment History notes. Percent of energy/protein needs met: Prescribed TF-Glucerna 1.2 [place] @ 70 ml/hr provides for energy/protein needs (2,016 Kcal/111 g) during LOS, 95% Kcal; 111% AA. Burn Absent Trauma Absent GI Symptoms None Difficulty In Swallowing Food Allergy No Skin Integrity/Comment Assessment WNL. Current % PO Other Minimum of two criteria No Fluid Accumulation N/A Reduced Dba Strength N/A (non-severe) Protein-Calorie Malnutrition N\\A #1 Nutrition Diagnosis Swallowing difficulty Diagnosis Progress(for reassessment Continues documentation) Is patient on ventilator? No Is Patient Ambulatory and/or Out of Bed No REE-([facility]-confined to bed) 1823.928 Kcal/Kg value to use for calculation 31 Approximate Energy Requirements Using 8 kcal/Kg Calculation Used for Recommendations Kcal/kg Additional Notes Protein: 0.8-1 g/Kg ABW; 73-91 g/day. Fluids: 1 ml/Kcal, or as per MD. Nutrition Intervention Nutrition Support: Continue TF-Glucerna 1.2 [place] @ 70 ml/hr. Flush: 100 ml water Q 4 hr, or as per MD. Kcal 2,016 Protein (gm) 101 Carbohydrates (gm) 192 Fat (gm) 101 Fluid (mL) 1,352 Fiber (gm) 27 % RDI: 95% Kcal; 111% AA. Goal #1 Provide at least 75% of energy /protein needs through Enteral Feeding during LOS. Follow-Up By: 11/30/21 Additional Comments Continue monitoring TF tolerance and BM.
[2021-11-12] MEDS: ASPIRIN 325 MG TAB PO SCH (10:00)
[2021-11-12] MEDS: INDAPAMIDE 2.5 MG TAB FEEDTUBE SCH (10:00)
[2021-11-12] MEDS: atenoloL 50 MG TAB FEEDTUBE SCH (10:00)
[2021-11-12] MEDS: FLUoxetine 20 MG/5 ML ORAL LIQD FEEDTUBE SCH (10:00)
[2021-11-12] MEDS: LISINOPRIL 5 MG TAB FEEDTUBE SCH (10:01)
[2021-11-12] MEDS: levETIRAcetam 500 MG/5 ML ORAL LIQD FEEDTUBE SCH (10:02)
[2021-11-12] MEDS: HEPARIN 5,000 UNIT/1 ML VIAL SUB-Q SCH (10:07)
--- NOTE | 2021-11-12 11:52 | Progress Note ---
Assessment and Plan 55 YO Male with HTN, DM, CVA complicated by Dysphagia, Dysarthria, Left Hemiparesis, Debility was admitted to [facility] in [facility], [place] on 06/22/21. The patient was transported to [facility] today via air ambulance for continued treatment of the aforementioned symptoms. The patient was found to have clinical symptoms consistent with CVA but the patient was deemed outside the therapeutic window for tPA. The patient was admitted to [facility] and initiated on CVA protocol. The patient is nonverbal and has a palliative performance scor e of 30% and requires 6/6 assistance with activities of daily living. T No reports of fever, chills, chest pain, palpitation, productive cough, skin rash, recent contact, known exposure to COVID-19. Patient has PEG Placement. According to the chart. No history of smoking, alcohol or drug abuse. Patients condition remain same. Patient is sleeping. Not responding to Verbal stimuli. Patient is on room air. O2 saturation running 97%. No acute respiratory distress. Patient is afebrile. No leukocytosis. BP 113/77, pulse 83, RR 17. Chest x-ray done 10/23/21 reported no acute findings. CTA of chest 10/27/21 reported Limited exam due to motion artifact without CT evidence of pulmonary emboli or other acute findings. Patient is on albuterol inhaler, S/C heparin, and Prevacid. - Patient Problems (1) CVA (cerebral vascular accident) Current Visit: Yes Status: Acute Qualifiers: Precerebral and cerebral artery: middle cerebral artery Laterality of affected vessel: right Plan to address problem: Manage is per primary care and neurology. Recommend aspiration precautions. (2) Dysarthria as late effect of stroke Current Visit: Yes Status: Acute Plan to address problem: Management is per neurology. (3) Dysphagia as late effect of stroke Current Visit: Yes Status: Acute Plan to address problem: Management is per neurology. (4) Hemiparesis, left Current Visit: Yes Status: Acute Plan to address problem: Management is per neurology. (5) Diabetes Current Visit: Yes Status: Acute Plan to address problem: Management is per primary care. (6) Hypertension Current Visit: Yes Status: Acute Qualifiers: Hypertension type: primary hypertension Qualified Code(s): I10 - Essential (primary) hypertension Plan to address problem: Management is per primary care. Subjective Date of service: 11/12/21 Principal diagnosis: R. CVA with L. hemiparesis; HTN; DM II; Dysarthria; Oropharyngeal dysphagia Interval history: 55 YO Male with HTN, DM, CVA complicated by Dysphagia, Dysarthria, Left Hemiparesis, Debility was admitted to [facility] in [facility], [place] on 06/22/21. The patient was transported to [facility] today via air ambulance for continued treatment of the aforementioned symptoms. The patient was found to have clinical symptoms consistent with CVA but the patient was deemed outside t he therapeutic window for tPA. The patient was admitted to [facility] and initiated on CVA protocol. The patient is nonverbal and has a palliative performance score of 30% and requires 6/6 assistance with activities of daily living. T No reports of fever, chills, chest pain, palpitation, productive cough, skin rash, recent contact, known exposure to COVID-19. Patient has PEG Placement. According to the chart. No history of smoking, alcohol or drug abuse. Patients condition remain same. Patient is sleeping. Not responding to Verbal stimuli. Patient is on room air. O2 saturation running 97%. No acute respiratory distress. Patient is afebrile. No leukocytosis. BP 113/77, pulse 83, RR 17. Chest x-ray done 10/23/21 reported no acute findings. CTA of chest 10/27/21 reported Limited exam due to motion artifact without CT evidence of pulmonary emboli or other acute findings. Patient is on albuterol inhaler, S/C heparin, and Prevacid. Objective Vital Signs - 12hr 11/12/21 11/12/21 11/12/21 00:10 04:36 08:18 Temperature 98.3 F 98.5 F 97.8 F Pulse Rate 91 H 90 101 H Respiratory 16 20 18 Rate Blood Pressure 141/75 142/80 144/93 O2 Sat by Pulse 94 100 98 Oximetry 11/12/21 10:00 Temperature Pulse Rate Respiratory Rate Blood Pressure O2 Sat by Pulse 97 Oximetry Constitutional: no acute distress, asleep Eyes: non-icteric ENT: oropharynx moist Neck: supple, no lymphadenopathy Effort: normal Ascultation: Bilateral: clear Percussion: Bilateral: not dull Cardiovascular: regular rate and rhythm, other (S1,S2) Gastrointestinal: normoactive bowel sounds, soft, non-tender, non-distended, other (PEG tube) Integumentary: normal Extremities: no cyanosis, no edema, pulses normal, no ischemia or petechiae Neurologic: pupils equal and round, other (left hemiplegia ) Psychiatric: other (unable to asses due to neurological status) CBC and BMP: 10/24/21 05:00 10/28/21 03:40 ABG, PT/INR, D-dimer: PT/INR, D-dimer PT 14.8 Sec. (12.2-14.9) 10/22/21 16:00 INR 1.04 (0.87-1.13) 10/22/21 16:00 Abnormal lab findings: Abnormal Labs 10/22/21 10/22/21 10/22/21 16:00 16:00 22:44 MCV 83 L MCH 27 L [place] % (Auto) 11.8 H [place] # (Auto) 1.0 H Sodium Potassium Chloride Creatinine 0.6 L Glucose 175 H POC Glucose 115 H Hemoglobin A1c Magnesium Urine Blood Urine WBC (Auto) U Epithel Cells (Auto) 10/23/21 10/23/21 10/23/21 07:28 08:49 11:31 MCV MCH [place] % (Auto) [place] # (Auto) Sodium Potassium Chloride Creatinine Glucose POC Glucose 129 H 136 H Hemoglobin A1c Magnesium Urine Blood Moderate A Urine WBC (Auto) 28.0 H U Epithel Cells (Auto) 14.0 H 10/23/21 10/24/21 10/24/21 17:59 00:01 05:00 MCV 82 L MCH [place] % (Auto) [place] # (Auto) Sodium Potassium Chloride Creatinine Glucose POC Glucose 109 H 111 H Hemoglobin A1c Magnesium Urine Blood Urine WBC (Auto) U Epithel Cells (Auto) 10/24/21 10/24/21 10/24/21 05:00 07:57 10:16 MCV MCH [place] % (Auto) [place] # (Auto) Sodium Potassium 3.5 L Chloride Creatinine 0.6 L Glucose 134 H POC Glucose 132 H Hemoglobin A1c 8.0 H Magnesium Urine Blood Urine WBC (Auto) U Epithel Cells (Auto) 10/24/21 10/24/21 10/25/21 16:26 20:57 04:47 MCV MCH [place] % (Auto) [place] # (Auto) Sodium Potassium Chloride Creatinine Glucose POC Glucose 109 H 145 H 159 H Hemoglobin A1c Magnesium Urine Blood Urine WBC (Auto) U Epithel Cells (Auto) 10/25/21 10/25/21 10/25/21 07:49 11:19 17:49 MCV MCH [place] % (Auto) [place] # (Auto) Sodium Potassium Chloride Creatinine Glucose POC Glucose 147 H 164 H 141 H Hemoglobin A1c Magnesium Urine Blood Urine WBC (Auto) U Epithel Cells (Auto) 10/25/21 10/26/21 10/26/21 20:54 04:56 07:23 MCV MCH [place] % (Auto) [place] # (Auto) Sodium Potassium Chloride Creatinine 0.7 L Glucose 165 H POC Glucose 136 H 172 H Hemoglobin A1c Magnesium 1.60 L Urine Blood Urine WBC (Auto) U Epithel Cells (Auto) 10/26/21 10/26/21 10/26/21 11:21 17:21 23:38 MCV MCH [place] % (Auto) [place] # (Auto) Sodium Potassium Chloride Creatinine Glucose POC Glucose 168 H 164 H 147 H Hemoglobin A1c Magnesium Urine Blood Urine WBC (Auto) U Epithel Cells (Auto) 10/27/21 10/27/21 10/27/21 04:39 07:32 11:33 MCV MCH [place] % (Auto) [place] # (Auto) Sodium 135 L Potassium Chloride 95.4 L Creatinine 0.6 L Glucose 156 H POC Glucose 137 H 180 H Hemoglobin A1c Magnesium Urine Blood Urine WBC (Auto) U Epithel Cells (Auto) 10/27/21 10/27/21 10/28/21 16:18 23:55 03:40 MCV MCH [place] % (Auto) [place] # (Auto) Sodium Potassium Chloride 97.1 L Creatinine Glucose 127 H POC Glucose 130 H 123 H Hemoglobin A1c Magnesium Urine Blood Urine WBC (Auto) U Epithel Cells (Auto) 10/28/21 10/28/21 10/28/21 08:10 12:03 17:42 MCV MCH [place] % (Auto) [place] # (Auto) Sodium Potassium Chloride Creatinine Glucose POC Glucose 142 H 173 H 145 H Hemoglobin A1c Magnesium Urine Blood Urine WBC (Auto) U Epithel Cells (Auto) 10/28/21 10/29/21 10/29/21 23:31 05:35 11:48 MCV MCH [place] % (Auto) [place] # (Auto) Sodium Potassium Chloride Creatinine Glucose POC Glucose 181 H 225 H 166 H Hemoglobin A1c Magnesium Urine Blood Urine WBC (Auto) U Epithel Cells (Auto) 10/29/21 10/30/21 10/30/21 16:23 00:19 05:23 MCV MCH [place] % (Auto) [place] # (Auto) Sodium Potassium Chloride Creatinine Glucose POC Glucose 167 H 157 H 175 H Hemoglobin A1c Magnesium Urine Blood Urine WBC (Auto) U Epithel Cells (Auto) 10/30/21 10/30/21 10/31/21 13:58 23:07 05:56 MCV MCH [place] % (Auto) [place] # (Auto) Sodium Potassium Chloride Creatinine Glucose POC Glucose 201 H 171 H 215 H Hemoglobin A1c Magnesium Urine Blood Urine WBC (Auto) U Epithel Cells (Auto) 10/31/21 10/31/21 11/01/21 12:25 16:17 00:06 MCV MCH [place] % (Auto) [place] # (Auto) Sodium Potassium Chloride Creatinine Glucose POC Glucose 230 H 222 H 186 H Hemoglobin A1c Magnesium Urine Blood Urine WBC (Auto) U Epithel Cells (Auto) 11/01/21 11/01/21 11/01/21 05:57 11:35 16:14 MCV MCH [place] % (Auto) [place] # (Auto) Sodium Potassium Chloride Creatinine Glucose POC Glucose 188 H 170 H 168 H Hemoglobin A1c Magnesium Urine Blood Urine WBC (Auto) U Epithel Cells (Auto) 11/01/21 11/02/21 11/02/21 23:41 06:36 11:44 MCV MCH [place] % (Auto) [place] # (Auto) Sodium Potassium Chloride Creatinine Glucose POC Glucose 172 H 187 H 161 H Hemoglobin A1c Magnesium Urine Blood Urine WBC (Auto) U Epithel Cells (Auto) 11/02/21 11/03/21 11/03/21 18:19 00:12 05:32 MCV MCH [place] % (Auto) [place] # (Auto) Sodium Potassium Chloride Creatinine Glucose POC Glucose 121 H 192 H 240 H Hemoglobin A1c Magnesium Urine Blood Urine WBC (Auto) U Epithel Cells (Auto) 11/03/21 11/03/21 11/03/21 11:46 16:45 23:36 MCV MCH [place] % (Auto) [place] # (Auto) Sodium Potassium Chloride Creatinine Glucose POC Glucose 201 H 170 H 167 H Hemoglobin A1c Magnesium Urine Blood Urine WBC (Auto) U Epithel Cells (Auto) 11/04/21 11/04/21 11/04/21 05:49 11:26 16:18 MCV MCH [place] % (Auto) [place] # (Auto) Sodium Potassium Chloride Creatinine Glucose POC Glucose 157 H 172 H 188 H Hemoglobin A1c Magnesium Urine Blood Urine WBC (Auto) U Epithel Cells (Auto) 11/04/21 11/05/21 11/05/21 23:27 05:23 12:36 MCV MCH [place] % (Auto) [place] # (Auto) Sodium Potassium Chloride Creatinine Glucose POC Glucose 168 H 165 H 161 H Hemoglobin A1c Magnesium Urine Blood Urine WBC (Auto) U Epithel Cells (Auto) 11/05/21 11/05/21 11/06/21 16:17 23:28 05:11 MCV MCH [place] % (Auto) [place] # (Auto) Sodium Potassium Chloride Creatinine Glucose POC Glucose 187 H 169 H 174 H Hemoglobin A1c Magnesium Urine Blood Urine WBC (Auto) U Epithel Cells (Auto) 11/06/21 11/06/21 11/06/21 11:10 15:54 23:58 MCV MCH [place] % (Auto) [place] # (Auto) Sodium Potassium Chloride Creatinine Glucose POC Glucose 178 H 154 H 137 H Hemoglobin A1c Magnesium Urine Blood Urine WBC (Auto) U Epithel Cells (Auto) 11/07/21 11/07/21 11/07/21 05:48 14:09 16:31 MCV MCH [place] % (Auto) [place] # (Auto) Sodium Potassium Chloride Creatinine Glucose POC Glucose 194 H 196 H 136 H Hemoglobin A1c Magnesium Urine Blood Urine WBC (Auto) U Epithel Cells (Auto) 11/07/21 11/08/21 11/08/21 23:09 06:18 11:43 MCV MCH [place] % (Auto) [place] # (Auto) Sodium Potassium Chloride Creatinine Glucose POC Glucose 140 H 124 H 170 H Hemoglobin A1c Magnesium Urine Blood Urine WBC (Auto) U Epithel Cells (Auto) 11/08/21 11/09/21 11/09/21 16:29 00:03 05:13 MCV MCH [place] % (Auto) [place] # (Auto) Sodium Potassium Chloride Creatinine Glucose POC Glucose 167 H 138 H 157 H Hemoglobin A1c Magnesium Urine Blood Urine WBC (Auto) U Epithel Cells (Auto) 11/09/21 11/09/21 11/09/21 11:30 17:45 23:36 MCV MCH [place] % (Auto) [place] # (Auto) Sodium Potassium Chloride Creatinine Glucose POC Glucose 161 H 149 H 165 H Hemoglobin A1c Magnesium Urine Blood Urine WBC (Auto) U Epithel Cells (Auto) 11/10/21 11/10/21 11/10/21 04:52 12:33 17:03 MCV MCH [place] % (Auto) [place] # (Auto) Sodium Potassium Chloride Creatinine Glucose POC Glucose 165 H 154 H 113 H Hemoglobin A1c Magnesium Urine Blood Urine WBC (Auto) U Epithel Cells (Auto) 11/10/21 11/11/21 11/11/21 23:41 04:46 11:22 MCV MCH [place] % (Auto) [place] # (Auto) Sodium Potassium Chloride Creatinine Glucose POC Glucose 163 H 142 H 172 H Hemoglobin A1c Magnesium Urine Blood Urine WBC (Auto) U Epithel Cells (Auto) 11/11/21 11/12/21 11/12/21 16:22 00:15 06:17 MCV MCH [place] % (Auto) [place] # (Auto) Sodium Potassium Chloride Creatinine Glucose POC Glucose 150 H 148 H 177 H Hemoglobin A1c Magnesium Urine Blood Urine WBC (Auto) U Epithel Cells (Auto) Allied health notes reviewed: nursing
--- NOTE | 2021-11-12 11:57 | Discharge Summary ---
Providers - Providers Date of Admission: 10/22/21 16:20 Date of discharge: 11/12/21 Attending physician: MARAL AVELAR MD 10/22/21 16:20 Consult to Case Management [CONS] Routine Services Needed at Discharge: Other Notified:: in am Additional Physician Instructions: SNF Placement Consult to Dietitian/Nutrition [CONS] Routine Physician Instructions: Reason For Exam: Reason for Consult: Nutrition Recommendations Reason for Consult: Write/Manage Tube Feeding Occupational Therapy Evaluate and Treat [CONS] Routine Comment: Reason For Exam: Neuro deficits Physical Therapy Evaluation and Treat [CONS] Routine Comment: Reason For Exam: Neuro deficits 10/22/21 17:22 Consult to Physician [CONS] Routine Comment: noted/ livia Consulting Provider: GERALD ARTIS Physician Instructions: Reason For Exam: dypsnea 10/22/21 21:10 Speech Therapy Evaluation and Treat [CONS] Routine Reason For Exam: cva 10/23/21 08:01 Consult to Physician [CONS] Routine Comment: noted/ livia Consulting Provider: NUBIA MEJIA Physician Instructions: Reason For Exam: CVA 10/23/21 09:53 Consult to Dietitian/Nutrition [CONS] Routine Physician Instructions: Reason For Exam: Reason for Consult: Write/Manage Tube Feeding 10/26/21 08:50 Consult to Physician [CONS] Routine Comment: Consulting Provider: ZAHRA MENDES Physician Instructions: Reason For Exam: cva, ?paroxysma afib 10/26/21 14:31 Consult to Anesthesiology [CONS] Routine Consulting Provider: [facility] Reason For Exam: assist with planned BELLE 11/04/21 09:19 Physical Therapy Evaluation and Treat [CONS] Routine Comment: Reason For Exam: Debility 11/04/21 09:20 Occupational Therapy Evaluate and Treat [CONS] Routine Comment: Reason For Exam: re-evalution -ADLS Primary care physician: OIL CHANGE TECHNICIAN Hospitalization Reason for admission: cva Condition: Stable Hospital course: Hospital course: This is a 55-year-old with HTN, DM, CVA complicated by dysphagia s/p PEG tube placement, dysarthria, left hemiparesis and debility who presented to the emergency department on 10/22 via air ambulance for continued treatment. Patient was admitted to the [facility] and initiated on CIWA protocol with consults to [facility], neurology will need a cardiology. Hospital Course to Date: 10/23: Nonverbal, open eyes spontaneously, does not follow any commands with LUE paralysis/contraction. on RA, VSS. Echo and Neurology consult pending. PT/OT/Speech also consulted. PEG-tube noted, nutrition/hand weaver consulted for TF management. Pulmonary is also following. Patient presented with a harden catheter, per record history of urinary retention. Harden cath exchanged, UA pending. 10/24: SEKOU overnight. Neurology recommendations noted, orders placed for MRI brain and CTA head/Neck. Continue PT/OT/Speech, home meds resumed, and enteral nutrition initiated. UA noted, patient is asymptomatic with no leukocytosis, continue to monitor, urine culture pending. 10/25: Remains stable, mentation unchanged. CTA head/Neck noted, MRI brain/MRA head/Neck pending. Awaiting Neurology final recommendations. Continue current supportive measures. 10/26: Patient will have a BELLE, cardiology consulted per neurology recommendations, MRI/MRA/MRV pending no acute events reported overnight. Magnesium repleted. 10/27: Unable to complete BELLE as consent was not able to be obtained, [facility] contacted [facility] who declined the patient is a candidate, MRI brain and CTA chest and pelvis pending. No acute events reported overnight. 10/28: No acute overnight events. CTA chest and abdomen completed were negative studies. BELLE completed this AM, no acute findings noted. MR brain shows subacute right MCA infarction superimposed on chronic infarction. There is involvement of the lateral aspect of right temporal lobe. Large remote pontine infarction noted. No indication of recent intracranial hemorrhage or mass lesion. CM currently working on placement to SNF. Can transfer patient to floor bed. Attempted to call number in chart to update family. no response. 10/29: D/w brother Fabian Waldron [phone]. Updated him on patient clinical status. Discussed overall poor chance of regaining baseline function and current "locked in" appearance due to territory of stroke. I also discussed options of home health care if the family can support the patient versus hospice versus SNF. I also updated Fabian that thus far facilities have denied the patient due to him being out of network. He stated he would speak with his brother Tyrell regarding these updates and would also be coming to the hospital tomorrow to discuss the family's goals for the patient. Patient likely needs DOAC. Will await neuro recs re: anticoagulation. 10/30: Neurology recommends against doac. Will obtain covid pcr. Plan Family discussion today this AM with patient brother Fabian this AM re: YOAN I discussed with the patient's brother, Fabian regarding goals of care as well as the events of the patient's hospitalization. He was very much adamant that the patient go to rehab/snf and did not think hospice was the right option for his brother. I explained that thus far the patient has been declined at more than 10 facilities in the [facility]. He stated that he would be willing to help fund him should that be an issue. I notified the correctional case records supervisor about my conversation who stated they would speak with Mr Fabian. 10/31: Patient tolerating tube feed, clinically unchanged, PT recommendation is as noted below. WIll have case management consider a Personal [facility] also. PER PT Pt presents with poor rehab potential due to CVA x4 months ago with L UE and LE hypertonicity, contractures, poor isolated movements, inability to follow instructions, Left side neglect, significant impairments of coordination and strength. Pt is total assist with mobilities and high risk for falls. Recommend SNF placement for 24hr care. If pt d/c home with family, will need hospital bed, cecil lift for potential transfers. Due to pt's involuntary movements and abnormal tone, pt is high risk for falling out of a w/c. If pt d/c home, recommend 1 PT visit for pt/family training re: positioning, bed mobility. Pt is not a candidate for skilled PT at this time. Pt was left in semi fowlers, needs in reach, all lines intact, no distress, pt with involuntary movements at times. 11/01: Continue supportive care. We will plan on further discussion with the family on discharge planning anticipated in a day or 2 following this history arrangements to be in place. We will follow-up with the pending mcc facility to see if they accept him. 11/02: Patient seen and examined, discharge planning, continue supportive care, wound management, rehab. 11/03: Patient seen and examined, remains with profused encephalopathy, still with left upper hemiparesis and spontaneous non purposeful movement of bilateral lower ext and right upper ext. Awaiting safe discharge plan. I have called to speak with the brother and left my personal cell phone number for call back. 11/04: Patient seen and examined, He is able to respond to commands and Squeeze my hand on his right upper ext, He Unfortunately not following commands on the lower ext which he moves spontaneously and not on command. He continues to await safe discharge. Goals of care discussed extensively with advance care plan. He remains a full code and family will like aggresssive PT/OT/Speech therapy. 11/05: Patient seen and examined clinically stable at this time awaiting family arrangements for safe discharge. Hospital bed has been ordered for discharge to home. 11/06: Patient seen and examined awaiting discharge. Remains clinically stable. 11/07: Patient seen and examined no acute distress. Blood pressure mildly elevated with a little bit of tachycardia no difficulty breathing noted. Pain medication has been held due to attempting to see if patient can be more participatory. May need to restart as needed pain meds. Was a bit agitated today. Anticipating discharge later today. Patient will need as needed pain medication to ensure maximum participation in treatment plan. 11/08: Patient seen and examined, clinically unchanged, awaiting placement. 11/09: Patient seen and examined, clinically unchanged, awaiting placement. 11/10: Patient seen and examined. Clinically stable, unchanged. D/w CM at rounds this AM re: placmeent options and barriers to discharge. Currenlty awaiting potential acceptance at NH vs IRU vs hospice. 11/11: Seen and examined. Currently plan per family is HHC with PT. Pending med supplies/bed/equipment delivery to home. 11/12: Accepted at [facility] pending covid test. Anticipate patient will be leaving this afternoon. D/w CM this AM. Assessment and Plan: Neuro: Recent CVA complicated by dysphagia/dysarthria/left hemiparesis/debility, h/o depression, seizure disorder, Metabolic Encephalopathy secondary to CVA with left sided neglect -Neurology and CCM consulted, appreciate recommendations -Reorientation as needed -Maintain sleep-wake cycle -aspiration/seizure precautions -As needed analgesia -CT head shows old moderately sized MCA infarct the right involving the inferior frontal peritracheal regions, gangliocapsular Regions and Right Temporal Lobe, prominent Kuehner seen in the left anterior andrea, small scattered lacunar infarcts suggesting the andrea -Bilateral carotid Doppler ultrasound shows less than 50% diameter stenosis in the right and left internal carotid artery -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 There is involvement of the lateral aspect of right temporal lobe. Large remote pontine infarction noted. No indication of recent intracranial hemorrhage or mass lesion. -Lipitor, aspirin -Keppra -Aspiration/seizure precautions -Continue home Prozac -PT/OT/ST consulted -Neurochecks per protocol Cardiac: h/o HTN -Cardiology consulted, appreciate recommendations -Blood pressure monitoring per protocol -Antihypertensive regimen: Atenolol, Lozol, lisinopril -Echocardiogram shows LVEF 55%, mild diastolic dysfunction no PFO -BELLE pending per neurology recs Respiratory: NAD -CCM/ pulm consulted for dyspnea, appreciate recommendations -Supplemental oxygen as needed -Pulmonary hygiene -SPO2 monitoring GI: S/p PEG tube placement -24 hours +1285 mL -PPI -NTR consulted for tube feedings -BR: Senna : Slight hyponatremia, h/o urinary retention/obstruction -Presented with indwelling catheter which was exchanged -Monitor intake and output -Renally dose medications -Avoid nephrotoxic medications -Repeat magnesium -Trend BMP ID: NAD -Monitor WBC and temperature curve Endo: h/o DM -Avoid hypoglycemia -SSI -Accu-Cheks q. every 6 -Hemoglobin A1c 8 Heme: ? Hypercoagulable state -CTA chest and abdomen pending per neurology recommendation -Trend CBC -Transfuse hemoglobin less than 7 -SCDs to BLE while in bed #Advance care planning Disease education conducted, care plan discussed, diagnoses discussed, prognosis discussed, patient is full code, patient brother Fabian acknowledges understanding and agree with care plan, +30 minutes. Disposition: [facility] HOSPICE/MEDICAL FACILITY Final Discharge Diagnosis (Prints w/discharge instructions): CVA complicated by dysphagia/dysarthria/left hemiparesis/debility, h/o depression, seizure disorder, Metabolic Encephalopathy secondary to CVA with left sided neglect Time spent for discharge: 35 mins Core Measure Documentation - Palliative Care Palliative Care/ Comfort Measures: Hospice Care - Core Measures Any of the following diagnoses?: none Exam - Physical Exam Narrative exam: Narrative exam: General: No Apparent Distress HEENT: Positive: Mucus Membranes Dry, intermittent tracks occasionally. Follows some commands on the right side upper extremity only. Neck: Positive: trachea midline Cardiac: Positive: Reg Rate and Rhythm Lungs: Positive: Normal Breath Sounds Neuro: Positive: Other (Hemiparesis), non verbal. locked in appearance. does not follow commands. opens eyes but not purposefully following commands except upper extremity on the right side. Abdomen: Positive: Soft Skin: Negative: Rash, Suspicious Lesions, Ulceration Extremities: Present: upper extr. pulses. Absent: edema - Constitutional Vitals: Temp Pulse Resp BP Pulse Ox 97.8 F 101 H 18 144/93 97 11/12/21 08:18 11/12/21 08:18 11/12/21 08:18 11/12/21 08:18 11/12/21 10:00 Plan Plan of Treatment: seizure precautions Follow up with: MOUNIKA,AMELIEATE LANCE [Referring] - 7 Days TRACEY FUENTES MD [Staff Physician] - 7 Days Prescriptions: AtorvaSTATin [Lipitor] 80 mg FEEDTUBE QHS #30 tablet Sennosides Oral Liqd [Senokot] 8.8 mg FEEDTUBE QHS #60 ml Aspirin 325 mg PO QDAY #30 tablet bisacodyL [Dulcolax suppos] 10 mg CA QDAY PRN #30 supp.rect PRN Reason: Constipation levETIRAcetam [Keppra] 250 mg FEEDTUBE BID #120 ml Insulin Glargine [Lantus VIAL] 20 units SUB-Q QPM #10 ml Indapamide [Lozol] 5 mg FEEDTUBE QDAY #60 tablet oxyCODONE /ACETAMINOPHEN [Percocet 5/325 mg] 1 tab PO Q12H PRN #10 tablet PRN Reason: Pain, Moderate (4-6) Lansoprazole Solutab [Prevacid Solutab] 30 mg FEEDTUBE QPM #30 tab.rapdis FLUoxetine [Prozac] 10 mg FEEDTUBE QDAY #60 ml atenoloL [Tenormin] 50 mg FEEDTUBE QDAY #30 tablet lisinopriL [Zestril TAB] 5 mg FEEDTUBE QDAY #30 tablet Sodium Phosphate,[place]-Dibasic [Enema Ready To Use] 133 ml RC Q72HR #7 enema
[2021-11-12 12:00] VITALS: BP 113/77
== END 2021-11-12 18:55 | DRG 64 ==
LOC: ED 15:32 → IMCU 16:20 → 4A 10-29 01:02
PROVIDERS: ADMIT Internal Medicine; ATTEND Internal Medicine
DX: I63.511 Cerebral infarction due to unspecified occlusion or stenosis of right middle cerebral artery (principal); G93.41 Metabolic encephalopathy; E87.1 Hypo-osmolality and hyponatremia; G81.94 Hemiplegia, unspecified affecting left nondominant side; Z20.822 Contact with and (suspected) exposure to COVID-19; E11.9 Type 2 diabetes mellitus without complications; I10 Essential (primary) hypertension; R33.9 Retention of urine, unspecified; G40.909 Epilepsy, unspecified, not intractable, without status epilepticus; R13.12 Dysphagia, oropharyngeal phase; R53.81 Other malaise; Z83.3 Family history of diabetes mellitus; Z82.49 Family history of ischemic heart disease and other diseases of the circulatory system; E78.5 Hyperlipidemia, unspecified; N13.9 Obstructive and reflux uropathy, unspecified; E83.42 Hypomagnesemia; F32.A Depression, unspecified
CPT/HCPCS: 36415; 70450; 70496; 70498; 70553; 71045; 71275; 74175; 80048; 80053; 80061; 81001; 82962; 83036; 83735; 84100; 84439; 84443; 85025; 85027; 85610; 85730; 87116; 87641; 90732; 93005; 93306; 93312; 93320; 93325; 93880; 94640; G0378; J3490; Q9967; A9575; C8929; J0696; J1630; J1644; J1815; J2060; J2250; J2370; J2704; J3475; U0003